=== PATIENT | female | born 1950 | race Caucasian/White ===

== ENCOUNTER 2018-04-08 16:45 | Outpatient (RCR) | payer OTHER, SELFPAY ==
--- NOTE | 2018-04-02 14:32 | PT.OTN ---
Addendum entered and electronically signed by Lavern Ortiz, PT 04/02/18 17:51: Transition note: On March 30, 2018 our therapy services consisting of Speech, Occupational, and Physical Therapy transitioned from the [employer] electronic documentation system to a new [email or web address] electronic documentation system.?? All documentation prior to March 30 can be found under [employer] saved data. From March 30 forward all medical record documentation will be in [email or web address]. Original Note: Current Diagnoses Lesion of sciatic nerve, left lower limb (04/02/18) Other forms of scoliosis, site unspecified (04/02/18) Collapsed vertebra, not elsewhere classified, thoracic region, subsequent encounter for fracture with routine healing (04/02/18) Radiculopathy, lumbar region (04/02/18) Wedge compression fracture of third lumbar vertebra, sequela (04/02/18) Physical Therapy Treatment Note PT-OP-A Visit Information Start: 04/02/18 14:19 Freq: Status: Active Protocol: Activity Type Activity Date Activity User E-Sign Co-Sign Detail Recorded Client Recorded Date Recorded By Document 04/02/18 14:20 DCW [id number] 04/02/18 14:32 DCW 04/02/18 14:20 Out-Patient Physical Therapy Visit Information [Visit Information] -Visit Type Treatment Note -Visit Start Time 13:45 -Visit Stop Time 14:25 -Total Visit Minutes 40 -Visit Number 4 -Number of NAIL FEEDER Visits 0 [Evaluation Information] -Evaluation Date 01/28/18 PT-OP-C Subjective Start: 04/02/18 14:19 Freq: Status: Active Protocol: Activity Type Activity Date Activity User E-Sign Co-Sign Detail Recorded Client Recorded Date Recorded By Document 04/02/18 14:20 DCW [id number] 04/02/18 14:30 DCW 04/02/18 14:20 OP-PT Subjective [Patient Comments] -Patient Comments I'm doing good ...well, I'm doing better. Some days my leg is more numb than others, and today is a good day. -Patient Reported Progress Improving PT-OP-Q Treatments Start: 04/02/18 14:19 Freq: Status: Active Protocol: Activity Type Activity Date Activity User E-Sign Co-Sign Detail Recorded Client Recorded Date Recorded By Document 04/02/18 14:20 DCW [id number] 04/02/18 14:30 [facility] 04/02/18 14:20 Therapeutic Exercises [Supine Exercises] 3 -Supine Exercise Name Houx-ma-Migqx -Side left -Equipment Used 2 2 -Supine Exercise Name Manual Hamstring Stretch -Side left -Equipment Used 2 1 -Supine Exercise Name Piriformis Figure-4 stretch -Side left -Equipment Used 2 [Sidelying Exercises] 3 -Sidelying Exercise Name Hip Abduction -Side left -Reps/Minutes x10 2 -Sidelying Exercise Name Reverse Clam Shells -Side left -Reps/Minutes x10 1 -Sidelying Exercise Name Clam Shells -Side left -Reps/Minutes x10 Manual Therapy Treatment [Soft Tissue Mobilization] 1 -Body Location Piriformis -Mobilization Type Myofascial Release Strumming Sustained Pressure -Intensity/Depth Deep -Body Position Sidelying PT-OP-R Modalities Start: 04/02/18 14:19 Freq: Status: Active Protocol: Activity Type Activity Date Activity User E-Sign Co-Sign Detail Recorded Client Recorded Date Recorded By Document 04/02/18 14:20 [facility] [id number] 04/02/18 14:30 [facility] 04/02/18 14:20 Ultrasound Therapy [Treatment] Posterior Hip -Treatment Duration (minutes) 8 -Patient Position Sidelying -Coupling Medium Ultrasound Gel -Frequency Setting (mHz) 1 -Mode Setting Continuous -Intensity Setting (w/cm2) 1.0 -Patient Tolerance Good PT-OP-T Assessment and Plan Start: 04/02/18 14:19 Freq: Status: Active Protocol: Activity Type Activity Date Activity User E-Sign Co-Sign Detail Recorded Client Recorded Date Recorded By Document 04/02/18 14:20 [facility] [id number] 04/02/18 14:30 [facility] 04/02/18 14:20 Physical Therapy Assessment [Rehab Potential] -Rehabilitation Potential Excellent [Assessment Summary] -Assessment Pt reports less frequent and less severe symptoms in her leg, and notes she has been able to more around with less discomfort . Pt does admit that she always feels much better following her appointments, but acknowledges that she has not been coming regularly enough to take advantage of the benefit. She notes she will try to come more often now. Physical Therapy Plan [Frequency and Duration] -Frequency of Treatment 2x/Week -Plan of Care Start Date 01/28/18 -Plan of Care End Date 04/07/18 [Therapeutic Interventions] -Therapeutic Interventions Home Exercise Program Joint Mobilizations Manual Therapy Neuromuscular Re-education Soft Tissue Mobilization Therapeutic Activities Therapeutic Exercises -Modalities Cold Pack/Ice Massage Electric Stimulation Hot Packs Ultrasound [Next Visit Focus/Plan] -Next Visit Plan Plan to continue piriformis manual and ultrasound treatment, with addition of core strengthening and posture training.
--- NOTE | 2018-04-08 18:00 | PT.OTN ---
Current Diagnoses Lesion of sciatic nerve, left lower limb (04/08/18) Other forms of scoliosis, site unspecified (04/08/18) Collapsed vertebra, not elsewhere classified, thoracic region, subsequent encounter for fracture with routine healing (04/08/18) Radiculopathy, lumbar region (04/08/18) Wedge compression fracture of third lumbar vertebra, sequela (04/08/18) Physical Therapy Treatment Note PT-OP-A Visit Information Start: 04/02/18 14:19 Freq: Status: Active Protocol: Document 04/08/18 16:45 DCW (Rec: 04/08/18 17:54 DCW [id number]) Out-Patient Physical Therapy Visit Information Visit Information Visit Type Progress Note Visit Start Time 16:45 Visit Stop Time 17:15 Total Visit Minutes 30 Visit Number 5 Number of MANAGER MEDIA Visits 0 Evaluation Information Evaluation Date 01/28/18 PT-OP-C Subjective Start: 04/02/18 14:19 Freq: Status: Active Protocol: Document 04/08/18 16:45 DCW (Rec: 04/08/18 17:54 DCW [id number]) OP-PT Subjective Patient Comments Patient Comments Pt notes she is pretty good today, but requests that her appointment end 15 minutes early, as she is going out of town, and needs to leave as soon as possible to make it to [place] in time. Patient Reported Progress Improving PT-OP-F Manual Assessment Start: 04/02/18 14:19 Freq: Status: Active Protocol: Document 04/08/18 16:45 DCW (Rec: 04/08/18 17:58 DCW [id number]) Manual Assessments Soft Tissue Assessment Soft Tissue Mobility Assessment L Erector Spinae and QL tenderness with palpation - 1/ 5, Complaint of pain L Piriformis tenderness with palpation - 3/5, Wincing and Withdrawal PT-OP-J Posture/Palpation/Skin Start: 04/02/18 14:19 Freq: Status: Active Protocol: Document 04/08/18 16:45 DCW (Rec: 04/08/18 17:58 DCW [id number]) Posture Evaluation Position Sitting Head/C-Spine Posture Forward Head Shoulder Posture (L) Rounded (R) Rounded PT-OP-L Special Tests Start: 04/02/18 14:19 Freq: Status: Active Protocol: Document 04/08/18 16:45 DCW (Rec: 04/08/18 17:56 DCW [id number]) Special Tests Lumbar Spine Special Tests Straight Leg Raise Test Results Left Ipsilateral pain at 50 degrees PT-OP-M Strength Start: 04/02/18 14:19 Freq: Status: Active Protocol: Document 04/08/18 16:45 DCW (Rec: 04/08/18 17:56 DCW [id number]) Trunk Strength Trunk Manual Muscle Testing Core Stabilization TrA MMT 4-/5 PT-OP-Q Treatments Start: 04/02/18 14:19 Freq: Status: Active Protocol: Document 04/08/18 16:45 DCW (Rec: 04/08/18 17:54 DCW [id number]) Manual Therapy Treatment Soft Tissue Mobilization 2 Body Location Thoracic Paraspinals Mobilization Type Myofascial Release Sustained Pressure Trigger Point Release Intensity/Depth Moderate Body Position Sidelying 1 Body Location Piriformis Mobilization Type Myofascial Release Strumming Sustained Pressure Intensity/Depth Deep Body Position Sidelying PT-OP-R Modalities Start: 04/02/18 14:19 Freq: Status: Active Protocol: Document 04/08/18 16:45 DCW (Rec: 04/08/18 17:54 DCW [id number]) Ultrasound Therapy Treatment Posterior Hip Treatment Duration (minutes) 8 Patient Position Sidelying Coupling Medium Ultrasound Gel Frequency Setting (mHz) 1 Mode Setting Continuous Intensity Setting (w/cm2) 1.0 Patient Tolerance Good PT-OP-T Assessment and Plan Start: 04/02/18 14:19 Freq: Status: Active Protocol: Document 04/08/18 16:45 DCW (Rec: 04/08/18 17:54 DCW [id number]) Physical Therapy Assessment Rehab Potential Rehabilitation Potential Excellent Goals Four Impairment Rounded Shoulders Short Term Goal (STG) Pt to decrease forward head/ rounded shoulders to WNL Three Impairment Core Weakness Hand Touch Up Painter Goal (LTG) Pt to display 4+/5 MMT in Transverse Abdominals Two Impairment Tenderness to palpation Hand Touch Up Painter Goal (LTG) Pt to report no tenderness to palpation in her left erector spinae, piriformis, and QL LTG Duration 4 weeks One Impairment Pain Short Term Goal (STG) Pt to report being able to lift grandson with no LE numbness STG Duration 2 weeks Hand Touch Up Painter Goal (LTG) Pt to report ability to hike 1 .5 hours without increased pain LTG Duration 4 weeks Progress Towards Goals Progress Towards Goals Progressing Toward Goals Assessment Summary Assessment Due to patient's request for an early release form therapy, planned posture training and core strengthening was not addressed today. Pt did complain of some new thoracic pain, which responded well to STM. Physical Therapy Plan Frequency and Duration Frequency of Treatment 2x/Week Duration of Treatment 8 weeks Plan of Care Start Date 04/08/18 Plan of Care End Date 06/02/18 Therapeutic Interventions Therapeutic Interventions Home Exercise Program Joint Mobilizations Manual Therapy Neuromuscular Re-education Soft Tissue Mobilization Therapeutic Activities Therapeutic Exercises Modalities Cold Pack/Ice Massage Electric Stimulation Hot Packs Ultrasound Next Visit Focus/Plan Next Visit Plan Plan to continue piriformis manual and ultrasound treatment, with addition of core strengthening and posture training.
--- NOTE | 2018-04-09 08:31 | PT.OPPOC ---
Current Diagnoses Lesion of sciatic nerve, left lower limb (04/08/18) Other forms of scoliosis, site unspecified (04/08/18) Collapsed vertebra, not elsewhere classified, thoracic region, subsequent encounter for fracture with routine healing (04/08/18) Radiculopathy, lumbar region (04/08/18) Wedge compression fracture of third lumbar vertebra, sequela (04/08/18) Provider Visit Care Team Role Provider Type Jenni Miller MD Attending Provider Physician Family Provider Primary Care Provider Specialty: Family Practice Address: [address] [place] [address] Email: [email or web address] Plan Of Care PT-OP-T Assessment and Plan Start: 04/02/18 14:19 Freq: Status: Active Protocol: Document 04/08/18 16:45 DCW (Rec: 04/08/18 17:54 DCW [id number]) Physical Therapy Assessment Rehab Potential Rehabilitation Potential Excellent Goals Four Impairment Rounded Shoulders Short Term Goal (STG) Pt to decrease forward head/ rounded shoulders to WNL Three Impairment Core Weakness Publicity Writer Goal (LTG) Pt to display 4+/5 MMT in Transverse Abdominals Two Impairment Tenderness to palpation Publicity Writer Goal (LTG) Pt to report no tenderness to palpation in her left erector spinae, piriformis, and QL LTG Duration 4 weeks One Impairment Pain Short Term Goal (STG) Pt to report being able to lift grandson with no LE numbness STG Duration 2 weeks Publicity Writer Goal (LTG) Pt to report ability to hike 1 .5 hours without increased pain LTG Duration 4 weeks Progress Towards Goals Progress Towards Goals Progressing Toward Goals Assessment Summary Assessment Due to patient's request for an early release form therapy, planned posture training and core strengthening was not addressed today. Pt did complain of some new thoracic pain, which responded well to STM. Physical Therapy Plan Frequency and Duration Frequency of Treatment 2x/Week Duration of Treatment 8 weeks Plan of Care Start Date 04/08/18 Plan of Care End Date 06/02/18 Therapeutic Interventions Therapeutic Interventions Home Exercise Program Joint Mobilizations Manual Therapy Neuromuscular Re-education Soft Tissue Mobilization Therapeutic Activities Therapeutic Exercises Modalities Cold Pack/Ice Massage Electric Stimulation Hot Packs Ultrasound Next Visit Focus/Plan Next Visit Plan Plan to continue piriformis manual and ultrasound treatment, with addition of core strengthening and posture training. Plan of Care Dates Plan of Care Start Date 04/08/18 Plan of Care End Date 06/02/18 Please Sign and Return: I have reviewed this Plan of Care and certify that the skilled therapy services above are required to meet the patient???s needs. Physician Signature Date Printed Name and Credentials
--- NOTE | 2018-06-03 12:35 | PT.OPDS ---
Current Diagnoses Lesion of sciatic nerve, left lower limb (04/08/18) Other forms of scoliosis, site unspecified (04/08/18) Collapsed vertebra, not elsewhere classified, thoracic region, subsequent encounter for fracture with routine healing (04/08/18) Radiculopathy, lumbar region (04/08/18) Wedge compression fracture of third lumbar vertebra, sequela (04/08/18) Provider Visit Care Team Role Provider Type Jenni Miller MD Attending Provider Physician Family Provider Primary Care Provider Specialty: [facility] Practice Address: [address] [place] [address] Email: [email or web address] Visit Number Visit Number 5 Discharge Summary PT-OP-F Manual Assessment Start: 04/02/18 14:19 Freq: Status: Active Protocol: Document 04/08/18 16:45 DCW (Rec: 04/08/18 17:58 DCW [id number]) Manual Assessments Soft Tissue Assessment Soft Tissue Mobility Assessment L Erector Spinae and QL tenderness with palpation - 1/ 5, Complaint of pain L Piriformis tenderness with palpation - 3/5, Wincing and Withdrawl PT-OP-J Posture/Palpation/Skin Start: 04/02/18 14:19 Freq: Status: Active Protocol: Document 04/08/18 16:45 DCW (Rec: 04/08/18 17:58 DCW [id number]) Posture Evaluation Position Sitting Head/C-Spine Posture Forward Head Shoulder Posture (L) Rounded (R) Rounded PT-OP-L Special Tests Start: 04/02/18 14:19 Freq: Status: Active Protocol: Document 04/08/18 16:45 DCW (Rec: 04/08/18 17:56 DCW [id number]) Special Tests Lumbar Spine Special Tests Straight Leg Raise Test Results Left Ipsilateral pain at 50 degrees PT-OP-M Strength Start: 04/02/18 14:19 Freq: Status: Active Protocol: Document 04/08/18 16:45 DCW (Rec: 04/08/18 17:56 DCW [id number]) Trunk Strength Trunk Manual Muscle Testing Core Stabilization TrA MMT 4-/5 PT-OP-T Assessment and Plan Start: 04/02/18 14:19 Freq: Status: Active Protocol: Document 06/03/18 12:31 DCW (Rec: 06/03/18 12:35 DCW [id number]) Physical Therapy Assessment Goals Four Impairment Rounded Shoulders Short Term Goal (STG) Pt to decrease forward head/ rounded shoulders to WNL Three Impairment Core Weakness Poultry Breeder Goal (LTG) Pt to display 4+/5 MMT in Transverse Abdominals Two Impairment Tenderness to palpation Poultry Breeder Goal (LTG) Pt to report no tenderness to palpation in her left erector spinae, piriformis, and QL LTG Duration 4 weeks One Impairment Pain Short Term Goal (STG) Pt to report being able to lift grandson with no LE numbness STG Duration 2 weeks Poultry Breeder Goal (LTG) Pt to report ability to hike 1 .5 hours without increased pain LTG Duration 4 weeks Progress Towards Goals Progress Towards Goals Progressing Toward Goals Assessment Summary Assessment Pt did not schedule any follow -up visits following her last scheduled appointment, and has now not been seen in therapy in 55 days. Pt will require a new referral in order to return to PT, and will be discharged from skilled therapy at this time. G-codes: Goal: G8982 - CI 1-20% D/C: G8983 - C1 1-20%
== END 2018-08-18 14:10 ==
LOC: PHYS 16:45
PROVIDERS: Family Provider Family Medicine; PCP Family Medicine; Visit Provider Family Medicine
DX: M54.16 Radiculopathy, lumbar region (principal); M48.54XD Collapsed vertebra, not elsewhere classified, thoracic region, subsequent encounter for fracture with routine healing; S32.030S Wedge compression fracture of third lumbar vertebra, sequela; M41.80 Other forms of scoliosis, site unspecified; G57.02 Lesion of sciatic nerve, left lower limb
CPT/HCPCS: 97035; 97110; 97140

== ENCOUNTER → 2018-05-14 14:57 | Outpatient (CLI) | payer OTHER, SELFPAY ==
[2018-05-14 15:26] LABS: Add Manual Diff / Slide Review NO; Basophils Percent Auto 0.8 % (0-2); Eosinophils Percent Auto 1.8 % (2-4); Hematocrit 36.4 % (36-46); Hemoglobin 12.3 g/dL (12.0-16.0); Lymphocytes Percent Auto 28.4 % (25-40); Mean Corpuscular HGB Conc 33.9 % (30-36); Mean Corpuscular Volume 88.5 fL (80-100); Monocytes Percent Auto 6.8 % (3-14); Neutrophils Absolute Auto 3700 /uL (3000-5900); Neutrophils Percent Auto 62.2 % (50-75); Platelet Count 310 X10^3/uL (150-400); Red Blood Cell Count 4.12 X10^6/uL (4.0-5.2); Red Cell Distribution Width 12.9 % (11.6-14.8); White Blood Cell Count 5.9 X10^3/uL (4.5-11.0)
== END ==
PROVIDERS: Family Provider Family Medicine; PCP Family Medicine; Visit Provider Specialist
DX: Z01.818 Encounter for other preprocedural examination (principal)
CPT/HCPCS: 36415; 85025

== ENCOUNTER 2018-05-18 15:10 | Observation (INO) | payer OTHER, SELFPAY ==
[2018-05-11 09:49] VITALS: BMI 30.4
[2018-05-17] VITALS (13 sets, daily range): BP systolic 138–174; BP diastolic 62–97; PULSE 58–94; RESP 10–18; TEMP 36.1–37.5; O2SAT 92–99; BMI 30.4
--- NOTE | 2018-05-17 | PATH_ITS ---
[facility] Accession Number: [id number] . 01 Material submitted: . UTERUS AND CERVIX . 02 Diagnosis: Uterus and Cervix, Hysterectomy Not Otherwise Specified (Weight 423 grams): Cervix and endocervix with prominent Nabothian gland cysts; negative for squamous and glandular dysplasia and malignancy. Weakly proliferative endometrium with focal cystic atrophy; negative for glandular hyperplasia, cytologic atypia, and malignancy. Myometrium with one intramural leiomyoma (9 mm in greatest dimension). Uterine serosa with no diagnostic abnormality. 05/20/2018 . 02 Electronically signed: . Natalia Harrell MD, Pathologist NPI- [id number] . 01 Gross description: . Received in formalin, labeled uterus + cervix, is a uterus (423 g, 3.3 cm AP, 8.5 cm SI, 3.9 cm ML). The ovaries and fallopian tubes are absent. The cervix (1.3 cm AP, 2.3 cm ML) has a vaginal cuff (up to 1.7 cm in depth), transverse os, and patent endocervical canal. The endometrium (average thickness - 0.1 cm) is feliciano-pink, smooth, and flat. The myometrium (thickness - 1.5 cm) is feliciano-white and contains a solid, firm, white, whorled, well-circumscribed nodule (0.9 x 0.6 x 0.5 cm). The serosa is feliciano, smooth, and shiny. Section code: (A1) anterior cervix; (A2) posterior cervix; (A3, A4) anterior endomyometrium; (A5, A6) posterior endomyometrium. ([id number]) /FRR . 02 Pathologist provided ICD-10: N85.00 . 02 CPT . [id number] Performed at: 01 [facility] [address] [place] [address], [place], [place] [id number] MD Allan Carmona MD Phone: [phone] Performed at: 02 [facility] [place] [address] [place], [place] [id number] MD Sudheer Hall MD Phone: [phone]
[2018-05-17] MEDS: LACTATED RINGERS 1,000 ML 42 ML IV ×2 (12:49→15:11)
--- NOTE | 2018-05-17 13:00 | PM.PREOP ---
Pre-operative Note Interval Note Pre-op Check: History & Physical Reviewed by Physician and Exam Performed
[2018-05-17] MEDS: CEFAZOLIN 2 GM/100 ML FROZ.PIGGY IV (13:09)
--- NOTE | 2018-05-17 13:36 | SUR.OPER ---
Lithotomy on padded OR bed, head on pillow, arms secured on padded arm boards at <90 degrees abduction. Legs secured in padded yellow fins stirrups.
[2018-05-17] MEDS: BUPIVACAINE 0.5% W/ EPI (PF) 30 ML VIAL INJ (13:53)
[2018-05-17] MEDS: SODIUM CHLORIDE 0.9% 50 ML INJ (14:15)
--- NOTE | 2018-05-17 15:18 | P.OP_ITS ---
Operative Date/Time/Diagnoses - Date of procedure: 05/17/18 Time of procedure: 15:17 Pre-op diagnosis: Symptomatic uterovaginal prolapse Post-op diagnosis: same Procedure & Clinicians Procedure: Total vaginal hysterectomy, anterior repair, sacral spinous ligament fixation. Same procedure as scheduled: Yes Indications: Symptomatic uterovaginal prolapse Surgeon: Mitzi Welsh Gasser Machine Operator: Jenni Miller Anesthesia Type: General Operative Notes Findings: Small uterus with minimal prolapse with large cystocele no rectocele. Ovaries palpate normal. Closure Type: primary Specimen(s): other (Uterus) Applied: catheter and other (Vaginal packing) Estimated Blood Loss (mL): 75 Blood products transfused: none Procedure in detail: Patient was brought to the operating room where she was placed in yellowfin stirrups and prepped and draped in the usual sterile fashion. A 20 point check system was reviewed prior to the beginning of the case. Pulsatile stockings were in place and functional throughout the case. Warming was in place. Antibiotics were and prior to beginning of the case. A Meier catheter was placed. A single-tooth tenaculum was placed on the posterior lip of the cervix and a colpotomy incision was made. The peritoneum was sutured to the posterior vaginal wall. The uterosacral ligaments were clamped cut and ligated with 0 Polysorb suture which was used throughout the rest the case unless otherwise indicated. Bites were taken of the cardinal ligament and cut and ligated. A scalpel was used to circumscribe the cervix and the bladder pushed superiorly. The bladder pillars were clamped cut and ligated. Keeping the bladder pushed superiorly sequential bites were taken of the cardinal and broad ligaments and ligated.. Anterior colpotomy incision was made and the bladder held away from the uterus. The rest of the attachments of the uterus including the broad ligament and the utero-ovarian ligaments were clamped and ligated with with 0 Vicryl suture. The uterus was removed intact. Adequate hemostasis was noted. A dilute solution of 1% lidocaine with epinephrine was injected over this cystocele. An incision was made over the cystocele and the incision dissected laterally. A pursestring suture was used to decrease the caliber of the cystocele with 2-0 Polysorb suture. Plicating sutures were made over the cystocele with 0 followed by 2 0 Polysorb suture. The incision was closed with 2 -0 Polysorb suture. The vaginal cuff was closed with [id number] sutures of 0 Polysorb suture. The area over the posterior wall incision was injected with a dilute solution of 1% lidocaine with epinephrine. An incision was made with the scalpel. The dissection was undertaken laterally. Prolene suture with the Capio passer was placed through the uterosacral ligament on the right side and sutured to the underside of the vaginal cuff. A finger was placed in the rectum to be sure there were no sutures placed through the rectal mucosa. The uterosacral suture was tightened down and the vaginal incision was closed with 2-0 Polysorb suture. Vaginal packing was placed in the vagina and the Meier left in place. Counts of instruments and sponges were correct. The patient went to recovery room in good condition. Complications: none Condition: stable Disposition: Acute Care Plan for aftercare: Removal of Meier catheter and vaginal packing tomorrow morning. Checking for postvoid residual prior to discharge.
--- NOTE | 2018-05-17 15:35 | SUR.PHASEI ---
Pt denied pain but reported mild cramping. Declined pain med. C/o need to void. Catheter checked and repositioned, draining clear, yellow urine without difficulty.
--- NOTE | 2018-05-17 15:49 | SUR.PHASEI ---
Pt declined pain medication. Warm blanket applied to abdomen. Pt reported pain improved a little bit.
--- NOTE | 2018-05-17 16:11 | SUR.PHASEI ---
Report given to ROCAEL Ricardo. VS stable. Meier draining clear, light yellow urine. Small amt of pink drainage to karla-pad, pad changed. Pt tolerated ice chips.
[2018-05-17] MEDS: LACTATED RINGERS 1,000 ML 100 ML IV (16:32)
--- NOTE | 2018-05-17 17:03 | PC.NURSE ---
Admit note: 1630 admitted to from PACU accompanied by ROCAEL Banegas. Patient awake and alert, VSS, F/C secure to right leg and draining to gravity. No c/o nausea, c/o cramping lower abdominal pain, intermittent, declines pain medication, prefers warm compress to area. Changed feminine padding from PACU with pinlk tinged clear fluid. Vaginal packing visible, with no abnormal drainage or bleeding. Call light within reach, oriented to room and environment.
[2018-05-17] MEDS: KETOROLAC 30 MG/ML VIAL IV (17:26)
[2018-05-17] MEDS: HYDROCODONE/ACET 5/325 TABLET 2 TAB PO (21:26)
[2018-05-18] VITALS (8 sets, daily range): BP systolic 150–165; BP diastolic 76–92; PULSE 17–87; RESP 16–17; TEMP 36.6–37.5; O2SAT 94–100
[2018-05-18] MEDS: LACTATED RINGERS 1,000 ML 100 ML IV ×2 (02:08→13:22)
--- NOTE | 2018-05-18 04:50 | PC.NURSE ---
Addendum entered by Gina Garcia R.N. 05/18/18 06:47: At 0615 Meier and packing DC'd per orders. Pt given PRN Toradol given prior to Meier removal, pt states that she is currently having no pain. Pt reported a wave of nausea at 0600 stating that it had come on quickly but had passed. At 0640 pt had another wave of nausea with approx 100cc bile emesis. PRN Zofran given at this time. Original Note: NOC Note: Pt denied pain during assessment. IVF running as ordered. Scant drainage to karla pad, Meier cath patent draining clear yellow urine. Pt is independent with bed mobility.
[2018-05-18 05:48] LABS: Add Manual Diff / Slide Review NO; Basophils Percent Auto 0.2 % (0-2); Eosinophils Percent Auto 0.1 % (2-4); Hematocrit 35.5 % (36-46); Hemoglobin 11.9 g/dL (12.0-16.0); Lymphocytes Percent Auto 14.8 % (25-40); Mean Corpuscular HGB Conc 33.5 % (30-36); Mean Corpuscular Hemoglobin 29.6 PG (26-34); Mean Corpuscular Volume 88.2 fL (80-100); Monocytes Percent Auto 6.4 % (3-14); Neutrophils Absolute Auto 6800 /uL (3000-5900); Neutrophils Percent Auto 78.5 % (50-75); Platelet Count 293 X10^3/uL (150-400); Red Blood Cell Count 4.02 X10^6/uL (4.0-5.2); Red Cell Distribution Width 12.6 % (11.6-14.8); White Blood Cell Count 8.6 X10^3/uL (4.5-11.0)
[2018-05-18] MEDS: LEVOTHYROXINE 100 MCG TABLET PO (05:55)
[2018-05-18] MEDS: KETOROLAC 30 MG/ML VIAL IV ×2 (05:55→16:33)
[2018-05-18] MEDS: ONDANSETRON 4 MG/2 ML INJ IV (06:41)
[2018-05-18] MEDS: METOCLOPRAMIDE HCL 10 MG TABLET PO (09:48)
--- NOTE | 2018-05-18 12:14 | CM.DANOTE ---
DCP/Assessment: Reviewed chart. Patient is a 67yr old female admitted outpatient w/bed for hysterectomy. PCP is Dr. Miller. Admitting MD/surgeon is Dr. Welsh. Primary payor is [facility]. Met with patient explained CM/SW role. Patient alert and oriented during visit but currently with n/v. Patient reports that her plan is to return home when medically stable. Patient resides with family in [place]. At this time patient does not anticipate any d/c planning needs. Patient I in ADL's at baseline. P: Home when stable. D/C date unknown. EDDI [place]
--- NOTE | 2018-05-18 14:06 | PC.NURSE ---
day shift pt denied pain this shift. denied nausea at start of shift. ate about 50% of her breakfast and then vomited it back up. medicated with PO reglan. pt states she felt better after emesis and medication. ate a small amount of lunch, soup, which unfortunately she also vomited back up. Declines medication, will try to premedicate prior to eating dinner or snack later. able to urinate without issue. PVR was about 20 mlx2. IVF continue to infuse as pt is not tolerating diet. MD plans to check back later this afternoon about pt's progress.
--- NOTE | 2018-05-18 15:05 | PM.DS.1 ---
History of Present Illness Date Patient Seen: 05/18/18 Time Patient Seen: 15:06 Chief complaint: [id number] [id number] W/ANT REPAIR & FIXATION Narrative: Patient is status post vaginal hysterectomy with anterior repair and sacrospinous ligament fixation on 05/16/2018 for uterovaginal prolapse with large cystocele. Discharge Providers Primary care physician: Jenni Miller MD Discharge provider: Mitzi Welsh MD Summary Discharge Diagnosis: Status post vaginal hysterectomy with anterior repair and sacrospinous ligament fixation for partial uterovaginal prolapse cystocele predominant Hospital Course: Patient had no pain postoperative. She passed her bladder trial. She was passing gas and ambulatory. Her vital signs and hematocrit were stable. She did have difficulty with emesis with meals of unclear etiology but likely reaction to medication. Status at Discharge Functional status at discharge: independent ambulation Overall status at discharge: patient is progressing back to baseline Time Spent with Patient Less than 30 minutes Exam Vital Signs (past 8 hours): Vital Signs - 8 hr 05/18/18 08:00 05/18/18 09:35 05/18/18 12:00 Temperature 97.8 F 98.6 F Pulse Rate 83 81 Respiratory Rate 16 16 Blood Pressure 150/85 H 165/83 H Pulse Oximetry 100 100 99 05/18/18 13:00 Temperature Pulse Rate Respiratory Rate Blood Pressure Pulse Oximetry 99 Pulse Oximetry 99 Oxygen Delivery Method Room Air Narrative Exam Narrative: Patient's abdomen is soft, nontender. She has minimal vaginal bleeding. Extremities without edema and nontender. Objective Labs Result Diagrams: 05/18/18 05:23 Labs: Laboratory Results - last 24 hr 05/18/18 05:23 WBC 8.6 RBC 4.02 Hgb 11.9 L Hct 35.5 L MCV 88.2 MCH 29.6 MCHC 33.5 RDW 12.6 Plt Count 293 Neut % (Auto) 78.5 H Lymph % (Auto) 14.8 L [place] % (Auto) 6.4 Eos % (Auto) 0.1 L Baso % (Auto) 0.2 Neut # (Auto) 6800 H Discharge Plan Discharge Plan Patient Disposition: Home, Self-Care Discharge comment: Home if able to keep down dinner Discharge Med Rec/Prescriptions Prescriptions: New ondansetron 4 mg Tablet,Disintegrating 8 mg PO Q6HR PRN (Reason: Nausea) Qty: 12 RF: 0 Continue sertraline [Zoloft] 25 MG tablet 25 mg PO QDAY Qty: 30 RF: 12 levothyroxine 100 MCG tablet 100 mcg PO QAM Qty: 90 RF: 3 oxycodone-acetaminophen 5-325 mg tablet 2 tab PO Q4H PRN (Reason: pain) Qty: 30 RF: 0 naproxen sodium [Aleve] 220 mg Capsule 220 mg PO Q12H PRN (Reason: Pain (Scale Score 1-3)) RF: 0 Follow up/Referrals: Jenni Miller MD [Primary Care Provider] - Mitzi Welsh MD [Physician] - As previously scheduled (has apt 05/28/18 at 16:15) Discharge Orders: Discharge (Order); Ordered 05/18/18 Ordered By: Mitzi Welsh Provider Discharge Instructions Diet: Regular Wound Care Report to your healthcare provider any signs of infection, such as:: chills, fever and increased pain Visit Report/Discharge Packet Stand Alone Forms: Surgery Discharge Discharge Data Primary Care Provider: Jenni Miller Attending Provider: Mitzi Welsh
--- NOTE | 2018-05-18 15:09 | P.DS_ITS ---
History of Present Illness Date Patient Seen: 05/18/18 Time Patient Seen: 15:06 Chief complaint: [id number] TVH W/ANT REPAIR & FIXATION Narrative: Patient is status post vaginal hysterectomy with anterior repair and sacrospinous ligament fixation on 05/16/2018 for uterovaginal prolapse with large cystocele. Discharge Providers Primary care physician: Jenni Miller MD Discharge provider: Mitzi Welsh MD Summary Discharge Diagnosis: Status post vaginal hysterectomy with anterior repair and sacrospinous ligament fixation for partial uterovaginal prolapse cystocele predominant Hospital Course: Patient had no pain postoperative. She passed her bladder trial. She was passing gas and ambulatory. Her vital signs and hematocrit were stable. She did have difficulty with emesis with meals of unclear etiology but likely reaction to medication. Status at Discharge Functional status at discharge: independent ambulation Overall status at discharge: patient is progressing back to baseline Time Spent with Patient Less than 30 minutes Exam Vital Signs (past 8 hours): Vital Signs - 8 hr 3 05/18/18 08:00 05/18/18 09:35 05/18/18 12:00 Temperature 97.8 F 98.6 F Pulse Rate 83 81 Respiratory Rate 16 16 Blood Pressure 150/85 H 165/83 H Pulse Oximetry 100 100 99 3 05/18/18 13:00 Temperature Pulse Rate Respiratory Rate Blood Pressure Pulse Oximetry 99 Pulse Oximetry 99 Oxygen Delivery Method Room Air Narrative Exam Narrative: Patient's abdomen is soft, nontender. She has minimal vaginal bleeding. Extremities without edema and nontender. Objective Labs Result Diagrams: 05/18/18 05:23 Labs: Laboratory Results - last 24 hr 05/18/18 05:23 WBC 8.6 RBC 4.02 Hgb 11.9 L Hct 35.5 L MCV 88.2 MCH 29.6 MCHC 33.5 RDW 12.6 Plt Count 293 Neut % (Auto) 78.5 H Lymph % (Auto) 14.8 L [place] % (Auto) 6.4 Eos % (Auto) 0.1 L Baso % (Auto) 0.2 Neut # (Auto) 6800 H Discharge Plan Discharge Plan Patient Disposition: Home, Self-Care Discharge comment: Home if able to keep down dinner Discharge Med Rec/Prescriptions Prescriptions: New ondansetron 4 mg Tablet,Disintegrating 8 mg PO Q6HR PRN (Reason: Nausea) Qty: 12 RF: 0 Continue sertraline [Zoloft] 25 MG tablet 25 mg PO QDAY Qty: 30 RF: 12 levothyroxine 100 MCG tablet 100 mcg PO QAM Qty: 90 RF: 3 oxycodone-acetaminophen 5-325 mg tablet 2 tab PO Q4H PRN (Reason: pain) Qty: 30 RF: 0 naproxen sodium [Aleve] 220 mg Capsule 220 mg PO Q12H PRN (Reason: Pain (Scale Score 1-3)) RF: 0 Follow up/Referrals: Jenni Miller MD [Primary Care Provider] - Mitzi Welsh MD [Physician] - As previously scheduled (has apt 05/28/18 at 16: 15) Discharge Orders: Discharge (Order); Ordered 05/18/18 Ordered By: Mitzi Welsh Provider Discharge Instructions Diet: Regular Wound Care Report to your healthcare provider any signs of infection, such as:: chills, fever and increased pain Visit Report/Discharge Packet Stand Alone Forms: Surgery Discharge Discharge Data Primary Care Provider: Jenni Miller Attending Provider: Mitzi Welsh
[2018-05-18] MEDS: ONDANSETRON 4 MG ODT 8 MG PO (16:32)
== END 2018-05-18 18:10 | disposition home or self-care (01) ==
LOC: OR 17:11
PROVIDERS: Admitting Provider Specialist; PCP Family Medicine; Visit Provider Specialist
PROC: (CPT 58260; principal; 2018-05-17 13:00)
PROC: (CPT 58260; 2018-05-17 13:00)
DX: N81.4 Uterovaginal prolapse, unspecified (principal); F41.9 Anxiety disorder, unspecified; E03.9 Hypothyroidism, unspecified
CPT/HCPCS: 58260; 57240; 36415; 57282; 85025; G0378; J0690; J1100; J1885; J2405; J2704

== ENCOUNTER → 2018-11-11 16:07 | Outpatient (CLI) | payer OTHER, SELFPAY ==
[2018-09-17 15:09] VITALS: BMI 30.4
--- NOTE | 2018-11-11 16:10 | DI.RAD.S_ITS ---
PROCEDURE: XR KNEE LT 3V INDICATIONS: L knee pain TECHNIQUE: 3 views of the knee were acquired. COMPARISON: None. FINDINGS: Bones: Moderate tricompartment osteoarthritis is seen more prominent in the medial femorotibial compartment. No fractures or dislocations. No significant patellar subluxation. No suspicious bony lesions. Soft tissues: No joint effusion. No suspicious soft tissue calcifications. IMPRESSION: Moderate tricompartment osteoarthritis more prominent in medial femorotibial compartment. Dictated by: Andre Peña M.D. on 11/11/2018 at 16:46 Approved by: Andre Peña M.D. on 11/11/2018 at 16:51
== END ==
PROVIDERS: PCP Family Medicine; Visit Provider Family Medicine
DX: M25.562 Pain in left knee (principal); M17.12 Unilateral primary osteoarthritis, left knee; E03.9 Hypothyroidism, unspecified; E55.9 Vitamin D deficiency, unspecified; I10 Essential (primary) hypertension; M41.80 Other forms of scoliosis, site unspecified; S32.030S Wedge compression fracture of third lumbar vertebra, sequela; Z78.0 Asymptomatic menopausal state
CPT/HCPCS: 73562

== ENCOUNTER → 2018-11-12 07:23 | Outpatient (CLI) | payer OTHER, SELFPAY ==
[2018-09-17 15:09] VITALS: BMI 30.4
[2018-11-12 08:56] LABS: Add Manual Diff / Slide Review NO; Eosinophils Percent Auto 2.9 % (2-4); Hematocrit 35.9 % (36-46); Hemoglobin 12.2 g/dL (12.0-16.0); Lymphocytes Percent Auto 39.8 % (25-40); Mean Corpuscular Hemoglobin 29.9 PG (26-34); Mean Corpuscular Volume 87.8 fL (80-100); Monocytes Percent Auto 8.3 % (3-14); Neutrophils Absolute Auto 1800 /uL (1500-7000); Platelet Count 296 X10^3/uL (150-400); Red Blood Cell Count 4.09 X10^6/uL (4.0-5.2); Red Cell Distribution Width 12.9 % (11.6-14.8); White Blood Cell Count 3.8 X10^3/uL (4.5-11.0)
[2018-11-12 09:35] LABS: Alanine Aminotransferase 25 IU/L (9-52); Albumin 4.1 g/dL (3.5-5.0); Albumin Globulin Ratio 1.5 (1.0-2.8); Alkaline Phosphatase 57 U/L (38-126); Aspartate Aminotransferase 20 IU/L (14-36); Bilirubin Total 0.5 mg/dL (0.2-1.3); Blood Urea Nitrogen 13 mg/dL (7-17); Calcium 9.4 mg/dL (8.4-10.2); Carbon Dioxide 28 mmol/L (22-32); Chloride 105 mmol/L (98-107); Cholesterol 185 mg/dL (140-199); Estimated Glomerular Filt Rate > 60.0 mL/min (>60); Globulin 2.7 g/dL (1.7-4.1); Glucose 88 mg/dL (80-110); HDL Cholesterol 50 mg/dL (40-60); HEMOLYSIS < 15 (0-50); LDL Cholesterol Calculated 113 mg/dL (<100); Potassium 4.2 mmol/L (3.4-5.1); Sodium 142 mmol/L (137-145); Total Protein 6.8 g/dL (6.3-8.2); Triglycerides 111 mg/dL (35-150)
[2018-11-12 09:41] LABS: Vitamin D 25 Hydroxy (D3) 35.6 ng/mL (30.0-100.0)
[2018-11-12 09:56] LABS: Thyroid Stimulating Hormone 0.15 uIU/mL (0.47-4.68)
== END ==
PROVIDERS: PCP Family Medicine; Visit Provider Family Medicine
DX: E03.9 Hypothyroidism, unspecified (principal); E55.9 Vitamin D deficiency, unspecified; E78.5 Hyperlipidemia, unspecified; I10 Essential (primary) hypertension; M41.80 Other forms of scoliosis, site unspecified; S32.030S Wedge compression fracture of third lumbar vertebra, sequela; Z78.0 Asymptomatic menopausal state
CPT/HCPCS: 36415; 80053; 80061; 82306; 84443; 85025

== ENCOUNTER → 2018-12-31 10:04 | Outpatient (CLI) | payer MEDICARE, SELFPAY ==
[2018-09-17 15:09] VITALS: BMI 30.4
[2018-12-31 11:25] LABS: Appearance Urine UA CLEAR; Bilirubin Urine UA NEGATIVE (NEGATIVE); Color Urine UA YELLOW; Glucose Urine UA NEGATIVE (Negative); Ketones Urine UA NEGATIVE (NEGATIVE); Leukocyte Esterase Urine UA TRACE (NEGATIVE); Nitrite Urine UA NEGATIVE (Negative); Occult Blood Urine UA 3+ (Negative); Protein Urine UA NEGATIVE (Negative); Urobilinogen Urine UA 0.2 E.U./dL (0.2); pH Urine UA 5.5 (4.5-8.0)
[2018-12-31 12:13] LABS: Bacteria Urine Many (>30); RBC Urine 1-5/HPF (0-5/HPF); WBC Urine 1-5/HPF (0-5/HPF)
[2018-12-31 12:14] LABS: Culture Indicated Urine Cult Not Indicated
== END ==
PROVIDERS: PCP Family Medicine; Visit Provider Family Medicine
DX: R39.9 Unspecified symptoms and signs involving the genitourinary system (principal)
CPT/HCPCS: 81001; 87077; 87086; 87186

== ENCOUNTER → 2019-04-29 08:36 | Outpatient (CLI) | payer MEDICARE, SELFPAY ==
[2018-09-17 15:09] VITALS: BMI 30.4
--- NOTE | 2019-04-29 08:37 | DI.MG.S_ITS ---
BILATERAL DIGITAL DIAGNOSTIC MAMMOGRAM 3D/2D: 04/29/2019 CLINICAL: Left breast pain and rash. Per technologist interview with patient: Left breast diffuse pain. Noted by the pt intially one month ago, Radiated from the axilla to the superior part of the left breast. Described as 'achy and off/on' Since the CBE, the pain has decreased. There are no lumps/discharge or skin changes noted by the pt. Pt has off/on rash in the inframmary area for several months. She uses a cortisone cream, resolves then comes back. She has some red skin noticed today.. Comparison is made to exams dated: 02/08/2016 mammogram, 12/15/2014 mammogram, and 10/13/2008 mammogram - [facility]. There are scattered fibroglandular elements in both breasts. There is no underlying mammographic abnormality to correlate with patient's reported diffuse pain of the left axilla and superior left breast. There is no underlying mammographic abnormality to correlate with patient's reported rash along the left breast inframammary fold. No significant masses, calcifications, or other findings are seen in either breast. There is a circular mole marker overlying the left breast. IMPRESSION: INCOMPLETE: NEEDS ADDITIONAL IMAGING EVALUATION 1) There is no underlying mammographic abnormality to correlate with patient's reported diffuse pain of the left axilla and superior left breast. Targeted diagnostic ultrasound recommended for further evaluation, which will be performed immediately following this exam. 2) There is no underlying mammographic abnormality to correlate with patient's reported rash along the left breast inframammary fold. Targeted diagnostic ultrasound recommended for further evaluation, which will be performed immediately following this exam. This exam was interpreted at Station ID: [id number]. NOTE: For mammograms, a report in lay terms will be sent to the patient. Approximately 15% of breast malignancies will not be visualized mammographically. In the management of a palpable breast mass, a negative mammogram must not discourage biopsy of a clinically suspicious lesion. Electronically Signed By: Sarmad Mayfield M.D. ecl/:04/29/2019 11:49:07 ACR BI-RADS Category 0: Incomplete [id number]
--- NOTE | 2019-04-29 08:37 | DI.US.S_ITS ---
LIMITED ULTRASOUND OF LEFT BREAST AND AXILLA: 04/29/2019 CLINICAL: Diffuse upper left breast and left axillary pain. Left inframammary fold rash. Comparison is made to exams dated: 04/29/2019 mammogram, 02/08/2016 mammogram, 12/15/2014 mammogram, and 10/13/2008 mammogram - [facility]. Real-time and Doppler ultrasound of the left breast upper aspect and axilla regions were performed, as well as of the left inframammary fold region in the area of the patient's reported rash. Zhang scale images of the real-time examination were reviewed. Targeted ultrasound was performed in the region of the patient's reported diffuse upper left breast and left axillary pain. No underlying breast mass or abnormality is identified. Targeted ultrasound was performed in the region of the patient's reported left inframammary fold rash. No underlying breast mass or abnormality is identified. IMPRESSION: NEGATIVE 1) No ultrasound findings to explain patient's reported diffuse upper left breast and left axillary pain. Recommend clinical follow-up for further evaluation and management of the patient's reported symptoms. 2) No ultrasound evidence of a suspicious mass or abnormality underlying the region of the patient's reported left inframammary fold rash. Recommend clinical follow-up for further evaluation and management of the patient's reported symptoms. 3) There is no sonographic evidence of malignancy in the imaged areas of the left breast. Return to annual screening mammography is recommended. The patient is advised to monitor her breasts and to return sooner for re-evaluation should she feel anything grow or change. This exam was interpreted at Station ID: [id number]. Electronically Signed By: Sarmad Mayfield M.D. ecl/:04/29/2019 11:48:33 letter sent: Clinical Evaluation Ultrasound BI-RADS: 1 Negative
== END ==
PROVIDERS: PCP Family Medicine; Visit Provider Registered Nurse
DX: R92.8 Other abnormal and inconclusive findings on diagnostic imaging of breast (principal); N64.4 Mastodynia; R21 Rash and other nonspecific skin eruption
CPT/HCPCS: 76642; 77066; G0279

== ENCOUNTER → 2019-05-10 11:38 | Outpatient (CLI) | payer MEDICARE, SELFPAY ==
[2018-09-17 15:09] VITALS: BMI 30.4
[2019-05-10 12:50] LABS: Appearance Urine UA SL CLOUDY; Bilirubin Urine UA NEGATIVE (NEGATIVE); Color Urine UA YELLOW; Glucose Urine UA NEGATIVE (Negative); Ketones Urine UA NEGATIVE (NEGATIVE); Leukocyte Esterase Urine UA 2+ (NEGATIVE); Nitrite Urine UA NEGATIVE (Negative); Occult Blood Urine UA 1+ (Negative); Protein Urine UA NEGATIVE (Negative); Urobilinogen Urine UA 0.2 E.U./dL (0.2); pH Urine UA 5.5 (4.5-8.0)
[2019-05-10 13:02] LABS: Bacteria Urine Many (>30); Culture Indicated Urine Specimen Cultured; RBC Urine 1-5/HPF (0-5/HPF); Squamous Epithelial Cell Urine 1-5 /HPF (0-5/HPF); WBC Urine >100/HPF (0-5/HPF)
== END ==
PROVIDERS: PCP Family Medicine; Visit Provider Family Medicine
DX: R30.0 Dysuria (principal); Z87.440 Personal history of urinary (tract) infections
CPT/HCPCS: 81001; 87077; 87086; 87186

== ENCOUNTER → 2019-07-15 12:37 | Outpatient (CLI) | payer MEDICARE, SELFPAY ==
[2018-09-17 15:09] VITALS: BMI 30.4
--- NOTE | 2019-07-15 | DI.MRI.S_ITS ---
PROCEDURE: MR KNEE LT WO CON INDICATIONS: Bilateral primary osteoarthritis of knee TECHNIQUE: [employer] protocol was performed. Noncontrast sagittal PD fast spin echo and T2 fast spin echo with fat saturation, sagittal 3-D FLASH with fat saturation; coronal T1 spin echo and PD fast spin echo with fat saturation, and axial PD fast spin echo with fat saturation through the knee. COMPARISON: None. FINDINGS: Image quality: Excellent. Menisci: Severe macerated tear involving the medial meniscal posterior horn and body. There is near complete extrusion. There is also marked truncation of the free margin of body of the lateral meniscus, and abnormal signal extending to the undersurface. Cruciate ligaments: The anterior and posterior cruciate ligaments appear intact. Medial structures: There is medial bowing of the medial collateral ligament, with mild internal signal changes and no complete rupture. There is adjacent soft tissue edema. The appearance could reflect reactive changes to medial compartment pathology, versus low-grade sprain of the MCL. Pes anserinus tendons appear grossly unremarkable. Semimembranosus insertional tendinopathy. Lateral structures: The lateral collateral ligament demonstrates thickening and intrasubstance signal change in keeping with sprain, although technically age indeterminate. The biceps femoris tendon demonstrates thickening and intrasubstance change at the insertion in keeping with age indeterminate tendinopathy. Popliteus tendon grossly unremarkable. Iliotibial band appears intact. Anterior structures: Quadriceps tendon intact. Mild distal patellar tendinosis. Medial and lateral patellofemoral ligaments appear grossly intact. Prepatellar and superficial infrapatellar subcutaneous edema/fluid. Bones and cartilage: No focal marrow contusion or discrete low signal fracture line. Within the medial compartment, full thickness femoral and tibial articular cartilage loss with underlying subchondral marrow edema and sclerosis. Within the lateral compartment, diffuse partial-thickness loss of the femoral and tibial articular cartilage Within the patellofemoral compartment, medial patellar facet and median patellar ridge. Intrasubstance signal change involving the medial femoral trochlear cartilage. Joint space: Moderate to large joint effusion. Edmond's cyst is noted measuring 7 cm in the cephalocaudad dimension. Possible 7 mm loose body in the intercondylar notch on image 61 series 8. IMPRESSION: Severe macerated tear of the medial meniscus posterior horn and body, with near complete extrusion. Undersurface tear involving the body of the lateral meniscus. Degenerative joint disease, with areas of full-thickness cartilage denudation as detailed above. Moderate to large joint effusion. Edmond's cyst. Subcentimeter loose body within the intercondylar notch. Additional findings as above. Dictated by: Hoang Ryder M.D. on 07/15/2019 at 13:45 Approved by: Hoang Ryder M.D. on 07/15/2019 at 14:33
== END ==
PROVIDERS: PCP Family Medicine; Visit Provider Orthopaedic Surgery
DX: M17.0 Bilateral primary osteoarthritis of knee (principal); S83.242A Other tear of medial meniscus, current injury, left knee, initial encounter; S83.282A Other tear of lateral meniscus, current injury, left knee, initial encounter; M71.22 Synovial cyst of popliteal space [Baker], left knee; M25.462 Effusion, left knee
CPT/HCPCS: 73721

== ENCOUNTER → 2019-09-12 07:31 | Outpatient (CLI) | payer MEDICARE, SELFPAY ==
[2018-09-17 15:09] VITALS: BMI 30.4
[2019-09-12 07:45] LABS: RBC Urine None Seen (0-5/HPF)
[2019-09-12 08:15] LABS: Add Manual Diff / Slide Review NO; Basophils Absolute Auto 100 /uL (0-100); Basophils Percent Auto 1.1 % (0-2); Eosinophils Absolute Auto 100 /uL (0-450); Eosinophils Percent Auto 2.3 % (2-4); Hematocrit 40.7 % (36-46); Hemoglobin 13.7 g/dL (12.0-16.0); Lymphocytes Absolute Auto 1700 /uL (1100-4500); Lymphocytes Percent Auto 38.2 % (25-40); Mean Corpuscular HGB Conc 33.7 % (30-36); Mean Corpuscular Hemoglobin 29.6 PG (26-34); Mean Corpuscular Volume 87.9 fL (80-100); Monocytes Absolute Auto 400 /uL (0-900); Monocytes Percent Auto 8.7 % (3-14); Neutrophils Absolute Auto 2300 /uL (1500-7000); Neutrophils Percent Auto 49.7 % (50-75); Platelet Count 301 X10^3/uL (150-400); Red Blood Cell Count 4.63 X10^6/uL (4.0-5.2); Red Cell Distribution Width 12.8 % (11.6-14.8); White Blood Cell Count 4.5 X10^3/uL (4.5-11.0)
[2019-09-12 08:36] LABS: BUN Creatinine Ratio 23.3 (6-22); Blood Urea Nitrogen 14 mg/dL (7-17); Carbon Dioxide 29 mmol/L (22-32); Chloride 101 mmol/L (98-107); Estimated Glomerular Filt Rate > 60.0 mL/min (>60); Glucose 90 mg/dL (80-110); HEMOLYSIS < 15 (0-50); Potassium 4.6 mmol/L (3.4-5.1); Sodium 138 mmol/L (137-145)
[2019-09-12 09:07] LABS: Hemoglobin A1C% w Est Avg Glu 5.4 % (4.0-6.0)
[2019-09-12 09:52] LABS: Appearance Urine UA CLEAR; Bilirubin Urine UA NEGATIVE (NEGATIVE); Color Urine UA YELLOW; Glucose Urine UA NEGATIVE (Negative); Ketones Urine UA NEGATIVE (NEGATIVE); Leukocyte Esterase Urine UA TRACE (NEGATIVE); Nitrite Urine UA NEGATIVE (Negative); Occult Blood Urine UA TRACE-LYSED (Negative); Protein Urine UA NEGATIVE (Negative); Specific Gravity Urine UA <=1.005 (1.000-1.035); Urobilinogen Urine UA 0.2 E.U./dL (0.2)
[2019-09-12 11:15] LABS: pH Urine UA 5.5 (4.5-8.0)
[2019-09-12 11:16] LABS: Bacteria Urine Few (2-10); Culture Indicated Urine Specimen Cultured; Squamous Epithelial Cell Urine 1-5 /HPF (0-5/HPF); WBC Urine 0-1/HPF (0-5/HPF)
== END ==
PROVIDERS: Family Provider Family Medicine; PCP Family Medicine; Visit Provider Orthopaedic Surgery
DX: Z01.818 Encounter for other preprocedural examination (principal); Z01.812 Encounter for preprocedural laboratory examination; N39.9 Disorder of urinary system, unspecified; Z13.1 Encounter for screening for diabetes mellitus; R73.9 Hyperglycemia, unspecified
CPT/HCPCS: 80048; 81001; 83036; 85025; 87086

== ENCOUNTER → 2019-10-10 16:10 | Outpatient (CLI) | payer MEDICARE, SELFPAY ==
[2018-09-17 15:09] VITALS: BMI 30.4
== END ==
PROVIDERS: Family Provider Family Medicine; PCP Family Medicine; Visit Provider Orthopaedic Surgery
DX: Z01.818 Encounter for other preprocedural examination (principal); R73.9 Hyperglycemia, unspecified; Z01.812 Encounter for preprocedural laboratory examination; N39.9 Disorder of urinary system, unspecified; Z13.1 Encounter for screening for diabetes mellitus
CPT/HCPCS: 93005

== ENCOUNTER → 2019-11-04 11:01 | Outpatient (CLI) | payer MEDICARE, SELFPAY ==
[2018-09-17 15:09] VITALS: BMI 30.4
[2019-11-04 13:04] LABS: TSH w/ Reflex to FT4 0.27 uIU/mL (0.47-4.68)
[2019-11-04 13:58] LABS: Free T4, Direct Thyroxine 1.42 ng/dL (0.78-2.19)
== END ==
PROVIDERS: PCP Family Medicine; Visit Provider Family Medicine
DX: E03.9 Hypothyroidism, unspecified (principal)
CPT/HCPCS: 36415; 84439; 84443

== ENCOUNTER → 2019-11-09 19:38 | Outpatient (CLI) | payer MEDICARE, SELFPAY ==
[2018-09-17 15:09] VITALS: BMI 30.4
== END ==
PROVIDERS: PCP Family Medicine; Visit Provider Physician Assistant
DX: R30.0 Dysuria (principal)
CPT/HCPCS: 87077; 87086; 87186

== ENCOUNTER 2019-11-17 06:08 | Inpatient (IN) | payer MEDICARE, SELFPAY ==
[2018-09-17 15:09] VITALS: BMI 30.4
[2019-11-07 07:36] VITALS: BMI 27.8
[2019-11-17] VITALS (8 sets, daily range): BP systolic 137–155; BP diastolic 69–90; PULSE 68–93; RESP 12–18; TEMP 36.3–36.8; O2SAT 99–100; BMI 27.9
--- NOTE | 2019-11-17 06:00 | DI.RAD.S_ITS ---
PROCEDURE: XR KNEE LT 1TO2V INDICATIONS: post op TECHNIQUE: 2 view(s) of the knee acquired. COMPARISON: None. FINDINGS: Bones: Patient is status post knee joint arthroplasty. Hardware components are in expected positions. Visualized bony structures are intact. Soft tissues: Overlying postoperative changes are noted. IMPRESSION: Total knee arthroplasty with prosthesis in anatomic alignment. Dictated by: Sundeep Cisneros M.D. on 11/17/2019 at 10:33 Approved by: Sundeep Cisneros M.D. on 11/17/2019 at 10:33
[2019-11-17] MEDS: VANCOMYCIN 1,000 MG/200 ML PIGGYBACK 200 MG IV (06:55)
[2019-11-17] MEDS: MELOXICAM 7.5 MG TABLET 15 MG PO (06:56)
[2019-11-17] MEDS: ACETAMINOPHEN 325 MG TABLET 975 MG PO (06:56)
[2019-11-17] MEDS: PREGABALIN 75 MG CAPSULE PO (06:56)
--- NOTE | 2019-11-17 07:43 | PM.PREOP ---
Pre-operative Note Interval Note History & Physical reviewed/Exam performed by Physician: Yes Changes to H&P: No
--- NOTE | 2019-11-17 07:43 | PM.OP.1 ---
Operative Date/Time/Diagnoses Date of procedure: 11/17/19 Time of procedure: 07:43 Pre-op diagnosis: left knee OA Post-op diagnosis: same Procedure & Clinicians Procedure: left total knee arthroplasty Same procedure as scheduled: Yes Indications: The patient has had progressively worsening left knee pain with radiographic changes consistent with arthritis. Non-operative management has failed and the patient has requested total knee replacement. The risks, benefits and alternatives to surgery were discussed with the patient prior to proceeding. Risks discussed included, but were not limited to, failure to relieve pain, stiffness, infection, nerve damage, deep venous thrombosis, pulmonary embolism, stroke, coma, heart attack, permanent paralysis and , as well as the potential need for eventual revision of the prosthetic. Surgeon: Vane Ring Pretzel Cooker: Nini Serrano Anesthesia Type: Spinal Operative Notes Findings: Severe left knee medial compartment arthritis, good stability Closure Type: primary Specimen(s): none sent Prosthetic devices, grafts, tissues, transplants, or devices: Ring and Nephew Ryanney BCS 2 size 4 femur, size 3 tibia, +9 poly, 35 by 7.5 patella Applied: drain(s) Estimated Blood Loss (mL): 250 Blood products transfused: none Tourniquet time (min): 76 Procedure in detail: The patient was seen in the pre-operative area, where the patient identified the left knee as the operative site and this was marked with my initials. The patient received pre-operative antibiotics, and was taken to the operating room and placed on the operative table in the supine position. After satisfactory anesthesia, a associate professor of music out was performed. The left leg was encircled with a tourniquet about the proximal thigh, and the leg was prepared from the toes to the tourniquet with ChloroPrep in the usual fashion and draped through sterile drapes. The leg was elevated and exsanguinated with Eschmark bandage and the tourniquet inflated to [250] mmHg pressure. The knee was approached through an approximately 18 cm incision centered over the patella and carried into the knee through a medial parapatellar arthrotomy. A portion of the medial and lateral meniscus was resected. Soft tissue was carefully mobilized around the patella the patella was measured with a caliper. Bone was resected from the patella and the patellar height was reconstituted with up an appropriate sized patellar component. A cover was then placed on the patella. A small amount of additional medial and lateral meniscus was resected. The visionare guide fit well to the distal femur. It looked like an appropriate distal femoral cut and the cut was made without difficulty. The rotation was assessed and the appropriate size femoral guide was placed on the distal femur and finishing cuts were made. There was no evidence of notching. The anterior, posterior and chamfer cuts were then made. The posterior osteophytes and soft tissues were then removed. The posterior capsule was injected with part of a mixture of 60 ml 0.25% Marcaine mixed with 20 ml Exparel for post operative pain control. The remainder of this mixture was injected into the capsule and subcutaneous tissues during cement curing. The tibia was prepared and the visionaire guide fit well to the distal tibia. The rotation was assessed. The patient was placed in extension residual medial and lateral meniscus as well as any residual bone was carefully resected. [No] additional tibia was resected. Hemostasis was achieved especially posteriorly. Additional local was injected into the posterior capsule. The extension gap was assessed and additional releases for gap balancing were performed as necessary. It was checked with the gap sports commentator. The femoral component was trial was placed and the notch was finished. Trial tibial and femoral components were then placed and the knee placed through a range of motion. Range of motion was [0-130], with good stability throughout the range. The trials were then removed, and the tibia was finished. The bone was prepared with pulsatile lavage, and dried with a sponge. Cement was applied and the final prosthetics placed. Excess cement was removed during and after cement curing. After confirming there was no extruded cement posteriorly, the final tibial insert was placed. The knee was copiously irrigated and the tourniquet deflated. Hemostasis was obtained with the Bovie cautery. A drain was placed and brought out superolaterally. The capsule was closed with interrupted Vicryl suture. The subcutaneous layer was closed with barbed sutures, and the skin with a running 3-0 V-Lock suture and Surgical glue. An Aquacel Ag dressing was applied and the patient was taken to recovery having tolerated the procedure well. Complications: none Post-operative Condition: stable Disposition: same day surgery Plan for aftercare: The patient will be maintained on a standard total knee replacement protocol with weight bearing as tolerated. The patient will receive aspirin and sequential compression devices for DVT prophylaxis. The patient will be discharged home when safe for the home environment.
[2019-11-17] MEDS: LACTATED RINGERS 1,000 ML 42 ML IV ×2 (07:44→09:41)
[2019-11-17] MEDS: SCOPOLAMINE 1 PATCH TOP (07:47)
[2019-11-17] MEDS: CEFAZOLIN 2 GM/100 ML FROZ.PIGGY IV (07:48)
[2019-11-17] MEDS: TRANEXAMIC ACID 1,000 MG VIAL 1000 MG INJ ×2 (07:49→09:32)
--- NOTE | 2019-11-17 08:19 | SUR.OPER ---
Supine on padded OR bed. Pillow under head, arms secured on padded armboards <90 degree abduction. Safety belt across torso. Non-operative leg secured with tape over blanket over lower leg. Operative leg secured in DeMayo/Vin positioner. Foam padded brace at thigh of operative leg.
[2019-11-17] MEDS: BUPIVACAINE 0.25% W/ EPI 30 ML VIAL 60 ML INJ (08:28)
[2019-11-17] MEDS: BUPIVACAINE LIPOSOME 266 MG/20 ML VIAL INJ (08:29)
[2019-11-17] MEDS: LACTATED RINGERS 1,000 ML 125 ML IV (11:40)
[2019-11-17] MEDS: IBUPROFEN 400 MG TABLET PO (12:54)
[2019-11-17] MEDS: ACETAMINOPHEN 325 MG TABLET 650 MG PO (12:57)
--- NOTE | 2019-11-17 13:30 | PT.IPTN ---
Current Diagnoses Unilateral primary osteoarthritis, left knee (11/17/19) Surgery Performed Operation Date: 11/17/19 07:45 Actual Procedures p Total Knee Arthroplasty(Left) - Vane Ring MD Physical Therapy Treatment Note M2 PT-IP Current Condition Start: 11/17/19 13:20 Freq: NEEDED Status: Discharge Protocol: Document 11/17/19 13:00 AMB (Rec: 11/17/19 13:47 AMB [email or web address]) Physical Therapy Current Condition Current Condition Evaluation Date 11/17/19 Treatment Diagnosis L TKA Onset Date 11/17/19 Weight Bearing Status Weight Bearing Status Weight Bear as Tolerated M3 PT-IP Subjective Start: 11/17/19 13:20 Freq: NEEDED Status: Discharge Protocol: Document 11/17/19 13:00 AMB (Rec: 11/17/19 13:47 AMB [email or web address]) Subjective Physical Therapy Visit Type Type Initial Evaluation Visit Start Time 13:00 Visit Stop Time 13:20 Total Visit Minutes 20 Physical Therapy Visit Comments Patient Comments Pt up in chair, has already been up to bathroom, feeling good Therapy Pain Assessment Pain When Pain Assessed During Mobility Pain Present Pain Present Pain Reported Location Left Knee Intensity 3 Scale Used Numeric (1 - 10) M4 PT-IP Mobility and Gait Start: 11/17/19 13:20 Freq: NEEDED Status: Discharge Protocol: Document 11/17/19 13:00 AMB (Rec: 11/17/19 13:47 AMB [email or web address]) PT-Bed Mobility Assessment Supine to Sit Supine to Sit Independent Sit to Supine Sit to Supine Independent Scooting Scooting to Edge of Bed Independent PT-Transfer Assessment Sit to and From Stand Sit to and from Stand Standby Assistance Equipment Transfer Assistive Device Front Wheeled Walker Transfers Transfer Destination Bed Transfer Technique Stand Step Pivot Transfer Ability Level of Assist Standby Assistance Comments Mobility Comments Pt transferred from chair to bed, needed to be reminded to use FWW, but overall doing well. Gait Assessment Gait Gait Assistance Required: Standby Assistance Distance (Feet) 50 Able to Maintain Weight Bearing Status Yes During Gait Assistive Devices Assistive Device Front Wheeled Walker Gait Deviations General Gait Pattern Antalgic Factors Limiting Gait Function Factors Limiting Gait Function Decreased Strength,Limited Range of Motion,Pain Comments Gait Comments Pt ambulated around the nurses station with good step length and step through gait. VC to avoid excessive shoulder shrug with FWW. Stair Climbing Assessment Evaluation Level of Assist On Stairs Contact Guard Assistance Devices Stair Climbing Assistive Devices Right Railing Technique/Endurance Stair Climbing Direction Ascend and Descend Stair Climbing Technique Step to Step Comments Stair Climbing Comments 1 step up and down x 4 M5 PT-IP Objective Assessments Start: 11/17/19 13:20 Freq: NEEDED Status: Discharge Protocol: Document 11/17/19 13:00 AMB (Rec: 11/17/19 13:47 AMB [email or web address]) Orientation Orientation/Cognition Level of Alertness Alert Gross Range of Motion Lower Extremity ROM Impairments grossly 0-110 degrees on surgical limb Strength Lower Extremity Strength Assessment Left Impaired Knee 3/5 grossly Sensation Assessment Comments Sensation Comments light touch grossly intact, pt denies numbness M6 PT-IP Treatment Start: 11/17/19 13:20 Freq: NEEDED Status: Discharge Protocol: Document 11/17/19 13:00 AMB (Rec: 11/17/19 15:48 AMB [email or web address]) Physical Therapy Treatment Exercises Exercises Ankle Pumps,Short Arc Quads Education Education Provided Weight Bearing Status,Post-Op Packet,Safety M7 PT-IP Assessment and Plan Start: 11/17/19 13:20 Freq: NEEDED Status: Discharge Protocol: Document 11/17/19 13:00 AMB (Rec: 11/17/19 15:48 AMB [email or web address]) PT Summary Assessment and Plan Potential Rehabilitation Potential Excellent Status of Condition at Evaluation Stable Summary Impairments Pain,ROM,Strength,Gait Assessment Summary Amy ambulated with FWW safely and with good step length. She does have four steps to enter, but was able to ascend and descend steps with 1 rail with CGA. Her daughter will be present with her in her home, and she has outpatient PT scheduled for next week. She should be safe to d/c home with family assist and outpatient PT. Goals Bed Mobility Goal Independent Transfer Goal Independent Gait Goal Standby Assistance Gait Distance 100' Other Goals Stairs x4 with one rail, CGA. Days to Meet Goals 1 Frequency of Treatment Frequency Of Treatment Twice a Day Treatment Plan Physical Therapy Treatment Plan Bed Mobility Training,Transfer Training,Gait Training, Therapeutic Exercise,Post Op Education,Neuromuscular Re-ed, Manual Therapy Recommendations To Nursing Amount of Assist Needed Standby Assistance Discharge Recommendations PT Discharge Recommendations Home with Assistance, Outpatient PT
--- NOTE | 2019-11-17 14:00 | PC.ADMIT ---
Addendum entered by Tonya Holden R.N. 11/17/19 14:23: D/c order obtained and teaching provided. F/u appt already set up , w/c to car. Addendum entered by Tonya Holden R.N. 11/17/19 14:07: 1400-Pt cleared by PT, await d/c orders from Dr Ring. Call into [facility], answering service will attempt call . Fax sent to PACU. Original Note: 1319 Issa Johnson Admission Note: The patient,Amy Martinez,69 y/o, was given written information regarding hospital policies, unit procedures and contact persons. Patient's smoking status: Never smoker. Vital Signs - 8 hr 11/17/19 06:58 11/17/19 10:06 11/17/19 10:11 Temperature 97.3 F L 97.5 F L Pulse Rate 86 88 87 Respiratory Rate 17 12 16 Blood Pressure 153/79 H 144/77 H 144/69 H Pulse Oximetry 100 99 100 11/17/19 10:16 11/17/19 10:21 11/17/19 10:28 Temperature Pulse Rate 80 93 H 89 Respiratory Rate 16 16 16 Blood Pressure 142/70 H 145/90 H 155/79 H Pulse Oximetry 100 100 99 Rec'd from PACU, Pt denies pain, Spo2 98% RA. L leg with KAITLIN wrap in place, Sensation at the L4 level now with ice check. VSS. Pt is eager to work with PT and eager to d/c JUNIOR. Education given for Post op teaching, [employer] Pt. Ibuprofen and APAP given for pain control. Pt declines oxycodone at this time.
== END 2019-11-17 14:40 | disposition home or self-care (01) | DRG 470 ==
LOC: AC 10:19 → ICU 10:32
PROVIDERS: Admitting Provider Orthopaedic Surgery; PCP Family Medicine; Visit Provider Orthopaedic Surgery
PROC: 0SRD0JZ Replacement of Left Knee Joint with Synthetic Substitute, Open Approach (ICD-10-PCS; CPT 27447; principal; 2019-11-17 07:45)
DX: M17.12 Unilateral primary osteoarthritis, left knee (principal); E03.9 Hypothyroidism, unspecified; M85.80 Other specified disorders of bone density and structure, unspecified site; M41.80 Other forms of scoliosis, site unspecified
CPT/HCPCS: 73560; 97161; C1776; C9290; J0690; J1100; J2405; J2704

== ENCOUNTER → 2019-12-20 09:40 | Outpatient (CLI) | payer MEDICARE, SELFPAY ==
[2019-12-09 08:39] VITALS: BMI 27.9
== END ==
PROVIDERS: PCP Family Medicine; Visit Provider Physician Assistant
DX: R30.0 Dysuria (principal)
CPT/HCPCS: 87086

== ENCOUNTER 2020-01-23 08:15 | Outpatient (RCR) | payer MEDICARE, SELFPAY ==
[2018-09-17 15:09] VITALS: BMI 30.4
--- NOTE | 2019-10-26 16:55 | PT.OIE ---
Current Diagnoses Bilateral primary osteoarthritis of knee (10/26/19) Unilateral primary osteoarthritis, left knee (10/26/19) Past Medical History (Last Reviewed 07/18/19 @ 14:10 by Alex Recio MD) Anxiety and depression (Chronic) Anxiety disorder, unspecified (Chronic) Chickenpox (Resolved) Compression fracture (Resolved) Dextroscoliosis (Chronic 02/11/16) Eczema (Chronic) History of recurrent UTIs (Chronic) Hypothyroid (Chronic) Hypothyroidism (Resolved) Measles (Resolved) Osteoporosis (Chronic) Other specified depressive episodes (Chronic) Seizure grand mal (Inactive ~1983) Shoulder pain (Resolved) Past Surgical History (Last Reviewed 07/18/19 @ 14:10 by Alex Recio MD) Anesthesia complication (Inactive) H/O vaginal hysterectomy (Resolved) History of bilateral tubal ligation (Inactive) History of tonsillectomy (Inactive ~1971) History of total vaginal hysterectomy (TVH) (Resolved) Status post breast biopsy (Inactive) Status post bunionectomy (Inactive) Status post tubal ligation (Inactive ~1988) Tonsillar tag (Inactive ~1976) Visit Care Team Role Provider Type Joselin Hernadez DO Family Provider Physician Primary Care Provider Specialty: Family Practice Address: [address] [place] [address], [address] Email: [email or web address] Vane Ring MD Attending Provider Physician Specialty: Orthopedic Surgery Address: [address] [place] [address], [address] Email: [email or web address] Initial Evaluation PT-OP-A Visit Information Start: 10/26/19 09:52 Freq: Status: Active Protocol: Document 10/26/19 10:42 [facility] (Rec: 10/26/19 12:12 [facility] [id number]) Out-Patient Physical Therapy Visit Information Visit Information Visit Type Initial Evaluation Visit Start Time 11:18 Visit Stop Time 12:06 Total Visit Minutes 48 Visit Number 1 Number of S IRON WORKER Visits 0 PT-OP-B Current Condition Start: 10/26/19 09:52 Freq: Status: Active Protocol: Document 10/26/19 10:42 [facility] (Rec: 10/26/19 12:12 [facility] [id number]) Current Condition History of Current Condition Onset Date 2 years Current Complaints L knee pain prior to L TKA History of Current Condition Pt has L knee pain and is planning to have L TKA 11/17 d /t pain that was nagging for the past 2 years that has gotten worse and is now bone on bone per the MD. 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 She works 3 eight hour days. Pt has a dgt that lives in town and can stay with her as long as she needs. Pt has FWW and cane at home and shower chair. Pt has a tub shower and walk in shower and has a shower chair and bars. Pt has 4 CARLTON with B railings but they are too wide to hold onto both at the same time and SLH. Pt reprots she has higher toilets in the house with sinks close by. Pt has blanket weaver, and long handle shoe horn. Pt reprots she feels like she has lost some of her quality of life d/t pain. PMH includes compression fx in back with back pain w/ Sciatic n pain, hysterectomy d/t uterus & bladder prolapse and R foot pain Prior Treatments and Tests Xrays, PT for back in past Future Testing and Treatments Planned L TKA Treatment Goals Patient/Caregiver Goals Get prepared for surgery & be back to walking & hiking PT-OP-C Subjective Start: 10/26/19 09:52 Freq: Status: Active Protocol: Document 10/26/19 10:42 [facility] (Rec: 10/26/19 16:55 [facility] [id number]) Patient Questionnaires Lower Extremity Functional Scale LEFS Score 49 LEFS Impairment 20 to 39% Impaired (Score 48- 62) PT-OP-G Mobility & Gait Start: 10/26/19 09:52 Freq: Status: Active Protocol: Document 10/26/19 10:42 [facility] (Rec: 10/26/19 12:12 [facility] [id number]) OP Gait Assessment Comments Gait Comments Dec WB into LLE and dec wt acceptance with lat leaning PT-OP-K Range of Motion Start: 10/26/19 09:52 Freq: Status: Active Protocol: Document 10/26/19 10:42 [facility] (Rec: 10/26/19 12:12 [facility] [id number]) Knee Goniometric Range of Motion Knee Left Flexion Active (degrees) 118 Extension Active (degrees) 20 Right Flexion Active (degrees) 134 Extension Active (degrees) 5 Knee ROM Limitations Knee ROM Limitations Pain Comments lacking 20 deg knee ext L PT-OP-M Strength Start: 10/26/19 09:52 Freq: Status: Active Protocol: Document 10/26/19 10:42 [facility] (Rec: 10/26/19 12:12 [facility] [id number]) Hip Strength Hip Manual Muscle Testing Left Flexion (L2) 4 Good Extension (S1) 3 Fair Abduction 4 Good Adduction 3+ Fair+ External Rotation 3+ Fair+ Internal Rotation 4- Good- Right Flexion (L2) 4+ Good+ Extension (S1) 4- Good- Abduction 4 Good Adduction 4- Good- External Rotation 3+ Fair+ Internal Rotation 4 Good Knee Strength Knee Manual Muscle Testing Left Flexion (S2) 3+ Fair+ Extension (L3) 3+ Fair+ Right Flexion (S2) 4+ Good+ Extension (L3) 4+ Good+ Ankle/Foot Strength Ankle and Foot Manual Muscle Testing Left Dorsiflexion (L4) 4 Good Plantarflexion (S1) 4+ Good+ Right Dorsiflexion (L4) 4 Good Plantarflexion (S1) 5 Normal Comments B PF tested in seated PT-OP-Q Treatments Start: 10/26/19 09:52 Freq: Status: Active Protocol: Document 10/26/19 10:42 [facility] (Rec: 10/26/19 12:12 [facility] [id number]) Therapeutic Exercises Supine Exercises 3 Supine Exercise Name quad set, SAQ, SLR, passive ext, heel slides Sitting Exercises knee flex Sitting Exercise Name seated knee flex w/scoot Reps/Minutes 10 sec Gait Training Gait Activity stairs Description 1 rail & cane w/step to pattern walker Description how to walk with walker & sequencing for step to gait PT-OP-T Assessment and Plan Start: 10/26/19 09:52 Freq: Status: Active Protocol: Document 10/26/19 10:42 [facility] (Rec: 10/26/19 12:12 [facility] [id number]) Physical Therapy Assessment Rehab Potential Rehabilitation Potential Good Evaluation Complexity Number of Personal Factors/Comorbidities 3 or More Number of Body Systems Impaired 4 or More Clinical Presentation at Evaluation Evolving Impairments Impairments Activity Tolerance,Balance, Functional Activities, Functional Mobility,Gait,Pain, Posture,ROM,Soft Tissue Mobility,Strength Goals Three Impairment surgery prep Short Term Goal (STG) Pt will be indep with program. STG Duration 10/31/19 Safety Intern Goal (LTG) Pt will be able to amb with FWW safely and ascend and descend stairs w/rail and cane safely LTG Duration 11/25/19 Assessment Summary Assessment Pt presents for pre-op appt for L TKA scheduled for 11/17. She was educated on use of walker, exercises, how to do transfers & bed mobility & how to do stair mobility. She was very receptive to all activities and information she was given today. SHe has limited ROM & strength prior to surgery and was educated on starting exercises as toleratated prior to surgery to help with these deficts and the importance of starting them after d/c from hospital in order to address ROM immedately. Pt will follow up with PT on 11/22 after L TKA and will be reassessed at this time. Physical Therapy Plan Frequency and Duration Frequency of Treatment 2x/Week Duration of Treatment 1 month Plan of Care Start Date 10/26/19 Plan of Care End Date 11/25/19 Therapeutic Interventions Therapeutic Interventions Aquatic Therapy,Balance Training,Gait Training,Home Exercise Program,Joint Mobilizations,Manual Therapy, Neuromuscular Re-education, Patient/Caregiver Education, Self-Care/Home Management,Soft Tissue Mobilization,Taping, Therapeutic Activities, Therapeutic Exercises Modalities Cold Pack/Ice Massage,Electric Stimulation,Hot Packs, Ultrasound Next Visit Focus/Plan Next Note Type Treatment Note Next Visit Plan Re-assess after TKA; pt not to be seen unless requires further edu prior to surgery
--- NOTE | 2019-10-26 16:56 | PT.OPPOC ---
Current Diagnoses Bilateral primary osteoarthritis of knee (10/26/19) Unilateral primary osteoarthritis, left knee (10/26/19) Stiffness of left knee, not elsewhere classified (10/26/19) Difficulty in walking, not elsewhere classified (10/26/19) Weakness (10/26/19) Visit Care Team Role Provider Type Joselin Hernadez DO Family Provider Physician Primary Care Provider Specialty: Family Practice Address: [address] [place] [address], [facility] [place], [address] Email: [email or web address] Vane Ring MD Attending Provider Physician Specialty: Orthopedic Surgery Address: [address] [place] [address], [place], [address] Email: [email or web address] Plan Of Care PT-OP-T Assessment and Plan Start: 10/26/19 09:52 Freq: Status: Active Protocol: Document 10/26/19 10:42 [facility] (Rec: 10/26/19 12:12 [facility] [id number]) Physical Therapy Assessment Rehab Potential Rehabilitation Potential Good Evaluation Complexity Number of Personal Factors/Comorbidities 3 or More Number of Body Systems Impaired 4 or More Clinical Presentation at Evaluation Evolving Impairments Impairments Activity Tolerance,Balance, Functional Activities, Functional Mobility,Gait,Pain, Posture,ROM,Soft Tissue Mobility,Strength Goals Three Impairment surgery prep Short Term Goal (STG) Pt will be indep with program. STG Duration 10/31/19 Fdc Goal (LTG) Pt will be able to amb with FWW safely and ascend and descend stairs w/rail and cane safely LTG Duration 11/25/19 Assessment Summary Assessment Pt presents for pre-op appt for L TKA scheduled for 11/17. She was educated on use of walker, exercises, how to do transfers & bed mobility & how to do stair mobility. She was very receptive to all activities and information she was given today. SHe has limited ROM & strength prior to surgery and was educated on starting exercises as toleratated prior to surgery to help with these deficts and the importance of starting them after d/c from hospital in order to address ROM immedately. Pt will follow up with PT on 11/22 after L TKA and will be reassessed at this time. Physical Therapy Plan Frequency and Duration Frequency of Treatment 2x/Week Duration of Treatment 1 month Plan of Care Start Date 10/26/19 Plan of Care End Date 11/25/19 Therapeutic Interventions Therapeutic Interventions Aquatic Therapy,Balance Training,Gait Training,Home Exercise Program,Joint Mobilizations,Manual Therapy, Neuromuscular Re-education, Patient/Caregiver Education, Self-Care/Home Management,Soft Tissue Mobilization,Taping, Therapeutic Activities, Therapeutic Exercises Modalities Cold Pack/Ice Massage,Electric Stimulation,Hot Packs, Ultrasound Next Visit Focus/Plan Next Note Type Treatment Note Next Visit Plan Re-assess after TKA; pt not to be seen unless requires further edu prior to surgery Plan of Care Dates Plan of Care Start Date 10/26/19 Plan of Care End Date 11/25/19
--- NOTE | 2019-11-22 12:42 | PT.OTRE ---
Current Diagnoses Bilateral primary osteoarthritis of knee (11/22/19) Unilateral primary osteoarthritis, left knee (11/22/19) Stiffness of left knee, not elsewhere classified (11/22/19) Difficulty in walking, not elsewhere classified (11/22/19) Weakness (11/22/19) Past Medical History (Last Updated 11/08/19 @ 08:15 by Joselin Hernadez DO) Anxiety and depression (Chronic) Anxiety disorder, unspecified (Chronic) Chickenpox (Resolved) Compression fracture (Resolved) Dextroscoliosis (Chronic 02/11/16) Eczema (Chronic) Essential hypertension (Acute) History of recurrent UTIs (Chronic) Hypothyroidism (Resolved) Measles (Resolved) Osteoporosis (Chronic) Other specified depressive episodes (Chronic) Seizure grand mal (Inactive ~1983) Shoulder pain (Resolved) Surgical History (Last Reviewed 11/08/19 @ 08:08 by Joselin Hernadez DO) Anesthesia complication (Inactive) History of bilateral tubal ligation (Inactive) History of tonsillectomy (Inactive ~1971) History of total vaginal hysterectomy (TVH) (Resolved 05/17/18) Status post breast biopsy (Inactive ~10/1984) Status post bunionectomy (Inactive ~1989) Status post tubal ligation (Inactive ~1988) Tonsillar tag (Inactive ~1976) Visit Care Team Role Provider Type Joselin Hernadez DO Family Provider Physician Primary Care Provider Specialty: Family Practice Address: [address] [place] [address], [address] Email: [email or web address] Vane Ring MD Attending Provider Physician Specialty: Orthopedic Surgery Address: [address] [place] [address], [id number] Email: [email or web address] Physical Therapy Re-Evaluation PT-OP-A Visit Information Start: 10/26/19 09:52 Freq: Status: Active Protocol: Document 11/22/19 07:26 [facility] (Rec: 11/22/19 12:40 [facility] [id number]) Out-Patient Physical Therapy Visit Information Visit Information Visit Type Re-Evaluation Visit Start Time 07:30 Visit Stop Time 08:12 Total Visit Minutes 42 Visit Number 2 Number of CAREER RESOURCE TECHNICIAN Visits 0 PT-OP-B Current Condition Start: 10/26/19 09:52 Freq: Status: Active Protocol: Document 11/22/19 07:26 [facility] (Rec: 11/22/19 12:40 [facility] [id number]) Current Condition History of Current Condition Onset Date 2 years Current Complaints L knee pain prior to L TKA History of Current Condition 11/22- pt had TKA 11/17 with no complications. WEnt home day of surgery Pt has L knee pain and is planning to have L TKA 11/17 d /t pain that was nagging for the past 2 years that has gotten worse and is now bone on bone per the MD. 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 She works 3 eight hour days. Pt has a dgt that lives in town and can stay with her as long as she needs. Pt has FWW and cane at home and shower chair. Pt has a tub shower and walk in shower and has a shower chair and bars. Pt has 4 CARLTON with B railings but they are too wide to hold onto both at the same time and SLH. Pt reprots she has higher toilets in the house with sinks close by. Pt has finance clerk, and long handle shoe horn. Pt reprots she feels like she has lost some of her quality of life d/t pain. PMH includes compression fx in back with back pain w/ Sciatic n pain, hysterectomy d/t uterus & bladder prolapse and R foot pain Prior Treatments and Tests Xrays, PT for back in past Future Testing and Treatments Planned L TKA Treatment Goals Patient/Caregiver Goals be back to walking & hiking; every day routine things PT-OP-C Subjective Start: 10/26/19 09:52 Freq: Status: Active Protocol: Document 11/22/19 07:26 [facility] (Rec: 11/22/19 12:40 [facility] [id number]) Patient Questionnaires Lower Extremity Functional Scale LEFS Score 31 LEFS Impairment 60 to 79% Impaired (Score 17- 31) OP-PT Pain Assessment Location L knee Pain Location Details med ant knee & quad Intensity 3 Scale Used Numeric (1 - 10) Description Aching Frequency Daily Pain Aggravating Factors Walking,Bending Other Pain Aggravating Factors exercises Pain Alleviating Factors Cold,Medication,Sitting, Elevation PT-OP-G Mobility & Gait Start: 10/26/19 09:52 Freq: Status: Active Protocol: Document 11/22/19 07:26 [facility] (Rec: 11/22/19 12:40 [facility] [id number]) OP Gait Assessment Comments Gait Comments Pt came in with FWW and amb with little wb into walker. SPC required cuieng for sequencing & for even step length w/o AD: pt amb with dec WB into LLE and dec knee ext so instructed to use AD at this time. PT-OP-K Range of Motion Start: 10/26/19 09:52 Freq: Status: Active Protocol: Document 11/22/19 07:26 [facility] (Rec: 11/22/19 12:40 [facility] [id number]) Knee Goniometric Range of Motion Knee Measured in Degrees Left Flexion Active (degrees) 103 Extension Active (degrees) 11 PT-OP-M Strength Start: 10/26/19 09:52 Freq: Status: Active Protocol: Document 11/22/19 07:26 [facility] (Rec: 11/22/19 12:40 [facility] [id number]) Hip Strength Hip Manual Muscle Testing Left Flexion (L2) 4 Good Extension (S1) 3+ Fair+ Abduction 3+ Fair+ External Rotation 3 Fair Internal Rotation 3+ Fair+ Right Flexion (L2) 4+ Good+ Extension (S1) 4- Good- Abduction 4 Good External Rotation 3+ Fair+ Internal Rotation 4 Good Knee Strength Knee Manual Muscle Testing Left Flexion (S2) 4- Good- Extension (L3) 3+ Fair+ Right Flexion (S2) 4+ Good+ Extension (L3) 4+ Good+ Ankle/Foot Strength Ankle and Foot Manual Muscle Testing Left Dorsiflexion (L4) 4 Good Plantarflexion (S1) 4+ Good+ Right Dorsiflexion (L4) 4+ Good+ Plantarflexion (S1) 5 Normal Comments B PF tested in seated PT-OP-Q Treatments Start: 10/26/19 09:52 Freq: Status: Active Protocol: Document 11/22/19 07:26 [facility] (Rec: 11/22/19 12:40 [facility] [id number]) Cardio Equipment Recumbent Elliptical (Biodex) Duration (Minutes) 5 Resistance 2 Therapeutic Exercises Sidelying Exercises 3 Sidelying Exercise Name hip abd Side bilateral Reps/Minutes 10 Standing Exercises TKE Side left Equipment Used L1 Reps/Minutes 10 Gait Training Gait Activity gait Description amb with SPC Comments sequencing and equal stride length Self-Care/Home Management Treatment Education Other Education cont icing, small frequent bouts of activity, cont exercises 2-3x daily, focus on getting knee ext; call MD if gets calf pain PT-OP-T Assessment and Plan Start: 10/26/19 09:52 Freq: Status: Active Protocol: Document 11/22/19 07:26 [facility] (Rec: 11/22/19 12:40 [facility] [id number]) Physical Therapy Assessment Goals Four Impairment ROM Short Term Goal (STG) Pt will have 0-120 deg ROM of L knee. STG Duration 12/23/19 Travel Pt Goal (LTG) Pt will be able to ascend and decend stairs reciprocally without inc pain. LTG Duration 01/23/20 Three Impairment LEFS Assisted Goal (LTG) Pt will score 60/80 to show improved functional mboility LTG Duration 01/23/20 Two Short Term Goal (STG) Pt will be able to walk 1 mile on even surfaces without inc pain. STG Duration 12/23/19 Travel Pt Goal (LTG) Pt will be able to hike on uneven surfaces without pain or feeling of unbalance 1 mile . LTG Duration 01/23/20 One Short Term Goal (STG) Pt will be indep with HEP. STG Duration 12/23/19 Assisted Goal (LTG) Pt will have 5/5 LE B strength in order to allow her to do typical daily activiteis without pain. LTG Duration 01/23/20 Assessment Summary Assessment Pt presents 5 days s/p L TKA with good healing and pain management. She is able to amb with SPC at this time and managing pain with over the counter meds. She is still limited in ROM, strength, gait and functional ability and would benefit from PT to address these concerns and assist pt in progressing back to high level of function. Physical Therapy Plan Frequency and Duration Frequency of Treatment 2x/Week Duration of Treatment 1 month Plan of Care Start Date 11/22/19 Plan of Care End Date 01/23/20 Therapeutic Interventions Therapeutic Interventions Aquatic Therapy,Balance Training,Gait Training,Home Exercise Program,Joint Mobilizations,Manual Therapy, Neuromuscular Re-education, Patient/Caregiver Education, Self-Care/Home Management,Soft Tissue Mobilization,Taping, Therapeutic Activities, Therapeutic Exercises Modalities Cold Pack/Ice Massage,Electric Stimulation,Hot Packs, Ultrasound Next Visit Focus/Plan Next Note Type Treatment Note Next Visit Plan cont to work on gait, work on ROM & hip strength, balance board
--- NOTE | 2019-11-22 12:42 | PT.OPPOC ---
Current Diagnoses Bilateral primary osteoarthritis of knee (11/22/19) Unilateral primary osteoarthritis, left knee (11/22/19) Stiffness of left knee, not elsewhere classified (11/22/19) Difficulty in walking, not elsewhere classified (11/22/19) Weakness (11/22/19) Visit Care Team Role Provider Type Joselin Hernadez DO Family Provider Physician Primary Care Provider Specialty: Family Practice Address: [address] [place] [address], [facility] [place], [address] Email: [email or web address] Vane Ring MD Attending Provider Physician Specialty: Orthopedic Surgery Address: [address] [place] [address], [place], [address] Email: [email or web address] Plan Of Care PT-OP-T Assessment and Plan Start: 10/26/19 09:52 Freq: Status: Active Protocol: Document 11/22/19 07:26 [facility] (Rec: 11/22/19 12:40 [facility] [id number]) Physical Therapy Assessment Goals Four Impairment ROM Short Term Goal (STG) Pt will have 0-120 deg ROM of L knee. STG Duration 12/23/19 Banquet Bartender Goal (LTG) Pt will be able to ascend and decend stairs reciprocally without inc pain. LTG Duration 01/23/20 Three Impairment LEFS Banquet Bartender Goal (LTG) Pt will score 60/80 to show improved functional mboility LTG Duration 01/23/20 Two Short Term Goal (STG) Pt will be able to walk 1 mile on even surfaces without inc pain. STG Duration 12/23/19 Jail Goal (LTG) Pt will be able to hike on uneven surfaces without pain or feeling of unbalance 1 mile . LTG Duration 01/23/20 One Short Term Goal (STG) Pt will be indep with HEP. STG Duration 12/23/19 Banquet Bartender Goal (LTG) Pt will have 5/5 LE B strength in order to allow her to do typical daily activiteis without pain. LTG Duration 01/23/20 Assessment Summary Assessment Pt presents 5 days s/p L TKA with good healing and pain management. She is able to amb with SPC at this time and managing pain with over the counter meds. She is still limited in ROM, strength, gait and functional ability and would benefit from PT to address these concerns and assist pt in progressing back to high level of function. Physical Therapy Plan Frequency and Duration Frequency of Treatment 2x/Week Duration of Treatment 1 month Plan of Care Start Date 11/22/19 Plan of Care End Date 01/23/20 Therapeutic Interventions Therapeutic Interventions Aquatic Therapy,Balance Training,Gait Training,Home Exercise Program,Joint Mobilizations,Manual Therapy, Neuromuscular Re-education, Patient/Caregiver Education, Self-Care/Home Management,Soft Tissue Mobilization,Taping, Therapeutic Activities, Therapeutic Exercises Modalities Cold Pack/Ice Massage,Electric Stimulation,Hot Packs, Ultrasound Next Visit Focus/Plan Next Note Type Treatment Note Next Visit Plan cont to work on gait, work on ROM & hip strength, balance board Plan of Care Dates Plan of Care Start Date 11/22/19 Plan of Care End Date 01/23/20
--- NOTE | 2019-11-25 09:45 | PT.OTN ---
Current Diagnoses Bilateral primary osteoarthritis of knee (11/25/19) Unilateral primary osteoarthritis, left knee (11/25/19) Stiffness of left knee, not elsewhere classified (11/25/19) Difficulty in walking, not elsewhere classified (11/25/19) Weakness (11/25/19) Physical Therapy Treatment Note PT-OP-A Visit Information Start: 10/26/19 09:52 Freq: Status: Active Protocol: Document 11/25/19 09:00 [facility] (Rec: 11/25/19 11:48 [facility] [id number]) Out-Patient Physical Therapy Visit Information Visit Information Visit Type Treatment Note Visit Start Time 09:00 Visit Stop Time 09:45 Total Visit Minutes 45 Visit Number 3 Number of WELDING MACHINE TENDER Visits 1 PT-OP-B Current Condition Start: 10/26/19 09:52 Freq: Status: Active Protocol: Document 11/22/19 07:26 [facility] (Rec: 11/22/19 12:40 [facility] [id number]) Current Condition History of Current Condition Onset Date 2 years Current Complaints L knee pain prior to L TKA History of Current Condition 11/22- pt had TKA 11/17 with no complications. WEnt home day of surgery Pt has L knee pain and is planning to have L TKA 11/17 d /t pain that was nagging for the past 2 years that has gotten worse and is now bone on bone per the MD. 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 She works 3 eight hour days. Pt has a dgt that lives in town and can stay with her as long as she needs. Pt has FWW and cane at home and shower chair. Pt has a tub shower and walk in shower and has a shower chair and bars. Pt has 4 CARLTON with B railings but they are too wide to hold onto both at the same time and SLH. Pt reprots she has higher toilets in the house with sinks close by. Pt has linux systems engineer, and long handle shoe horn. Pt reprots she feels like she has lost some of her quality of life d/t pain. PMH includes compression fx in back with back pain w/ Sciatic n pain, hysterectomy d/t uterus & bladder prolapse and R foot pain Prior Treatments and Tests Xrays, PT for back in past Future Testing and Treatments Planned L TKA Treatment Goals Patient/Caregiver Goals be back to walking & hiking; every day routine things PT-OP-C Subjective Start: 10/26/19 09:52 Freq: Status: Active Protocol: Document 11/25/19 09:00 [facility] (Rec: 11/25/19 11:48 [facility] [id number]) OP-PT Subjective Patient Comments Patient Comments Pt stated is compliant with HEP at home and still taking Tylenol and ibuprofen alternating to assist 3-4/10 pain. PT-OP-G Mobility & Gait Start: 10/26/19 09:52 Freq: Status: Active Protocol: Document 11/22/19 07:26 [facility] (Rec: 11/22/19 12:40 [facility] [id number]) OP Gait Assessment Comments Gait Comments Pt came in with FWW and amb with little wb into walker. SPC required cuieng for sequencing & for even step length w/o AD: pt amb with dec WB into LLE and dec knee ext so instructed to use AD at this time. PT-OP-K Range of Motion Start: 10/26/19 09:52 Freq: Status: Active Protocol: Document 11/22/19 07:26 [facility] (Rec: 11/22/19 12:40 [facility] [id number]) Knee Goniometric Range of Motion Knee Left Flexion Active (degrees) 103 Extension Active (degrees) 11 PT-OP-M Strength Start: 10/26/19 09:52 Freq: Status: Active Protocol: Document 11/22/19 07:26 [facility] (Rec: 11/22/19 12:40 [facility] [id number]) Hip Strength Hip Manual Muscle Testing Left Flexion (L2) 4 Good Extension (S1) 3+ Fair+ Abduction 3+ Fair+ External Rotation 3 Fair Internal Rotation 3+ Fair+ Right Flexion (L2) 4+ Good+ Extension (S1) 4- Good- Abduction 4 Good External Rotation 3+ Fair+ Internal Rotation 4 Good Knee Strength Knee Manual Muscle Testing Left Flexion (S2) 4- Good- Extension (L3) 3+ Fair+ Right Flexion (S2) 4+ Good+ Extension (L3) 4+ Good+ Ankle/Foot Strength Ankle and Foot Manual Muscle Testing Left Dorsiflexion (L4) 4 Good Plantarflexion (S1) 4+ Good+ Right Dorsiflexion (L4) 4+ Good+ Plantarflexion (S1) 5 Normal Comments B PF tested in seated PT-OP-Q Treatments Start: 10/26/19 09:52 Freq: Status: Active Protocol: Document 11/25/19 09:00 [facility] (Rec: 11/25/19 11:48 [facility] [id number]) Cardio Equipment Recumbent Elliptical (Biodex) Duration (Minutes) 6 Resistance 3 Seat Position 9 Therapeutic Exercises Supine Exercises 3 Supine Exercise Name quad set, SAQ, SLR, passive ext, heel slides Reps/Minutes x10 HS, 10 x5 quad set, 3 x10 SAQ, x10 SLR, pass ext 10 x3, Comments AROM L knee ROM 4*- 118* Prone Exercises prone hang Reps/Minutes 30 sec Comments HEP x3 Sidelying Exercises 3 Sidelying Exercise Name hip abd Side bilateral Resistance AROM Reps/Minutes x10 Comments cued hips over each other ABD (visualize slide up wall) Sitting Exercises LAQ Side left Resistance AROM Reps/Minutes 5 Standing Exercises sit to stand Reps/Minutes x5 Comments hands on lap, cued knees apart TKE Side left Equipment Used L1 x10, L3 x10 Gait Training Gait Activity gait Description amb with SPC Comments sequencing and smaller equal stride length and level pelivs PT-OP-T Assessment and Plan Start: 10/26/19 09:52 Freq: Status: Active Protocol: Document 11/25/19 09:00 [facility] (Rec: 11/25/19 11:48 [facility] [id number]) Physical Therapy Assessment Goals Four Impairment ROM Short Term Goal (STG) Pt will have 0-120 deg ROM of L knee. STG Duration 12/23/19 Usp Goal (LTG) Pt will be able to ascend and decend stairs reciprocally without inc pain. LTG Duration 01/23/20 Three Impairment LEFS Usp Goal (LTG) Pt will score 60/80 to show improved functional mboility LTG Duration 01/23/20 Two Short Term Goal (STG) Pt will be able to walk 1 mile on even surfaces without inc pain. STG Duration 12/23/19 Crayon Grader Goal (LTG) Pt will be able to hike on uneven surfaces without pain or feeling of unbalance 1 mile . LTG Duration 01/23/20 One Short Term Goal (STG) Pt will be indep with HEP. STG Duration 12/23/19 Usp Goal (LTG) Pt will have 5/5 LE B strength in order to allow her to do typical daily activiteis without pain. LTG Duration 01/23/20 Assessment Summary Assessment Reviewed HEP post op ex and added TKE and hip abd on side last tx, cued for proper alignment durin hip abd and was able to increase to L3 resistance of TKE today. Added LAQ, sit to stand from 21 raised table and prone hang today for HEP with positive response. Pt was able to gain AROM L knee 4-118*. No adverse affects to ther ex today. Cued for normal step length and SPC distance placement, level pelvis and uppright trunk alignment while use SPC in RUE to decrease lateral trunk lean and work toward normal gait with good self corrections post cues. Physical Therapy Plan Frequency and Duration Frequency of Treatment 2x/Week Duration of Treatment 1 month Plan of Care Start Date 11/22/19 Plan of Care End Date 01/23/20 Therapeutic Interventions Therapeutic Interventions Aquatic Therapy,Balance Training,Gait Training,Home Exercise Program,Joint Mobilizations,Manual Therapy, Neuromuscular Re-education, Patient/Caregiver Education, Self-Care/Home Management,Soft Tissue Mobilization,Taping, Therapeutic Activities, Therapeutic Exercises Modalities Cold Pack/Ice Massage,Electric Stimulation,Hot Packs, Ultrasound Next Visit Focus/Plan Next Note Type Treatment Note Next Visit Plan cont to work on gait, work on ROM & hip strength, balance board
--- NOTE | 2019-12-01 09:48 | PT.OTN ---
Current Diagnoses Bilateral primary osteoarthritis of knee (12/01/19) Unilateral primary osteoarthritis, left knee (12/01/19) Stiffness of left knee, not elsewhere classified (12/01/19) Difficulty in walking, not elsewhere classified (12/01/19) Weakness (12/01/19) Physical Therapy Treatment Note PT-OP-A Visit Information Start: 10/26/19 09:52 Freq: Status: Active Protocol: Document 12/01/19 09:00 [facility] (Rec: 12/01/19 09:47 [facility] [id number]) Out-Patient Physical Therapy Visit Information Visit Information Visit Type Treatment Note Visit Start Time 09:03 Visit Stop Time 09:43 Total Visit Minutes 40 Visit Number 4 Number of CUSTOMER QUALITY SPECIALIST Visits 0 PT-OP-B Current Condition Start: 10/26/19 09:52 Freq: Status: Active Protocol: Document 11/22/19 07:26 [facility] (Rec: 11/22/19 12:40 [facility] [id number]) Current Condition History of Current Condition Onset Date 2 years Current Complaints L knee pain prior to L TKA History of Current Condition 11/22- pt had TKA 11/17 with no complications. WEnt home day of surgery Pt has L knee pain and is planning to have L TKA 11/17 d /t pain that was nagging for the past 2 years that has gotten worse and is now bone on bone per the MD. 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 She works 3 eight hour days. Pt [facility] dgt [facility] and can stay with her as long as she needs. Pt has FWW and cane at home and shower chair. Pt has a tub shower and walk in shower and has a shower chair and bars. Pt has 4 CARLTON with B railings but they are too wide to hold onto both at the same time and SLH. Pt reprots she has higher toilets in the house with sinks close by. Pt has chief operator hydroformer, and long handle shoe horn. Pt reprots she feels like she has lost some of her quality of life d/t pain. PMH includes compression fx in back with back pain w/ Sciatic n pain, hysterectomy d/t uterus & bladder prolapse and R foot pain Prior Treatments and Tests Xrays, PT for back in past Future Testing and Treatments Planned L TKA Treatment Goals Patient/Caregiver Goals be back to walking & hiking; every day routine things PT-OP-C Subjective Start: 10/26/19 09:52 Freq: Status: Active Protocol: Document 12/01/19 09:00 [facility] (Rec: 12/01/19 09:47 [facility] [id number]) OP-PT Subjective Patient Comments Patient Comments Pt reports knee is feeling good. She has occasional twinges. She has her next post op tomorrow. Patient Reported Progress Improving PT-OP-G Mobility & Gait Start: 10/26/19 09:52 Freq: Status: Active Protocol: Document 11/22/19 07:26 [facility] (Rec: 11/22/19 12:40 [facility] [id number]) OP Gait Assessment Comments Gait Comments Pt came in with FWW and amb with little wb into walker. SPC required cuieng for sequencing & for even step length w/o AD: pt amb with dec WB into LLE and dec knee ext so instructed to use AD at this time. PT-OP-K Range of Motion Start: 10/26/19 09:52 Freq: Status: Active Protocol: Document 11/22/19 07:26 [facility] (Rec: 11/22/19 12:40 [facility] [id number]) Knee Goniometric Range of Motion Knee Left Flexion Active (degrees) 103 Extension Active (degrees) 11 PT-OP-M Strength Start: 10/26/19 09:52 Freq: Status: Active Protocol: Document 11/22/19 07:26 [facility] (Rec: 11/22/19 12:40 [facility] [id number]) Hip Strength Hip Manual Muscle Testing Left Flexion (L2) 4 Good Extension (S1) 3+ Fair+ Abduction 3+ Fair+ External Rotation 3 Fair Internal Rotation 3+ Fair+ Right Flexion (L2) 4+ Good+ Extension (S1) 4- Good- Abduction 4 Good External Rotation 3+ Fair+ Internal Rotation 4 Good Knee Strength Knee Manual Muscle Testing Left Flexion (S2) 4- Good- Extension (L3) 3+ Fair+ Right Flexion (S2) 4+ Good+ Extension (L3) 4+ Good+ Ankle/Foot Strength Ankle and Foot Manual Muscle Testing Left Dorsiflexion (L4) 4 Good Plantarflexion (S1) 4+ Good+ Right Dorsiflexion (L4) 4+ Good+ Plantarflexion (S1) 5 Normal Comments B PF tested in seated PT-OP-Q Treatments Start: 10/26/19 09:52 Freq: Status: Active Protocol: Document 12/01/19 09:00 [facility] (Rec: 12/01/19 09:47 [facility] [id number]) Cardio Equipment Recumbent Elliptical (Biodex) Duration (Minutes) 4 Resistance 3 Seat Position 7-6 Recumbent Bicycle Duration (Minutes) 3 Resistance 1 Seat Position 4 Gym Equipment Shuttle Balance red clips Details fwd & side: WBOS & NBOS Therapeutic Exercises Supine Exercises 2 Supine Exercise Name HS stretch Side left Reps/Minutes 30 sec hold x2 Sidelying Exercises 3 Sidelying Exercise Name hip abd Side bilateral Resistance AROM Reps/Minutes x10 Comments cued hips over each other ABD (visualize slide up wall) Standing Exercises sit to stand Reps/Minutes 10 Comments hands as needed TKE Side left Equipment Used L3 Reps/Minutes 20 Manual Therapy Treatment Soft Tissue Mobilization 2 Body Location HS Mobilization Type Rolling PT-OP-T Assessment and Plan Start: 10/26/19 09:52 Freq: Status: Active Protocol: Document 12/01/19 09:00 [facility] (Rec: 12/01/19 09:47 [facility] [id number]) Physical Therapy Assessment Goals Four Impairment ROM Short Term Goal (STG) Pt will have 0-120 deg ROM of L knee. STG Duration 12/23/19 Asphalt Paving Superintendent Goal (LTG) Pt will be able to ascend and decend stairs reciprocally without inc pain. LTG Duration 01/23/20 Three Impairment LEFS Asphalt Paving Superintendent Goal (LTG) Pt will score 60/80 to show improved functional mboility LTG Duration 01/23/20 Two Short Term Goal (STG) Pt will be able to walk 1 mile on even surfaces without inc pain. STG Duration 12/23/19 Asphalt Paving Superintendent Goal (LTG) Pt will be able to hike on uneven surfaces without pain or feeling of unbalance 1 mile . LTG Duration 01/23/20 One Short Term Goal (STG) Pt will be indep with HEP. STG Duration 12/23/19 Correction Goal (LTG) Pt will have 5/5 LE B strength in order to allow her to do typical daily activiteis without pain. LTG Duration 01/23/20 Assessment Summary Assessment ROM 8-110 today which is showing improvement. She did well with exercise form today with min cueing for all exercises. Blajavad board presented a good challenge for her. Physical Therapy Plan Frequency and Duration Frequency of Treatment 2x/Week Duration of Treatment 1 month Plan of Care Start Date 11/22/19 Plan of Care End Date 01/23/20 Next Visit Focus/Plan Next Note Type Treatment Note Next Visit Plan cont to work on gait, work on ROM & hip strength
--- NOTE | 2019-12-05 10:41 | PT.OTN ---
Current Diagnoses Bilateral primary osteoarthritis of knee (12/05/19) Unilateral primary osteoarthritis, left knee (12/05/19) Stiffness of left knee, not elsewhere classified (12/05/19) Difficulty in walking, not elsewhere classified (12/05/19) Weakness (12/05/19) Physical Therapy Treatment Note PT-OP-A Visit Information Start: 10/26/19 09:52 Freq: Status: Active Protocol: Document 12/05/19 09:49 [facility] (Rec: 12/05/19 10:40 [facility] [id number]) Out-Patient Physical Therapy Visit Information Visit Information Visit Type Treatment Note Visit Start Time 09:50 Visit Stop Time 10:30 Total Visit Minutes 40 Visit Number 5 Number of PATIENT INTAKE REPRESENTATIVE Visits 0 PT-OP-B Current Condition Start: 10/26/19 09:52 Freq: Status: Active Protocol: Document 11/22/19 07:26 [facility] (Rec: 11/22/19 12:40 [facility] [id number]) Current Condition History of Current Condition Onset Date 2 years Current Complaints L knee pain prior to L TKA History of Current Condition 11/22- pt had TKA 11/17 with no complications. WEnt home day of surgery Pt has L knee pain and is planning to have L TKA 11/17 d /t pain that was nagging for the past 2 years that has gotten worse and is now bone on bone per the MD. 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 She works 3 eight hour days. Pt has a dgt that lives in [facility] and can stay with her as long as she needs. Pt has FWW and cane at home and shower chair. Pt has a tub shower and walk in shower and has a shower chair and bars. Pt has 4 CARLTON with B railings but they are too wide to hold onto both at the same time and SLH. Pt reprots she has higher toilets in the house with sinks close by. Pt has veneer jointer helper, and long handle shoe horn. Pt reprots she feels like she has lost some of her quality of life d/t pain. PMH includes compression fx in back with back pain w/ Sciatic n pain, hysterectomy d/t uterus & bladder prolapse and R foot pain Prior Treatments and Tests Xrays, PT for back in past Future Testing and Treatments Planned L TKA Treatment Goals Patient/Caregiver Goals be back to walking & hiking; every day routine things PT-OP-C Subjective Start: 10/26/19 09:52 Freq: Status: Active Protocol: Document 12/05/19 09:49 [facility] (Rec: 12/05/19 10:40 [facility] [id number]) OP-PT Subjective Patient Comments Patient Comments Pt reports PA appt went well. Reports she is no longer planning to go back to work yet. Reports she got her bandage off which feels better . Pt only using walker on uneven surfaces and when it wet. Using cane at home to avoid furniture walking. Patient Reported Progress Improving PT-OP-G Mobility & Gait Start: 10/26/19 09:52 Freq: Status: Active Protocol: Document 11/22/19 07:26 [facility] (Rec: 11/22/19 12:40 [facility] [id number]) OP Gait Assessment Comments Gait Comments Pt came in with FWW and amb with little wb into walker. SPC required cuieng for sequencing & for even step length w/o AD: pt amb with dec WB into LLE and dec knee ext so instructed to use AD at this time. PT-OP-K Range of Motion Start: 10/26/19 09:52 Freq: Status: Active Protocol: Document 11/22/19 07:26 [facility] (Rec: 11/22/19 12:40 [facility] [id number]) Knee Goniometric Range of Motion Knee Left Flexion Active (degrees) 103 Extension Active (degrees) 11 PT-OP-M Strength Start: 10/26/19 09:52 Freq: Status: Active Protocol: Document 11/22/19 07:26 [facility] (Rec: 11/22/19 12:40 [facility] [id number]) Hip Strength Hip Manual Muscle Testing Left Flexion (L2) 4 Good Extension (S1) 3+ Fair+ Abduction 3+ Fair+ External Rotation 3 Fair Internal Rotation 3+ Fair+ Right Flexion (L2) 4+ Good+ Extension (S1) 4- Good- Abduction 4 Good External Rotation 3+ Fair+ Internal Rotation 4 Good Knee Strength Knee Manual Muscle Testing Left Flexion (S2) 4- Good- Extension (L3) 3+ Fair+ Right Flexion (S2) 4+ Good+ Extension (L3) 4+ Good+ Ankle/Foot Strength Ankle and Foot Manual Muscle Testing Left Dorsiflexion (L4) 4 Good Plantarflexion (S1) 4+ Good+ Right Dorsiflexion (L4) 4+ Good+ Plantarflexion (S1) 5 Normal Comments B PF tested in seated PT-OP-Q Treatments Start: 10/26/19 09:52 Freq: Status: Active Protocol: Document 12/05/19 09:49 [facility] (Rec: 12/05/19 10:40 [facility] [id number]) Cardio Equipment Recumbent Bicycle Duration (Minutes) 6 Resistance 1-3 Seat Position 5 Other backwards for 3 min then fwd w /lvl 3 Gym Equipment Shuttle Recovery Unilateral Squats Resistance 25 Shuttle Recovery Platform Stable Reps/Time 20 Bilateral Squats Resistance 87 Shuttle Recovery Platform Stable Reps/Time 20 Shuttle Balance red clips Details fwd & side: WBOS & NBOS & wt shifts Gait Training Gait Activity gait Description amb without AD in mirror to focus on push off stairs Description up reciprocally, down step to Comments 1x up 4 in steps 2x up 6 in steps 1x down 4 in reciprocally then 2x down 6 in step to. Manual Therapy Treatment Soft Tissue Mobilization 2 Body Location HS & calf Mobilization Type Rolling Manual Techniques c/r Type c/r HS stretch PT-OP-T Assessment and Plan Start: 10/26/19 09:52 Freq: Status: Active Protocol: Document 12/05/19 09:49 [facility] (Rec: 12/05/19 10:40 [facility] [id number]) Physical Therapy Assessment Goals Four Impairment ROM Short Term Goal (STG) Pt will have 0-120 deg ROM of L knee. STG Duration 12/23/19 Mcc Goal (LTG) Pt will be able to ascend and decend stairs reciprocally without inc pain. LTG Duration 01/23/20 Three Impairment LEFS Mcc Goal (LTG) Pt will score 60/80 to show improved functional mboility LTG Duration 01/23/20 Two Short Term Goal (STG) Pt will be able to walk 1 mile on even surfaces without inc pain. STG Duration 12/23/19 Jail Manager Goal (LTG) Pt will be able to hike on uneven surfaces without pain or feeling of unbalance 1 mile . LTG Duration 01/23/20 One Short Term Goal (STG) Pt will be indep with HEP. STG Duration 12/23/19 Mcc Goal (LTG) Pt will have 5/5 LE B strength in order to allow her to do typical daily activiteis without pain. LTG Duration 01/23/20 Assessment Summary Assessment ROM 7-114 today prior to manual. She is doing better with balacne and was able to improve gait and stairs with cueing. Physical Therapy Plan Frequency and Duration Frequency of Treatment 2x/Week Duration of Treatment 1 month Plan of Care Start Date 11/22/19 Plan of Care End Date 01/23/20 Therapeutic Interventions Therapeutic Interventions Aquatic Therapy,Balance Training,Gait Training,Home Exercise Program,Joint Mobilizations,Manual Therapy, Neuromuscular Re-education, Patient/Caregiver Education, Self-Care/Home Management,Soft Tissue Mobilization,Taping, Therapeutic Activities, Therapeutic Exercises Modalities Cold Pack/Ice Massage,Electric Stimulation,Hot Packs, Ultrasound Next Visit Focus/Plan Next Note Type Treatment Note Next Visit Plan cont to work on gait, work on ROM & hip strength
--- NOTE | 2019-12-12 09:45 | PT.OTN ---
Current Diagnoses Bilateral primary osteoarthritis of knee (12/12/19) Unilateral primary osteoarthritis, left knee (12/12/19) Stiffness of left knee, not elsewhere classified (12/12/19) Difficulty in walking, not elsewhere classified (12/12/19) Weakness (12/12/19) Physical Therapy Treatment Note PT-OP-A Visit Information Start: 10/26/19 09:52 Freq: Status: Active Protocol: Document 12/12/19 09:03 [facility] (Rec: 12/12/19 12:02 [facility] [id number]) Out-Patient Physical Therapy Visit Information Visit Information Visit Type Treatment Note Visit Start Time 09:03 Visit Stop Time 09:45 Total Visit Minutes 42 Visit Number 6 Number of COMPUTER GRAPHICS ILLUSTRATOR Visits 1 PT-OP-B Current Condition Start: 10/26/19 09:52 Freq: Status: Active Protocol: Document 11/22/19 07:26 [facility] (Rec: 11/22/19 12:40 [facility] [id number]) Current Condition History of Current Condition Onset Date 2 years Current Complaints L knee pain prior to L TKA History of Current Condition 11/22- pt had TKA 11/17 with no complications. WEnt home day of surgery Pt has L knee pain and is planning to have L TKA 11/17 d /t pain that was nagging for the past 2 years that has gotten worse and is now bone on bone per the MD. 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 She works 3 eight hour days. Pt has a dgt that lives in town and can stay with her as long as she needs. Pt has FWW and cane at home and shower chair. Pt has a tub shower and walk in shower and has a shower chair and bars. Pt has 4 CARLTON with B railings but they are too wide to hold onto both at the same time and SLH. Pt reprots she has higher toilets in the house with sinks close by. Pt has c d area supervisor, and long handle shoe horn. Pt reprots she feels like she has lost some of her quality of life d/t pain. PMH includes compression fx in back with back pain w/ Sciatic n pain, hysterectomy d/t uterus & bladder prolapse and R foot pain Prior Treatments and Tests Xrays, PT for back in past Future Testing and Treatments Planned L TKA Treatment Goals Patient/Caregiver Goals be back to walking & hiking; every day routine things PT-OP-C Subjective Start: 10/26/19 09:52 Freq: Status: Active Protocol: Document 12/12/19 09:03 [facility] (Rec: 12/12/19 12:02 [facility] [id number]) OP-PT Subjective Patient Comments Patient Comments Pt arrived demonstrated antalgic decreased L knee flexion during advancement with no AD use and trying to be conscious of proper gait learned previous treatments. Pt reports doing well, no pain today but stiffness but occasional twinging and skin stretching over scar. PT-OP-G Mobility & Gait Start: 10/26/19 09:52 Freq: Status: Active Protocol: Document 11/22/19 07:26 [facility] (Rec: 11/22/19 12:40 [facility] [id number]) OP Gait Assessment Comments Gait Comments Pt came in with FWW and amb with little wb into walker. SPC required cuieng for sequencing & for even step length w/o AD: pt amb with dec WB into LLE and dec knee ext so instructed to use AD at this time. PT-OP-K Range of Motion Start: 10/26/19 09:52 Freq: Status: Active Protocol: Document 11/22/19 07:26 [facility] (Rec: 11/22/19 12:40 [facility] [id number]) Knee Goniometric Range of Motion Knee Left Flexion Active (degrees) 103 Extension Active (degrees) 11 PT-OP-M Strength Start: 10/26/19 09:52 Freq: Status: Active Protocol: Document 11/22/19 07:26 [facility] (Rec: 11/22/19 12:40 [facility] [id number]) Hip Strength Hip Manual Muscle Testing Left Flexion (L2) 4 Good Extension (S1) 3+ Fair+ Abduction 3+ Fair+ External Rotation 3 Fair Internal Rotation 3+ Fair+ Right Flexion (L2) 4+ Good+ Extension (S1) 4- Good- Abduction 4 Good External Rotation 3+ Fair+ Internal Rotation 4 Good Knee Strength Knee Manual Muscle Testing Left Flexion (S2) 4- Good- Extension (L3) 3+ Fair+ Right Flexion (S2) 4+ Good+ Extension (L3) 4+ Good+ Ankle/Foot Strength Ankle and Foot Manual Muscle Testing Left Dorsiflexion (L4) 4 Good Plantarflexion (S1) 4+ Good+ Right Dorsiflexion (L4) 4+ Good+ Plantarflexion (S1) 5 Normal Comments B PF tested in seated PT-OP-Q Treatments Start: 10/26/19 09:52 Freq: Status: Active Protocol: Document 12/12/19 09:03 [facility] (Rec: 12/12/19 12:02 [facility] [id number]) Cardio Equipment Recumbent Bicycle Duration (Minutes) 8 Resistance 6 Seat Position 4 Therapeutic Exercises Sitting Exercises Knee ext stretch Sitting Exercise Name propped up on hair with quad set Comments quick and slow, cued no glut recruitment Standing Exercises eccentric step down Equipment Used 6step Reps/Minutes 5 x3 alternate BLE sit to stand Reps/Minutes 10 Comments arms acrossed chest Gait Training Gait Activity gait Description amb without AD in mirror to focus on push off Device Used no AD Comments cued L foot flange turner decrease IR during heel toe and knee flexion Manual Therapy Treatment Soft Tissue Mobilization 1 Body Location scar mobility Body Position seated Comments leg out straight PT-OP-T Assessment and Plan Start: 10/26/19 09:52 Freq: Status: Active Protocol: Document 12/12/19 09:03 [facility] (Rec: 12/12/19 12:02 [facility] [id number]) Physical Therapy Assessment Goals Four Impairment ROM Short Term Goal (STG) Pt will have 0-120 deg ROM of L knee. STG Duration 12/23/19 Prison Goal (LTG) Pt will be able to ascend and decend stairs reciprocally without inc pain. LTG Duration 01/23/20 Three Impairment LEFS Prison Goal (LTG) Pt will score 60/80 to show improved functional mboility LTG Duration 01/23/20 Two Short Term Goal (STG) Pt will be able to walk 1 mile on even surfaces without inc pain. STG Duration 12/23/19 Gearcase Assembler Goal (LTG) Pt will be able to hike on uneven surfaces without pain or feeling of unbalance 1 mile . LTG Duration 01/23/20 One Short Term Goal (STG) Pt will be indep with HEP. STG Duration 12/23/19 Prison Goal (LTG) Pt will have 5/5 LE B strength in order to allow her to do typical daily activiteis without pain. LTG Duration 01/23/20 Assessment Summary Assessment Tx focused on quad control, proper form with HEP with knee alignment cuing and decreased glut recruitment during supine and seated quad sets withimprovement. Instructed self scar mob for self decrease tightness. Pt demonstrated improved gait phases and decreaes anterior knee discomfort recruitment during ther ex. Physical Therapy Plan Frequency and Duration Frequency of Treatment 2x/Week Duration of Treatment 1 month Plan of Care Start Date 11/22/19 Plan of Care End Date 01/23/20 Therapeutic Interventions Therapeutic Interventions Aquatic Therapy,Balance Training,Gait Training,Home Exercise Program,Joint Mobilizations,Manual Therapy, Neuromuscular Re-education, Patient/Caregiver Education, Self-Care/Home Management,Soft Tissue Mobilization,Taping, Therapeutic Activities, Therapeutic Exercises Modalities Cold Pack/Ice Massage,Electric Stimulation,Hot Packs, Ultrasound Next Visit Focus/Plan Next Note Type Treatment Note Next Visit Plan cont to work on gait, work on ROM & hip strength with decreased LB and glut recruitment during quad strengthening.
--- NOTE | 2019-12-16 10:15 | PT-OP ANOTE ---
Pt cancelled less than 24 hrs secondary to poor snow conditions for her to come to appt. LEft a message regarding to her next appt 12/20/19 at 0730.
--- NOTE | 2019-12-20 09:35 | PT.OTN ---
Current Diagnoses Bilateral primary osteoarthritis of knee (12/20/19) Unilateral primary osteoarthritis, left knee (12/20/19) Stiffness of left knee, not elsewhere classified (12/20/19) Difficulty in walking, not elsewhere classified (12/20/19) Weakness (12/20/19) Physical Therapy Treatment Note PT-OP-A Visit Information Start: 10/26/19 09:52 Freq: Status: Active Protocol: Document 12/20/19 07:30 [facility] (Rec: 12/20/19 09:34 [facility] [id number]) Out-Patient Physical Therapy Visit Information Visit Information Visit Type Treatment Note Visit Start Time 07:37 Visit Stop Time 08:15 Total Visit Minutes 38 Visit Number 7 Number of ENGAGEMENT QUALITY CONSULTANT Visits 0 PT-OP-B Current Condition Start: 10/26/19 09:52 Freq: Status: Active Protocol: Document 11/22/19 07:26 [facility] (Rec: 11/22/19 12:40 [facility] [id number]) Current Condition History of Current Condition Onset Date 2 years Current Complaints L knee pain prior to L TKA History of Current Condition 11/22- pt had TKA 11/17 with no complications. WEnt home day of surgery Pt has L knee pain and is planning to have L TKA 11/17 d /t pain that was nagging for the past 2 years that has gotten worse and is now bone on bone per the MD. 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 She works 3 eight hour days. Pt has a dgt that lives in [facility] and can stay with her as long as she needs. Pt has FWW and cane at home and shower chair. Pt has a tub shower and walk in shower and has a shower chair and bars. Pt has 4 CARLTON with B railings but they are too wide to hold onto both at the same time and [facility]. Pt reprots she has higher toilets in the house with sinks close by. Pt has sap abap developer, and long handle shoe horn. Pt reprots she feels like she has lost some of her quality of life d/t pain. PMH includes compression fx in back with back pain w/ Sciatic n pain, hysterectomy d/t uterus & bladder prolapse and R foot pain Prior Treatments and Tests Xrays, PT for back in past Future Testing and Treatments Planned L TKA Treatment Goals Patient/Caregiver Goals be back to walking & hiking; every day routine things PT-OP-C Subjective Start: 10/26/19 09:52 Freq: Status: Active Protocol: Document 12/20/19 07:30 [facility] (Rec: 12/20/19 09:34 [facility] [id number]) OP-PT Subjective Patient Comments Patient Comments Pt reprots she think sshe is getting a UTI so will go to MD today. Pt notes she is able to go reciprocally up/down stairs. COmpliance with HEP Patient Reported Progress Improving PT-OP-G Mobility & Gait Start: 10/26/19 09:52 Freq: Status: Active Protocol: Document 11/22/19 07:26 [facility] (Rec: 11/22/19 12:40 [facility] [id number]) OP Gait Assessment Comments Gait Comments Pt came in with FWW and amb with little wb into walker. SPC required cuieng for sequencing & for even step length w/o AD: pt amb with dec WB into LLE and dec knee ext so instructed to use AD at this time. PT-OP-K Range of Motion Start: 10/26/19 09:52 Freq: Status: Active Protocol: Document 11/22/19 07:26 [facility] (Rec: 11/22/19 12:40 [facility] [id number]) Knee Goniometric Range of Motion Knee Left Flexion Active (degrees) 103 Extension Active (degrees) 11 PT-OP-M Strength Start: 10/26/19 09:52 Freq: Status: Active Protocol: Document 11/22/19 07:26 [facility] (Rec: 11/22/19 12:40 [facility] [id number]) Hip Strength Hip Manual Muscle Testing Left Flexion (L2) 4 Good Extension (S1) 3+ Fair+ Abduction 3+ Fair+ External Rotation 3 Fair Internal Rotation 3+ Fair+ Right Flexion (L2) 4+ Good+ Extension (S1) 4- Good- Abduction 4 Good External Rotation 3+ Fair+ Internal Rotation 4 Good Knee Strength Knee Manual Muscle Testing Left Flexion (S2) 4- Good- Extension (L3) 3+ Fair+ Right Flexion (S2) 4+ Good+ Extension (L3) 4+ Good+ Ankle/Foot Strength Ankle and Foot Manual Muscle Testing Left Dorsiflexion (L4) 4 Good Plantarflexion (S1) 4+ Good+ Right Dorsiflexion (L4) 4+ Good+ Plantarflexion (S1) 5 Normal Comments B PF tested in seated PT-OP-Q Treatments Start: 10/26/19 09:52 Freq: Status: Active Protocol: Document 12/20/19 07:30 [facility] (Rec: 12/20/19 09:34 [facility] [id number]) Cardio Equipment Recumbent Bicycle Duration (Minutes) 6 Resistance 6 once fwd Seat Position 4 Other backwards for 3 min then fwd w /lvl 3 Therapeutic Exercises Prone Exercises TKE Side left Reps/Minutes 3 sec x15 prone hang Prone Exercise Name for ext Side left Reps/Minutes 1 min Sitting Exercises Knee ext stretch Sitting Exercise Name propped up on chair with quad set Comments focus on seeing quad activate w/overpressure Standing Exercises sit to stand Reps/Minutes 10 Comments arms acrossed chest Gait Training Gait Activity gait Description amb without AD in mirror to focus on push off Treatment Focus 1. gait with focus on push off Comments 2.wt shifts to wt acceptance in mirror stairs Comments up/down 6 in steps reciprocally 1x with rail & 1x /without Manual Therapy Treatment Joint Mobilizations tibfem Joint AP on tibia & Femur FM tibfib Joint L Direction AP FM PF Joint L Direction sup, inf, med PT-OP-T Assessment and Plan Start: 10/26/19 09:52 Freq: Status: Active Protocol: Document 12/20/19 07:30 [facility] (Rec: 12/20/19 09:34 [facility] [id number]) Physical Therapy Assessment Goals Four Impairment ROM Short Term Goal (STG) Pt will have 0-120 deg ROM of L knee. 12/20-improving to 7-120 STG Duration 12/23/19 Warble Saw Operator Goal (LTG) Pt will be able to ascend and decend stairs reciprocally without inc pain. 12/20-able to do with rail withotu pain but some pain without rail LTG Duration 01/23/20 Three Impairment LEFS Warble Saw Operator Goal (LTG) Pt will score 60/80 to show improved functional mboility 12/20-improved to 44/80 LTG Duration 01/23/20 Two Short Term Goal (STG) Pt will be able to walk 1 mile on even surfaces without inc pain. 12/20-has not tried walking d/t weather STG Duration 12/23/19 Warble Saw Operator Goal (LTG) Pt will be able to hike on uneven surfaces without pain or feeling of unbalance 1 mile . LTG Duration 01/23/20 One Short Term Goal (STG) Pt will be indep with HEP. STG Duration achieved Alf Goal (LTG) Pt will have 5/5 LE B strength in order to allow her to do typical daily activiteis without pain. LTG Duration 01/23/20 Assessment Summary Assessment ROM today after doing bike and stairs only: 7-120. She is improving in her functional mobility and improves with her gait mechanics with cueing and after manual therapy to achieve greater knee ext. She has been encouraged to push more with her ROM at this time . Physical Therapy Plan Frequency and Duration Frequency of Treatment 2x/Week Duration of Treatment 1 month Plan of Care Start Date 11/22/19 Plan of Care End Date 01/23/20 Next Visit Focus/Plan Next Note Type Treatment Note Next Visit Plan cont to work on gait, work on ROM & hip strength with decreased LB and glut recruitment during quad strengthening.
--- NOTE | 2019-12-23 09:45 | PT.OTN ---
Current Diagnoses Bilateral primary osteoarthritis of knee (12/23/19) Unilateral primary osteoarthritis, left knee (12/23/19) Stiffness of left knee, not elsewhere classified (12/23/19) Difficulty in walking, not elsewhere classified (12/23/19) Weakness (12/23/19) Physical Therapy Treatment Note PT-OP-A Visit Information Start: 10/26/19 09:52 Freq: Status: Active Protocol: Document 12/23/19 09:04 [facility] (Rec: 12/23/19 12:05 [facility] [id number]) Out-Patient Physical Therapy Visit Information Visit Information Visit Type Treatment Note Visit Start Time 09:04 Visit Stop Time 09:45 Total Visit Minutes 41 Visit Number 8 Number of CORPORATE TRAVEL AGENT Visits 1 PT-OP-B Current Condition Start: 10/26/19 09:52 Freq: Status: Active Protocol: Document 11/22/19 07:26 [facility] (Rec: 11/22/19 12:40 [facility] [id number]) Current Condition History of Current Condition Onset Date 2 years Current Complaints L knee pain prior to L TKA History of Current Condition 11/22- pt had TKA 11/17 with no complications. WEnt home day of surgery Pt has L knee pain and is planning to have L TKA 11/17 d /t pain that was nagging for the past 2 years that has gotten worse and is now bone on bone per the MD. 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 She works 3 eight hour days. Pt has a dgt that lives in town and can stay with her as long as she needs. Pt has FWW and cane at home and shower chair. Pt has a tub shower and walk in shower and has a shower chair and bars. Pt has 4 CARLTON with B railings but they are too wide to hold onto both at the same time and [facility]. Pt reprots she has higher toilets in the house with sinks close by. Pt has carbon paper machine operator, and long handle shoe horn. Pt reprots she feels like she has lost some of her quality of life d/t pain. PMH includes compression fx in back with back pain w/ Sciatic n pain, hysterectomy d/t uterus & bladder prolapse and R foot pain Prior Treatments and Tests Xrays, PT for back in past Future Testing and Treatments Planned L TKA Treatment Goals Patient/Caregiver Goals be back to walking & hiking; every day routine things PT-OP-C Subjective Start: 10/26/19 09:52 Freq: Status: Active Protocol: Document 12/23/19 09:04 [facility] (Rec: 12/23/19 12:05 [facility] [id number]) OP-PT Subjective Patient Comments Patient Comments Pt reported was ableto walk [place] to parking lot to the [facility]. PT-OP-G Mobility & Gait Start: 10/26/19 09:52 Freq: Status: Active Protocol: Document 11/22/19 07:26 [facility] (Rec: 11/22/19 12:40 [facility] [id number]) OP Gait Assessment Comments Gait Comments Pt came in with FWW and amb with little wb into walker. SPC required cuieng for sequencing & for even step length w/o AD: pt amb with dec WB into LLE and dec knee ext so instructed to use AD at this time. PT-OP-K Range of Motion Start: 10/26/19 09:52 Freq: Status: Active Protocol: Document 11/22/19 07:26 [facility] (Rec: 11/22/19 12:40 [facility] [id number]) Knee Goniometric Range of Motion Knee Left Flexion Active (degrees) 103 Extension Active (degrees) 11 PT-OP-M Strength Start: 10/26/19 09:52 Freq: Status: Active Protocol: Document 11/22/19 07:26 [facility] (Rec: 11/22/19 12:40 [facility] [id number]) Hip Strength Hip Manual Muscle Testing Left Flexion (L2) 4 Good Extension (S1) 3+ Fair+ Abduction 3+ Fair+ External Rotation 3 Fair Internal Rotation 3+ Fair+ Right Flexion (L2) 4+ Good+ Extension (S1) 4- Good- Abduction 4 Good External Rotation 3+ Fair+ Internal Rotation 4 Good Knee Strength Knee Manual Muscle Testing Left Flexion (S2) 4- Good- Extension (L3) 3+ Fair+ Right Flexion (S2) 4+ Good+ Extension (L3) 4+ Good+ Ankle/Foot Strength Ankle and Foot Manual Muscle Testing Left Dorsiflexion (L4) 4 Good Plantarflexion (S1) 4+ Good+ Right Dorsiflexion (L4) 4+ Good+ Plantarflexion (S1) 5 Normal Comments B PF tested in seated PT-OP-Q Treatments Start: 10/26/19 09:52 Freq: Status: Active Protocol: Document 12/23/19 09:04 [facility] (Rec: 12/23/19 12:05 [facility] [id number]) Cardio Equipment Recumbent Bicycle Duration (Minutes) 8 Resistance 1 min backward, 6 min forward Seat Position 4 Therapeutic Exercises Prone Exercises knee flexion Equipment Used AROM Reps/Minutes 5 sec hold end feel each direction x10 TKE Side left Reps/Minutes 3 sec x15 prone hang Prone Exercise Name for ext Side left Reps/Minutes 1 min Sitting Exercises LAQ Side left Resistance AROM Reps/Minutes 5 sec hold x10 Comments Cued 90-10* to limit end feel extension distal discomfort quad set Standing Exercises band walk Standing Exercise Name lateral Resistance Tb #1 Reps/Minutes 10 ft x3 laps Comments cued knees with toes to decreased varus and toe in noted. sit to stand Equipment Used 18 chair Reps/Minutes 10 Comments arms acrossed chest Gait Training Gait Activity antonio stepping Description step to and step over step Device Used 5 Comments cued hip ER to neutral alignment of foot, heel toe and knee flexion toward normal gait gait Description amb without AD in mirror to focus on push off Treatment Focus 1. gait with focus on push off Comments 2.wt shifts to wt acceptance in mirror PT-OP-T Assessment and Plan Start: 10/26/19 09:52 Freq: Status: Active Protocol: Document 12/23/19 09:04 [facility] (Rec: 12/23/19 12:05 [facility] [id number]) Physical Therapy Assessment Goals Four Impairment ROM Short Term Goal (STG) Pt will have 0-120 deg ROM of L knee. 12/20-improving to 7-120 STG Duration 12/23/19 Detention Goal (LTG) Pt will be able to ascend and decend stairs reciprocally without inc pain. 12/20-able to do with rail withotu pain but some pain without rail LTG Duration 01/23/20 Three Impairment LEFS Mental Health Clinician Goal (LTG) Pt will score 60/80 to show improved functional mboility 12/20-improved to 44/80 LTG Duration 01/23/20 Two Short Term Goal (STG) Pt will be able to walk 1 mile on even surfaces without inc pain. 12/20-has not tried walking d/t weather STG Duration 12/23/19 Detention Goal (LTG) Pt will be able to hike on uneven surfaces without pain or feeling of unbalance 1 mile . LTG Duration 01/23/20 One Short Term Goal (STG) Pt will be indep with HEP. STG Duration achieved Mental Health Clinician Goal (LTG) Pt will have 5/5 LE B strength in order to allow her to do typical daily activiteis without pain. LTG Duration 01/23/20 Assessment Summary Assessment Pt able to tolerate increased time during bike with same resistance of 6, will increase resistance 7 next tx. Pt responds well to prone knee ext stretch and flexion AROM it doesn't hurt anymore doing this. Pt improved in decreased circumduction and lateral trunk movements post antonio stepping and addition of lateral band walk. No pain and decreased knee tightness end of tx reported. Physical Therapy Plan Frequency and Duration Frequency of Treatment 2x/Week Duration of Treatment 1 month Plan of Care Start Date 11/22/19 Plan of Care End Date 01/23/20 Therapeutic Interventions Therapeutic Interventions Aquatic Therapy,Balance Training,Gait Training,Home Exercise Program,Joint Mobilizations,Manual Therapy, Neuromuscular Re-education, Patient/Caregiver Education, Self-Care/Home Management,Soft Tissue Mobilization,Taping, Therapeutic Activities, Therapeutic Exercises Modalities Cold Pack/Ice Massage,Electric Stimulation,Hot Packs, Ultrasound Next Visit Focus/Plan Next Note Type Treatment Note Next Visit Plan assess added band walk, LAQ and antonio LE gait patterning/ alignment last tx. cont to work on gait, work on ROM & hip strength with decreased LB and glut recruitment during quad strengthening.
--- NOTE | 2019-12-27 08:17 | PT.OTN ---
Current Diagnoses Bilateral primary osteoarthritis of knee (12/27/19) Unilateral primary osteoarthritis, left knee (12/27/19) Stiffness of left knee, not elsewhere classified (12/27/19) Difficulty in walking, not elsewhere classified (12/27/19) Weakness (12/27/19) Physical Therapy Treatment Note PT-OP-A Visit Information Start: 10/26/19 09:52 Freq: Status: Active Protocol: Document 12/27/19 07:34 [facility] (Rec: 12/27/19 08:17 [facility] [id number]) Out-Patient Physical Therapy Visit Information Visit Information Visit Type Treatment Note Visit Note 02/06 Visit Start Time 07:36 Visit Stop Time 08:15 Total Visit Minutes 39 Visit Number 9 Number of SANITATION MANAGER Visits 0 PT-OP-B Current Condition Start: 10/26/19 09:52 Freq: Status: Active Protocol: Document 11/22/19 07:26 [facility] (Rec: 11/22/19 12:40 [facility] [id number]) Current Condition History of Current Condition Onset Date 2 years Current Complaints L knee pain prior to L TKA History of Current Condition 11/22- pt had TKA 11/17 with no complications. WEnt home day of surgery Pt has L knee pain and is planning to have L TKA 11/17 d /t pain that was nagging for the past 2 years that has gotten worse and is now bone on bone per the MD. 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 She works 3 eight hour days. Pt has a dgt that lives in town and can stay with her as long as she needs. Pt has FWW and cane at home and shower chair. Pt has a tub shower and walk in shower and has a shower chair and bars. Pt has 4 CARLTON with B railings but they are too wide to hold onto both at the same time and [facility]. Pt reprots she has higher toilets in the house with sinks close by. Pt has certification technician, and long handle shoe horn. Pt reprots she feels like she has lost some of her quality of life d/t pain. PMH includes compression fx in back with back pain w/ Sciatic n pain, hysterectomy d/t uterus & bladder prolapse and R foot pain Prior Treatments and Tests Xrays, PT for back in past Future Testing and Treatments Planned L TKA Treatment Goals Patient/Caregiver Goals be back to walking & hiking; every day routine things PT-OP-C Subjective Start: 10/26/19 09:52 Freq: Status: Active Protocol: Document 12/27/19 07:34 [facility] (Rec: 12/27/19 08:17 [facility] [id number]) OP-PT Subjective Patient Comments Patient Comments Pt reprots she only took something twice yesterday. Pt is going to see the MD tomorrow. She is going to talk to MD about weaning off. PT-OP-G Mobility & Gait Start: 10/26/19 09:52 Freq: Status: Active Protocol: Document 11/22/19 07:26 [facility] (Rec: 11/22/19 12:40 [facility] [id number]) OP Gait Assessment Comments Gait Comments Pt came in with FWW and amb with little wb into walker. SPC required cuieng for sequencing & for even step length w/o AD: pt amb with dec WB into LLE and dec knee ext so instructed to use AD at this time. PT-OP-K Range of Motion Start: 10/26/19 09:52 Freq: Status: Active Protocol: Document 11/22/19 07:26 [facility] (Rec: 11/22/19 12:40 [facility] [id number]) Knee Goniometric Range of Motion Knee Left Flexion Active (degrees) 103 Extension Active (degrees) 11 PT-OP-M Strength Start: 10/26/19 09:52 Freq: Status: Active Protocol: Document 11/22/19 07:26 [facility] (Rec: 11/22/19 12:40 [facility] [id number]) Hip Strength Hip Manual Muscle Testing Left Flexion (L2) 4 Good Extension (S1) 3+ Fair+ Abduction 3+ Fair+ External Rotation 3 Fair Internal Rotation 3+ Fair+ Right Flexion (L2) 4+ Good+ Extension (S1) 4- Good- Abduction 4 Good External Rotation 3+ Fair+ Internal Rotation 4 Good Knee Strength Knee Manual Muscle Testing Left Flexion (S2) 4- Good- Extension (L3) 3+ Fair+ Right Flexion (S2) 4+ Good+ Extension (L3) 4+ Good+ Ankle/Foot Strength Ankle and Foot Manual Muscle Testing Left Dorsiflexion (L4) 4 Good Plantarflexion (S1) 4+ Good+ Right Dorsiflexion (L4) 4+ Good+ Plantarflexion (S1) 5 Normal Comments B PF tested in seated PT-OP-Q Treatments Start: 10/26/19 09:52 Freq: Status: Active Protocol: Document 12/27/19 07:34 [facility] (Rec: 12/27/19 08:17 [facility] [id number]) Cardio Equipment Recumbent Bicycle Duration (Minutes) 6 Resistance 1 min backward, 6 min forward Seat Position 4 Other fwd lvl 5 Therapeutic Exercises Standing Exercises stretch Standing Exercise Name calf & HS stretches on stair Side bilateral Reps/Minutes 90 sec ea TKE Side left Equipment Used L3 Comments 20 Manual Therapy Treatment Soft Tissue Mobilization 1 Body Location HS & calves Mobilization Type Rolling,Strumming Intensity/Depth Moderate Body Position Supine Joint Mobilizations tibfem Joint AP on tibia & Femur FM tibfib Joint L proximal Direction AP FM PF Joint L Direction sup, inf, med PT-OP-T Assessment and Plan Start: 10/26/19 09:52 Freq: Status: Active Protocol: Document 12/27/19 07:34 [facility] (Rec: 12/27/19 08:17 [facility] [id number]) Physical Therapy Assessment Goals Four Impairment ROM Short Term Goal (STG) Pt will have 0-120 deg ROM of L knee. 12/20-improving to 7-120 STG Duration 12/23/19 Professor Of Marketing Goal (LTG) Pt will be able to ascend and decend stairs reciprocally without inc pain. 12/20-able to do with rail withotu pain but some pain without rail LTG Duration 01/23/20 Three Impairment LEFS Professor Of Marketing Goal (LTG) Pt will score 60/80 to show improved functional mboility 12/20-improved to 44/80 LTG Duration 01/23/20 Two Short Term Goal (STG) Pt will be able to walk 1 mile on even surfaces without inc pain. 12/20-has not tried walking d/t weather STG Duration 12/23/19 Halfway Goal (LTG) Pt will be able to hike on uneven surfaces without pain or feeling of unbalance 1 mile . LTG Duration 01/23/20 One Short Term Goal (STG) Pt will be indep with HEP. STG Duration achieved Professor Of Marketing Goal (LTG) Pt will have 5/5 LE B strength in order to allow her to do typical daily activiteis without pain. LTG Duration 01/23/20 Assessment Summary Assessment Pt had 8-125 deg at start of session today. She improved to lacking only 3 deg ext after manual therapy and cued on exercises to help to cont to work on this. Ext is the main issue at this time. Physical Therapy Plan Frequency and Duration Frequency of Treatment 2x/Week Duration of Treatment 1 month Plan of Care Start Date 11/22/19 Plan of Care End Date 01/23/20 Next Visit Focus/Plan Next Note Type Treatment Note Next Visit Plan cont to work on gait, work on ROM & hip strength with decreased LB and glut recruitment during quad strengthening.
--- NOTE | 2019-12-29 08:17 | PT.OTN ---
Current Diagnoses Bilateral primary osteoarthritis of knee (12/29/19) Unilateral primary osteoarthritis, left knee (12/29/19) Stiffness of left knee, not elsewhere classified (12/29/19) Difficulty in walking, not elsewhere classified (12/29/19) Weakness (12/29/19) Physical Therapy Treatment Note PT-OP-A Visit Information Start: 10/26/19 09:52 Freq: Status: Active Protocol: Document 12/29/19 07:28 [facility] (Rec: 12/29/19 08:17 [facility] [id number]) Out-Patient Physical Therapy Visit Information Visit Information Visit Type Treatment Note Visit Note 03/09 Visit Start Time 07:32 Visit Stop Time 08:15 Total Visit Minutes 43 Visit Number 10 Number of TARIFF INSPECTOR Visits 0 PT-OP-B Current Condition Start: 10/26/19 09:52 Freq: Status: Active Protocol: Document 11/22/19 07:26 [facility] (Rec: 11/22/19 12:40 [facility] [id number]) Current Condition History of Current Condition Onset Date 2 years Current Complaints L knee pain prior to L TKA History of Current Condition 11/22- pt had TKA 11/17 with no complications. WEnt home day of surgery Pt has L knee pain and is planning to have L TKA 11/17 d /t pain that was nagging for the past 2 years that has gotten worse and is now bone on bone per the MD. 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 She works 3 eight hour days. Pt has a dgt that lives in town and can stay with her as long as she needs. Pt has FWW and cane at home and shower chair. Pt has a tub shower and walk in shower and has a shower chair and bars. Pt has 4 CARLTON with B railings but they are too wide to hold onto both at the same time and SLH. Pt reprots she has higher toilets in the house with sinks close by. Pt has yardage control clerk, and long handle shoe horn. Pt reprots she feels like she has lost some of her quality of life d/t pain. PMH includes compression fx in back with back pain w/ Sciatic n pain, hysterectomy d/t uterus & bladder prolapse and R foot pain Prior Treatments and Tests Xrays, PT for back in past Future Testing and Treatments Planned L TKA Treatment Goals Patient/Caregiver Goals be back to walking & hiking; every day routine things PT-OP-C Subjective Start: 10/26/19 09:52 Freq: Status: Active Protocol: Document 12/29/19 07:28 [facility] (Rec: 12/29/19 08:17 [facility] [id number]) OP-PT Subjective Patient Comments Patient Comments Pt reports the MD was pleased with her progress. She was kept from work until January at this time. Pt reports exercises have been going well . She walked about a mile the day she came to PT. PT-OP-G Mobility & Gait Start: 10/26/19 09:52 Freq: Status: Active Protocol: Document 11/22/19 07:26 [facility] (Rec: 11/22/19 12:40 [facility] [id number]) OP Gait Assessment Comments Gait Comments Pt came in with FWW and amb with little wb into walker. SPC required cuieng for sequencing & for even step length w/o AD: pt amb with dec WB into LLE and dec knee ext so instructed to use AD at this time. PT-OP-K Range of Motion Start: 10/26/19 09:52 Freq: Status: Active Protocol: Document 11/22/19 07:26 [facility] (Rec: 11/22/19 12:40 [facility] [id number]) Knee Goniometric Range of Motion Knee Left Flexion Active (degrees) 103 Extension Active (degrees) 11 PT-OP-M Strength Start: 10/26/19 09:52 Freq: Status: Active Protocol: Document 11/22/19 07:26 [facility] (Rec: 11/22/19 12:40 [facility] [id number]) Hip Strength Hip Manual Muscle Testing Left Flexion (L2) 4 Good Extension (S1) 3+ Fair+ Abduction 3+ Fair+ External Rotation 3 Fair Internal Rotation 3+ Fair+ Right Flexion (L2) 4+ Good+ Extension (S1) 4- Good- Abduction 4 Good External Rotation 3+ Fair+ Internal Rotation 4 Good Knee Strength Knee Manual Muscle Testing Left Flexion (S2) 4- Good- Extension (L3) 3+ Fair+ Right Flexion (S2) 4+ Good+ Extension (L3) 4+ Good+ Ankle/Foot Strength Ankle and Foot Manual Muscle Testing Left Dorsiflexion (L4) 4 Good Plantarflexion (S1) 4+ Good+ Right Dorsiflexion (L4) 4+ Good+ Plantarflexion (S1) 5 Normal Comments B PF tested in seated PT-OP-Q Treatments Start: 10/26/19 09:52 Freq: Status: Active Protocol: Document 12/29/19 07:28 [facility] (Rec: 12/29/19 08:17 [facility] [id number]) Cardio Equipment Recumbent Bicycle Duration (Minutes) 6 Resistance 6 Seat Position 6 Gym Equipment Shuttle Recovery Unilateral Squats Resistance 50 Shuttle Recovery Platform Stable Reps/Time 20 Bilateral Squats Resistance 100 Shuttle Recovery Platform Stable Reps/Time 20 Shuttle Balance red clips Details fwd & side: WBOS & NBOS & wt shifts Reps/Duration fwd: staggered stance Comments head turns w/WBOS & NBOS fwd Manual Therapy Treatment Soft Tissue Mobilization 1 Body Location calves Mobilization Type Rolling,Strumming Intensity/Depth Moderate Body Position Supine Joint Mobilizations tibfem Joint AP on tibia & Femur FM PF Joint L Direction sup, inf, med Neuro Re-Education Treatment Balance Activities bosu Details step ups and balance B Reps/Duration 12 ea PT-OP-T Assessment and Plan Start: 10/26/19 09:52 Freq: Status: Active Protocol: Document 12/29/19 07:28 [facility] (Rec: 12/29/19 08:17 [facility] [id number]) Physical Therapy Assessment Goals Four Impairment ROM Short Term Goal (STG) Pt will have 0-120 deg ROM of L knee. 12/20-improving to 7-120 STG Duration 12/23/19 Analytics Developer Goal (LTG) Pt will be able to ascend and decend stairs reciprocally without inc pain. 12/20-able to do with rail withotu pain but some pain without rail LTG Duration 01/23/20 Three Impairment LEFS Intermediate Goal (LTG) Pt will score 60/80 to show improved functional mboility 12/20-improved to 44/80 LTG Duration 01/23/20 Two Short Term Goal (STG) Pt will be able to walk 1 mile on even surfaces without inc pain. 12/20-has not tried walking d/t weather STG Duration 12/23/19 Analytics Developer Goal (LTG) Pt will be able to hike on uneven surfaces without pain or feeling of unbalance 1 mile . LTG Duration 01/23/20 One Short Term Goal (STG) Pt will be indep with HEP. STG Duration achieved Analytics Developer Goal (LTG) Pt will have 5/5 LE B strength in order to allow her to do typical daily activiteis without pain. LTG Duration 01/23/20 Assessment Summary Assessment Pt had4-125 deg today after exercise prior to manual treatment. Improved to about 2 deg ext lacking. She requires cueing to achieve full knee ext for standing and exercises Physical Therapy Plan Frequency and Duration Frequency of Treatment 2x/Week Plan of Care Start Date 11/22/19 Plan of Care End Date 01/23/20 Next Visit Focus/Plan Next Note Type Treatment Note Next Visit Plan cont to work on gait, work on ROM & hip strength with decreased LB and glut recruitment during quad strengthening.
--- NOTE | 2020-01-06 09:46 | PT.OTN ---
Current Diagnoses Bilateral primary osteoarthritis of knee (01/06/20) Unilateral primary osteoarthritis, left knee (01/06/20) Stiffness of left knee, not elsewhere classified (01/06/20) Difficulty in walking, not elsewhere classified (01/06/20) Weakness (01/06/20) Physical Therapy Treatment Note PT-OP-A Visit Information Start: 10/26/19 09:52 Freq: Status: Active Protocol: Document 01/06/20 09:03 [facility] (Rec: 01/06/20 09:49 [facility] [id number]) Out-Patient Physical Therapy Visit Information Visit Information Visit Type Treatment Note Visit Note 04/08 Visit Start Time 09:03 Visit Stop Time 09:46 Total Visit Minutes 43 Visit Number 11 Number of LIFEGUARD Visits 1 PT-OP-B Current Condition Start: 10/26/19 09:52 Freq: Status: Active Protocol: Document 11/22/19 07:26 [facility] (Rec: 11/22/19 12:40 [facility] [id number]) Current Condition History of Current Condition Onset Date 2 years Current Complaints L knee pain prior to L TKA History of Current Condition 11/22- pt had TKA 11/17 with no complications. WEnt home day of surgery Pt has L knee pain and is planning to have L TKA 11/17 d /t pain that was nagging for the past 2 years that has gotten worse and is now bone on bone per the MD. 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 She works 3 eight hour days. Pt has a dgt that lives in town and can stay with her as long as she needs. Pt has FWW and cane at home and shower chair. Pt has a tub shower and walk in shower and has a shower chair and bars. Pt has 4 CARLTON with B railings but they are too wide to hold onto both at the same time and SLH. Pt reprots she has higher toilets in the house with sinks close by. Pt has business data analyst, and long handle shoe horn. Pt reprots she feels like she has lost some of her quality of life d/t pain. PMH includes compression fx in back with back pain w/ Sciatic n pain, hysterectomy d/t uterus & bladder prolapse and R foot pain Prior Treatments and Tests Xrays, PT for back in past Future Testing and Treatments Planned L TKA Treatment Goals Patient/Caregiver Goals be back to walking & hiking; every day routine things PT-OP-C Subjective Start: 10/26/19 09:52 Freq: Status: Active Protocol: Document 01/06/20 09:03 [facility] (Rec: 01/06/20 09:49 [facility] [id number]) OP-PT Subjective Patient Comments Patient Comments Pt reported stiff but doing better, has been working hard on gaining more extension ROM. Pt sees Dr Ring on the and possibly decreasing to 1/ wk with PT. But out of town next week so will return. PT-OP-G Mobility & Gait Start: 10/26/19 09:52 Freq: Status: Active Protocol: Document 11/22/19 07:26 [facility] (Rec: 11/22/19 12:40 [facility] [id number]) OP Gait Assessment Comments Gait Comments Pt came in with FWW and amb with little wb into walker. SPC required cuieng for sequencing & for even step length w/o AD: pt amb with dec WB into LLE and dec knee ext so instructed to use AD at this time. PT-OP-K Range of Motion Start: 10/26/19 09:52 Freq: Status: Active Protocol: Document 11/22/19 07:26 [facility] (Rec: 11/22/19 12:40 [facility] [id number]) Knee Goniometric Range of Motion Knee Left Flexion Active (degrees) 103 Extension Active (degrees) 11 PT-OP-M Strength Start: 10/26/19 09:52 Freq: Status: Active Protocol: Document 11/22/19 07:26 [facility] (Rec: 11/22/19 12:40 [facility] [id number]) Hip Strength Hip Manual Muscle Testing Left Flexion (L2) 4 Good Extension (S1) 3+ Fair+ Abduction 3+ Fair+ External Rotation 3 Fair Internal Rotation 3+ Fair+ Right Flexion (L2) 4+ Good+ Extension (S1) 4- Good- Abduction 4 Good External Rotation 3+ Fair+ Internal Rotation 4 Good Knee Strength Knee Manual Muscle Testing Left Flexion (S2) 4- Good- Extension (L3) 3+ Fair+ Right Flexion (S2) 4+ Good+ Extension (L3) 4+ Good+ Ankle/Foot Strength Ankle and Foot Manual Muscle Testing Left Dorsiflexion (L4) 4 Good Plantarflexion (S1) 4+ Good+ Right Dorsiflexion (L4) 4+ Good+ Plantarflexion (S1) 5 Normal Comments B PF tested in seated PT-OP-Q Treatments Start: 10/26/19 09:52 Freq: Status: Active Protocol: Document 01/06/20 09:03 [facility] (Rec: 01/06/20 09:49 SP [id number]) Cardio Equipment Recumbent Bicycle Duration (Minutes) 6 Resistance 6 Seat Position 5 Gym Equipment Shuttle Recovery Unilateral Squats Resistance 50 Shuttle Recovery Platform Stable Reps/Time 20 Bilateral Squats Resistance 100 Shuttle Recovery Platform Stable Reps/Time 20 Shuttle Balance red clips Details fwd & side: WBOS & NBOS & wt shifts Reps/Duration fwd: staggered stance Comments head turns w/WBOS & NBOS fwd Therapeutic Exercises Prone Exercises knee flexion Prone Exercise Name concentric/eccentric Resistance 2# Reps/Minutes x10, 20 sec prone hang stretch , x2 sets Manual Therapy Treatment Joint Mobilizations tibfem Joint AP on tibia & Femur FM tibfib Joint L proximal Direction AP FM PF Joint L Direction sup, inf, med Neuro Re-Education Treatment Balance Activities single leg stance Surface floor Equipment wall back, chair support PRN front Reps/Duration 30 x2 alternate LE Comments cued upright posture with core and stationary Le glut facilitation tandem Details w and w/ head turns Surface floor Equipment wall/chair Reps/Duration 30 x2 each foot position (2) Comments back to corner with chair front for safety PT-OP-T Assessment and Plan Start: 10/26/19 09:52 Freq: Status: Active Protocol: Document 01/06/20 09:03 [facility] (Rec: 01/06/20 09:49 SP [id number]) Physical Therapy Assessment Goals Four Impairment ROM Short Term Goal (STG) Pt will have 0-120 deg ROM of L knee. 12/20-improving to 7-120 STG Duration 12/23/19 Golf Cart Repairer Goal (LTG) Pt will be able to ascend and decend stairs reciprocally without inc pain. 12/20-able to do with rail withotu pain but some pain without rail LTG Duration 01/23/20 Three Impairment LEFS Golf Cart Repairer Goal (LTG) Pt will score 60/80 to show improved functional mboility 12/20-improved to 44/80 LTG Duration 01/23/20 Two Short Term Goal (STG) Pt will be able to walk 1 mile on even surfaces without inc pain. 12/20-has not tried walking d/t weather STG Duration 12/23/19 Fdc Goal (LTG) Pt will be able to hike on uneven surfaces without pain or feeling of unbalance 1 mile . LTG Duration 01/23/20 One Short Term Goal (STG) Pt will be indep with HEP. STG Duration achieved Fdc Goal (LTG) Pt will have 5/5 LE B strength in order to allow her to do typical daily activiteis without pain. LTG Duration 01/23/20 Assessment Summary Assessment Pt adding more appts to be on PT/LIFEGUARD schedules wanted before end of POC on . Pt responded wellto tx today. Pt responded well to balance tandem and SLS for added home HEP and prone eccentric HS curl to assist ROM and strengthening. Pt was ableto gain 1 degrees extension post manual STm and mobs. Physical Therapy Plan Frequency and Duration Frequency of Treatment 2x/Week Plan of Care Start Date 11/22/19 Plan of Care End Date 01/23/20 Therapeutic Interventions Therapeutic Interventions Aquatic Therapy,Balance Training,Gait Training,Home Exercise Program,Joint Mobilizations,Manual Therapy, Neuromuscular Re-education, Patient/Caregiver Education, Self-Care/Home Management,Soft Tissue Mobilization,Taping, Therapeutic Activities, Therapeutic Exercises Modalities Cold Pack/Ice Massage,Electric Stimulation,Hot Packs, Ultrasound Next Visit Focus/Plan Next Note Type Treatment Note Next Visit Plan Assess response to added prone hang/ eccentric HS curl and tandem/SLS HEp added last tx. COntinue per PT POC: cont to work on gait, work on ROM & hip strength with decreased LB and glut recruitment during quad strengthening.
--- NOTE | 2020-01-23 11:48 | PT.OTN ---
Current Diagnoses Bilateral primary osteoarthritis of knee (01/23/20) Unilateral primary osteoarthritis, left knee (01/23/20) Stiffness of left knee, not elsewhere classified (01/23/20) Difficulty in walking, not elsewhere classified (01/23/20) Weakness (01/23/20) Physical Therapy Treatment Note PT-OP-A Visit Information Start: 10/26/19 09:52 Freq: Status: Active Protocol: Document 01/23/20 08:12 [facility] (Rec: 01/23/20 11:48 [facility] [id number]) Out-Patient Physical Therapy Visit Information Visit Information Visit Type Progress Note Visit Start Time 08:16 Visit Stop Time 09:01 Total Visit Minutes 45 Visit Number 12 Number of CIVIL CAD TECH Visits 0 PT-OP-B Current Condition Start: 10/26/19 09:52 Freq: Status: Active Protocol: Document 11/22/19 07:26 [facility] (Rec: 11/22/19 12:40 [facility] [id number]) Current Condition History of Current Condition Onset Date 2 years Current Complaints L knee pain prior to L TKA History of Current Condition 11/22- pt had TKA 11/17 with no complications. WEnt home day of surgery Pt has L knee pain and is planning to have L TKA 11/17 d /t pain that was nagging for the past 2 years that has gotten worse and is now bone on bone per the MD. 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 She works 3 eight hour days. Pt has a dgt that lives in [facility] and can stay with her as long as she needs. Pt has FWW and cane at home and shower chair. Pt has a tub shower and walk in shower and has a shower chair and bars. Pt has 4 CARLTON with B railings but they are too wide to hold onto both at the same time and SLH. Pt reprots she has higher toilets in the house with sinks close by. 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 Pt reprots she feels like she has lost some of her quality of life d/t pain. PMH includes compression fx in back with back pain w/ Sciatic n pain, hysterectomy d/t uterus & bladder prolapse and R foot pain Prior Treatments and Tests Xrays, PT for back in past Future Testing and Treatments Planned L TKA Treatment Goals Patient/Caregiver Goals be back to walking & hiking; every day routine things PT-OP-C Subjective Start: 10/26/19 09:52 Freq: Status: Active Protocol: Document 01/23/20 08:12 [facility] (Rec: 01/23/20 11:48 [facility] [id number]) OP-PT Subjective Patient Comments Patient Comments Pt reports downhill bothers her still some. Pt slipped on deck steps when it was icy and her R knee feels sore behind like she pulled a mm. Pt reports L side felt fine. PT-OP-G Mobility & Gait Start: 10/26/19 09:52 Freq: Status: Active Protocol: Document 11/22/19 07:26 [facility] (Rec: 11/22/19 12:40 [facility] [id number]) OP Gait Assessment Comments Gait Comments Pt came in with FWW and amb with little wb into walker. SPC required cuieng for sequencing & for even step length w/o AD: pt amb with dec WB into LLE and dec knee ext so instructed to use AD at this time. PT-OP-K Range of Motion Start: 10/26/19 09:52 Freq: Status: Active Protocol: Document 01/23/20 08:12 [facility] (Rec: 01/23/20 11:48 [facility] [id number]) Knee Goniometric Range of Motion Knee Left Flexion Active (degrees) 121 Extension Active (degrees) 5 Extension Passive (degrees) 0 PT-OP-M Strength Start: 10/26/19 09:52 Freq: Status: Active Protocol: Document 01/23/20 08:12 [facility] (Rec: 01/23/20 11:48 [facility] [id number]) Hip Strength Hip Manual Muscle Testing Left Flexion (L2) 4 Good Extension (S1) 4- Good- Abduction 4- Good- External Rotation 3+ Fair+ Internal Rotation 4+ Good+ Right Flexion (L2) 4+ Good+ Extension (S1) 4- Good- Abduction 4 Good Adduction 3+ Fair+ External Rotation 3+ Fair+ Internal Rotation 4+ Good+ Knee Strength Knee Manual Muscle Testing Left Flexion (S2) 5 Normal Extension (L3) 4+ Good+ Right Flexion (S2) 4+ Good+ Extension (L3) 4 Good Ankle/Foot Strength Ankle and Foot Manual Muscle Testing Left Dorsiflexion (L4) 5 Normal Plantarflexion (S1) 5 Normal Comments tested standing Right Dorsiflexion (L4) 5 Normal Plantarflexion (S1) 5 Normal PT-OP-Q Treatments Start: 10/26/19 09:52 Freq: Status: Active Protocol: Document 01/23/20 08:12 [facility] (Rec: 01/23/20 11:48 [facility] [id number]) Cardio Equipment Recumbent Bicycle Duration (Minutes) 5 Resistance 6 Seat Position 8 Therapeutic Exercises Supine Exercises 3 Supine Exercise Name SLR Side bilateral Reps/Minutes 10 1 Supine Exercise Name figure 4 Side left Reps/Minutes 30 sec Sidelying Exercises 3 Sidelying Exercise Name hip abd Side bilateral Reps/Minutes 15 2 Sidelying Exercise Name hip add Side bilateral Reps/Minutes 15 1 Sidelying Exercise Name clamshells Side bilateral Reps/Minutes 15 Standing Exercises lunge Side bilateral Reps/Minutes 10 squat Standing Exercise Name mini Side bilateral Reps/Minutes 20 stretch Standing Exercise Name calf & HS stretch Side bilateral Reps/Minutes 30 sec Comments at stair band walk Side bilateral Equipment Used L1 Reps/Minutes 20ft B TKE Side left Equipment Used L1 Reps/Minutes 10 PT-OP-T Assessment and Plan Start: 10/26/19 09:52 Freq: Status: Active Protocol: Document 01/23/20 08:12 [facility] (Rec: 01/23/20 11:48 [facility] [id number]) Physical Therapy Assessment Goals Four Impairment ROM Short Term Goal (STG) Pt will have 0-120 deg ROM of L knee. 12/20-improving to 7-120 01/23-5-121 STG Duration 02/21/20 Custodial Goal (LTG) Pt will be able to ascend and decend stairs reciprocally without inc pain. 12/20-able to do with rail withotu pain but some pain without rail 01/23-min pain LTG Duration 03/23/20 Three Impairment LEFS Narcotics And/Or Vice Detective Goal (LTG) Pt will score 60/80 to show improved functional mboility 12/20-improved to 44/80 LTG Duration 01/23/20 Two Short Term Goal (STG) Pt will be able to walk 1 mile on even surfaces without inc pain. 12/20-has not tried walking d/t weather STG Duration achieved Narcotics And/Or Vice Detective Goal (LTG) Pt will be able to hike on uneven surfaces without pain or feeling of unbalance 1 mile . 01/23-has not tried LTG Duration 03/23/20 One Short Term Goal (STG) Pt will be indep with HEP. STG Duration achieved Custodial Goal (LTG) Pt will have 5/5 LE B strength in order to allow her to do typical daily activiteis without pain. 01/23-improving LTG Duration 01/23/20 Assessment Summary Assessment HEP was updated today and reviewed what stretching and strengthening exercises to cont. Discussed with pt re: progressing her walking and trying some small hills and uneven terrain to cont to progress. She is doing well with strength and ROM and was edcuated on what to work on while away from region. She cont to lack active ext but can achieve full ext passively Physical Therapy Plan Frequency and Duration Frequency of Treatment 2x/Week Duration of Treatment 2 months Plan of Care Start Date 01/23/20 Plan of Care End Date 03/23/20 Therapeutic Interventions Therapeutic Interventions Aquatic Therapy,Balance Training,Gait Training,Home Exercise Program,Joint Mobilizations,Manual Therapy, Neuromuscular Re-education, Patient/Caregiver Education, Self-Care/Home Management,Soft Tissue Mobilization,Taping, Therapeutic Activities, Therapeutic Exercises Modalities Cold Pack/Ice Massage,Electric Stimulation,Hot Packs, Ultrasound Next Visit Focus/Plan Next Note Type Treatment Note
--- NOTE | 2020-01-23 12:09 | PT.OPPOC ---
Physical, Occupational & Speech Therapy At [facility] Current Diagnoses Bilateral primary osteoarthritis of knee (01/23/20) Unilateral primary osteoarthritis, left knee (01/23/20) Stiffness of left knee, not elsewhere classified (01/23/20) Difficulty in walking, not elsewhere classified (01/23/20) Weakness (01/23/20) Visit Care Team Role Provider Type Joselin Hernadez DO Family Provider Physician Primary Care Provider Specialty: Family Practice Address: [address] [place] [address], [facility] [place], [address] Email: [email or web address] Vane Ring MD Attending Provider Physician Specialty: Orthopedic Surgery Address: [address] [place] [address], [id number] Email: [email or web address] Plan Of Care PT-OP-T Assessment and Plan Start: 10/26/19 09:52 Freq: Status: Active Protocol: Document 01/23/20 08:12 [facility] (Rec: 01/23/20 11:48 [facility] [id number]) Physical Therapy Assessment Goals Four Impairment ROM Short Term Goal (STG) Pt will have 0-120 deg ROM of L knee. 12/20-improving to 7-120 01/23-5-121 STG Duration 02/21/20 Retirement Goal (LTG) Pt will be able to ascend and decend stairs reciprocally without inc pain. 12/20-able to do with rail withotu pain but some pain without rail 01/23-min pain LTG Duration 03/23/20 Three Impairment LEFS Retirement Goal (LTG) Pt will score 60/80 to show improved functional mboility 12/20-improved to 44/80 LTG Duration 01/23/20 Two Short Term Goal (STG) Pt will be able to walk 1 mile on even surfaces without inc pain. 12/20-has not tried walking d/t weather STG Duration achieved Retirement Goal (LTG) Pt will be able to hike on uneven surfaces without pain or feeling of unbalance 1 mile . 01/23-has not tried LTG Duration 03/23/20 One Short Term Goal (STG) Pt will be indep with HEP. STG Duration achieved Pigment Pusher Goal (LTG) Pt will have 5/5 LE B strength in order to allow her to do typical daily activiteis without pain. 01/23-improving LTG Duration 01/23/20 Assessment Summary Assessment HEP was updated today and reviewed what stretching and strengthening exercises to cont. Discussed with pt re: progressing her walking and trying some small hills and uneven terrain to cont to progress. She is doing well with strength and ROM and was edcuated on what to work on while away from region. She cont to lack active ext but can achieve full ext passively Physical Therapy Plan Frequency and Duration Frequency of Treatment 2x/Week Duration of Treatment 2 months Plan of Care Start Date 01/23/20 Plan of Care End Date 03/23/20 Therapeutic Interventions Therapeutic Interventions Aquatic Therapy,Balance Training,Gait Training,Home Exercise Program,Joint Mobilizations,Manual Therapy, Neuromuscular Re-education, Patient/Caregiver Education, Self-Care/Home Management,Soft Tissue Mobilization,Taping, Therapeutic Activities, Therapeutic Exercises Modalities Cold Pack/Ice Massage,Electric Stimulation,Hot Packs, Ultrasound Next Visit Focus/Plan Next Note Type Treatment Note Plan of Care Dates Plan of Care Start Date 01/23/20 Plan of Care End Date 03/23/20 Electronically Signed by: Heidi Abel, PT 01/23/20 1194 Please Sign and Return: I have reviewed this Plan of Care and certify that the skilled therapy services above are required to meet the patient?s needs. Physician Signature Date Printed Name and Credentials Clinical Instructor Signature Printed Name and Credentials
--- NOTE | 2020-01-23 12:09 | PT.OPPN ---
Current Diagnoses Bilateral primary osteoarthritis of knee (01/23/20) Unilateral primary osteoarthritis, left knee (01/23/20) Stiffness of left knee, not elsewhere classified (01/23/20) Difficulty in walking, not elsewhere classified (01/23/20) Weakness (01/23/20) Physical Therapy Progress Note PT-OP-A Visit Information Start: 10/26/19 09:52 Freq: Status: Active Protocol: Document 01/23/20 08:12 [facility] (Rec: 01/23/20 11:48 [facility] [id number]) Out-Patient Physical Therapy Visit Information Visit Information Visit Type Progress Note Visit Start Time 08:16 Visit Stop Time 09:01 Total Visit Minutes 45 Visit Number 12 Number of BOOK AGENT Visits 0 PT-OP-B Current Condition Start: 10/26/19 09:52 Freq: Status: Active Protocol: Document 11/22/19 07:26 [facility] (Rec: 11/22/19 12:40 [facility] [id number]) Current Condition History of Current Condition Onset Date 2 years Current Complaints L knee pain prior to L TKA History of Current Condition 11/22- pt had TKA 11/17 with no complications. WEnt home day of surgery Pt has L knee pain and is planning to have L TKA 11/17 d /t pain that was nagging for the past 2 years that has gotten worse and is now bone on bone per the MD. 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 She works 3 eight hour days. Pt has a dgt that lives in [facility] and can stay with her as long as she needs. Pt has FWW and cane at home and shower chair. Pt has a tub shower and walk in shower and has a shower chair and bars. Pt has 4 CARLTON with B railings but they are too wide to hold onto both at the same time and [facility]. Pt reprots she has higher toilets in the house with sinks close by. 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 Pt reprots she feels like she has lost some of her quality of life d/t pain. PMH includes compression fx in back with back pain w/ Sciatic n pain, hysterectomy d/t uterus & bladder prolapse and R foot pain Prior Treatments and Tests Xrays, PT for back in past Future Testing and Treatments Planned L TKA Treatment Goals Patient/Caregiver Goals be back to walking & hiking; every day routine things PT-OP-C Subjective Start: 10/26/19 09:52 Freq: Status: Active Protocol: Document 01/23/20 08:12 [facility] (Rec: 01/23/20 11:48 [facility] [id number]) OP-PT Subjective Patient Comments Patient Comments Pt reports downhill bothers her still some. Pt slipped on deck steps when it was icy and her R knee feels sore behind like she pulled a mm. Pt reports L side felt fine. PT-OP-G Mobility & Gait Start: 10/26/19 09:52 Freq: Status: Active Protocol: Document 11/22/19 07:26 [facility] (Rec: 11/22/19 12:40 [facility] [id number]) OP Gait Assessment Comments Gait Comments Pt came in with FWW and amb with little wb into walker. SPC required cuieng for sequencing & for even step length w/o AD: pt amb with dec WB into LLE and dec knee ext so instructed to use AD at this time. PT-OP-K Range of Motion Start: 10/26/19 09:52 Freq: Status: Active Protocol: Document 01/23/20 08:12 [facility] (Rec: 01/23/20 11:48 [facility] [id number]) Knee Goniometric Range of Motion Knee Measured in Degrees Left Flexion Active (degrees) 121 Extension Active (degrees) 5 Extension Passive (degrees) 0 PT-OP-M Strength Start: 10/26/19 09:52 Freq: Status: Active Protocol: Document 01/23/20 08:12 [facility] (Rec: 01/23/20 11:48 [facility] [id number]) Hip Strength Hip Manual Muscle Testing Left Flexion (L2) 4 Good Extension (S1) 4- Good- Abduction 4- Good- External Rotation 3+ Fair+ Internal Rotation 4+ Good+ Right Flexion (L2) 4+ Good+ Extension (S1) 4- Good- Abduction 4 Good Adduction 3+ Fair+ External Rotation 3+ Fair+ Internal Rotation 4+ Good+ Knee Strength Knee Manual Muscle Testing Left Flexion (S2) 5 Normal Extension (L3) 4+ Good+ Right Flexion (S2) 4+ Good+ Extension (L3) 4 Good Ankle/Foot Strength Ankle and Foot Manual Muscle Testing Left Dorsiflexion (L4) 5 Normal Plantarflexion (S1) 5 Normal Comments tested standing Right Dorsiflexion (L4) 5 Normal Plantarflexion (S1) 5 Normal PT-OP-T Assessment and Plan Start: 10/26/19 09:52 Freq: Status: Active Protocol: Document 01/23/20 08:12 [facility] (Rec: 01/23/20 11:48 [facility] [id number]) Physical Therapy Assessment Goals Four Impairment ROM Short Term Goal (STG) Pt will have 0-120 deg ROM of L knee. 12/20-improving to 7-120 01/23-5-121 STG Duration 02/21/20 Home Health Care Provider Goal (LTG) Pt will be able to ascend and decend stairs reciprocally without inc pain. 12/20-able to do with rail withotu pain but some pain without rail 01/23-min pain LTG Duration 03/23/20 Three Impairment LEFS Fpc Goal (LTG) Pt will score 60/80 to show improved functional mboility 12/20-improved to 44/80 LTG Duration achieved to 65/80 Two Short Term Goal (STG) Pt will be able to walk 1 mile on even surfaces without inc pain. 12/20-has not tried walking d/t weather STG Duration achieved Home Health Care Provider Goal (LTG) Pt will be able to hike on uneven surfaces without pain or feeling of unbalance 1 mile . 01/23-has not tried LTG Duration 03/23/20 One Short Term Goal (STG) Pt will be indep with HEP. STG Duration achieved Fpc Goal (LTG) Pt will have 5/5 LE B strength in order to allow her to do typical daily activiteis without pain. 01/23-improving LTG Duration 01/23/20 Assessment Summary Assessment HEP was updated today and reviewed what stretching and strengthening exercises to cont. Discussed with pt re: progressing her walking and trying some small hills and uneven terrain to cont to progress. She is doing well with strength and ROM and was edcuated on what to work on while away from region. She cont to lack active ext but can achieve full ext passively Physical Therapy Plan Frequency and Duration Frequency of Treatment 2x/Week Duration of Treatment 2 months Plan of Care Start Date 01/23/20 Plan of Care End Date 03/23/20 Therapeutic Interventions Therapeutic Interventions Aquatic Therapy,Balance Training,Gait Training,Home Exercise Program,Joint Mobilizations,Manual Therapy, Neuromuscular Re-education, Patient/Caregiver Education, Self-Care/Home Management,Soft Tissue Mobilization,Taping, Therapeutic Activities, Therapeutic Exercises Modalities Cold Pack/Ice Massage,Electric Stimulation,Hot Packs, Ultrasound Next Visit Focus/Plan Next Note Type Treatment Note
--- NOTE | 2020-02-09 11:27 | PT.OPDS ---
Current Diagnoses Bilateral primary osteoarthritis of knee (01/23/20) Unilateral primary osteoarthritis, left knee (01/23/20) Stiffness of left knee, not elsewhere classified (01/23/20) Difficulty in walking, not elsewhere classified (01/23/20) Weakness (01/23/20) Visit Care Team Role Provider Type Joselin Hernadez DO Family Provider Physician Primary Care Provider Specialty: Family Practice Address: [address] [place] [address], [facility] [place], [address] Email: [email or web address] Vane Ring MD Attending Provider Physician Specialty: Orthopedic Surgery Address: [address] [place] [address], [place], [address] Email: [email or web address] Visit Number Visit Number 12 Discharge Summary PT-OP-B Current Condition Start: 10/26/19 09:52 Freq: Status: Active Protocol: Document 11/22/19 07:26 [facility] (Rec: 11/22/19 12:40 [facility] [id number]) Current Condition History of Current Condition Onset Date 2 years Current Complaints L knee pain prior to L TKA History of Current Condition 11/22- pt had TKA 11/17 with no complications. WEnt home day of surgery Pt has L knee pain and is planning to have L TKA 11/17 d /t pain that was nagging for the past 2 years that has gotten worse and is now bone on bone per the MD. 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 She works 3 eight hour days. Pt has a dgt that lives in town and can stay with her as long as she needs. Pt has FWW and cane at home and shower chair. Pt has a tub shower and walk in shower and has a shower chair and bars. Pt has 4 CARLTON with B railings but they are too wide to hold onto both at the same time and [facility]. Pt reprots she has higher toilets in the house with sinks close by. 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 Pt reprots she feels like she has lost some of her quality of life d/t pain. PMH includes compression fx in back with back pain w/ Sciatic n pain, hysterectomy d/t uterus & bladder prolapse and R foot pain Prior Treatments and Tests Xrays, PT for back in past Future Testing and Treatments Planned L TKA Treatment Goals Patient/Caregiver Goals be back to walking & hiking; every day routine things PT-OP-C Subjective Start: 10/26/19 09:52 Freq: Status: Active Protocol: Document 01/23/20 08:12 [facility] (Rec: 01/23/20 11:48 [facility] [id number]) OP-PT Subjective Patient Comments Patient Comments Pt reports downhill bothers her still some. Pt slipped on deck steps when it was icy and her R knee feels sore behind like she pulled a mm. Pt reports L side felt fine. PT-OP-G Mobility & Gait Start: 10/26/19 09:52 Freq: Status: Active Protocol: Document 11/22/19 07:26 [facility] (Rec: 11/22/19 12:40 [facility] [id number]) OP Gait Assessment Comments Gait Comments Pt came in with FWW and amb with little wb into walker. SPC required cuieng for sequencing & for even step length w/o AD: pt amb with dec WB into LLE and dec knee ext so instructed to use AD at this time. PT-OP-K Range of Motion Start: 10/26/19 09:52 Freq: Status: Active Protocol: Document 01/23/20 08:12 [facility] (Rec: 01/23/20 11:48 [facility] [id number]) Knee Goniometric Range of Motion Knee Left Flexion Active (degrees) 121 Extension Active (degrees) 5 Extension Passive (degrees) 0 PT-OP-M Strength Start: 10/26/19 09:52 Freq: Status: Active Protocol: Document 01/23/20 08:12 [facility] (Rec: 01/23/20 11:48 [facility] [id number]) Hip Strength Hip Manual Muscle Testing Left Flexion (L2) 4 Good Extension (S1) 4- Good- Abduction 4- Good- External Rotation 3+ Fair+ Internal Rotation 4+ Good+ Right Flexion (L2) 4+ Good+ Extension (S1) 4- Good- Abduction 4 Good Adduction 3+ Fair+ External Rotation 3+ Fair+ Internal Rotation 4+ Good+ Knee Strength Knee Manual Muscle Testing Left Flexion (S2) 5 Normal Extension (L3) 4+ Good+ Right Flexion (S2) 4+ Good+ Extension (L3) 4 Good Ankle/Foot Strength Ankle and Foot Manual Muscle Testing Left Dorsiflexion (L4) 5 Normal Plantarflexion (S1) 5 Normal Comments tested standing Right Dorsiflexion (L4) 5 Normal Plantarflexion (S1) 5 Normal PT-OP-T Assessment and Plan Start: 10/26/19 09:52 Freq: Status: Active Protocol: Document 02/09/20 11:26 [facility] (Rec: 02/09/20 11:27 [facility] [id number]) Physical Therapy Assessment Assessment Summary Assessment Pt reports MD said no more PT needed. Pt has made excellent progress on strength, ROM, and functional activities and was indep with current HEP at last session. She was instructed to con tto work on end range and overall quad/ glute strength. Physical Therapy Plan Discharge Physical Therapy Discharge Reasons Patient Request
== END 2020-02-22 07:59 ==
LOC: PHYS 08:15
PROVIDERS: Family Provider Family Medicine; PCP Family Medicine; Visit Provider Orthopaedic Surgery
DX: M17.0 Bilateral primary osteoarthritis of knee (principal); R26.2 Difficulty in walking, not elsewhere classified; R53.1 Weakness; M25.662 Stiffness of left knee, not elsewhere classified
CPT/HCPCS: 97110; 97112; 97116; 97140; 97162; 97164; 97535

== ENCOUNTER → 2020-03-12 07:24 | Outpatient (CLI) | payer MEDICARE, SELFPAY ==
[2019-12-09 08:39] VITALS: BMI 27.9
[2020-03-12 10:51] LABS: TSH w/ Reflex to FT4 1.74 uIU/mL (0.47-4.68)
== END ==
PROVIDERS: PCP Family Medicine; Referring Provider Family Medicine; Visit Provider Family Medicine
DX: E03.9 Hypothyroidism, unspecified (principal)
CPT/HCPCS: 36415; 84443

== ENCOUNTER → 2020-05-14 10:42 | Outpatient (CLI) | payer MEDICARE, SELFPAY ==
[2019-12-09 08:39] VITALS: BMI 27.9
--- NOTE | 2020-05-14 | DI.MG.S_ITS ---
BILATERAL DIGITAL SCREENING MAMMOGRAM 3D/2D WITH CAD: 05/14/2020 CLINICAL: Routine screening. Comparison is made to exams dated: 04/29/2019 mammogram, 02/08/2016 mammogram, and 12/15/2014 mammogram - [facility]. There are scattered fibroglandular elements in both breasts. Current study was also evaluated with a Computer Aided Detection (CAD) system. No significant masses, calcifications, or other findings are seen in either breast. There has been no significant interval change. IMPRESSION: NEGATIVE There is no mammographic evidence of malignancy. A 1 year screening mammogram is recommended. This exam was interpreted at Station ID: [id number]. NOTE: For mammograms, a report in lay terms will be sent to the patient. Approximately 15% of breast malignancies will not be visualized mammographically. In the management of a palpable breast mass, a negative mammogram must not discourage biopsy of a clinically suspicious lesion. Electronically Signed By: Ritchie ren/scarlet:05/14/2020 12:06:46 copy to: Ehsan Rueda letter sent: Normal Exam ACR BI-RADS Category 1: Negative [id number]
== END ==
PROVIDERS: PCP Family Medicine; Referring Provider Family Medicine; Visit Provider Family Medicine
DX: Z12.31 Encounter for screening mammogram for malignant neoplasm of breast (principal)
CPT/HCPCS: 77063; 77067

== ENCOUNTER → 2020-05-22 11:34 | Outpatient (CLI) | payer MEDICARE, SELFPAY ==
[2019-12-09 08:39] VITALS: BMI 27.9
--- NOTE | 2020-05-22 11:35 | DI.RAD.S_ITS ---
PROCEDURE: XR THORACIC SPINE 3V INDICATIONS: back pain, known compression fractures TECHNIQUE: 3 views of the thoracic spine were acquired. COMPARISON: [facility], , THORACIC SPINE 2 VIEWS, 11/26/2017, 10:24. FINDINGS: Bones: Unchanged appearance of multiple T7, T8 and T12 compression fractures since 11/26/17. Soft tissues: No paravertebral stripe thickening. IMPRESSION: Grossly unchanged appearance of mid and lower thoracic compression fractures as above Diffuse spondylosis Dictated by: Hoang Ryder M.D. on 05/22/2020 at 13:00 Approved by: Hoang Ryder M.D. on 05/22/2020 at 13:03
== END ==
PROVIDERS: PCP Family Medicine; Referring Provider Family Medicine; Visit Provider Family Medicine
DX: M54.6 Pain in thoracic spine (principal); M47.814 Spondylosis without myelopathy or radiculopathy, thoracic region; M48.54XS Collapsed vertebra, not elsewhere classified, thoracic region, sequela of fracture
CPT/HCPCS: 72072

== ENCOUNTER → 2020-06-07 12:45 | Outpatient (CLI) | payer MEDICARE, SELFPAY ==
[2019-12-09 08:39] VITALS: BMI 27.9
--- NOTE | 2020-06-07 12:47 | DI.RAD.S_ITS ---
This blank DEXA report has been sent in error by the PACS system. The correct and complete report will be forthcoming in 1-2 days. Thank you for your patience and understanding. Dictated by: Liyah Preslsey MD, PhD on 06/07/2020 at 15:48 Approved by: Liyah Pressley MD, PhD on 06/07/2020 at 15:48
== END ==
PROVIDERS: PCP Family Medicine; Referring Provider Family Medicine; Visit Provider Family Medicine
DX: M85.852 Other specified disorders of bone density and structure, left thigh (principal); Z78.0 Asymptomatic menopausal state; E07.9 Disorder of thyroid, unspecified
CPT/HCPCS: 77080

== ENCOUNTER → 2020-09-07 12:45 | Outpatient (CLI) | payer MEDICARE, SELFPAY ==
[2019-12-09 08:39] VITALS: BMI 27.9
--- NOTE | 2020-09-07 12:48 | DI.RAD.S_ITS ---
PROCEDURE: XR WRIST LT MIN 3V INDICATIONS: pain in lefft wrist and forearm after fall TECHNIQUE: 4 views of the wrist were acquired. COMPARISON: None. FINDINGS: Bones: No fractures or dislocations. No suspicious bony lesions. 1st CMC and triscaphe joint degeneration. Soft tissues: No suspicious soft tissue calcifications. IMPRESSION: No fracture. If the patient's symptoms do not improve recommend followup radiographs in 10 days to assess for healing sclerosis/occult injury. Dictated by: Hoang Ryder M.D. on 09/07/2020 at 13:44 Approved by: Hoang Ryder M.D. on 09/07/2020 at 13:48
--- NOTE | 2020-09-07 12:48 | DI.RAD.S_ITS ---
PROCEDURE: XR FOREARM RT 2V INDICATIONS: pain in lefft wrist and forearm after fall TECHNIQUE: 2 views of the forearm were acquired. COMPARISON: None. FINDINGS: Bones: No fractures or dislocations. No suspicious bony lesions. Soft tissues: There is soft tissue swelling around wrist joint. No suspicious soft tissue calcifications or masses. IMPRESSION: No definite acute left forearm fracture or dislocation. Wrist joint osteoarthritis. Soft tissue swelling around wrist joint and distal forearm. Dictated by: Andre Peña M.D. on 09/07/2020 at 13:28 Approved by: Andre Peña M.D. on 09/07/2020 at 13:30
--- NOTE | 2020-09-07 12:48 | DI.RAD.S_ITS ---
PROCEDURE: XR ANKLE RT MIN 3V INDICATIONS: pain in right ankle after fall TECHNIQUE: 3 views of the ankle were acquired. COMPARISON: None. FINDINGS: Bones: Irregularity of the tip of lateral malleolus although technically indeterminate. Plantar calcaneal spur. Diffuse midfoot and hindfoot joint degeneration. Soft tissues: No tibiotalar joint effusion. Achilles tendon appears normal. IMPRESSION: Indeterminate cortical irregularity of the lateral malleolar tip. Recommend correlation to point tenderness. Elsewhere, no fracture. If the patient's symptoms do not improve recommend followup radiographs in 10 days to assess for healing sclerosis/occult injury. Dictated by: Hoang Ryder M.D. on 09/07/2020 at 13:48 Approved by: Hoang Ryder M.D. on 09/07/2020 at 13:51
--- NOTE | 2020-09-07 12:48 | DI.RAD.S_ITS ---
PROCEDURE: XR TIBIA FIBULA RT 2V INDICATIONS: pain in lower left leg after fall TECHNIQUE: 2 views of the tibia and fibula were acquired. COMPARISON: None. FINDINGS: Bones: Patient is status post prior left total knee arthroplasty. Alignment of left lower leg is anatomic. No gross hardware loosening or failure. No fracture or dislocation. Soft tissues: No suspicious soft tissue calcifications or masses. IMPRESSION: No gross acute left lower leg fracture or dislocation. No gross hardware complication. Dictated by: Andre Peña M.D. on 09/07/2020 at 13:32 Approved by: Andre Peña M.D. on 09/07/2020 at 13:40
--- NOTE | 2020-09-07 12:48 | DI.RAD.S_ITS ---
PROCEDURE: XR KNEE LT 3V INDICATIONS: pain in left knee after fall TECHNIQUE: 3 views of the knee were acquired. COMPARISON: [facility], CR, XR KNEE LT 1TO2V, 11/17/2019, 10:10. FINDINGS: Bones: Patient is status post prior left total knee arthroplasty. Alignment of left knee is unchanged from prior study. No gross hardware loosening or failure. No fractures or dislocations. No suspicious bony lesions. Soft tissues: No joint effusion. No suspicious soft tissue calcifications. IMPRESSION: No acute left knee fracture or dislocation. No gross hardware complication. Dictated by: Andre Peña M.D. on 09/07/2020 at 13:40 Approved by: Andre Peña M.D. on 09/07/2020 at 13:40
== END ==
PROVIDERS: PCP Family Medicine; Referring Provider Physician Assistant; Visit Provider Physician Assistant
DX: M79.662 Pain in left lower leg (principal); M25.562 Pain in left knee; M25.571 Pain in right ankle and joints of right foot; M79.632 Pain in left forearm; M25.532 Pain in left wrist; M19.032 Primary osteoarthritis, left wrist; M79.89 Other specified soft tissue disorders; Z96.652 Presence of left artificial knee joint
CPT/HCPCS: 73090; 73110; 73562; 73590; 73610

== ENCOUNTER → 2020-12-05 10:05 | Outpatient (CLI) | payer MEDICARE, SELFPAY ==
[2019-12-09 08:39] VITALS: BMI 27.9
[2020-12-05 11:01] LABS: Add Manual Diff / Slide Review NO; Basophils Absolute Auto 0 /uL (0-100); Eosinophils Absolute Auto 100 /uL (0-450); Eosinophils Percent Auto 1.6 % (2-4); Hematocrit 39.2 % (36-46); Lymphocytes Absolute Auto 1600 /uL (1100-4500); Mean Corpuscular HGB Conc 33.2 % (30-36); Mean Corpuscular Hemoglobin 29.5 PG (26-34); Mean Corpuscular Volume 88.9 fL (80-100); Monocytes Absolute Auto 300 /uL (0-900); Monocytes Percent Auto 7.2 % (3-14); Neutrophils Absolute Auto 2600 /uL (1500-7000); Neutrophils Percent Auto 55.2 % (50-75); Platelet Count 317 X10^3/uL (150-400); Red Blood Cell Count 4.41 X10^6/uL (4.0-5.2); Red Cell Distribution Width 12.8 % (11.6-14.8); White Blood Cell Count 4.7 X10^3/uL (4.5-11.0)
[2020-12-05 11:20] LABS: BUN Creatinine Ratio 27.7 (6-22); Blood Urea Nitrogen 18 mg/dL (7-17); Calcium 9.6 mg/dL (8.4-10.2); Carbon Dioxide 31 mmol/L (22-32); Chloride 103 mmol/L (98-107); Estimated Glomerular Filt Rate > 60.0 mL/min (>60); Glucose 96 mg/dL (80-110); HEMOLYSIS < 15 (0-50); Potassium 4.6 mmol/L (3.4-5.1); Sodium 136 mmol/L (137-145)
== END ==
PROVIDERS: PCP Family Medicine; Referring Provider Orthopaedic Surgery Foot and Ankle Surgery; Visit Provider Orthopaedic Surgery Foot and Ankle Surgery
DX: Z01.812 Encounter for preprocedural laboratory examination (principal)
CPT/HCPCS: 36415; 80048; 85025

== ENCOUNTER → 2020-12-26 08:31 | Outpatient (CLI) | payer MEDICARE, SELFPAY ==
[2019-12-09 08:39] VITALS: BMI 27.9
[2020-12-26 11:27] LABS: COVID19 -Nasal RAPID Negative (Negative)
== END ==
PROVIDERS: PCP Family Medicine; Visit Provider Nurse Practitioner
DX: Z20.822 Contact with and (suspected) exposure to COVID-19 (principal)
CPT/HCPCS: 87635; C9803

== ENCOUNTER 2020-12-28 06:16 | Day surgery (SDC) | payer MEDICARE, SELFPAY ==
[2019-12-09 08:39] VITALS: BMI 27.9
[2020-12-28] VITALS (9 sets, daily range): BP systolic 119–156; BP diastolic 73–93; PULSE 83–113; RESP 12–20; TEMP 37.3–37.5; O2SAT 94–100; BMI 63.6
[2020-12-28] MEDS: LACTATED RINGERS 1,000 ML 42 ML IV ×2 (06:41→10:36)
[2020-12-28] MEDS: GABAPENTIN 300 MG CAPSULE PO (06:41)
[2020-12-28] MEDS: ACETAMINOPHEN 325 MG TABLET 975 MG PO (06:41)
--- NOTE | 2020-12-28 07:16 | PM.PREOP ---
Pre-operative Note COVID-19 COVID-19 status: Negative Result date/Date tested (Pos, Neg/Pending): 12/26/20 Interval Note History & Physical reviewed/Exam performed by Physician: Yes Changes to H&P: No
--- NOTE | 2020-12-28 07:36 | P.OP_ITS ---
Operative Date/Time/Diagnoses Date of procedure: 12/28/20 Time of procedure: 08:15 Pre-op diagnosis: Arthritis midfoot right foot. M19.071 hallux primus varus hallux valgus right footM20.11 hammertoe right foot 2nd toe M20.41 Post-op diagnosis: same Procedure & Clinicians Procedure: 1. Fusion tarsometatarsal joints 2 or more ( 1st, 2nd and 3rd TMT fusion), right CPT code 65498 2. Modified Bosch bunionectomy right foot CPT code 04888-76 3. correction hammertoe, right CPT code 11459 -59- T6 surgical specialist Dylan Olvera PAC was necessary for this procedure for assistance with positioning, retraction holding reduction and closure. Same procedure as scheduled: Yes Indications: the patient is a 70-year-old female with symptomatic midfoot arthritis and hallux valgus. She has exhausted conservative treatment with wide shoes anti-inflammatories activity modifications steroid injections. She has been indicated for midfoot fusion 1st 2nd and 3rd tarsometatarsal joints and correction of her hallux valgus. She also has a symptomatic 2nd hammertoe that has been refractory to conservative measures. The risks and benefits of the procedure have been discussed with the patient even opportunity to ask questions. The risks of surgery include but are not limited to infection, malunion, nonunion, Over or under correction,persistence of pain, damage to nerves and blood vessels, posttraumatic arthritis, DVT, PE, cardiopulmonary complications and . The patient expressed a thorough understanding of the risks and benefits of surgery and has elected to proceed. Consent was signed in the office. Surgeon: Radhika Johnson Spike Machine Heater: Dylan Olvera Anesthesia Type: General, Peripheral nerve block and Local Operative Notes Findings: hallux valgus with hypermobility of the 1st ray. Assessment of the patient's a gastroc and Achilles was performed intraoperative with good range of motion greater than 10? dorsiflexion with knee extension. First TMT was stabilized with 4-0 cannulated screws an additional screw was placed from the base of the 1st metatarsal into the 2nd part of the Lapidus procedure. Second TMT was a compressed using a 4 hole 2.4 plate from the Arthrex set. Third TMT was fused using 2 x4.0 cannulated screws 2nd hammertoe was corrected with a PIP arthroplasty transfixed with a 045 Specimen(s): none sent Prosthetic devices, grafts, tissues, transplants, or devices: Arthrex 4.0 cannulated screws of the 1st TMT fusion and 3rd TMT fusion. Arthrex 3.5 cortical screw additional fixation for the Lapidus from the 1st to 2nd metatarsal. Arthrex 4 hole 2.4 plate for the 2nd TMT fusion 045 K-wire for the 2nd hammertoe Estimated Blood Loss (mL): 30 Blood products transfused: none Tourniquet time (min): 120 Procedure in detail: patient seen in the preoperative area the site of surgery was marked and informed consent confirmed. The patient was taken back to the operating room by the anesthesia team. A preoperative regional block was placed by the anesthesia team for postoperative pain control. Then the patient underwent spinal anesthetic. Patient was positioned supine position on OR table all bony problems well padded. An SCD was placed on the contralateral lower extremity. In ipsilateral thigh bump was placed. Well-padded thigh tourniquet was placed. The right lower extremity was prepped in the standard 3 step fashion with alcohol, chlorhexidine scrub and then chlorhexidine standard sterile scrub. The limb was draped in the standard fashion. A formal time-out was performed confirming the patient's side and site of surgery administration of appropriate preoperative antibiotics. All were in agreement and implants were in the room. The C-arm was brought in and the incisions were marked out on the foot. An Esmarch was then used for exsanguination the tourniquet raised on the thigh to 250 mm of mercury and stayed there for 120 minutes. modified Bosch Skin incision was made at the dorsal aspect of the foot in the 1st metatarsal space. The incision was deepened to subcutaneous tissues in the area between the 1st and 2nd metatarsal heads was identified. Neurovascular structures were protected. a small retractor was inserted between the metatarsals to facilitate exposure. The abductor tendon was identified and carefully dissected from the lateral joint capsule and we released from its insertion on the base of the proximal phalanx. The adductor tendon was then released from the lateral aspect of the fibular sesamoid and of tissue was developed. The stump of the released abductor hallucis tendon is sutured into the lateral capsule with 2-0 Vicryl and into the periosteum to the 2nd metatarsal as well. medially incision was made along the MTP capsule the redundant capsule was rese cted. Care was taken to protect the medial cutaneous nerve branch retracted dorsally. Then the medial capsule was tightened in a [id number] fashion with 2-0 Vicryl suture At the end of the procedure. tarsometatarsal joint fusions 1 through 3. the standard 2 dorsal incisions were marked out over the 1st and 2nd metatarsal and alert as well as over the 4th metatarsal. Dorsal medial incision was made 1st sharply through the skin carried down to the underlying soft tissue to expose the tarsometatarsal joint complex. The each tunnel was protected and retracted laterally to protect the neurovascular bundle. First TMT joint capsule was then entered and subperiosteal dissection was carried out to expose the 1st TMT joint. Next the neurovascular bundle was retracted medially to expose the 2nd TMT joint and this was subperiosteal a diagnosis dissected to expose end-stage arthritis with eburnated bone. The lateral dorsal incision was also made through the skin dissected down to subcutaneous tissues to the 3rd tarsometatarsal joint. This was found to be partially auto fused a dorsally. Remainder of the joint was prepped in the standard fashion with osteotomes, the bur then irrigation and then drill holes and then packed with 5 cc of a cortical fibers. Joints were compressed and pinned. The hallux valgus deformity was reduced using some supination of the metatarsal and lateral pressure. This was pinned in place. The 1st TMT joint was fixed with 2 crossing 4 0 cannulated screws. The 2nd TMT was fixed with a 4 hole 2.4 plate. And the 3rd TMT was fixed with 2 4-0 ca nnulated screws. An additional 3 5 position screw was placed from the 1st to 2nd metatarsal to give extra support for the large hallux valgus correction. Multiple intraoperative fluoroscopy views were utilized to confirm appropriate alignment and hardware placement. Once this was completed the final suturing of the medial capsule was completed. The wounds were irrigated and closed in a layered fashion with 2-0 Vicryl 4-0 Monocryl and 4-0 nylon. Attention was turned to the 2nd hammertoe. An elliptical incision over the PIP joint was made excising the skin and tendon. The distal condyles of the proximal phalanx were resected with the small TTS saw. The toe was aligned and pinned with a 045 K-wire. Pin position was checked on fluoroscopy. This was appropriate. The pin was then cut and bent. And the wound closed with 4-0 nylon suture. Tourniquet was released prior to closure and hemostasis was confirmed. Dressings were placed with Xeroform gauze Steri-Strips and a bunion dressing. This was then placed into a posterior and U splint and with Bruno cotton. Drapes removed and patient was taken to the recovery room in good condition. There no immediate complications from this procedure. All counts were correct Complications: none Post-operative Condition: stable Disposition: PACU Plan for aftercare: nonweightbearing right lower extremity 6-8 weeks. Pins in the 2nd toe will stay in place 4-6 weeks. Aspirin 325 mg daily for DVT prophylaxis. Elevate above the heart level for the 1st 2 weeks after surgery to help with swelling and wound healing.
--- NOTE | 2020-12-28 08:00 | DI.RAD.S_ITS ---
PROCEDURE: XR FOOT RT MIN 3V INDICATIONS: RT FOOT SURGERY TECHNIQUE: 5 views of the foot were acquired. COMPARISON: [facility] [place], [place], XR FOOT 3 VIEWS WEIGHT BEARING RIGHT, 07/05/2020, 10:43. FINDINGS: 5 intraoperative fluoroscopy images were obtained. There is a K-wire traversing the 2nd proximal, middle and distal phalanges. There is bunionectomy. Postsurgical changes are noted at the 1st, 2nd and 3rd metatarsal bases with arthrodesis. IMPRESSION: Postsurgical changes as described. Dictated by: Sundeep Cisneros M.D. on 12/28/2020 at 13:30 Approved by: Sundeep Cisneros M.D. on 12/28/2020 at 13:33
[2020-12-28] MEDS: CEFAZOLIN 2 GM/100 ML FROZ.PIGGY IV (08:11)
--- NOTE | 2020-12-28 08:39 | SUR.OPER ---
Supine on padded OR bed, head on pillow, arms secured on padded arm boards at <90 degrees abduction, legs uncrossed, safety belt across abdomen, tape over blanket over nonoperative leg. Bump under operative side hip.
--- NOTE | 2020-12-28 12:47 | SUR.PHASEII ---
Pt unable to move or feel right lower extremity. Left leg strong, no numbness or tingling. Pt able to stand and pivot into wheelchair. Pt states no nausea, but could easily become nauseated. Eating saltines. Denies need for scopalamine patch. Pt discharged at 1228.
== END 2020-12-28 12:28 | disposition home or self-care (01) ==
PROVIDERS: PCP Family Medicine; Referring Provider Family Medicine; Visit Provider Orthopaedic Surgery Foot and Ankle Surgery
PROC: (CPT 28730; principal; 2020-12-28 07:45)
DX: M19.071 Primary osteoarthritis, right ankle and foot (principal); M20.11 Hallux valgus (acquired), right foot; M20.41 Other hammer toe(s) (acquired), right foot; M20.31 Hallux varus (acquired), right foot; E03.9 Hypothyroidism, unspecified; M85.80 Other specified disorders of bone density and structure, unspecified site
CPT/HCPCS: 28730; 28292; 28285; 73630; 76000; J0690; J1100; J1885; J2405

== ENCOUNTER 2021-03-07 14:30 | Outpatient (RCR) | payer MEDICARE, SELFPAY ==
[2019-12-09 08:39] VITALS: BMI 27.9
--- NOTE | 2021-02-21 18:08 | PT.OIE ---
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) Past Medical History (Last Updated 12/26/20 @ 08:27 by Katelyn Kenney, RN) Anxiety Anxiety and depression Anxiety disorder, unspecified Arthritis of right foot Chickenpox Compression fracture Dextroscoliosis (02/11/16) Eczema Essential hypertension Hallux valgus of right foot History of recurrent UTIs Hypothyroidism Measles Osteoporosis Other specified depressive episodes Pain in right foot Postmenopausal Prolapsed bladder Seizure grand mal (~1983) Shoulder pain UTI (urinary tract infection) Past Surgical History (Last Updated 12/26/20 @ 08:24 by Katelyn Kenney, ROCAEL) Anesthesia complication History of bilateral tubal ligation History of tonsillectomy (~1971) History of total knee arthroplasty History of total vaginal hysterectomy (TVH) (05/17/18) Status post breast biopsy (~10/1984) Status post bunionectomy (~1989) Status post tubal ligation (~1988) Tonsillar tag (~1976) Visit Care Team Role Provider Type Joselin Hernadez DO Attending Provider Physician Family Provider Primary Care Provider Referring Provider Specialty: Family Practice Address: [address] [place] [address], [facility] Email: [email or web address] Physical Therapy Initial Evaluation PT-OP-A Visit Information Start: 02/14/21 18:39 Freq: Status: Active Protocol: Document 02/21/21 16:03 [facility] (Rec: 02/21/21 17:44 [facility] [id number]) Out-Patient Physical Therapy Visit Information Visit Information Visit Type Initial Evaluation Visit Note 12/09 Visit Start Time 16:07 Visit Stop Time 16:54 Total Visit Minutes 47 Visit Number 1 Number of CONVEYOR WEIGHER OPERATOR Visits 0 PT-OP-B Current Condition Start: 02/14/21 18:39 Freq: Status: Active Protocol: Document 02/21/21 16:03 [facility] (Rec: 02/21/21 17:44 [facility] [id number]) Current Condition History of Current Condition Onset Date 12/28/20 Current Complaints R foot fusion History of Current Condition Pt s/p Fusion tarsometatarsal joints 2 or more ( 1st, 2nd and 3rd TMT fusion), right and Modified Bosch bunionectomy right foot and correction hammertoe, right on 12/28/20. Pt reports foot is still very puffy and swollen. Because of this she has been wrapping it with the enrique bandage. Pt has been in a couple different casts and is now in a boot. She has been using a knee scooter d/t unsure what she should be doing. Pt reports she did surgery d/t arthritis, hammer toes, and bunions. Pt had the pin out of the hammer toe correction last week. Notes no pain until after that she has had some twinges. Pt reports her incisions are closed. Toes are very tingly still and a little bit of bottom of foot. Treatment Goals Patient/Caregiver Goals Get back to walking PT-OP-C Subjective Start: 02/14/21 18:39 Freq: Status: Active Protocol: Document 02/21/21 16:03 [facility] (Rec: 02/21/21 17:44 [facility] [id number]) Patient Questionnaires Foot & Ankle Ability Measure- ADL and Sports FAAM-ADL Score 37 FAAM-Sport Score 0 Lower Extremity Functional Scale LEFS Score 39 PT-OP-F Manual Assessment Start: 02/14/21 18:39 Freq: Status: Active Protocol: Document 02/21/21 16:03 [facility] (Rec: 02/21/21 17:44 [facility] [id number]) Manual Assessments Soft Tissue Assessment Soft Tissue Mobility Assessment scars mostly closed with only small scabs PT-OP-G Mobility & Gait Start: 02/14/21 18:39 Freq: Status: Active Protocol: Document 02/21/21 16:03 [facility] (Rec: 02/21/21 17:44 [facility] [id number]) OP Gait Assessment Comments Gait Comments Pt amb w/use of FWW with cueing w/25% WB w/cueing. Prior pt came in using knee scooter PT-OP-J Posture/Palpation/Skin Start: 02/14/21 18:39 Freq: Status: Active Protocol: Document 02/21/21 16:03 [facility] (Rec: 02/21/21 17:44 [facility] [id number]) Skin Assessment Edema Assessment Right Foot Edema Type Pitting Edema Degree 4+ Edema Appearance Taut Comments 25cm MTP HEADS; 27cm malleoli; slight redness Left Foot Comments 22cm MTP heads, 24cm malleoli PT-OP-K Range of Motion Start: 02/14/21 18:39 Freq: Status: Active Protocol: Document 02/21/21 16:03 [facility] (Rec: 02/21/21 17:44 [facility] [id number]) Ankle and Foot Goniometric Range of Motion Ankle and Foot Right Active Dorsiflexion with Knee Flexed 0 Dorsiflexion with Knee Extended 8 Plantarflexion 51 Inversion 31 Eversion 19 Comments lacking 8 deg w/knee ext Left Active Dorsiflexion with Knee Flexed 8 Dorsiflexion with Knee Extended 0 Plantarflexion 60 Inversion 41 Eversion 21 PT-OP-M Strength Start: 02/14/21 18:39 Freq: Status: Active Protocol: Document 02/21/21 16:03 [facility] (Rec: 02/21/21 17:44 [facility] [id number]) Hip Strength Hip Manual Muscle Testing Right Flexion (L2) 4- Good- Extension (S1) 3+ Fair+ Abduction 3+ Fair+ Adduction 3+ Fair+ External Rotation 3+ Fair+ Internal Rotation 3+ Fair+ Left Flexion (L2) 4- Good- Extension (S1) 3+ Fair+ Abduction 4- Good- Adduction 4- Good- External Rotation 3+ Fair+ Internal Rotation 3+ Fair+ Knee Strength Knee Manual Muscle Testing Right Flexion (S2) 4- Good- Extension (L3) 4- Good- Left Flexion (S2) 5 Normal Extension (L3) 5 Normal Ankle/Foot Strength Ankle and Foot Manual Muscle Testing Right Dorsiflexion (L4) 5 Normal Plantarflexion (S1) 5 Normal Inversion 5 Normal Eversion (S1) 5 Normal Comments PF tested seated Left Dorsiflexion (L4) 3+ Fair+ Plantarflexion (S1) 3+ Fair+ Inversion 3+ Fair+ Eversion (S1) 3+ Fair+ Comments tested seated PT-OP-Q Treatments Start: 02/14/21 18:39 Freq: Status: Active Protocol: Document 02/21/21 16:03 [facility] (Rec: 02/21/21 17:44 [facility] [id number]) Therapeutic Exercises Sitting Exercises ROM Sitting Exercise Name ankle circles B Side right stretch Sitting Exercise Name calf stretch Side right Equipment Used towel Reps/Minutes 30 sec Gait Training Gait Activity scale Comments 1. standing w/RLE on scale for 25% in standing 2. use of holding walker for wt shift to RLE for 25% into scale (45lbs) Self-Care/Home Management Treatment Education Other Education edu for compression, ice and elevation and WB allowance PT-OP-T Assessment and Plan Start: 02/14/21 18:39 Freq: Status: Active Protocol: Document 02/21/21 16:03 [facility] (Rec: 02/21/21 17:44 [facility] [id number]) Physical Therapy Assessment Rehab Potential Rehabilitation Potential Good Evaluation Complexity Number of Personal Factors/Comorbidities 1-2 Number of Body Systems Impaired 4 or More Clinical Presentation at Evaluation Evolving Impairments Impairments Activity Tolerance,Balance, Edema,Functional Activities, Functional Mobility,Gait,Pain, Posture,ROM,Soft Tissue Mobility,Strength,Transfers Goals Four Impairment LEFS 39/80 Short Term Goal (STG) Pt will imrpove LEFS score to 49/80 to show improved functional ability. STG Duration 04/10/21 Oceanic Sciences Professor Goal (LTG) Pt will imrpove LEFS score to 65/80 to show improved functional ability. LTG Duration 05/24/21 Three Impairment strength Short Term Goal (STG) Pt will be indep with HEP. STG Duration 04/23/21 [employer] Professor Goal (LTG) pt will score 5/5 on LE MMT and LPM to show improved stability of LE to allow pt to return to her typical activities. LTG Duration 05/24/21 Two Impairment gait Short Term Goal (STG) Pt will amb with good gait mechanics without AD or pain. STG Duration 04/23/21 Shelter Goal (LTG) Pt will be able to ascend/ descend stairs reciprocally without inc pain. LTG Duration 05/24/21 One Impairment ROM Short Term Goal (STG) Pt will have R ankle DF to neutral in knee ext position. STG Duration 03/29/21 Oceanic Sciences Professor Goal (LTG) Pt will have at least 10 deg DF in knee flex and ext positions B for improved gait mechanics. LTG Duration 05/24/21 Assessment Summary Assessment Pt is s/p Fusion tarsometatarsal joints 2 or more ( 1st, 2nd and 3rd TMT fusion), right and Modified Bosch bunionectomy right foot and correction hammertoe, right on 12/28/20. She was cleared on 02/13/21 to start 25 % WB and inc by 25% each week in her boot w/arch support. She had not started WB until this appt so 25% WB was initiated and will be progressed next week. She has signifciant swelling in RLE, but scars are showing good healing at this time.S he is limited in ROM, especially DF and has weakness of RLE overall>L. She would benefit from skilled PT to start progressive ROM, strengthening , gait, and balance exercises as she WB further in order to return her to her typical activtiies. Physical Therapy Plan Frequency and Duration Frequency of Treatment 1-2x/week Duration of Treatment 3 months Plan of Care Start Date 02/21/21 Plan of Care End Date 05/24/21 Therapeutic Interventions Therapeutic Interventions Aquatic Therapy,Balance Training,Gait Training,Home Exercise Program,Joint Mobilizations,Manual Therapy, Neuromuscular Re-education, Orthotic/Prosthetic Management ,Patient/Caregiver Education, Self-Care/Home Management,Soft Tissue Mobilization,Taping, Therapeutic Activities, Therapeutic Exercises Modalities Cold Pack/Ice Massage,Electric Stimulation,Hot Packs, Ultrasound Next Visit Focus/Plan Next Note Type Treatment Note Next Visit Plan 50% WB progression, BAPs board ROM, 4 way SLR, stm to scars when they are fully healed
--- NOTE | 2021-02-21 18:08 | PT.OPPOC ---
Physical, Occupational & Speech Therapy At [facility] 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) Visit Care Team Role Provider Type Joselin Hernadez DO Attending Provider Physician Family Provider Primary Care Provider Referring Provider Specialty: Family Practice Address: [address] [place] [address], [facility] [place], [address] Email: [email or web address] Plan Of Care PT-OP-T Assessment and Plan Start: 02/14/21 18:39 Freq: Status: Active Protocol: Document 02/21/21 16:03 [facility] (Rec: 02/21/21 17:44 [facility] [id number]) Physical Therapy Assessment Rehab Potential Rehabilitation Potential Good Evaluation Complexity Number of Personal Factors/Comorbidities 1-2 Number of Body Systems Impaired 4 or More Clinical Presentation at Evaluation Evolving Impairments Impairments Activity Tolerance,Balance, Edema,Functional Activities, Functional Mobility,Gait,Pain, Posture,ROM,Soft Tissue Mobility,Strength,Transfers Goals Four Impairment LEFS 39/80 Short Term Goal (STG) Pt will imrpove LEFS score to 49/80 to show improved functional ability. STG Duration 04/10/21 Detention Goal (LTG) Pt will imrpove LEFS score to 65/80 to show improved functional ability. LTG Duration 05/24/21 Three Impairment strength Short Term Goal (STG) Pt will be indep with HEP. STG Duration 04/23/21 Manager Packaging Goal (LTG) pt will score 5/5 on LE MMT and LPM to show improved stability of LE to allow pt to return to her typical activities. LTG Duration 05/24/21 Two Impairment gait Short Term Goal (STG) Pt will amb with good gait mechanics without AD or pain. STG Duration 04/23/21 Manager Packaging Goal (LTG) Pt will be able to ascend/ descend stairs reciprocally without inc pain. LTG Duration 05/24/21 One Impairment ROM Short Term Goal (STG) Pt will have R ankle DF to neutral in knee ext position. STG Duration 03/29/21 Detention Goal (LTG) Pt will have at least 10 deg DF in knee flex and ext positions B for improved gait mechanics. LTG Duration 05/24/21 Assessment Summary Assessment Pt is s/p Fusion tarsometatarsal joints 2 or more ( 1st, 2nd and 3rd TMT fusion), right and Modified Bosch bunionectomy right foot and correction hammertoe, right on 12/28/20. She was cleared on 02/13/21 to start 25 % WB and inc by 25% each week in her boot w/arch support. She had not started WB until this appt so 25% WB was initiated and will be progressed next week. She has signifciant swelling in RLE, but scars are showing good healing at this time.S he is limited in ROM, especially DF and has weakness of RLE overall>L. She would benefit from skilled PT to start progressive ROM, strengthening , gait, and balance exercises as she WB further in order to return her to her typical activtiies. Physical Therapy Plan Frequency and Duration Frequency of Treatment 1-2x/week Duration of Treatment 3 months Plan of Care Start Date 02/21/21 Plan of Care End Date 05/24/21 Therapeutic Interventions Therapeutic Interventions Aquatic Therapy,Balance Training,Gait Training,Home Exercise Program,Joint Mobilizations,Manual Therapy, Neuromuscular Re-education, Orthotic/Prosthetic Management ,Patient/Caregiver Education, Self-Care/Home Management,Soft Tissue Mobilization,Taping, Therapeutic Activities, Therapeutic Exercises Modalities Cold Pack/Ice Massage,Electric Stimulation,Hot Packs, Ultrasound Next Visit Focus/Plan Next Note Type Treatment Note Next Visit Plan 50% WB progression, BAPs board ROM, 4 way SLR, stm to scars when they are fully healed Plan of Care Dates Plan of Care Start Date 02/21/21 Plan of Care End Date 05/24/21 Electronically Signed by: Heidi Abel, PT 02/21/21 [id number] Please Sign and Return: I have reviewed this Plan of Care and certify that the skilled therapy services above are required to meet the patient?s needs. Physician Signature Date Printed Name and Credentials Clinical Instructor Signature Printed Name and Credentials
--- NOTE | 2021-02-27 12:08 | PT.OTN ---
Current Diagnoses Primary osteoarthritis, unspecified ankle and foot (02/27/21) Hallux valgus (acquired), right foot (02/27/21) Other hammer toe(s) (acquired), right foot (02/27/21) Congenital metatarsus primus varus, right foot (02/27/21) Physical Therapy Treatment Note PT-OP-A Visit Information Start: 02/14/21 18:39 Freq: Status: Active Protocol: Document 02/27/21 11:20 [facility] (Rec: 02/27/21 12:08 [facility] [id number]) Out-Patient Physical Therapy Visit Information Visit Information Visit Type Treatment Note Visit Note 01/09 Visit Start Time 11:20 Visit Stop Time 12:00 Total Visit Minutes 40 Visit Number 2 Number of STERILE PRODUCTS PROCESSOR Visits 0 PT-OP-B Current Condition Start: 02/14/21 18:39 Freq: Status: Active Protocol: Document 02/21/21 16:03 [facility] (Rec: 02/21/21 17:44 [facility] [id number]) Current Condition History of Current Condition Onset Date 12/28/20 Current Complaints R foot fusion History of Current Condition Pt s/p Fusion tarsometatarsal joints 2 or more ( 1st, 2nd and 3rd TMT fusion), right and Modified Bosch bunionectomy right foot and correction hammertoe, right on 12/28/20. Pt reports foot is still very puffy and swollen. Because of this she has been wrapping it with the enrique bandage. Pt has been in a couple different casts and is now in a boot. She has been using a knee scooter d/t unsure what she should be doing. Pt reports she did surgery d/t arthritis, hammer toes, and bunions. Pt had the pin out of the hammer toe correction last week. Notes no pain until after that she has had some twinges. Pt reports her incisions are closed. Toes are very tingly still and a little bit of bottom of foot. Treatment Goals Patient/Caregiver Goals Get back to walking PT-OP-C Subjective Start: 02/14/21 18:39 Freq: Status: Active Protocol: Document 02/27/21 11:20 [facility] (Rec: 02/27/21 12:08 [facility] [id number]) OP-PT Subjective Patient Comments Patient Comments Pt reports compliance w/ stretching. MD office not conercned re: swelling PT-OP-F Manual Assessment Start: 02/14/21 18:39 Freq: Status: Active Protocol: Document 02/21/21 16:03 [facility] (Rec: 02/21/21 17:44 [facility] [id number]) Manual Assessments Soft Tissue Assessment Soft Tissue Mobility Assessment scars mostly closed with only small scabs PT-OP-G Mobility & Gait Start: 02/14/21 18:39 Freq: Status: Active Protocol: Document 02/21/21 16:03 [facility] (Rec: 02/21/21 17:44 [facility] [id number]) OP Gait Assessment Comments Gait Comments Pt amb w/use of FWW with cueing w/25% WB w/cueing. Prior pt came in using knee scooter PT-OP-J Posture/Palpation/Skin Start: 02/14/21 18:39 Freq: Status: Active Protocol: Document 02/21/21 16:03 [facility] (Rec: 02/21/21 17:44 [facility] [id number]) Skin Assessment Edema Assessment Right Foot Edema Type Pitting Edema Degree 4+ Edema Appearance Taut Comments 25cm MTP HEADS; 27cm malleoli; slight redness Left Foot Comments 22cm MTP heads, 24cm malleoli PT-OP-K Range of Motion Start: 02/14/21 18:39 Freq: Status: Active Protocol: Document 02/21/21 16:03 [facility] (Rec: 02/21/21 17:44 [facility] [id number]) Ankle and Foot Goniometric Range of Motion Ankle and Foot Right Active Dorsiflexion with Knee Flexed 0 Dorsiflexion with Knee Extended 8 Plantarflexion 51 Inversion 31 Eversion 19 Comments lacking 8 deg w/knee ext Left Active Dorsiflexion with Knee Flexed 8 Dorsiflexion with Knee Extended 0 Plantarflexion 60 Inversion 41 Eversion 21 PT-OP-M Strength Start: 02/14/21 18:39 Freq: Status: Active Protocol: Document 02/21/21 16:03 [facility] (Rec: 02/21/21 17:44 [facility] [id number]) Hip Strength Hip Manual Muscle Testing Right Flexion (L2) 4- Good- Extension (S1) 3+ Fair+ Abduction 3+ Fair+ Adduction 3+ Fair+ External Rotation 3+ Fair+ Internal Rotation 3+ Fair+ Left Flexion (L2) 4- Good- Extension (S1) 3+ Fair+ Abduction 4- Good- Adduction 4- Good- External Rotation 3+ Fair+ Internal Rotation 3+ Fair+ Knee Strength Knee Manual Muscle Testing Right Flexion (S2) 4- Good- Extension (L3) 4- Good- Left Flexion (S2) 5 Normal Extension (L3) 5 Normal Ankle/Foot Strength Ankle and Foot Manual Muscle Testing Right Dorsiflexion (L4) 5 Normal Plantarflexion (S1) 5 Normal Inversion 5 Normal Eversion (S1) 5 Normal Comments PF tested seated Left Dorsiflexion (L4) 3+ Fair+ Plantarflexion (S1) 3+ Fair+ Inversion 3+ Fair+ Eversion (S1) 3+ Fair+ Comments tested seated PT-OP-Q Treatments Start: 02/14/21 18:39 Freq: Status: Active Protocol: Document 02/27/21 11:20 [facility] (Rec: 02/27/21 12:08 [facility] [id number]) Therapeutic Exercises Supine Exercises 3 Supine Exercise Name SLR Side bilateral Reps/Minutes 10 Comments core focus Prone Exercises ext Prone Exercise Name hip Side bilateral Reps/Minutes 10 Sidelying Exercises 3 Sidelying Exercise Name hip abd Side bilateral Reps/Minutes 15 2 Sidelying Exercise Name hip add Side bilateral Reps/Minutes 15 Sitting Exercises ROM Sitting Exercise Name BAPs board Side right Equipment Used 3 Reps/Minutes 15 ea Comments inver/ever, circlse B, PF/DF Manual Therapy Treatment Soft Tissue Mobilization 2 Body Location scars -2 most proximal Mobilization Type Myofascial Release,Rolling, Strumming Comments superficial-moderate Self-Care/Home Management Treatment Education Other Education shown jamar jimenezaistephon of L shoe PT-OP-T Assessment and Plan Start: 02/14/21 18:39 Freq: Status: Active Protocol: Document 02/27/21 11:20 [facility] (Rec: 02/27/21 12:08 [facility] [id number]) Physical Therapy Assessment Goals Four Impairment LEFS 39/80 Short Term Goal (STG) Pt will imrpove LEFS score to 49/80 to show improved functional ability. STG Duration 04/10/21 Optics Engineer Goal (LTG) Pt will imrpove LEFS score to 65/80 to show improved functional ability. LTG Duration 05/24/21 Three Impairment strength Short Term Goal (STG) Pt will be indep with HEP. STG Duration 04/23/21 Correction Goal (LTG) pt will score 5/5 on LE MMT and LPM to show improved stability of LE to allow pt to return to her typical activities. LTG Duration 05/24/21 Two Impairment gait Short Term Goal (STG) Pt will amb with good gait mechanics without AD or pain. STG Duration 04/23/21 Correction Goal (LTG) Pt will be able to ascend/ descend stairs reciprocally without inc pain. LTG Duration 05/24/21 One Impairment ROM Short Term Goal (STG) Pt will have R ankle DF to neutral in knee ext position. STG Duration 03/29/21 Optics Engineer Goal (LTG) Pt will have at least 10 deg DF in knee flex and ext positions B for improved gait mechanics. LTG Duration 05/24/21 Assessment Summary Assessment Pt did well with all exercises , with obvious more difficultly w/RLE raises. She did well with ROM though and had signfiicantly dec swelling today and swelling improved w /session further. She has good healing of 2 most proximal incisions, and was able to get good tissue mobility with scar massage Physical Therapy Plan Frequency and Duration Frequency of Treatment 1-2x/week Duration of Treatment 3 months Plan of Care Start Date 02/21/21 Plan of Care End Date 05/24/21 Next Visit Focus/Plan Next Note Type Treatment Note Next Visit Plan 75% WB progression after next Wed, BAPs, STM to scars if fully healed, review exercises , manual mobility
--- NOTE | 2021-03-07 15:15 | PT.OTN ---
Current Diagnoses Primary osteoarthritis, unspecified ankle and foot (03/07/21) Hallux valgus (acquired), right foot (03/07/21) Other hammer toe(s) (acquired), right foot (03/07/21) Congenital metatarsus primus varus, right foot (03/07/21) Physical Therapy Treatment Note PT-OP-A Visit Information Start: 02/14/21 18:39 Freq: Status: Active Protocol: Document 03/07/21 14:35 [facility] (Rec: 03/07/21 16:45 [facility] [id number]) Out-Patient Physical Therapy Visit Information Visit Information Visit Type Treatment Note Visit Note 02/06 Visit Start Time 14:35 Visit Stop Time 15:15 Total Visit Minutes 40 Visit Number 3 Number of WAITER/WAITRESS CLUB Visits 1 PT-OP-B Current Condition Start: 02/14/21 18:39 Freq: Status: Active Protocol: Document 02/21/21 16:03 [facility] (Rec: 02/21/21 17:44 [facility] [id number]) Current Condition History of Current Condition Onset Date 12/28/20 Current Complaints R foot fusion History of Current Condition Pt s/p Fusion tarsometatarsal joints 2 or more ( 1st, 2nd and 3rd TMT fusion), right and Modified Bosch bunionectomy right foot and correction hammertoe, right on 12/28/20. Pt reports foot is still very puffy and swollen. Because of this she has been wrapping it with the enrique bandage. Pt has been in a couple different casts and is now in a boot. She has been using a knee scooter d/t unsure what she should be doing. Pt reports she did surgery d/t arthritis, hammer toes, and bunions. Pt had the pin out of the hammer toe correction last week. Notes no pain until after that she has had some twinges. Pt reports her incisions are closed. Toes are very tingly still and a little bit of bottom of foot. Treatment Goals Patient/Caregiver Goals Get back to walking PT-OP-C Subjective Start: 02/14/21 18:39 Freq: Status: Active Protocol: Document 03/07/21 14:35 [facility] (Rec: 03/07/21 16:45 [facility] [id number]) OP-PT Subjective Patient Comments Patient Comments Pt stated the manual felt good last tx but was pretty sore the next day. She is compliant with HEP and manual scar mobility and consistant wearing compression hose. Pt stated will follow up with MD next Wed but they are not concerned with the swelling its normal. Pt stated increased to 75% WB today on RLE and hopefully will be increase to FWB next wed 14. PT-OP-F Manual Assessment Start: 02/14/21 18:39 Freq: Status: Active Protocol: Document 02/21/21 16:03 [facility] (Rec: 02/21/21 17:44 [facility] [id number]) Manual Assessments Soft Tissue Assessment Soft Tissue Mobility Assessment scars mostly closed with only small scabs PT-OP-G Mobility & Gait Start: 02/14/21 18:39 Freq: Status: Active Protocol: Document 02/21/21 16:03 [facility] (Rec: 02/21/21 17:44 [facility] [id number]) OP Gait Assessment Comments Gait Comments Pt amb w/use of FWW with cueing w/25% WB w/cueing. Prior pt came in using knee scooter PT-OP-J Posture/Palpation/Skin Start: 02/14/21 18:39 Freq: Status: Active Protocol: Document 02/21/21 16:03 [facility] (Rec: 02/21/21 17:44 [facility] [id number]) Skin Assessment Edema Assessment Right Foot Edema Type Pitting Edema Degree 4+ Edema Appearance Taut Comments 25cm MTP HEADS; 27cm malleoli; slight redness Left Foot Comments 22cm MTP heads, 24cm malleoli PT-OP-K Range of Motion Start: 02/14/21 18:39 Freq: Status: Active Protocol: Document 02/21/21 16:03 [facility] (Rec: 02/21/21 17:44 [facility] [id number]) Ankle and Foot Goniometric Range of Motion Ankle and Foot Right Active Dorsiflexion with Knee Flexed 0 Dorsiflexion with Knee Extended 8 Plantarflexion 51 Inversion 31 Eversion 19 Comments lacking 8 deg w/knee ext Left Active Dorsiflexion with Knee Flexed 8 Dorsiflexion with Knee Extended 0 Plantarflexion 60 Inversion 41 Eversion 21 PT-OP-M Strength Start: 02/14/21 18:39 Freq: Status: Active Protocol: Document 02/21/21 16:03 [facility] (Rec: 02/21/21 17:44 [facility] [id number]) Hip Strength Hip Manual Muscle Testing Right Flexion (L2) 4- Good- Extension (S1) 3+ Fair+ Abduction 3+ Fair+ Adduction 3+ Fair+ External Rotation 3+ Fair+ Internal Rotation 3+ Fair+ Left Flexion (L2) 4- Good- Extension (S1) 3+ Fair+ Abduction 4- Good- Adduction 4- Good- External Rotation 3+ Fair+ Internal Rotation 3+ Fair+ Knee Strength Knee Manual Muscle Testing Right Flexion (S2) 4- Good- Extension (L3) 4- Good- Left Flexion (S2) 5 Normal Extension (L3) 5 Normal Ankle/Foot Strength Ankle and Foot Manual Muscle Testing Right Dorsiflexion (L4) 5 Normal Plantarflexion (S1) 5 Normal Inversion 5 Normal Eversion (S1) 5 Normal Comments PF tested seated Left Dorsiflexion (L4) 3+ Fair+ Plantarflexion (S1) 3+ Fair+ Inversion 3+ Fair+ Eversion (S1) 3+ Fair+ Comments tested seated PT-OP-Q Treatments Start: 02/14/21 18:39 Freq: Status: Active Protocol: Document 03/07/21 14:35 [facility] (Rec: 03/07/21 16:45 [facility] [id number]) Therapeutic Exercises Supine Exercises bridge Resistance AROM, Tb #1 Reps/Minutes x8 each Comments cued press through heels but within WB precautions 3 Supine Exercise Name SLR Side bilateral Reps/Minutes 10 Comments core focus Sitting Exercises ROM Sitting Exercise Name BAPs board Side right Equipment Used 5 Reps/Minutes 15 ea Comments inver/ever, circlse B, PF/DF Standing Exercises R hip ROM Standing Exercise Name march, HS curl, hip ext, hip abd Side right Resistance AROM Equipment Used FWW Reps/Minutes x8 each Comments cued tall posture wt shift Standing Exercise Name use of FWW within 75%WB on RLE Equipment Used mirror, boot donned Reps/Minutes 30 sec Manual Therapy Treatment Soft Tissue Mobilization 2 Body Location scars -2 most proximal Mobilization Type Myofascial Release,Rolling, Strumming Body Position Supine Comments superficial-moderate PT-OP-T Assessment and Plan Start: 02/14/21 18:39 Freq: Status: Active Protocol: Document 03/07/21 14:35 [facility] (Rec: 03/07/21 16:45 [facility] [id number]) Physical Therapy Assessment Goals Four Impairment LEFS 39/80 Short Term Goal (STG) Pt will imrpove LEFS score to 49/80 to show improved functional ability. STG Duration 04/10/21 Senior Care Goal (LTG) Pt will imrpove LEFS score to 65/80 to show improved functional ability. LTG Duration 05/24/21 Three Impairment strength Short Term Goal (STG) Pt will be indep with HEP. STG Duration 04/23/21 Senior Care Goal (LTG) pt will score 5/5 on LE MMT and LPM to show improved stability of LE to allow pt to return to her typical activities. LTG Duration 05/24/21 Two Impairment gait Short Term Goal (STG) Pt will amb with good gait mechanics without AD or pain. STG Duration 04/23/21 Senior Care Goal (LTG) Pt will be able to ascend/ descend stairs reciprocally without inc pain. LTG Duration 05/24/21 One Impairment ROM Short Term Goal (STG) Pt will have R ankle DF to neutral in knee ext position. STG Duration 03/29/21 Concrete Block Layer Goal (LTG) Pt will have at least 10 deg DF in knee flex and ext positions B for improved gait mechanics. LTG Duration 05/24/21 Assessment Summary Assessment Pt did well with ROM BAPS, cued slow control movement, had signfiicantly dec swelling today and swelling improved w /session further. She has good healing of 2 most proximal incisions, and was able to get good tissue mobility with scar massage. Initiated supine bridge and standing wt shift for awareness of 75% WB RLE, R hip AROM with good feedback results today. Pt commented PT suggested reduce to 1x/wk so cancelled for 1 day week and will follow up with MD before next appt and find out about continued boot use and suggested activity level for progressoin in PT. Physical Therapy Plan Frequency and Duration Frequency of Treatment 1-2x/week Duration of Treatment 3 months Plan of Care Start Date 02/21/21 Plan of Care End Date 05/24/21 Therapeutic Interventions Therapeutic Interventions Aquatic Therapy,Balance Training,Gait Training,Home Exercise Program,Joint Mobilizations,Manual Therapy, Neuromuscular Re-education, Orthotic/Prosthetic Management ,Patient/Caregiver Education, Self-Care/Home Management,Soft Tissue Mobilization,Taping, Therapeutic Activities, Therapeutic Exercises Modalities Cold Pack/Ice Massage,Electric Stimulation,Hot Packs, Ultrasound Next Visit Focus/Plan Next Note Type Treatment Note Next Visit Plan Assess response to 75% WB progression last tx 03/07/21 and HEP review w/ manual. Progress 100% WB 03/13/21 and ask follow up MD that day. Continue per PT POC: BAPs, STM to scars if fully healed, review exercises, manual mobility
--- NOTE | 2021-04-04 14:37 | PT.OPDS ---
Current Diagnoses Primary osteoarthritis, unspecified ankle and foot (03/07/21) Hallux valgus (acquired), right foot (03/07/21) Other hammer toe(s) (acquired), right foot (03/07/21) Congenital metatarsus primus varus, right foot (03/07/21) Visit Care Team Role Provider Type Joselin Hernadez DO Family Provider Physician Primary Care Provider Specialty: [facility] Address: [address] [place] [address], [place], [address] Email: [email or web address] Radhika Johnson MD Attending Provider Physician Referring Provider Specialty: Orthopedics Address: [address] [place] [address], [id number] Email: [email or web address] Visit Number Visit Number 3 Discharge Summary Patient called 03/13/21, and per patient - Dr Johnson told pt to discontinue therapy. Pt called and left message w/front office developer. Pt called and left message but call was not returned.
== END 2021-04-04 15:19 | disposition home or self-care (01) ==
LOC: PHYS 14:30
PROVIDERS: Family Provider Family Medicine; PCP Family Medicine; Referring Provider Orthopaedic Surgery Foot and Ankle Surgery; Visit Provider Orthopaedic Surgery Foot and Ankle Surgery
DX: M20.41 Other hammer toe(s) (acquired), right foot (principal); Q66.211 Congenital metatarsus primus varus, right foot; M20.11 Hallux valgus (acquired), right foot; M19.079 Primary osteoarthritis, unspecified ankle and foot
CPT/HCPCS: 97110; 97116; 97140; 97162

== ENCOUNTER → 2021-06-15 11:31 | Outpatient (CLI) | payer MEDICARE, SELFPAY ==
[2019-12-09 08:39] VITALS: BMI 27.9
[2021-06-15 12:52] LABS: TSH w/ Reflex to FT4 1.24 uIU/mL (0.47-4.68)
[2021-06-18 15:20] LABS: Alanine Aminotransferase 13 IU/L (<35); Albumin 4.1 g/dL (3.5-5.0); Albumin Globulin Ratio 1.5 (1.0-2.8); Alkaline Phosphatase 74 U/L (38-126); Aspartate Aminotransferase 22 IU/L (14-36); BUN Creatinine Ratio 24.1 (6-22); Bilirubin Total 0.3 mg/dL (0.2-1.3); Blood Urea Nitrogen 14 mg/dL (7-17); Carbon Dioxide 25 mmol/L (22-32); Chloride 106 mmol/L (98-107); Estimated Glomerular Filt Rate > 60.0 mL/min (>60); Globulin 2.8 g/dL (1.7-4.1); Glucose 94 mg/dL (80-110); HEMOLYSIS < 15 (0-50); Potassium 4.8 mmol/L (3.4-5.1); Sodium 138 mmol/L (137-145); Total Protein 6.9 g/dL (6.3-8.2)
[2021-06-21 14:27] LABS: Cholesterol 231 mg/dL (140-199); HDL Cholesterol 55 mg/dL (40-60); LDL Cholesterol Calculated 130 mg/dL (<100); Triglycerides 230 mg/dL (35-150)
== END ==
PROVIDERS: Family Provider Family Medicine; PCP Family Medicine; Referring Provider Family Medicine; Visit Provider Family Medicine
DX: E03.9 Hypothyroidism, unspecified (principal); I10 Essential (primary) hypertension; M81.0 Age-related osteoporosis without current pathological fracture; N81.11 Cystocele, midline
CPT/HCPCS: 36415; 80053; 80061; 84443

== ENCOUNTER → 2021-09-11 10:40 | Outpatient (CLI) | payer MEDICARE, SELFPAY ==
[2019-12-09 08:39] VITALS: BMI 27.9
--- NOTE | 2021-09-11 | DI.MG.S_ITS ---
BILATERAL DIGITAL SCREENING MAMMOGRAM 3D/2D WITH CAD PRE-REDUCTION MAMMOPLASTY: 09/11/2021 CLINICAL: Routine screening. Comparison is made to exams dated: 05/14/2020 mammogram, 04/29/2019 mammogram, 02/08/2016 mammogram, and 12/15/2014 mammogram - [facility]. There are scattered fibroglandular elements in both breasts. Current study was also evaluated with a Computer Aided Detection (CAD) system. The patient is status post reduction both breasts. Both breasts have post-operative findings. No significant masses, calcifications, or other findings are seen in either breast. IMPRESSION: BENIGN There is no mammographic evidence of malignancy. A 1 year screening mammogram is recommended. This exam was interpreted at Station ID: [id number]. NOTE: For mammograms, a report in lay terms will be sent to the patient. Approximately 15% of breast malignancies will not be visualized mammographically. In the management of a palpable breast mass, a negative mammogram must not discourage biopsy of a clinically suspicious lesion. Electronically Signed By: Kvng bowman/scarlet:09/11/2021 11:12:33 copy to: Ehsan Rueda letter sent: Normal Exam ACR BI-RADS Category 2: Benign Finding(s) [id number]
== END ==
PROVIDERS: Family Provider Family Medicine; PCP Family Medicine; Referring Provider Family Medicine; Visit Provider Family Medicine
DX: Z12.31 Encounter for screening mammogram for malignant neoplasm of breast (principal)
CPT/HCPCS: 77063; 77067

== ENCOUNTER → 2022-04-03 08:41 | Outpatient (CLI) | payer MEDICARE, SELFPAY ==
[2019-12-09 08:39] VITALS: BMI 27.9
[2022-04-03 09:29] LABS: COVID19 -Nasal RAPID Negative (Negative)
== END ==
PROVIDERS: Family Provider Family Medicine; PCP Family Medicine; Visit Provider Specialist
DX: Z01.812 Encounter for preprocedural laboratory examination (principal); Z20.822 Contact with and (suspected) exposure to COVID-19
CPT/HCPCS: 87635

== ENCOUNTER 2022-04-04 06:26 | Day surgery (SDC) | payer MEDICARE, SELFPAY ==
[2019-12-09 08:39] VITALS: BMI 27.9
[2022-04-03 13:58] VITALS: BMI 32.1
[2022-04-04] VITALS (12 sets, daily range): BP systolic 118–152; BP diastolic 58–81; PULSE 77–120; RESP 9–17; TEMP 36.4–37.3; O2SAT 96–100; BMI 32.1
[2022-04-04] MEDS: LACTATED RINGERS 1,000 ML 100 ML IV (07:58)
--- NOTE | 2022-04-04 08:32 | PM.PREOP ---
Pre-operative Note COVID-19 COVID-19 status: Negative Result date/Date tested (Pos, Neg/Pending): 04/03/22 Criteria for continued procedure: Expected advancement of disease process Interval Note History & Physical reviewed/Exam performed by Physician: Yes Changes to H&P: No
[2022-04-04] MEDS: CEFAZOLIN 2 GM/20 ML SYRINGE IV (09:30)
[2022-04-04] MEDS: BUPIVACAINE 0.5% (PF) 30 ML, EPINEPHrine 0.15 MG INJ (09:48)
--- NOTE | 2022-04-04 09:52 | SUR.OPER ---
Lithotomy on padded OR bed, head on pillow, arms secured on padded arm boards at <90 degrees abduction. Legs secured in padded yellow fins stirrups.
--- NOTE | 2022-04-04 10:41 | PM.OP.1 ---
Operative Date/Time/Diagnoses Date of procedure: 04/04/22 Time of procedure: 10:42 Pre-op diagnosis: Cystocele Post-op diagnosis: same Procedure & Clinicians Procedure: Anterior repair with biological graft Same procedure as scheduled: Yes Indications: Patient who is status post hysterectomy with anterior-posterior repair and sacrospinous ligament fixation who had recurrence of her cystocele requesting repair Surgeon: Mitzi Welsh Click Yes if Unassisted: Yes Anesthesia Type: Spinal Operative Notes Findings: Vaginal cuff well supported, no rectocele, cystocele that prolapses outside of the hymen Closure Type: primary Specimen(s): none sent Prosthetic devices, grafts, tissues, transplants, or devices: culdoplast biological graft Applied: catheter (Meier) and other (Vaginal packing) Estimated Blood Loss (mL): 25 Blood products transfused: none Procedure in detail: Patient was brought to the operating room where she underwent a spinal for anesthesia. She was placed in low Yellofin stirrups and prepped and draped in the usual sterile fashion. A non latex Meier catheter was placed. The area of the cystocele was injected with bupivacaine. An incision was made with a scalpel over the cystocele. The cystocele was dissected bluntly. The caliber the cystocele was decreased with a pursestring suture of 2-0 Vicryl suture. 0 Vicryl suture was placed laterally 3 sutures on each side and the culdoplast graft, about 4 X 3 cm, was sutured in the 6 places and the sutures tied to elevate the cystocele. Excessive vaginal mucosa so was removed. The vaginal incision was closed with 2 0 Vicryl suture in a running stitch. Vaginal packing was placed. Counts of instruments and sponges were correct. Patient went to recovery room in stable condition. Complications: none Post-operative Condition: stable Disposition: Acute Care Plan for aftercare: Packing and Meier will be removed in about 6 hours. Home after bladder trial.
--- NOTE | 2022-04-04 10:59 | SUR.PHASEI ---
Report given to Hoang COTE in preparation for transfer to floor out of recovery
--- NOTE | 2022-04-04 11:21 | SUR.PHASEI ---
Patient returned clothing, cell phone and reading glasses. Patient A&O, no pain or nausea, no questions from staff.
--- NOTE | 2022-04-04 11:59 | PC.NURSE ---
Addendum entered by Hoang Moreno R.N. 04/04/22 18:06: Pt left at 1800 via w/c. Escorted by SKIDDER DRIVER to exit in no distress. Pt had all belongings at time of dc, including reading glasses that were returned earlier by OR staff. Addendum entered by Hoang Moreno R.N. 04/04/22 17:36: Pt voided 200 ML. A PVR was done showing 7ML. Provided pt with d/c packet/educational material. Reviewed packet with pt. Provided verbal education regarding post op plan of care. Instructed on medications, activity restrictions, s/s of post op infection, when to seek emergency medical treatment. Pt verbalizes understanding. States daughter will be here soon to pick her up. Pt is motivated to go home. Walking independently in room with steady gait. Reports full sensation to BLE. Addendum entered by Hoang Moreno R.N. 04/04/22 16:47: ~1615 Dr. Welsh rounded, removed vaginal packing. Removed marcano catheter at this time as well. Pt tolerated well. Walked to to attempt to void. Pt unable to void at this time. Will monitor. Addendum entered by Hoang Moreno R.N. 04/04/22 15:29: Updated pt on telephone orders received from Dr. Welsh. Pt would now like to wait until packing removed before having catheter removed. Will honor pt request and wait for Dr. Welsh to remove packing. Addendum entered by Hoang Moreno R.N. 04/04/22 14:18: Pt continues to deny pain. States the only thing that is bothering her is feeling the urge to void, although she knows she has a catheter. Checked marcano and it is draining urine appropriately to gravity. HR 120s. Pt denies dizziness, lightheadedness, palpitations, heart racing, shortness of breath. Called to Dr. Welsh. Reported pt having urge to void. Reported VS. Orders received to discontinue indwelling catheter, leave vaginal packing in place. Dr. Welsh states to notify her if pt would like to void before 1630 as pt will likely not be able to void until vaginal packing is pulled and Dr. Welsh states she will do this at 1630. Original Note: Rec'd pt from PACU to rm 229 at 1105. Pt is AAOx4 and making her needs known with clear speech. Decreased movement/sensation to BLE r/t spinal anesthesia. (see admission physical assessment). VSS. RA. IVFs stopped due to order dc'd. Admission assessment completed. Reviewed plan of care, post op pain control regimen (rx and non pharm options). Pt is currently denying pain and nausea. Reports being hungry and is also requesting water. Also states she feels the urge to void. Indwelling catheter draining clear, yellow urine to gravity. Oriented to room, routine, fall risk, use of call light. Instructed pt to wait for assistance before getting OOB. She verbalizes understanding. Please note- pt had reading glasses in pre op and did not have them on arrival to floor. NASCAR DRIVER is aware of missing reading glasses and is currently attempting to locate them.
--- NOTE | 2022-04-04 16:14 | P.DS_ITS ---
History of Present Illness History of Present Illness Date Patient Seen: 04/04/22 Time Patient Seen: 16:14 Chief complaint: ANTERIOR REPAIR COLDOPLAST GRAFT *OPB* Narrative: Patient underwent an anterior repair with biological graft today. Vaginal packing and Meier catheter removed. Patient is feeling well. She had an increase in pulse but is trending downward again now. Patient has been up without difficulty. She denies any significant pain. Patient will be discharged home after voiding trial. Discharge Providers Provider Discharge Date: 04/04/22 Primary care physician: Joselin Hernadez DO Discharge provider: Mitzi Welsh MD Summary Hospital Course Discharge Diagnosis: Cystocele Hospital Course: Patient underwent an anterior repair with biological graft for cystocele in patient who had prior hysterectomy with anterior-posterior repair. Status at Discharge Cognitive/behavioral status at discharge: oriented Functional status at discharge: independent ambulation Overall status at discharge: patient is progressing back to baseline Time Spent with Patient Time spent: Less than 30 minutes Exam Vital Signs (past 8 hours): - 04/04/22 10:38 04/04/22 10:43 04/04/22 10:48 Temperature 98.4 F 98.4 F Pulse Rate 87 88 89 Respiratory Rate 13 15 15 Blood Pressure 132/63 132/58 L 141/71 H Pulse Oximetry 98 100 96 04/04/22 10:52 04/04/22 11:05 04/04/22 11:35 Temperature 98.3 F 97.5 F L Pulse Rate 82 90 77 Respiratory Rate 9 L 16 16 Blood Pressure 140/62 140/76 118/76 Pulse Oximetry 100 100 100 04/04/22 12:05 04/04/22 12:07 04/04/22 13:03 Temperature 98.3 F 99.1 F Pulse Rate 88 100 H Respiratory Rate 17 16 Blood Pressure 146/72 H 152/81 H Pulse Oximetry 98 100 98 04/04/22 14:00 Temperature 98.1 F Pulse Rate 120 H Respiratory Rate 16 Blood Pressure 143/69 H Pulse Oximetry 98 Oxygen Delivery Method Room Air Oxygen Flow Rate 0 Narrative Exam Narrative: Abdomen is soft, nontender. Vaginal packing removed and had a mild amount of blood on it. Extremities without edema and nontender. [facility] Medical History Anxiety and depression Arthritis of right foot Chickenpox Compression fracture Dextroscoliosis (02/11/16) Eczema Essential hypertension Hallux valgus of right foot History of recurrent UTIs Hyperlipidemia Hypothyroidism Measles Obesity (BMI 30.0-34.9) Osteoporosis Pain in right foot Postmenopausal Prolapsed bladder Seizure grand mal (~1983) Shoulder pain Surgical History Anesthesia complication H/O bilateral breast reduction surgery (~2020) History of bilateral tubal ligation History of tonsillectomy (~1971) History of total knee arthroplasty History of total vaginal hysterectomy (TVH) (05/17/18) Status post breast biopsy (~10/1984) Status post bunionectomy (~1989) Status post tubal ligation (~1988) Tonsillar tag (~1976) Family History Brother Age: 68 Diabetes mellitus Child Age: 47 Diabetes mellitus Child Age: 41 Diabetes mellitus Father Age: 92 Heart disease Hypertension Social History household members: none Smoking Status: Never smoker alcohol intake: current substance use type: does not use Discharge Assessment & Plan Assessment and Plan Assessment: Patient is postop anterior repair with biological graft. She is doing well. Plan of Treatment: Patient will be discharged after voiding trial. Follow-up in 2 weeks if passes voiding trial otherwise in 3 days if Meier catheter needs to be replaced. Routine precautions reviewed with the patient. Discharge Plan Discharge Plan Patient Disposition: Home Discharge orders & Medications Discharge Orders: Discharge (Order); Ordered 04/04/22 Ordered By: Mitzi Welsh Prescriptions: Continued hydrocortisone [Anusol-HC] 2.5 % cream with perineal applicator 1 applic NE BEDTIME PRN (Reason: hemorrhoids) Qty: 30 0RF triamcinolone acetonide 0.025 % ointment 1 applic topical BID Qty: 15 0RF levothyroxine 75 mcg tablet 75 mcg PO DAILY Qty: 90 3RF multivitamin Tablet 1 tab PO DAILY 0RF ascorbic acid (vitamin C) [Vitamin C] 1,000 mg Tablet 1,000 mg PO DAILY 0RF magnesium 500 mg Tablet 500 mg PO DAILY 0RF calcium carbonate [Calcium 600] 600 mg calcium (1,500 mg) Tablet 600 mg PO DAILY 0RF potassium 99 mg Tablet 99 mg PO DAILY 0RF zinc 50 mg Tablet 50 mg PO DAILY 0RF cholecalciferol (vitamin D3) [Vitamin D3] 50 mcg (2,000 unit) Capsule 50 mcg PO DAILY 0RF Follow up/Referrals: Mitzi Welsh MD [Physician] - 2 Weeks Joselin Hernadez DO [Primary Care Provider] - Diet/Activity/Treatments Diet: Regular Activity: Nothing in vagina or lifting over 20 lb for 6 weeks Skin/Wound/Dressing Care Report to your healthcare provider any signs of infection, such as:: chills, fever and increased pain Visit Report/Discharge Packet Stand Alone Forms: Surgery Discharge Discharge Data Primary Care Provider: Joselin Hernadez Attending Provider: Mitzi Welsh
== END 2022-04-04 18:00 | disposition home or self-care (01) ==
LOC: OR 06:27 → AC 06:27 → ICU 11:13
PROVIDERS: Family Provider Family Medicine; PCP Family Medicine; Referring Provider Specialist; Visit Provider Specialist
PROC: (CPT 57240; principal; 2022-04-04 07:45)
DX: N81.10 Cystocele, unspecified (principal); E03.9 Hypothyroidism, unspecified
CPT/HCPCS: 57240; 94760; J0171; J0690

== ENCOUNTER → 2022-04-23 11:01 | Outpatient (CLI) | payer MEDICARE, SELFPAY ==
[2022-04-04 11:20] VITALS: BMI 32.1
[2022-04-23 11:57] LABS: Appearance Urine UA CLEAR; Bilirubin Urine UA NEGATIVE (NEGATIVE); Color Urine UA YELLOW; Glucose Urine UA NEGATIVE (Negative); Ketones Urine UA NEGATIVE (NEGATIVE); Leukocyte Esterase Urine UA 1+ (NEGATIVE); Nitrite Urine UA NEGATIVE (Negative); Occult Blood Urine UA 3+ (Negative); Protein Urine UA 1+ (Negative); Specific Gravity Urine UA <=1.005 (1.000-1.035); Urobilinogen Urine UA 0.2 E.U./dL (0.2)
[2022-04-23 12:07] LABS: Bacteria Urine None Seen; Culture Indicated Urine Specimen Cultured; RBC Urine 10-30/HPF (0-5/HPF); Squamous Epithelial Cell Urine 0-1 /HPF (0-5/HPF); WBC Urine 1-5/HPF (0-5/HPF)
== END ==
PROVIDERS: Family Provider Family Medicine; PCP Family Medicine; Referring Provider Specialist; Visit Provider Specialist
DX: R30.0 Dysuria (principal)
CPT/HCPCS: 81001; 87086

== ENCOUNTER 2022-06-25 10:59 | Emergency (ER) | payer MEDICARE, SELFPAY ==
[2022-04-04 11:20] VITALS: BMI 32.1
[2022-06-25 11:08] VITALS: BP 194/93; PULSE 90; RESP 15; TEMP 35.9; O2SAT 98; BMI 31.7
--- NOTE | 2022-06-25 11:13 | DI.RAD.S_ITS ---
PROCEDURE: XR FOOT LT MIN 3V INDICATIONS: fall with bilateral foot pain TECHNIQUE: 3 views of the foot were acquired. COMPARISON: [facility], CR, XR ANKLE RT MIN 3V, 09/07/2020, 12:52. [facility], CR, XR FOOT 3 VIEWS WEIGHT BEARING RIGHT, 06/11/2022, 11:18. [facility], CR, XR FOOT RT MIN 3V, 12/28/2020, 8:35. FINDINGS: Bones: 1st metatarsal ostomy changes. Hardware is intact. There is good anatomic alignment. There is cortical irregularity at the posterior malleolus. Posterior malleolar cortical irregularity. It is seen only on the lateral view. In addition, there is cortical irregularity of the distal fibula, again only seen on one view. Soft tissues: No tibiotalar joint effusion. Achilles tendon appears normal. IMPRESSION: Stable postsurgical 1st metatarsal change. Irregularity of the posterior malleolus as well as distal fibula not seen on all views. Fracture cannot be excluded and x-ray ankle views are recommended for further evaluation. Dictated by: Lexy Cornelius M.D. on 06/25/2022 at 11:44 Approved by: Lexy Cornelius M.D. on 06/25/2022 at 11:50
--- NOTE | 2022-06-25 11:13 | DI.RAD.S_ITS ---
PROCEDURE: XR FOOT RT MIN 3V INDICATIONS: fall with bilateral foot pain TECHNIQUE: 3 views of the foot were acquired. COMPARISON: [facility], CR, XR FOOT LT MIN 3V, 06/25/2022, 11:13. [facility] [place], CR, XR FOOT 3 VIEWS WEIGHT BEARING RIGHT, 06/12/2021, 9:33. [facility] [place], CR, XR FOOT 3 VIEWS WEIGHT BEARING RIGHT, 06/11/2022, 11:18. [facility], CR, XR FOOT RT MIN 3V, 12/28/2020, 8:35. FINDINGS: Bones: Irregularity is noted of the distal fibula seen only on one view. No suspicious bony lesions. 1st, 2nd and MTT fusion is again noted. Hardware is intact. Soft tissues: No tibiotalar joint effusion. Achilles tendon appears normal. IMPRESSION: Postsurgical changes are stable. Irregularity of the distal fibula seen only on one view. Fracture cannot be excluded and ankle x-rays are recommended. Dictated by: Lexy Cornelius M.D. on 06/25/2022 at 11:50 Approved by: Lexy Cornelius M.D. on 06/25/2022 at 11:52
--- NOTE | 2022-06-25 12:11 | DI.RAD.S_ITS ---
PROCEDURE: XR ANKLE RT MIN 3V INDICATIONS: fall with bilateral foot pain TECHNIQUE: 3 views of the ankle were acquired. COMPARISON: [facility], CR, XR ANKLE RT MIN 3V, 09/07/2020, 12:52. FINDINGS: Bones: Acute fracture of the lateral malleolus, fracture plane at the level of the tibial plafond and. Acute minimally displaced medial malleolus fracture also demonstrated. Suspected widening of the lateral clear space. Postsurgical changes of the midfoot with a plate and multiple screws. A plantar calcaneal spur is present. Osseous fragment anterior to the tibiotalar joint on the lateral view of unclear etiology. Soft tissues: Possible tibiotalar joint effusion. Achilles tendon appears normal. IMPRESSION: 1. Acute lateral and medial malleolar fractures. 2. Osseous fragment anterior to the tibiotalar joint on the lateral view of unclear etiology. Could be projectional artifact or possible fracture of the anterior tibia. Attention on follow-up is recommended, CT could be obtained if indicated. Dictated by: Kvng Taylor M.D. on 06/25/2022 at 12:55 Approved by: Kvng Taylor M.D. on 06/25/2022 at 13:08
--- NOTE | 2022-06-25 12:11 | DI.RAD.S_ITS ---
PROCEDURE: XR ANKLE LT MIN 3V INDICATIONS: fall with bilateral foot pain TECHNIQUE: 3 views of the ankle were acquired. COMPARISON: [facility], CR, XR ANKLE RT MIN 3V, 09/07/2020, 12:52. FINDINGS: Bones: Acute mildly displaced trimalleolar fracture. Lateral malleolus fracture is above the level of the tibial plafond. There appears to be widening of the medial clear space with medial talar tilt. A plantar calcaneal spur is present. Soft tissues: Possible tibiotalar joint effusion. Achilles tendon appears normal. IMPRESSION: Acute mildly displaced trimalleolar fracture. Dictated by: Kvng Taylor M.D. on 06/25/2022 at 12:50 Approved by: Kvng Taylor M.D. on 06/25/2022 at 12:55
--- NOTE | 2022-06-25 14:26 | ED.FALL ---
HPI - Fall General Chief Complaint: Fall Stated Complaint: Fell off of stairs, can't bear weight on feet Time Seen by Provider: 06/25/22 14:14 Source: patient Mode of arrival: Wheelchair History of Present Illness HPI Narrative: Patient is a 71-year-old with history of hypothyroidism presents after fall down last stair. Pain in both ankles and feet. No head injury or any other injury. No loss of consciousness. Related Data Home Medications Medication Instructions Recorded Confirmed ascorbic acid (vitamin C) 1,000 mg 1,000 mg PO DAILY 12/26/20 06/23/22 tablet (Vitamin C) calcium carbonate 600 mg calcium 600 mg PO DAILY 12/26/20 06/23/22 (1,500 mg) tablet (Calcium) cholecalciferol (vitamin D3) 50 50 mcg PO DAILY 12/26/20 06/23/22 mcg (2,000 unit) capsule (Vitamin D3) magnesium 500 mg tablet 500 mg PO DAILY 12/26/20 06/23/22 multivitamin 1 tab PO DAILY 12/26/20 06/23/22 potassium 99 mg tablet 99 mg PO DAILY 12/26/20 06/23/22 zinc 50 mg tablet 50 mg PO DAILY 12/26/20 06/23/22 Previous Rx's Medication Instructions Recorded hydrocortisone 2.5 % topical cream 1 applic TX BEDTIME PRN 07/30/21 with perineal applicator hemorrhoids #30 grams (Anusol-HC) levothyroxine 75 mcg tablet 75 mcg PO DAILY #90 tabs 11/04/21 triamcinolone acetonide 0.025 % 1 applic topical BID #15 grams 11/04/21 topical ointment ciprofloxacin HCl 500 mg tablet 500 mg PO BID #6 tabs 04/23/22 (Cipro) enoxaparin 40 mg/0.4 mL 40 mg (0.4 mL) SUBCUT DAILY #4 mL 06/25/22 subcutaneous syringe (Lovenox) Allergies Allergy/AdvReac Type Severity Reaction Status Date / Time iodine Allergy Severe Hives Verified 06/25/22 11:11 Tetanus Vaccines and Toxoid Allergy Severe Unlisted Verified 06/25/22 11:11 latex Allergy Mild Rash Verified 06/25/22 11:11 Iodinated Contrast Media Allergy Unknown Unlisted Verified 06/25/22 11:11 Sulfa (Sulfonamide AdvReac Severe Gastrointestinal Verified 06/25/22 11:11 Antibiotics) Upset nitrofurantoin AdvReac Intermediate rash, Verified 06/25/22 11:11 nausea, diarrhea after 4 doses Review of Systems Review of Systems Narrative: GENERAL: Denies chills,fever HEENT: Denies throat pain RESPIRATORY: Denies dyspnea, cough, wheezing CARDIOVASCULAR: Denies chest pain, palpitations GASTROINTESTINAL: Denies nausea, vomiting MUSCULOSKELETAL: See HPI SKIN: No rash, no laceration, no pruritus NEUROLOGIC: Denies weakness, dizziness, headache, numbness 8 point review of systems is negative except for those stated above and HPI Patient History Medical History Anxiety and depression Arthritis of right foot Chickenpox Compression fracture Dextroscoliosis (02/11/16) Eczema Essential hypertension Hallux valgus of right foot History of recurrent UTIs Hyperlipidemia Hypothyroidism Measles Obesity (BMI 30.0-34.9) Osteoporosis Pain in right foot Postmenopausal Prolapsed bladder Seizure grand mal (~1983) Shoulder pain Surgical History Anesthesia complication H/O bilateral breast reduction surgery (~2020) History of bilateral tubal ligation History of tonsillectomy (~1971) History of total knee arthroplasty History of total vaginal hysterectomy (TVH) (05/17/18) Status post breast biopsy (~10/1984) Status post bunionectomy (~1989) Status post tubal ligation (~1988) Tonsillar tag (~1976) Family History Brother Age: 68 Diabetes mellitus Child Age: 47 Diabetes mellitus Child Age: 41 Diabetes mellitus Father Age: 92 Heart disease Hypertension Social History household members: none Smoking Status: Never smoker alcohol intake: current substance use type: does not use Smoking Status: Never smoker alcohol intake frequency: holidays/special occasions only Substance Use Type: does not use Exam Initial Vital Signs Initial Vital Signs: Vital Signs Temperature 96.7 F L 06/25/22 11:08 Pulse Rate 90 06/25/22 11:08 Respiratory Rate 15 06/25/22 11:08 Blood Pressure 194/93 H 06/25/22 11:08 Pulse Oximetry 98 06/25/22 11:08 Oxygen Delivery Method 06/25/22 11:08 GENERAL: Well-appearing, well-nourished and in no acute distress. CARDIOVASCULAR: peripheral pulses in tact, cap refill <2 sec RESPIRATORY: No respiratory distress, speaks in full sentences without difficulty EXTREMITIES: Normal range of motion, no clubbing or edema. Neurovascularly intact Right lower extremity swelling no gross bony deformity distal pedal pulse intact scarf on foot from previous surgery knee is within normal limits Left lower extremity mild swelling distal pedal pulse intact able to flex and extend knee NEUROLOGICAL: Cranial nerves II through XII grossly intact. Normal gait and speech. SKIN: Warm, dry, no petechiae, no rashes or lesions. Procedures Orthopedic Splinting/Casting Injury #1: Side: left Lower Extremity Injury Location: ankle Lower Extremity Immobilizer: posterior splint and stirrup splint Post splinting neuro exam: intact and no change Post splinting vascular exam: intact Placed by: Provider Injury #2: Side: right Lower Extremity Injury Location: ankle Lower Extremity Immobilizer: posterior splint and stirrup splint Post splinting neuro exam: intact Post splinting vascular exam: intact Placed by: Provider Course Orders Ordered: ED Orders 06/25/22 11:13 XR foot LT min 3V Stat XR foot RT min 3V Stat 06/25/22 12:11 XR ankle LT min 3V Stat XR ankle RT min 3V Stat 06/25/22 14:34 CT LE LT wo con Stat Discontinued Medications Acetaminophen (Acetaminophen 325 Mg Tablet) 975 mg PO NOW ONE Stop: 06/25/22 14:51 Last Admin: 06/25/22 14:54 Dose: 975 mg Documented By: KASIA Enoxaparin Sodium (Enoxaparin 40 Mg/0.4 Ml Syringe) 40 mg 0.5 mg/kg (40 mg) SUBCUT NOW ONE Stop: 06/25/22 16:33 Last Admin: 06/25/22 16:41 Dose: 40 mg Documented By: KASIA Ibuprofen (Ibuprofen 400 Mg Tablet) 800 mg PO NOW ONE Stop: 06/25/22 14:35 Last Admin: 06/25/22 14:42 Dose: 800 mg Documented By: KASIA Vital Signs Vital signs: Vital Signs - 8 hr 06/25/22 16:01 06/25/22 15:30 06/25/22 15:05 Temperature Pulse Rate 90 90 90 Respiratory Rate 18 18 18 Blood Pressure 169/82 H 168/85 H 190/94 H Pulse Oximetry 98 98 98 Oxygen Delivery Method 06/25/22 17:01 Temperature 98 F Pulse Rate 100 H Respiratory Rate 18 Blood Pressure 141/90 H Pulse Oximetry 96 Oxygen Delivery Method Room Air MDM - Fall Imaging Data Extremity x-ray #1: Radiologist's Impression: [place] [address] XRay Report Signed Patient: Amy Martinez MR#: [id number] : 1950 Acct:[id number] Age/Sex: 71 / F Date of Service: 06/25/22 Loc: ED Accession Number: [id number] ?? Procedure: XR foot LT min 3V Ordering Provider: Susan Zendejas D.O. PROCEDURE:? XR FOOT LT MIN 3V ? INDICATIONS:? fall with bilateral foot pain ? TECHNIQUE:? 3 views of the foot were acquired.? ? COMPARISON:? [facility], CR, XR ANKLE RT MIN 3V, 09/07/2020, 12:52.? [facility] [place], CR, XR FOOT 3 VIEWS WEIGHT BEARING RIGHT, 06/11/2022, 11:18.? [facility], CR, XR FOOT RT MIN 3V, 12/28/2020, 8:35. ? FINDINGS:? ? Bones:? 1st metatarsal ostomy changes.? Hardware is intact.? There is good anatomic alignment.? There is cortical irregularity at the posterior malleolus. Posterior malleolar cortical irregularity.? It is seen only on the lateral view.? In addition, there is cortical irregularity of the distal fibula, again only seen on one view.? ? ? Soft tissues:? No tibiotalar joint effusion.? Achilles tendon appears normal.? ? ? IMPRESSION:? Stable postsurgical 1st metatarsal change. ? Irregularity of the posterior malleolus as well as distal fibula not seen on all views.? Fracture cannot be excluded and x-ray ankle views are recommended for further evaluation. ? Dictated by: Lexy Cornelius M.D. on 06/25/2022 at 11:44 ? ? Extremity x-ray #2: Radiologist's Impression: [address] [place] [id number] XRay Report Signed Patient: Amy Martinez MR#: [id number] : 1950 Acct:[id number] Age/Sex: 71 / F Date of Service: 06/25/22 Loc: ED Accession Number: [id number] ?? Procedure: XR foot RT min 3V Ordering Provider: Susan Zendejas D.O. PROCEDURE:? XR FOOT RT MIN 3V ? INDICATIONS:? fall with bilateral foot pain ? TECHNIQUE:? 3 views of the foot were acquired.? ? COMPARISON:? [facility], CR, XR FOOT LT MIN 3V, 06/25/2022, 11:13.? [facility] [place], CR, XR FOOT 3 VIEWS WEIGHT BEARING RIGHT, 06/12/2021, 9:33.? [facility] [place], CR, XR FOOT 3 VIEWS WEIGHT BEARING RIGHT, 06/11/2022, 11:18.? [facility], CR, XR FOOT RT MIN 3V, 12/28/2020, 8:35. ? FINDINGS:? ? Bones:? Irregularity is noted of the distal fibula seen only on one view.? No suspicious bony lesions.? 1st, 2nd and MTT fusion is again noted.? Hardware is intact. ? Soft tissues:? No tibiotalar joint effusion.? Achilles tendon appears normal.? ? ? IMPRESSION:? ? Postsurgical changes are stable. ? Irregularity of the distal fibula seen only on one view.? Fracture cannot be excluded and ankle x-rays are recommended. ? ? Dictated by: Lexy Cornelius M.D. on 06/25/2022 at 11:50 ? ? Extremity x-ray #3: Radiologist's Impression: XRay Report Signed Patient: Amy Martinez MR#: [id number] : 1950 Acct:[id number] Age/Sex: 71 / F Date of Service: 06/25/22 Loc: ED Accession Number: [id number] ?? Procedure: XR ankle LT min 3V Ordering Provider: Susan Zendejas D.O. PROCEDURE:? XR ANKLE LT MIN 3V ? INDICATIONS:? fall with bilateral foot pain ? TECHNIQUE:? 3 views of the ankle were acquired.? ? COMPARISON:? [facility], CR, XR ANKLE RT MIN 3V, 09/07/2020, 12:52. ? FINDINGS:? ? Bones:? Acute mildly displaced trimalleolar fracture.? Lateral malleolus fracture is above the level of the tibial plafond.? There appears to be widening of the medial clear space with medial talar tilt.? A plantar calcaneal spur is present. ? Soft tissues:? Possible tibiotalar joint effusion.? Achilles tendon appears normal.? ? ? IMPRESSION:? Acute mildly displaced trimalleolar fracture. ? Dictated by: Kvng Taylor M.D. on 06/25/2022 at 12:50 ? ? Approved by: Kvng Taylor M.D. on 06/25/2022 at 12:55 ? EX #4: Radiologist's Impression: Signed Patient: Amy Martinez MR#: [id number] : 1950 Acct:[id number] Age/Sex: 71 / F Date of Service: 06/25/22 Loc: ED Accession Number: [id number] ?? Procedure: XR ankle RT min 3V Ordering Provider: Susan Zendejas D.O. PROCEDURE:? XR ANKLE RT MIN 3V ? INDICATIONS:? fall with bilateral foot pain ? TECHNIQUE:? 3 views of the ankle were acquired.? ? COMPARISON:? [facility], , XR ANKLE RT MIN 3V, 09/07/2020, 12:52. ? FINDINGS:? ? Bones:? Acute fracture of the lateral malleolus, fracture plane at the level of the tibial plafond and.? Acute minimally displaced medial malleolus fracture also demonstrated.? Suspected widening of the lateral clear space.? Postsurgical changes of the midfoot with a plate and multiple screws.? A plantar calcaneal spur is present.? Osseous fragment anterior to the tibiotalar joint on the lateral view of unclear etiology. ? Soft tissues:? Possible tibiotalar joint effusion.? Achilles tendon appears normal.? ? ? IMPRESSION:? 1. Acute lateral and medial malleolar fractures. 2. Osseous fragment anterior to the tibiotalar joint on the lateral view of unclear etiology.? Could be projectional artifact or possible fracture of the anterior tibia.? Attention on follow-up is recommended, CT could be obtained if indicated. ? Dictated by: Kvng Taylor M.D. on 06/25/2022 at 12:55 ? ? CT LE Left: Radiologist's Impression: CT Scan Report Signed Patient: Amy Martinez MR#: [id number] : 1950 Acct:[id number] Age/Sex: 71 / F Date of Service: 06/25/22 Loc: ED Accession Number: [id number] ?? Procedure: CT LE LT wo con Ordering Provider: Susan Zendejas D.O. PROCEDURE:? CT LE LT W CON ? INDICATIONS:? trimalleolar fx ? TECHNIQUE:? Noncontrast 1-1.5 mm axial sections acquired from above the tibiotalar joint to the bottom of the calcaneus, with coronal and sagittal reformats.? ? COMPARISON:? [facility], CR, XR ANKLE LT MIN 3V, 06/25/2022, 12:13. ? FINDINGS:? Image quality:? Excellent.? ? Bones:? There is a mildly displaced oblique fracture of the distal fibular metadiaphysis and metaphysis extending into the mortise joint.? The dominant distal fracture fragment is mildly displaced by up to 3 mm posteriorly, 4 mm laterally, and approximately 4 mm proximally.? Small mildly displaced comminuted fracture fragments are seen along the distal anterior fracture margin at the lateral mortise joint. ? There is a transverse minimally displaced fracture of the medial malleolus with up to 2 mm medial displacement of the distal fracture fragment and associated mild lateral subluxation of the talus relative to the distal tibia.? A minimally displaced fracture of the posterior malleolus of the distal tibia is seen with approximately 1 mm step-off at the posterior tibial plafond articular surface. ? No osteochondral lesion is seen in the talar dome.? Postsurgical changes are seen in the distal 1st metatarsal with 2 metallic screws.? Degenerative changes are seen in the 1st metatarsophalangeal joint. ? Soft tissues:? Soft tissue edema is seen surrounding the ankle that is most prominent over the lateral malleolus.? A small mortise joint effusion is present.? The articular cartilages, ligaments, and tendons are not well evaluated with standard CT.? However, no definite tendon entrapment is seen. ? IMPRESSION:? Mildly displaced trimalleolar fracture as described in the body of the report.? Very mild lateral subluxation of the tibiotalar joint is seen.? ? ? Dictated by: Kvng Cali M.D. on 06/25/2022 at 15:36 ? [facility] Narrative Medical decision making narrative: Patient's pain tolerance for fracture of both ankles is surprisingly high. Her pain is much better after ibuprofen. However we did discuss how NSAIDS are not appropriate for pain control with fractures. As she is splinted easily. She has a ramp at home they are working on getting her wheelchair. They are trying to get a bedside commode as well. She is given her 1st dose of Lovenox here in the emergency department she has taught how to do shots. 1445 [facility] updated on patient's symptoms test results request CT of left lower extremity both will need surgery. If patient has capability she can go home with Lovenox subcu plan for OR July 03 repair of both Patient has been updated on plan she agrees she is familiar with Dr. Baocn. Discharge Plan Departure Patient Disposition: Home Clinical Impression: Closed fracture of both ankles Instructions: Ankle Fracture Activity Restrictions/Additional Instructions: *You have been diagnosed with bilateral ankle fractures *What to do: I am so sorry that you had such a bad day. Use wheelchair. Elevate. Ice Your expected to have surgery July 03. Dr. Bacon I am sure will be in touch with you. Do not give your shot the morning of surgery *Continue to take medications as directed Lovenox 40 mg once daily--> SENT TO [facility] Tylenol 1000 mg every 6 hours if needed for [id number] pain *Follow up with your primary care provider in 2-3 days or call [phone] *Return to ER if you should have increasing pain swelling week or any new, worsening or concerning symptoms Prescriptions: New enoxaparin [Lovenox] 40 mg/0.4 mL syringe 40 mg SUBCUT DAILY Qty: 4 0RF No Action hydrocortisone [Anusol-HC] 2.5 % cream with perineal applicator 1 applic TX BEDTIME PRN (Reason: hemorrhoids) Qty: 30 0RF triamcinolone acetonide 0.025 % ointment 1 applic topical BID Qty: 15 0RF levothyroxine 75 mcg tablet 75 mcg PO DAILY Qty: 90 3RF ciprofloxacin HCl [Cipro] 500 mg tablet 500 mg PO BID Qty: 6 0RF multivitamin Tablet 1 tab PO DAILY ascorbic acid (vitamin C) [Vitamin C] 1,000 mg Tablet 1,000 mg PO DAILY magnesium 500 mg Tablet 500 mg PO DAILY calcium carbonate [Calcium 600] 600 mg calcium (1,500 mg) Tablet 600 mg PO DAILY potassium 99 mg Tablet 99 mg PO DAILY zinc 50 mg Tablet 50 mg PO DAILY cholecalciferol (vitamin D3) [Vitamin D3] 50 mcg (2,000 unit) Capsule 50 mcg PO DAILY Referrals: Radhika Johnson MD [Physician] - Joselin Hernadez DO [Primary Care Provider] - Visit Report Forms: Patient Portal/API
--- NOTE | 2022-06-25 14:34 | DI.CT.S_ITS ---
PROCEDURE: CT LE LT W CON INDICATIONS: trimalleolar fx TECHNIQUE: Noncontrast 1-1.5 mm axial sections acquired from above the tibiotalar joint to the bottom of the calcaneus, with coronal and sagittal reformats. COMPARISON: , CR, XR ANKLE LT MIN 3V, 06/25/2022, 12:13. FINDINGS: Image quality: Excellent. Bones: There is a mildly displaced oblique fracture of the distal fibular metadiaphysis and metaphysis extending into the mortise joint. The dominant distal fracture fragment is mildly displaced by up to 3 mm posteriorly, 4 mm laterally, and approximately 4 mm proximally. Small mildly displaced comminuted fracture fragments are seen along the distal anterior fracture margin at the lateral mortise joint. There is a transverse minimally displaced fracture of the medial malleolus with up to 2 mm medial displacement of the distal fracture fragment and associated mild lateral subluxation of the talus relative to the distal tibia. A minimally displaced fracture of the posterior malleolus of the distal tibia is seen with approximately 1 mm step-off at the posterior tibial plafond articular surface. No osteochondral lesion is seen in the talar dome. Postsurgical changes are seen in the distal 1st metatarsal with 2 metallic screws. Degenerative changes are seen in the 1st metatarsophalangeal joint. Soft tissues: Soft tissue edema is seen surrounding the ankle that is most prominent over the lateral malleolus. A small mortise joint effusion is present. The articular cartilages, ligaments, and tendons are not well evaluated with standard CT. However, no definite tendon entrapment is seen. IMPRESSION: Mildly displaced trimalleolar fracture as described in the body of the report. Very mild lateral subluxation of the tibiotalar joint is seen. Dictated by: Kvng Cali M.D. on 06/25/2022 at 15:36 Approved by: Kvng Cali M.D. on 06/25/2022 at 15:44
[2022-06-25] MEDS: IBUPROFEN 400 MG TABLET 800 MG PO (14:42)
[2022-06-25] MEDS: ACETAMINOPHEN 325 MG TABLET 975 MG PO (14:54)
[2022-06-25 15:05] VITALS: BP 190/94; PULSE 90; RESP 18; O2SAT 98
[2022-06-25 15:30] VITALS: BP 168/85; PULSE 90; RESP 18; O2SAT 98
[2022-06-25 16:01] VITALS: BP 169/82; PULSE 90; RESP 18; O2SAT 98
[2022-06-25] MEDS: ENOXAPARIN 40 MG/0.4 ML SYRINGE SUBCUT (16:41)
[2022-06-25 17:01] VITALS: BP 141/90; PULSE 100; RESP 18; TEMP 36.6; O2SAT 96
--- NOTE | 2022-06-25 17:22 | PC.NURSE ---
pt demonstrated ability to transfer from bed to bedside commode and bed to wheelchair with some weight bearing. family setting up home for access with ramps and getting wheelchair in home.
== END 2022-06-25 17:21 | disposition home or self-care (01) ==
PROVIDERS: Emergency Provider Emergency Medicine; Family Provider Family Medicine; PCP Family Medicine
DX: S82.852A Displaced trimalleolar fracture of left lower leg, initial encounter for closed fracture (principal); S82.851A Displaced trimalleolar fracture of right lower leg, initial encounter for closed fracture; W10.9XXA Fall (on) (from) unspecified stairs and steps, initial encounter
CPT/HCPCS: 29515; 73610; 73630; 73700; 96372; 99284; J1650

== ENCOUNTER 2022-07-03 06:18 | Inpatient (IN) | payer MEDICARE, SELFPAY ==
[2022-04-04 11:20] VITALS: BMI 32.1
[2022-07-03] VITALS (17 sets, daily range): BP systolic 124–159; BP diastolic 60–94; PULSE 66–94; RESP 15–19; TEMP 35.6–37.4; O2SAT 88–100; BMI 31.7
[2022-07-03] MEDS: LACTATED RINGERS 1,000 ML 42 ML IV ×2 (07:18→09:28)
[2022-07-03] MEDS: SCOPOLAMINE 1 PATCH TOP (07:24)
--- NOTE | 2022-07-03 07:24 | PM.PREOP ---
Pre-operative Note COVID-19 COVID-19 status: Negative Interval Note History & Physical reviewed/Exam performed by Physician: Yes Changes to H&P: No
[2022-07-03] MEDS: ACETAMINOPHEN IV 1,000 MG/100 ML VIAL 400 MG IV (07:27)
[2022-07-03 07:33] LABS: COVID19 -Nasal RAPID Negative (Negative)
--- NOTE | 2022-07-03 07:57 | SUR.PREOP ---
Block start time [0745] . Monitoring initiated and maintained throughout procedure. Medications given by anesthesiologist and oxygen administered via nasal canula per protocol. . Patient remained stable throughout procedure, no adverse reactions noted. Block end time [0754].
[2022-07-03] MEDS: CEFAZOLIN 2 GM IN 0.9 % NACL 100 ML IV ×3 (08:04→23:20)
--- NOTE | 2022-07-03 08:41 | SUR.OPER ---
Supine on padded OR bed, head on pillow, arms secured on padded arm boards at <90 degrees abduction, legs uncrossed, safety belt at waist bilateral legs draped free .
--- NOTE | 2022-07-03 09:36 | PM.PROC.1 ---
Procedures Date/Time Date of procedure: 07/03/22 Time of procedure: 07:45 Nerve Block Time out performed: Yes Local anesthetic used: other (5mL 1% Lidocaine w/epi, 10mL 0.5% Ropivacaine) Location of anesthetic used: lateral popliteal Amount of anesthesia used (mL): 20 Nerve blocks: other (sciatic nerve) Procedure successful: Yes Patient tolerated procedure: well Complications: none Additional comments: BILATERAL Ultrasound guided lateral popliteal sciatic nerve blocks for post operative pain management, as discussed with surgeon. Risks, benefits discussed with patient. Consent verified. Sites marked by surgeon. Time out performed. Standard ASA monitors applied, NC O2, 1mg versed. Pt supine. Chloroprep. Sciatic nerve identified proximal to popliteal fossa, at bifurcation. Lidocaine local skin wheal. 100mm x 21g Pajunk needle advanced with in-plane US guidance to nerve. Negative aspiration. 5mL 1% lidocaine w/epi and 10mL 0.5% ropivacaine injected with intermittent negative aspiration. Good LA spread noted on US. No pain, no paresthesias. Procedure repeated on opposite side as above. VSS. Tolerated well.
--- NOTE | 2022-07-03 10:01 | DI.RAD.S_ITS ---
PROCEDURE: XR ANKLE LT MIN 3V INDICATIONS: LEFT ANKLE FRACTURE REPAIR TECHNIQUE: Fluoroscopic images were obtained during an operative procedure and submitted for interpretation following the completion of the procedure. COMPARISON: [facility], CT, CT LE LT WO CON, 06/25/2022, 14:40. [facility], CR, XR ANKLE LT MIN 3V, 06/25/2022, 12:13. [facility], CR, XR ANKLE RT MIN 3V, 06/25/2022, 12:13. FINDINGS: These fluoroscopic images were performed for intraoperative localization. On these images, plate and screw fixation is seen of the distal fibula. A suture button is seen crosses syndesmosis. Two screws are seen through the medial malleolus. There is improved anatomic alignment. Please correlate with intraoperative findings. IMPRESSION: Normal intraoperative examination. Dictated by: Kevon New M.D. on 07/03/2022 at 11:45 Approved by: Kevon New M.D. on 07/03/2022 at 11:46
--- NOTE | 2022-07-03 11:11 | DI.RAD.S_ITS ---
PROCEDURE: XR ANKLE RT MIN 3V INDICATIONS: RIGHT ANKLE FRACTURE REPAIR TECHNIQUE: Fluoroscopic images were obtained during an operative procedure and submitted for interpretation following the completion of the procedure. COMPARISON: [facility], CT, CT LE LT WO CON, 06/25/2022, 14:40. [facility], CR, XR ANKLE RT MIN 3V, 06/25/2022, 12:13. FINDINGS: These fluoroscopic images were performed for intraoperative localization. On these images, plate and screw fixation is seen of the distal fibula and 2 screws are seen transfixing the medial malleolar fracture. Foot fixation hardware is partially seen. Please correlate with intraoperative findings. IMPRESSION: Normal intraoperative examination. Dictated by: Kevon New M.D. on 07/03/2022 at 15:05 Approved by: Kevon New M.D. on 07/03/2022 at 15:06
[2022-07-03] MEDS: BUPIVACAINE 0.5% W/ EPI (PF) 30 ML VIAL INJ (11:31)
--- NOTE | 2022-07-03 12:16 | P.OP_ITS ---
Operative Date/Time/Diagnoses Date of procedure: 07/03/22 Time of procedure: 08:10 Pre-op diagnosis: 1. Left trimalleolar ankle fracture 2. Left syndesmosis disruption 3. Right bimalleolar ankle fracture 4. Right syndesmosis disruption Post-op diagnosis: same Procedure & Clinicians Procedure: 1. Open reduction internal fixation left trimalleolar ankle fracture without fixation posterior [place]le[place] cpt 74504 LT 2. Open reduction internal fixation syndesmosis, left ankle 54809 LT 3. Open reduction internal fixation bimalleolar ankle fracture right cpt 28631 RT 4. Open reduction internal fixation syndesmosis, right cpt 96766- RT Same procedure as scheduled: Yes Indications: Patient is a 71-year-old female that sustained bilateral severe ankle fractures when she missed a stair last week. She was seen and [facility] Emergency Room and found to have a displaced left trimalleolar fracture and a displaced right by malleolar ankle fractures. She has been indicated for operative fixation of her bilateral unstable ankle fractures to restore alignment reduce the risk of posttraumatic arthritis and dysfunction. The risks and benefits of the procedure have been discussed with the patient even opportunity to ask questions. The risks of surgery include but are not limited to infection, malunion, nonunion, persistence of pain, damage to nerves and blood vessels, posttraumatic arthritis, DVT, PE, cardiopulmonary complications and . The patient expressed a thorough understanding of the risks and benefits of surgery and has elected to proceed. Consent was signed in the office. Furthermore she has tried to function at home with family helping her but she is bilateral nonweightbearing and they are unable to to provide her ongoing care. She has been indicated for inpatient admission for correction placement due to her bilateral nonweightbearing. Surgeon: Radhika Johnson Click Yes if Unassisted: Yes Anesthesia Type: General, Peripheral nerve block and Local Operative Notes Findings: 1. Left displaced trimalleolar ankle fracture. Long oblique fibula fracture was reduced and secured with a 3.5 lag screw and a 7 hole 1/3 tubular plate. Medial malleolus was secured with 2x 4.0 cannulated screws. The posterior malleolus remained nondisplaced and was treated non operatively. The syndesmosis was of violated non stable this was repaired both the with a 2.7 screw fixing the teagan fragment from the AITFL avulsion and syndesmotic suture button device. Following all fixation the ankle was stable to stress examination 2. The right displaced bimalleolar ankle fracture. Long oblique distal fibula fracture entered the syndesmosis and again there was avulsion of a wax Staph fragment at the AITFL insertion this was a smaller bony fragment in the contral ateral side. Following reduction of the fibula with lag screw and anti glide placed plate the teagan AITFL avulsion bony fragment representing the syndesmotic disruption was sewn back through bone with 2. FiberWire. The medial malleolus was stabilized with 2x 4.0 cannulated screws. Ankle was stressed in external rotation and stable after fixation. Closure Type: primary Specimen(s): none sent Prosthetic devices, grafts, tissues, transplants, or devices: Left: Arthrex --fibula: 7 hole 1/3 tubular plate. 3.5 locking and nonlocking screws. A 2.7 nonlocking screw. Medial malleolus: 2x 4.0 cannulated screw, syndesmosis: Tight rope XP Right: Arthrex--fibula 7 hole 1/3 tubular plate. 3.5 locking and nonlocking screws. AI TFL/syndesmosis: #2FiberWire through bone tunnels. Medial malleolus: 2x 4.0 cannulated screws Estimated Blood Loss (mL): 30 Blood products transfused: none Tourniquet time (min): 60 Procedure in detail: Patient was seen in the preoperative area the site of surgery was marked informed consent confirmed. She underwent regional block by the anesthesia team for postoperative pain control. She was brought back to the operating room positioned supine on operative table. General anesthetic was administered. Well-padded thigh tourniquets were placed on bilateral lower extremities in carefully labeled with the correct side. The legs were draped and together after appropriate prep and a formal time-out procedure was performed confirming the patient's side and site of surgery administration of appropriate preoperative antibiotics. All were in agreement. Procedure started with the left ankle fracture. This was a trimalleolar ankle fracture. Esmarch was used for exsanguination the tourniquet raised on the thigh to 250 mmHg. The stayed elevated for approximately 60 minutes. An incision was made along the fibula care was taken to protect the superficial peroneal nerve, dissection this was taken down to the level of the fracture which was cleaned of debris this was found to be long oblique fracture with a separate with teagan fragment. Fracture was reduced and length and rotation reestablished. A 3.5 lag screw was placed. An additional 2.7 screw was used to fix the wax Staph fragment part of the AITFL from the syndesmosis. A 7 hole 1/3 tubular plate was fit to the fracture and secured with screws. Then attention was turned to the medial side of the ankle in a separate incision was made over the medial malleolus the fracture was exposed the joint was irrigated the fracture was reduced and this was pinned with K-wires checked for positioning and then 2x 4.0 cannulated screws from the Arthrex the set were used to fix the medial malleolus fracture. Next attention turned to the syndesmosis fixation. The posterior malleolus fracture has stayed nondisplaced this was treated non operatively. The solid drill from the Conjunct Xp set was then used to make a bone tunnel and the TrillTip XP was deployed the to fix the syndesmosis. And the ankle stress exam thereafter was stable. The wounds were irrigated he hemostasis achieved after tourniquet release. Wounds were closed with 2-0 Vicryl, 4-0 Monocryl and 3-0 nylon suture. Now attention turned to the right ankle. The Esmarch was used for exsanguination and the tourniquet on the right thigh was elevated to 250 mmHg and stayed elevated for approximately 48 minutes. Again incision was started over the fibula this was taken down through the skin and subcutaneous tissue to the level of the fracture. Superficial peroneal nerve was not encountered on this side. Fracture was a long oblique fracture down to the level of the syndesmosis. This exited posterior. Was complained of debris. Reduction clamp was used to obtain length and alignment and reduce the fracture. This was provisionally secured with a wire. Then a 7 hole 1/3 tubular plate was fit posterior laterally along the fibula in an antiglide fashion and a 3.5 cortical screw was placed at the apex of the fracture. Additional through plate lag screw was placed distally. Again this fracture was noted to have a lag Staph component. This side has a much smaller bony component than the contralateral side this represented anterior syndesmotic disruption. The AITFL and waxed the fragment were repaired through bone tunnels using 2. FiberWire for the syndesmotic fixation. Once this was completed attention was turned medially and incision over the medial malleolus was taken down through the skin. Saphenous vein and nerve were retracted. Fracture was exposed and cleaned of debris. The joint was inspected. No obvious cartilage lesions. This was then reduced pinned and then fixed with 2x 4.0 cannulated screws from the Arthrex set. Again the ankle was taken through range of motion and stressed in external rotation there was no widening. Final images were obtained. The wounds were irrigated hemostasis was achieved. The wound was closed with 2-0 Vicryl, 4-0 Monocryl, 3- 0 nylon. Next sterile dressings were placed to both bilateral extremities and bilateral lower extremity splints were placed. Drapes removed. Patient was awaken from anesthesia and taken to recovery room in good condition. There no immediate complications from this procedure. All counts were correct. Complications: none Post-operative Condition: stable Disposition: PACU Plan for aftercare: Bilateral nonweightbearing for approximately 6 weeks. ankle fractures and syndesmotic violation. Will do Lovenox for postop DVT prophylaxis. Will need to work with therapy-will require correction discharge. May use the lower extremities for transfers. Follow up in clinic in 2-3 weeks for suture removal
--- NOTE | 2022-07-03 12:30 | SUR.PHASEI ---
1230: Pt A&Ox4, denies any distress and ready to transfer to room. Report given to ROCAEL Landrum using SBAR with time allowed for questions. Pt transferred to room 212. Left PACU in stable condition.
[2022-07-03 19:10] LABS: Estimated Glomerular Filt Rate > 60 mL/min (>60)
[2022-07-03] MEDS: KETOROLAC 30 MG/ML VIAL IV (20:35)
[2022-07-03] MEDS: DOCUSATE 100 MG CAPSULE PO (20:36)
[2022-07-03] MEDS: SODIUM CHLORIDE 0.9% FLUSH 10 ML IV ×2 (20:56→23:20)
[2022-07-04] MEDS: SODIUM CHLORIDE 0.9% FLUSH 10 ML IV ×3 (04:08→20:33)
[2022-07-04] MEDS: KETOROLAC 30 MG/ML VIAL IV ×3 (04:08→20:32)
[2022-07-04] MEDS: ACETAMINOPHEN 325 MG TABLET 975 MG PO ×3 (04:14→20:32)
[2022-07-04 04:30] VITALS: BP 127/75; PULSE 90; RESP 16; TEMP 36.2; O2SAT 97
[2022-07-04 05:41] LABS: Hematocrit 29.7 % (36-46); Hemoglobin 10.3 g/dL (12.0-16.0); Mean Corpuscular HGB Conc 34.7 % (30-36); Mean Corpuscular Hemoglobin 29.9 PG (26-34); Mean Corpuscular Volume 86.1 fL (80-100); Platelet Count 338 X10^3/uL (150-400); Red Blood Cell Count 3.45 X10^6/uL (4.0-5.2); Red Cell Distribution Width 13.1 % (11.6-14.8); White Blood Cell Count 8.3 X10^3/uL (4.5-11.0)
--- NOTE | 2022-07-04 08:21 | PM.PNPO.1 ---
Subjective Subjective Date Patient Seen: 07/04/22 Time Patient Seen: 08:21 Interval history: Patient states her pain is mild. Denies fever or chills. No nausea or vomiting. Patient lives alone. Exam Vital Signs (past 8 hours): - 07/04/22 04:30 Temperature 97.1 F L Pulse Rate 90 Respiratory Rate 16 Blood Pressure 127/75 Pulse Oximetry 97 Oxygen Flow Rate 0 Oxygen Delivery Method Room Air Oxygen Flow Rate 0 Narrative Exam Narrative: Pleasant 71-year-old female resting comfortably in bed having breakfast in no apparent distress. Toes are warm and dry. Sensation grossly intact to light touch. Motor functions intact. Good capillary refill. Const General: cooperative and comfortable Resp Effort & Inspection: normal respiratory effort and able to speak in complete sentences Objective Labs Result Diagrams: 07/04/22 05:20 07/03/22 18:36 Labs: Laboratory Results - last 24 hr 07/03/22 07/04/22 18:36 05:20 WBC 8.3 RBC 3.45 L Hgb 10.3 L Hct 29.7 L MCV 86.1 MCH 29.9 MCHC 34.7 RDW 13.1 Plt Count 338 Creatinine 0.49 L Estimated GFR > 60 PFSH Medical History Anxiety and depression Arthritis of right foot Chickenpox Compression fracture Dextroscoliosis (02/11/16) Eczema Essential hypertension Hallux valgus of right foot History of recurrent UTIs Hyperlipidemia Hypothyroidism Measles Obesity (BMI 30.0-34.9) Osteoporosis Pain in right foot Postmenopausal Prolapsed bladder Seizure grand mal (~1983) Shoulder pain Surgical History Anesthesia complication H/O bilateral breast reduction surgery (~2020) History of bilateral tubal ligation History of tonsillectomy (~1971) History of total knee arthroplasty History of total vaginal hysterectomy (TVH) (05/17/18) Status post breast biopsy (~10/1984) Status post bunionectomy (~1989) Status post tubal ligation (~1988) Tonsillar tag (~1976) Family History Brother Age: 68 Diabetes mellitus Child Age: 47 Diabetes mellitus Child Age: 41 Diabetes mellitus Father Age: 92 Heart disease Hypertension Social History household members: none Smoking Status: Never smoker alcohol intake: current substance use type: does not use Assessment & Plan Post-op Postoperative Procedures: Procedures Operation Date: 07/03/22 07:45 Actual Procedure Side Surgeon p ORIF Ankle Fracture,Left Trimalleolar, Right bimalleolar, bilateral syndesmotic fixation Bilateral Radhika Johnson MD Postoperative day: 1 Postoperative status: doing well Postoperative status narrative: Stable status post: 1. Open reduction internal fixation left trimalleolar ankle fracture without fixation posterior malleolus cpt 22330 LT 2. Open reduction internal fixation syndesmosis, left ankle 76420 LT 3. Open reduction internal fixation bimalleolar ankle fracture right cpt 00425 RT 4. Open reduction internal fixation syndesmosis, right cpt 22045- RT Postoperative plan narrative: Bilateral nonweightbearing for approximately 6 weeks. ankle fractures and syndesmotic violation. Lovenox for postop DVT prophylaxis. Work with therapy and will require [facility] discharge. May use the lower extremities for transfers. Follow up in [facility]. in 2-3 weeks for suture removal Quality VTE Deep Vein Thrombosis/Pulmonary Embolism Present on Admission: No
[2022-07-04 08:36] VITALS: BP 132/71; PULSE 89; RESP 16; TEMP 36.2; O2SAT 98
--- NOTE | 2022-07-04 09:30 | PT.IIE ---
Current Diagnoses Displaced bimalleolar fracture of right lower leg, initial encounter for closed fracture (07/03/22) Displaced trimalleolar fracture of left lower leg, initial encounter for closed fracture (07/03/22) Surgery Performed Operation Date: 07/03/22 07:45 Actual Procedures p ORIF Ankle Fracture,Left Trimalleolar, Right bimalleolar, bilateral syndesmotic fixation(Bilateral) - Radhika Johnson MD Surgical History (Last Reviewed 07/04/22 @ 08:22 by Dylan Olvera PA-C) Anesthesia complication H/O bilateral breast reduction surgery (~2020) History of bilateral tubal ligation History of tonsillectomy (~1971) History of total knee arthroplasty History of total vaginal hysterectomy (TVH) (05/17/18) Status post breast biopsy (~10/1984) Status post bunionectomy (~1989) Status post tubal ligation (~1988) Tonsillar tag (~1976) Medical History (Last Reviewed 07/04/22 @ 08:22 by Dylan Olvera PA-C) Anxiety and depression Arthritis of right foot Chickenpox Compression fracture Dextroscoliosis (02/11/16) Eczema Essential hypertension Hallux valgus of right foot History of recurrent UTIs Hyperlipidemia Hypothyroidism Measles Obesity (BMI 30.0-34.9) Osteoporosis Pain in right foot Postmenopausal Prolapsed bladder Seizure grand mal (~1983) Shoulder pain Physical Therapy Inpatient Evaluation/Re-Eval M1 PT/OT-IP Prior Functional Status Start: 07/04/22 10:57 Freq: NEEDED Status: Active Protocol: Document 07/04/22 09:30 AB (Rec: 07/04/22 11:25 AB [id number]) Medical Review Prior Functional Status Medical History Reviewed Yes Communication able to make needs known Mobility and Gait pt stated that she is independent with all mobilities and ambulation without AD up until fall and sustained 2 bilateral ankle fractures. pt went home after ankle fractures and stated that she has been using a w/c and 2 person assist scoot transfer in/out of w/c. Social History Household Members none Living Arrangements House Number of Floors (Floors) Two Floors Number of Stairs To Enter/Railing? pt stays on main level of the house ramp to enter Home Environment High Toilet,Walk in Shower,Tub /Shower,Tub/Shower Doors,Ramp Home Equipment Front Wheel Walker,Manual Wheelchair,Bedside Commode, Hand Held Shower,Grab Bars Near Toilet,Grab Bars In Shower Additional Social History Comment uses bedside commode pt stated that she has just been sponge bathing since sustaining her fractures M2 PT-IP Current Condition Start: 07/04/22 10:57 Freq: NEEDED Status: Active Protocol: Document 07/04/22 09:30 AB (Rec: 07/04/22 11:25 AB [id number]) Physical Therapy Current Condition Current Condition Evaluation Date 07/04/22 Treatment Diagnosis B ankle fx s/p ORIF; difficulty in walking Onset Date 07/03/22 M3 PT-IP Subjective Start: 07/04/22 10:57 Freq: NEEDED Status: Active Protocol: Document 07/04/22 09:30 AB (Rec: 07/04/22 11:25 AB [id number]) Subjective Physical Therapy Visit Type Type Initial Evaluation Visit Start Time 09:30 Visit Stop Time 10:10 Total Visit Minutes 40 Notes Clarified weight bearing with LILLIANA Olvera and stated that pt is WBAT with use of FWW for transfers only. Number of GROUP SALES MANAGER Visits 0 Physical Therapy Visit Comments Patient Comments agreeable to do PT M4 PT-IP Mobility and Gait Start: 07/04/22 10:57 Freq: NEEDED Status: Active Protocol: Document 07/04/22 09:30 AB (Rec: 07/04/22 11:25 AB [email or web address]) PT-Bed Mobility Assessment Supine to Sit Supine to Sit Standby Assistance Scooting Scooting to Edge of Bed Independent PT-Transfer Assessment Sit to and From Stand Sit to and from Stand Maximum Assistance,1 Person Assistance,Use of Upper Extremities Equipment Transfer Assistive Device Gait Belt,Front Wheeled Walker Orthotic/Prosthetic Devices or Brace: Yes Transfers Transfer Destination Chair Transfer Technique Stand Step Pivot Transfer Ability Level of Assist Maximum Assistance,1 Person Assistance,Use of Upper Extremities Comments Mobility Comments pt completed supine to sit SBA and sat on EOB SBA. completed sit to stand max A and max cues. requires max A for standing balance and cues for quads activation and use of FWW for support. step transfer to chair using FWW max a and max cues. pt agreed to stay up on the chair. positioned on chair. call light and table placed within reach. PT-Balance Assessment Sitting Balance and Reactions Static Sitting Balance Ability Good Dynamic Sitting Balance Ability Good Standing Balance and Reactions Static Standing Balance Ability Poor Dynamic Standing Balance Ability Poor Device Used FWW M5 PT-IP Objective Assessments Start: 07/04/22 10:57 Freq: NEEDED Status: Active Protocol: Document 07/04/22 09:30 AB (Rec: 07/04/22 11:25 AB [email or web address]) Orientation Orientation/Cognition Level of Alertness Alert Orientation Name,Place,Situation Language Function Ability No Deficits Noted Safety Awareness Decreased Safety Awareness Memory Description No Deficits Noted Gross Range of Motion Lower Extremity ROM Impairments B ankle NT: on soft cast Strength Lower Extremity Strength Hip 4-/5 Knee 4-/5 Comments Strength Comments B ankles NT Coordination Assessment Gross Coordination Gross Coordination WNL Sensation Assessment Sensation Gross Sensation WNL Muscle Tone Muscle Tone WNL Yes M6 PT-IP Treatment Start: 07/04/22 10:57 Freq: NEEDED Status: Active Protocol: Document 07/04/22 09:30 AB (Rec: 07/04/22 11:25 AB [email or web address]) Physical Therapy Treatment Education Education Provided Weight Bearing Status,Safety M7 PT-IP Assessment and Plan Start: 07/04/22 10:57 Freq: NEEDED Status: Active Protocol: Document 07/04/22 09:30 AB (Rec: 07/04/22 11:25 AB [email or web address]) PT Summary Assessment and Plan Potential Rehabilitation Potential Fair Status of Condition at Evaluation Evolving Summary Impairments Pain,ROM,Strength,Balance, Coordination,Sensation,Tone, Cognition,Bed Mobility, Transfers,Gait,Activity Tolerance Assessment Summary pt requiring max A with transfers using FWW. pt allowed to be WBAT on BLE for transfers only with use of FWW but NWB otherwise. pt will require SNF rehab to improve functional independence. Goals Bed Mobility Goal Independent Transfer Goal Independent,Front Wheeled Walker Days to Meet Goals 5 Frequency of Treatment Frequency Of Treatment Once a Day Treatment Plan Physical Therapy Treatment Plan Bed Mobility Training,Transfer Training,Gait Training, Therapeutic Exercise,Balance Retraining,Post Op Education, Discharge Planning,Hot or Cold Pack,Neuromuscular Re-ed, Coordination Retraining,Manual Therapy Weight Bearing Status Allowed Weight Bearing Amount (enter % BLE NWB but allowed WBAT with or #) (%) FWW for transfers only (LILLIANA olvera clarified) Recommendations To Nursing Amount of Assist Needed 1 Person Assist Discharge Recommendations PT Discharge Recommendations SNF Rehab Transportation Needs at Discharge Wheelchair/Cabulance
[2022-07-04] MEDS: ENOXAPARIN 40 MG/0.4 ML SYRINGE SUBCUT (09:48)
[2022-07-04] MEDS: DOCUSATE 100 MG CAPSULE PO ×2 (09:48→20:33)
--- NOTE | 2022-07-04 11:09 | CM.DPNOTE ---
Sent referrals to [facility], [facility], [facility], [facility], [facility] & [facility]. Gabrielle Madrigal, CM Assist.
[2022-07-04 12:00] VITALS: BP 116/57; PULSE 76; RESP 16; TEMP 36.3; O2SAT 100
--- NOTE | 2022-07-04 15:51 | CM.DANOTE ---
Initial DCP Assessment Note Pt is a 71 yo female, resident of [place], w/recent fall and subsequent bilateral ankle fractures, now POD#1 from: ORIF Ankle Fracture,Left Trimalleolar, Right bimalleolar, bilateral syndesmotic fixation by Dr Johnson PT= SNF PCP: Joselin Hernadez Payer: [place] [facility] Reviewed chart, met w/patient to introduce self, role and discuss dispo options. Patient eager to DC to SNF for her recovery from this procedure, [facility] choice list presented and patient requests [facility] as first choice and other [facility] SNFs as back up options. Patient reports she was indp and active up until her fall and ankle fractures, after which she was non-weight bearing and w/c bound. Discussed this referral w/April at [facility]; she accepts this patient for admission pending auth comes through from [employer]. In addition, booster requested in order to avoid patient's quarantine at SNF. April will submit auth request today; timeline for return from [place] insurance is unknown Relayed above to patient who was relieved to hear [facility] had bed availability. Discussed COVID booster and patient agreeable. Updated Hilda Liu and verbal received, order placed by ROCAEL Pinto. Booster availability unknown, RN will discuss with pharmacy Plan: Anticipate that patient will DC to [facility] pending insurance auth, via w/c EDDI Burton Discharge Planning/Care Management CM Discharge Assessment Start: 07/04/22 15:26 Freq: Status: Active Protocol: Document 07/04/22 15:26 BELKIS (Rec: 07/04/22 15:51 BELKIS [id number]) Discharge Planning Assessment Assigned Extrusion Bender EDDI Hernandez DPOA/Assigned Designee Name Seble Torre dtr Contact Information [phone] Advance Directives? Yes Advance Directives on File No History Provided By Patient,Medical Record Prior Living Arrangements House Household Members none Type of transportation used prior to Drives own vehicle admit Independent with ADL's Yes Is patient alert and oriented? Yes Patient/Family Preference [facility] Facility Barriers to Discharge Yes Comment Lives at home, alone, two local daughters work multiple jobs and have families so cannot care for patient in her recovery Discharge Plan [facility] Facility Transportation Arrangement Likely w/c Referrals Initiated [facility] Additional Comment Referral to [facility] per patient's request, okay to send referrals to other [facility] as b/u options Medicare Choice List Provided Yes SNF/HH Preference 1. [facility] 2. [facility] SNFs as b/u Has Agency SNF been contacted Yes Whiteboard Updated in Patient Room with Yes name and ext. # of Extrusion Bender
[2022-07-04] MEDS: COVID-19 VACC #3, MRNA(MOD) 50 MCG/0.25 ML VIAL IM (16:15)
[2022-07-04 17:13] VITALS: BP 117/59; PULSE 82; RESP 16; TEMP 36.1; O2SAT 99
--- NOTE | 2022-07-04 17:55 | PC.NURSE ---
Ortho: Seen by PT this am. Transfered up to chair. Was up for meal. Then returned to bed with assist of two for safety. Pt did follow her weigh bear restrictions. Able to maneuver walker. Moves slowly. Pt declined removing marcano today. Will reapproach tomorrow. Tylenol and toradol have been effective for pain control. Able to tolerate diet w/out problems. Pt has some vaccine hesitancy. She has had the first 2 vaccines but felt sick to her stomach for several days. Can monitor her while she is in the hospital. No force to take vaccine. But if she doesn't take it discharge may take longer. Allowed to verb her feelings. In the end she did take vaccine. So far no adverse effects seen.
[2022-07-04 21:02] VITALS: BP 114/56; PULSE 82; RESP 17; TEMP 36.4; O2SAT 93
[2022-07-05 01:00] VITALS: BP 128/63; PULSE 75; RESP 18; TEMP 36.5; O2SAT 92
[2022-07-05] MEDS: ACETAMINOPHEN 325 MG TABLET 975 MG PO ×3 (04:51→20:53)
[2022-07-05] MEDS: SODIUM CHLORIDE 0.9% FLUSH 10 ML IV ×3 (04:52→20:53)
[2022-07-05] MEDS: KETOROLAC 30 MG/ML VIAL IV (04:52)
[2022-07-05 05:06] VITALS: BP 155/74; PULSE 77; RESP 17; TEMP 36.2; O2SAT 97
[2022-07-05 07:36] VITALS: BP 131/73; PULSE 85; RESP 16; TEMP 36.3; O2SAT 96
[2022-07-05] MEDS: ENOXAPARIN 40 MG/0.4 ML SYRINGE SUBCUT (08:22)
[2022-07-05] MEDS: DOCUSATE 100 MG CAPSULE PO ×2 (08:22→20:53)
--- NOTE | 2022-07-05 08:48 | P.PN_ITS ---
Subjective Subjective Date Patient Seen: 07/05/22 Time Patient Seen: 08:48 Interval history: Bilateral ankle pain is mild. Denies fever or chills. No nausea or vomiting. Exam Vital Signs (past 8 hours): - 07/05/22 01:00 07/05/22 05:06 Temperature 97.7 F 97.1 F L Pulse Rate 75 77 Respiratory Rate 18 17 Blood Pressure 128/63 155/74 H Pulse Oximetry 92 97 Oxygen Flow Rate 0 0 Oxygen Delivery Method Room Air Oxygen Flow Rate 0 Narrative Exam Narrative: 71-year-old female resting comfortably in bed no apparent distress. Bilateral lower extremity splints in place. Good capillary refill bilateral lower extremities. Sensation grossly intact to light touch bilateral lower e xtremities. Motor functions intact distal bilateral lower extremities. Both calves are soft and nontender palpation. Const General: cooperative and comfortable Resp Effort & Inspection: normal respiratory effort Objective Labs Result Diagrams: 07/04/22 05:20 07/03/22 18:36 [facility] Medical History Anxiety and depression Arthritis of right foot Chickenpox Compression fracture Dextroscoliosis (02/11/16) Eczema Essential hypertension Hallux valgus of right foot History of recurrent UTIs Hyperlipidemia Hypothyroidism Measles Obesity (BMI 30.0-34.9) Osteoporosis Pain in right foot Postmenopausal Prolapsed bladder Seizure grand mal (~1983) Shoulder pain Surgical History Anesthesia complication H/O bilateral breast reduction surgery (~2020) History of bilateral tubal ligation History of tonsillectomy (~1971) History of total knee arthroplasty History of total vaginal hysterectomy (TVH) (05/17/18) Status post breast biopsy (~10/1984) Status post bunionectomy (~1989) Status post tubal ligation (~1988) Tonsillar tag (~1976) Family History Brother Age: 68 Diabetes mellitus Child Age: 47 Diabetes mellitus Child Age: 41 Diabetes mellitus Father Age: 92 Heart disease Hypertension Social History household members: none Smoking Status: Never smoker alcohol intake: current substance use type: does not use Assessment & Plan Post-op Postoperative Procedures: Procedures Operation Date: 07/03/22 07:45 Actual Procedure Side Surgeon p ORIF Ankle Fracture,Left Trimalleolar, Right bimalleolar, bilateral syndesmotic fixation Bilateral Radhika Johnson MD Postoperative day: 2 Postoperative status: doing well Postoperative plan: routine post-op care Postoperative plan narrative: Bilateral nonweightbearing for approximately 6 weeks. ankle fractures and syndesmotic violation. Lovenox for postop DVT prophylaxis. Work with therapy and will require nursing home discharge. May use the lower extremities for transfers. Follow up in [facility]. in 2-3 weeks for suture removal Disposition, SNF, per care management discharge to [facility] pending insurance authorization Quality VTE Deep Vein Thrombosis/Pulmonary Embolism Present on Admission: No
--- NOTE | 2022-07-05 09:33 | PT.IPTN ---
Addendum entered and electronically signed by Mary Colunga PT 07/05/22 15:26: This is to certify that I have reviewed and with direct patient supervision during this PT session. Original Note: Current Diagnoses Displaced bimalleolar fracture of right lower leg, initial encounter for closed fracture (07/03/22) Displaced trimalleolar fracture of left lower leg, initial encounter for closed fracture (07/03/22) Surgery Performed Operation Date: 07/03/22 07:45 Actual Procedures p ORIF Ankle Fracture,Left Trimalleolar, Right bimalleolar, bilateral syndesmotic fixation(Bilateral) - Radhika Johnson MD Physical Therapy Treatment Note M2 PT-IP Current Condition Start: 07/04/22 10:57 Freq: NEEDED Status: Active Protocol: Document 07/04/22 09:30 AB (Rec: 07/04/22 11:25 AB [id number]) Physical Therapy Current Condition Current Condition Evaluation Date 07/04/22 Treatment Diagnosis B ankle fx s/p ORIF; difficulty in walking Onset Date 07/03/22 M3 PT-IP Subjective Start: 07/04/22 10:57 Freq: NEEDED Status: Active Protocol: Document 07/05/22 09:32 (Rec: 07/05/22 15:11 [id number]) Subjective Physical Therapy Visit Type Type Treatment Note Visit Start Time 09:32 Visit Stop Time 09:51 Total Visit Minutes 19 Number of TREATMENT TECHNICIAN Visits 0 Physical Therapy Visit Comments Patient Comments agreeable to do pt. pt reports no pain 0/10 and slept well the night prior. M4 PT-IP Mobility and Gait Start: 07/04/22 10:57 Freq: NEEDED Status: Active Protocol: Document 07/05/22 09:32 (Rec: 07/05/22 15:11 [id number]) PT-Bed Mobility Assessment Supine to Sit Supine to Sit Standby Assistance Scooting Scooting to Edge of Bed Independent PT-Transfer Assessment Sit to and From Stand Sit to and from Stand Maximum Assistance,1 Person Assistance Equipment Transfer Assistive Device Gait Belt,Front Wheeled Walker Orthotic/Prosthetic Devices or Brace: Yes Transfers Transfer Destination Chair Transfer Technique Stand Step Pivot Transfer Ability Level of Assist Maximum Assistance,1 Person Assistance Comments Mobility Comments Pt completed supine (BP:117/67 ) to sit SBA and sat on EOB SBA with no cueing. Pt reported slight lightheadedness, but rescinded in 2-3 min BP: 138/67. completed sit to stand max A and and required moderate cueing to correct technique. pt required max A for standing balance and use of FWW for support. Pt stand step transferred to chair with FWW max A with moderate cueing. Pt agreed to be positioned in chair, call light and table placed within reach. PT-Balance Assessment Sitting Balance and Reactions Static Sitting Balance Ability Good Dynamic Sitting Balance Ability Good Standing Balance and Reactions Static Standing Balance Ability Fair Dynamic Standing Balance Ability Fair Device Used FWW M5 PT-IP Objective Assessments Start: 07/04/22 10:57 Freq: NEEDED Status: Active Protocol: Document 07/04/22 09:30 AB (Rec: 07/04/22 11:25 AB [id number]) Orientation Orientation/Cognition Level of Alertness Alert Orientation Name,Place,Situation Language Function Ability No Deficits Noted Safety Awareness Decreased Safety Awareness Memory Description No Deficits Noted Gross Range of Motion Lower Extremity ROM Impairments B ankle NT: on soft cast Strength Lower Extremity Strength Hip 4-/5 Knee 4-/5 Comments Strength Comments B ankles NT Coordination Assessment Gross Coordination Gross Coordination WNL Sensation Assessment Sensation Gross Sensation WNL Muscle Tone Muscle Tone WNL Yes M6 PT-IP Treatment Start: 07/04/22 10:57 Freq: NEEDED Status: Active Protocol: Document 07/05/22 09:32 (Rec: 07/05/22 15:11 [id number]) Physical Therapy Treatment Education Education Provided Weight Bearing Status M7 PT-IP Assessment and Plan Start: 07/04/22 10:57 Freq: NEEDED Status: Active Protocol: Document 07/05/22 09:32 (Rec: 07/05/22 15:11 [id number]) PT Summary Assessment and Plan Potential Rehabilitation Potential Good Summary Impairments Pain,ROM,Strength,Balance, Sensation,Tone,Transfers,Gait, Activity Tolerance Progress Towards Goals Slow Progress due to Pain,Slow Progress due to Activity Tolerance Assessment Summary Pt requires max A with FWW due to weightbearing precautions, fall risk, muscle weakness, decreased standing balance, and limited assistance at home . Recomending SNF to increase functional mobility, independence, and potential to improve. Goals Bed Mobility Goal Independent Transfer Goal Independent,Front Wheeled Walker Days to Meet Goals 5 Frequency of Treatment Frequency Of Treatment Once a Day Treatment Plan Physical Therapy Treatment Plan Bed Mobility Training,Transfer Training,Therapeutic Exercise ,Balance Retraining,Post Op Education,Discharge Planning, Hot or Cold Pack,Neuromuscular Re-ed,Coordination Retraining ,Manual Therapy Precautions Other Precautions See weight bearing precautions . Weight Bearing Status Weight Bearing Status Non-Weight Bearing Allowed Weight Bearing Amount (enter % pt is non-weight bearing BLE, or #) (%) weight bear as tolerated for transfers only with FWW. Recommendations To Nursing Amount of Assist Needed 2 Person Assist Discharge Recommendations PT Discharge Recommendations SNF Rehab Transportation Needs at Discharge Wheelchair/Cabulance
[2022-07-05] MEDS: polyethylene glycoL 3350 17 GM POWD.PACK PO (10:08)
[2022-07-05] MEDS: SENNOSIDES 8.6 MG TABLET PO (10:08)
[2022-07-05] MEDS: LEVOTHYROXINE 75 MCG TABLET PO (12:09)
--- NOTE | 2022-07-05 12:45 | OT.IP.EVAL ---
Current Diagnoses Displaced bimalleolar fracture of right lower leg, initial encounter for closed fracture (07/03/22) Displaced trimalleolar fracture of left lower leg, initial encounter for closed fracture (07/03/22) Surgery Performed Operation Date: 07/03/22 07:45 Actual Procedures p ORIF Ankle Fracture,Left Trimalleolar, Right bimalleolar, bilateral syndesmotic fixation(Bilateral) - Radhika Johnson MD Past Medical History (Last Reviewed 07/05/22 @ 08:49 by Dylan Olvera PA-C) Anxiety and depression Arthritis of right foot Chickenpox Compression fracture Dextroscoliosis (02/11/16) Eczema Essential hypertension Hallux valgus of right foot History of recurrent UTIs Hyperlipidemia Hypothyroidism Measles Obesity (BMI 30.0-34.9) Osteoporosis Pain in right foot Postmenopausal Prolapsed bladder Seizure grand mal (~1983) Shoulder pain Surgical History (Last Reviewed 07/05/22 @ 08:49 by Dylan Olvera PA-C) Anesthesia complication H/O bilateral breast reduction surgery (~2020) History of bilateral tubal ligation History of tonsillectomy (~1971) History of total knee arthroplasty History of total vaginal hysterectomy (TVH) (05/17/18) Status post breast biopsy (~10/1984) Status post bunionectomy (~1989) Status post tubal ligation (~1988) Tonsillar tag (~1976) Occupational Therapy Inpatient Evaluation/Re-Eval M1 PT/OT-IP Prior Functional Status Start: 07/04/22 10:57 Freq: NEEDED Status: Active Protocol: Document 07/05/22 11:35 [facility] (Rec: 07/05/22 13:03 [facility] [id number]) Medical Review Prior Functional Status Medical History Reviewed Yes Communication able to make needs known Mobility and Gait pt stated that she is independent with all mobilities and ambulation without AD up until fall and sustained 2 bilateral ankle fractures. pt went home after ankle fractures and stated that she has been using a w/c and 2 person assist scoot transfer in/out of w/c. Activities of Daily Living and IADL's Pt states prior to the fall was completely independent with all ADL's and IADl needs. Social History Household Members none Living Arrangements House Number of Floors (Floors) Two Floors Number of Stairs To Enter/Railing? pt stays on main level of the house ramp to enter Home Environment High Toilet,Walk in Shower,Tub /Shower,Tub/Shower Doors,Ramp Home Equipment Front Wheel Walker,Manual Wheelchair,Bedside Commode, Hand Held Shower,Grab Bars Near Toilet,Grab Bars In Shower Additional Social History Comment uses bedside commode pt stated that she has just been sponge bathing since sustaining her fractures as unable to get into the bathroom as the wc to too wide for the doorway of the bathroom. M2 OT-IP Current Condition Start: 07/05/22 12:46 Freq: Status: Active Protocol: Document 07/05/22 11:35 [facility] (Rec: 07/05/22 13:03 [facility] [id number]) Occupational Therapy Current Condition Current Condition Evaluation Date 07/05/22 Treatment Diagnosis Bilateral ankle fracture, S/P ORIF Post Operative Precautions Other Precautions WBAT for transfers only, otherwise NWB. M3 OT- IP Subjective and Pain Start: 07/05/22 12:46 Freq: Status: Active Protocol: Document 07/05/22 11:35 [facility] (Rec: 07/05/22 13:03 [facility] [id number]) OT- Subjective Occupational Therapy Visit Type Type Initial Evaluation Visit Start Time 11:35 Visit Stop Time 12:45 Total Visit Minutes 60 Occupational Therapy Visit Comments Patient Comments Pt agreed to transfer to the [facility]. Patient/Caregiver Goals To go to rehab. OT Pain Assessment Pain When Pain Assessed At Rest Pain Present Pain Present Denied Pain M4 OT- IP ADL's Start: 07/05/22 12:46 Freq: Status: Active Protocol: Document 07/05/22 11:35 [facility] (Rec: 07/05/22 13:03 [facility] [id number]) OT ZIR-Vcey-Kpprdit General Evaluation Self-Feeding Ability Independent OT ADL-Grooming General Evaluation Grooming Ability Independent Comments OT Grooming Comments from the recliner, pt states did prior. OT ADL-Oral Care General Eval Oral Care Ability Independent Comments Oral Care Comments Pt states did earlier. OT ADL-Dressing General Eval Lower Body Dressing Ability Total Assistance Comments OT Dressing Comments Assist for socks. Spoke of various clothing options to help increased her independence . OT ADL-Toileting General Evaluation Toileting Ability Total Assistance Areas Needing Assistance Empty Catheter or Colostomy Comments OT Toileting Comments Meier in place. OT ADL-Bathing Comments OT Bathing Comments Sponge bath more appropriate for now. M5 OT- IP IADL's Start: 07/05/22 12:46 Freq: Status: Active Protocol: Document 07/05/22 11:35 [facility] (Rec: 07/05/22 13:03 [facility] [id number]) OT-Instrumental Activities of Daily Living Deficits IADL Deficits Identified Deficits Home Safety Awareness Awareness of Need for Assistance at Home Good Awareness Ability to Problem Solve Emergency Able to Problem Solve Situations Home Safety Comments Prior to pt's surgery having to have 2 person assist for her needs and use of a WC. Medication Management Medication Management No Deficits Identified Money Management Money Management No Deficits Identified M6 OT- IP Functional Cognition Start: 07/05/22 12:46 Freq: Status: Active Protocol: Document 07/05/22 11:35 [facility] (Rec: 07/05/22 13:03 [facility] [id number]) Cognitive Factors Limiting Selfcare Function Cognitive Ability Level of Alertness Alert Patient Orientation Name,Age,Birthday,Month,Date, Year,Day of Week,Place, Situation Attention Span Ability Capable of Focused Attention, Capable of Sustained Attention Ability to Follow Commands Able to Follow Multi-Step Commands Memory Description No Deficits Noted Safety Awareness No Deficits Noted Problem Solving Ability No deficits Noted Cognitive Comments Cognitive Assessment Comments Pt intact for cognition on OT eval with no issues noted. OT- Vision and Hearing OT- Hearing Assessment OT- Hearing Assessment WFL OT- Vision Assessment Visual Acuity Glasses For Reading Visual Attentiveness WF M7 OT- IP Mobility and Balance Start: 07/05/22 12:46 Freq: Status: Active Protocol: Document 07/05/22 11:35 [facility] (Rec: 07/05/22 13:03 [facility] [id number]) OT-Transfer Assessment Sit to and From Stand Sit to and from Stand Maximum Assistance Transfers Transfer Ability Maximum Assistance,1 Person Assistance Technique Transfer Destination Bedside Commode,Chair Transfer Technique Stand Step Pivot Devices Transfer Assistive Devices Gait Belt,Front Wheeled Walker Comments Mobility Comments Pt needing MAX A to stand from the recliner and assist to hold the FWW place and asisst to guide the FWW during the tranfers. Pt also needing assist to her balance during the transfers. OT- Gait Assessment Comments Gait Ability Comments Transfers only at this time. OT- Balance Assessment Sitting Balance and Reactions Static Sitting Balance Ability Normal Dynamic Sitting Balance Ability Good Standing Balance and Reactions Static Standing Balance Ability Poor Dynamic Standing Balance Ability Poor M8 OT- IP Objective Assessments Start: 07/05/22 12:46 Freq: Status: Active Protocol: Document 07/05/22 11:35 [facility] (Rec: 07/05/22 13:03 [facility] [id number]) OT Gross Range of Motion Upper Extremity Range of Motion Assessment Within Functional Limits OT Strength Upper Extremity Strength Assessment Within Functional Limits OT-Muscle Tone Assessment Muscle Tone WNL Yes M9 OT- IP Assessment and Plan Start: 07/05/22 12:46 Freq: Status: Active Protocol: Document 07/05/22 11:35 [facility] (Rec: 07/05/22 13:03 [facility] [id number]) OT Summary Assessment and Plan Potential Rehabilitation Potential Excellent Analytic Complexity at Evaluation Low Summary OT Impairments Balance,Functional Mobility, Dressing,Toileting,Bathing, Toilet Transfers,Shower Transfers,Activity Tolerance Progress Towards Goals Progressing Toward Goals Assessment Summary Pt low complexity and main barriers are needing extensive assist x1 for transfers with FWW to the recliner and BSC today. Pt may need two person assist especially when tired and suggested for nursing staff for safety at this time. Pt will highly benefit from skilled rehab to improve her mobility and ADL needs. Pt is highly motivated, very cooperative and an excellent rehab candidate. Goals Self-Feeding Goal Independent Grooming Goal Independent Dressing Goal Minimal Assistance Toileting Goal Independent Bathing Goal Standby Assistance Toilet Transfer Goal Independent Shower Transfer Goal Standby Assistance Days to Meet Goals 30 Frequency of Treatment Frequency Of Treatment Once a Day Treatment Plan OT Treatment Plan ADL Training,Functional Mobility,Patient/Family Education,Discharge Planning Discharge Recommendations OT Discharge Recommendations SNF Rehab Transportation Needs at Discharge Wheelchair/Cabulance
[2022-07-05 15:42] VITALS: BP 123/68; PULSE 89; RESP 17; TEMP 36.5; O2SAT 99
--- NOTE | 2022-07-05 16:27 | CM.DPNOTE ---
DCP Note April at [facility] has secured auth from [facility]; admission scheduled for Thursday07.06.22, need updated COVID PCR. product support representative tentatively scheduled for [phone] Will plan now to notify RN and patient. PASRR completed JW
[2022-07-05 17:56] LABS: COVID19 -Nasal RAPID Negative (Negative)
[2022-07-05 19:00] VITALS: BP 151/72; PULSE 94; RESP 14; TEMP 36.3; O2SAT 93
[2022-07-05] MEDS: ONDANSETRON 4 MG/2 ML INJ IV (20:53)
[2022-07-05 23:00] VITALS: BP 132/66; PULSE 93; RESP 12; O2SAT 93
[2022-07-06 03:00] VITALS: BP 142/74; PULSE 90; RESP 14; O2SAT 96
[2022-07-06] MEDS: LEVOTHYROXINE 75 MCG TABLET PO (05:08)
[2022-07-06 07:20] VITALS: BP 131/74; PULSE 97; RESP 18; TEMP 37.3; O2SAT 92
[2022-07-06] MEDS: polyethylene glycoL 3350 17 GM POWD.PACK PO (08:18)
[2022-07-06] MEDS: DOCUSATE 100 MG CAPSULE PO (08:18)
[2022-07-06] MEDS: SENNOSIDES 8.6 MG TABLET PO (08:18)
[2022-07-06] MEDS: ONDANSETRON 4 MG ODT PO (08:18)
[2022-07-06] MEDS: ACETAMINOPHEN 325 MG TABLET 975 MG PO (08:18)
[2022-07-06] MEDS: ENOXAPARIN 40 MG/0.4 ML SYRINGE SUBCUT (08:18)
[2022-07-06] MEDS: SODIUM CHLORIDE 0.9% FLUSH 10 ML IV (08:19)
--- NOTE | 2022-07-06 10:31 | PM.DS.1 ---
History of Present Illness History of Present Illness Date Patient Seen: 07/06/22 Time Patient Seen: 10:31 Chief complaint: ORIF MANOJ ANKLE FX Narrative: She had bilateral ankle fractures and underwent open reduction internal fixation. She tolerated the procedure without difficulty. Because of the nature of her fracture she needed to be limited weight-bearing. She needed discharged to a jail facility to continue limited weight-bearing. Discharge Providers Provider Discharge Date: 07/06/22 Primary care physician: Joselin Hernadez DO Consults: 07/03/22 06:00 Consult to Anesthesiology Routine Comment: Consulting Provider: Anesthesiologist Reason for consultation: Post operative pain managment Has provider been notified: No 07/03/22 12:11 Consult to Discharge Planning Routine Comment: senior care facility discharge Consult to Physical Therapy Evaluate & Treat Comment: NWB BLE--transfers okay Physician Instructions: Evaluate and Treat Consult to Respiratory Therapy Evaluate & Treat Comment: Physician Instructions: Evaluate and treat 07/05/22 11:21 Consult to Occupational Therapy Evaluate & Treat Comment: Physician Instructions: Evaluate and treat Discharge provider: Vane Ring MD Summary Hospital Course Discharge Diagnosis: Bilateral trimalleolar ankle fractures Hospital Course: She has taken the operating room and underwent open reduction internal fixation of bilateral ankles. She tolerated the procedure well. She was mobilized with physical therapy but had limited weight-bearing on bilateral lower extremities and needs additional rehab. She was compliant with therapy and had good pain control with Tylenol only. She is felt to be stable for discharge. Status at Discharge Cognitive/behavioral status at discharge: oriented Functional status at discharge: wheelchair bound Overall status at discharge: patient is progressing back to baseline Time Spent with Patient Time spent: Less than 30 minutes Exam Vital Signs (past 8 hours): - 07/06/22 03:00 07/06/22 07:20 Temperature 99.2 F Pulse Rate 90 97 H Respiratory Rate 14 18 Blood Pressure 142/74 H 131/74 Pulse Oximetry 96 92 Oxygen Flow Rate 0 0 Oxygen Delivery Method Room Air Oxygen Flow Rate 0 Narrative Exam Narrative: She is alert she is oriented she is resting comfortably she is able to fire her toe flexors and extensors her sponsor dry and intact Objective Labs Result Diagrams: 07/04/22 05:20 07/03/22 18:36 Labs: Laboratory Results - last 24 hr 07/05/22 17:37 SARS-CoV-2 (PCR) Negative [facility] Medical History Anxiety and depression Arthritis of right foot Chickenpox Compression fracture Dextroscoliosis (02/11/16) Eczema Essential hypertension Hallux valgus of right foot History of recurrent UTIs Hyperlipidemia Hypothyroidism Measles Obesity (BMI 30.0-34.9) Osteoporosis Pain in right foot Postmenopausal Prolapsed bladder Seizure grand mal (~1983) Shoulder pain Surgical History Anesthesia complication H/O bilateral breast reduction surgery (~2020) History of bilateral tubal ligation History of tonsillectomy (~1971) History of total knee arthroplasty History of total vaginal hysterectomy (TVH) (05/17/18) Status post breast biopsy (~10/1984) Status post bunionectomy (~1989) Status post tubal ligation (~1988) Tonsillar tag (~1976) Family History Brother Age: 68 Diabetes mellitus Child Age: 47 Diabetes mellitus Child Age: 41 Diabetes mellitus Father Age: 92 Heart disease Hypertension Social History household members: none Smoking Status: Never smoker alcohol intake: current substance use type: does not use Discharge Assessment & Plan Assessment and Plan Assessment: Doing well postoperatively. Plan of Treatment: Discharge to jail facility. [facility]. Discharge Plan Discharge Plan Patient Disposition: SNF Transfer to: [facility] Transportation: Wheelchair Provider Discharge Comment: Doing well discontinue [facility] prior to discharge I certify the postop hospital jail care is medically necessary on a continuing basis for any conditions for which he/ she received care during this hospitalization.: Yes The receiving facility has agreed to accept transfer and provide medical treatment.: Yes Discharge orders & Medications Prescriptions: New acetaminophen 325 mg Tablet 975 mg PO Q8H PRN (Reason: Pain, Mild (1-3)) Qty: 60 0RF polyethylene glycol 3350 17 gram Powder In Packet 17 g PO DAILY PRN (Reason: Constipation) Qty: 14 0RF docusate sodium 100 mg Capsule 100 mg PO BID Qty: 30 0RF enoxaparin [Lovenox] 40 mg/0.4 mL Syringe 40 mg SUBCUT DAILY Qty: 4 0RF Continued levothyroxine 75 mcg tablet 75 mcg PO DAILY Qty: 90 3RF enoxaparin [Lovenox] 40 mg/0.4 mL syringe 40 mg SUBCUT DAILY Qty: 4 0RF multivitamin Tablet 1 tab PO DAILY ascorbic acid (vitamin C) [Vitamin C] 1,000 mg Tablet 1,000 mg PO DAILY magnesium 500 mg Tablet 500 mg PO DAILY calcium carbonate [Calcium 600] 600 mg calcium (1,500 mg) Tablet 600 mg PO DAILY potassium 99 mg Tablet 99 mg PO DAILY zinc 50 mg Tablet 50 mg PO DAILY cholecalciferol (vitamin D3) [Vitamin D3] 50 mcg (2,000 unit) Capsule 50 mcg PO DAILY Follow up/Referrals: Joselin Hernadez DO [Primary Care Provider] - Discharge Health Status Multidrug resistant organism: No MDRO Precautions: [place] Diet/Activity/Treatments Diet: Diet as Tolerated Food texture: Regular Activity: Transfer out of bed to chair limited weight-bearing on bilateral lower extremities Skin/Wound/Dressing Care Report to your healthcare provider any signs of infection, such as:: chills, fever, night sweats, increased pain, unusual drainage and unusual redness Dressing: Leave dressings on Other wound treatment: Elevate bilateral feet at least several times a day, keep splint dry [facility] Reason for rehabilitation: Post-operative therapy Rehab type: Physical therapy Restrictions to mobility: Limited weight-bearing bilateral lower extremities, transfers Visit Report/Discharge Packet Instructions: DI for Open Reduction Internal Fixation Surgery Stand Alone Forms: Surgery Discharge Discharge Data Primary Care Provider: Joselin Hernadez Attending Provider: Radhika Johnson VTE Deep Vein Thrombosis/Pulmonary Embolism Present on Admission: No
--- NOTE | 2022-07-06 11:15 | CM.DPC ---
DCP Discharge SNF Per Ortho MD, pt is medically stable to d/c to SNF today and completed SNF discharge. SW met bedside with pt and explained role and she confirms she is agreeable to d/c to [facility] today and already aware it will likely be around 1100 and confirms she received the LOPEZ booster shot yesterday so that she does not have to quarantine at SNF. SW called [facility] and confirmed they can accept and transport scheduled for 1130 and provided RN report number. PEYTON faxed PAS[facility], signed med list, no scripts needed, updated LOPEZ valdez MD orders to [facility] to review. PEYTON updated RN, PERSONNEL PSYCHOLOGIST, cashier wrapper. Plan: Patient to d/c to [facility] today around 1130 via facility van prior to safe return home after bilateral ankle fractures. EDDI Barillas
--- NOTE | 2022-07-06 11:24 | PC.NURSE ---
Addendum entered by Bassam Odell R.N. 07/06/22 11:34: patient d/c packet given to facility transporter. Patient ambulated w/ FWW to wheelchair, with no difficulty. VSS. Pt. belongings were gathered and placed in to go bag. Given to patient to hold during transport to [facility], [place]. Original Note: Report called to [facility] nurse Armstrong. Patient's IV and marcano removed w/ out complications. Patient up working with PT/OT at this time.
--- NOTE | 2022-07-06 11:35 | PT.IPTN ---
Current Diagnoses Displaced bimalleolar fracture of right lower leg, initial encounter for closed fracture (07/03/22) Displaced trimalleolar fracture of left lower leg, initial encounter for closed fracture (07/03/22) Surgery Performed Operation Date: 07/03/22 07:45 Actual Procedures p ORIF Ankle Fracture,Left Trimalleolar, Right bimalleolar, bilateral syndesmotic fixation(Bilateral) - Radhika Johnson MD Physical Therapy Treatment Note M2 PT-IP Current Condition Start: 07/04/22 10:57 Freq: NEEDED Status: Active Protocol: Document 07/04/22 09:30 AB (Rec: 07/04/22 11:25 AB [email or web address]) Physical Therapy Current Condition Current Condition Evaluation Date 07/04/22 Treatment Diagnosis B ankle fx s/p ORIF; difficulty in walking Onset Date 07/03/22 M3 PT-IP Subjective Start: 07/04/22 10:57 Freq: NEEDED Status: Active Protocol: Document 07/06/22 11:35 AW (Rec: 07/06/22 11:20 AW [email or web address]) Subjective Physical Therapy Visit Type Type Treatment Note Visit Start Time 11:06 Visit Stop Time 11:35 Total Visit Minutes 16 Notes Split visits [id number] and [id number] Physical Therapy Visit Comments Patient Comments Pt would like to use the commode before going to SNF. Discharge in the next 1/2 hour . M4 PT-IP Mobility and Gait Start: 07/04/22 10:57 Freq: NEEDED Status: Active Protocol: Document 07/06/22 11:35 AW (Rec: 07/06/22 11:20 AW [email or web address]) PT-Bed Mobility Assessment Supine to Sit Supine to Sit Standby Assistance Scooting Scooting to Edge of Bed Independent PT-Transfer Assessment Sit to and From Stand Sit to and from Stand Minimal Assistance,1 Person Assistance,Use of Upper Extremities Equipment Transfer Assistive Device Gait Belt,Front Wheeled Walker Orthotic/Prosthetic Devices or Brace: Yes Transfers Transfer Destination Wheelchair,Bedside Commode Transfer Technique Stand Step Pivot Transfer Ability Level of Assist Moderate Assistance,1 Person Assistance,Use of Upper Extremities Comments Mobility Comments Supine to sit SBA. PT demonstrated step pivot transfer with FWW using UE's to offweight LE's. Pt requested bed be raised for easier sit to stand. With bed raised 1-2, pt stood min A and used FWW to transfer to BSC set up on her left side mod A. Pt was able to manage all toileting needs IND. She then stood and transferred to w/c with FWW mod A and cues for hand placement. She left the floor with SNF transport. PT-Balance Assessment Sitting Balance and Reactions Static Sitting Balance Ability Normal Dynamic Sitting Balance Ability Good Standing Balance and Reactions Static Standing Balance Ability Poor Dynamic Standing Balance Ability Poor Device Used FWW M5 PT-IP Objective Assessments Start: 07/04/22 10:57 Freq: NEEDED Status: Active Protocol: Document 07/04/22 09:30 AB (Rec: 07/04/22 11:25 AB [email or web address]) Orientation Orientation/Cognition Level of Alertness Alert Orientation Name,Place,Situation Language Function Ability No Deficits Noted Safety Awareness Decreased Safety Awareness Memory Description No Deficits Noted Gross Range of Motion Lower Extremity ROM Impairments B ankle NT: on soft cast Strength Lower Extremity Strength Hip 4-/5 Knee 4-/5 Comments Strength Comments B ankles NT Coordination Assessment Gross Coordination Gross Coordination WNL Sensation Assessment Sensation Gross Sensation WNL Muscle Tone Muscle Tone WNL Yes M6 PT-IP Treatment Start: 07/04/22 10:57 Freq: NEEDED Status: Active Protocol: Document 07/06/22 11:35 AW (Rec: 07/06/22 11:20 AW [id number]) Physical Therapy Treatment Education Education Provided Weight Bearing Status,Safety Other Treatments Other Treatment Performed Extra time spent demonstrating transfer technique M7 PT-IP Assessment and Plan Start: 07/04/22 10:57 Freq: NEEDED Status: Active Protocol: Document 07/06/22 11:35 AW (Rec: 07/06/22 11:20 AW [id number]) PT Summary Assessment and Plan Potential Rehabilitation Potential Good Summary Impairments Pain,ROM,Strength,Balance, Sensation,Tone,Transfers,Gait, Activity Tolerance Assessment Summary Pt requires less assist for transfer today and shows improved use of UE's to offload LE's during transfer. She will require SNF rehab to improve strength and mobility independence. Goals Bed Mobility Goal Independent Transfer Goal Independent,Front Wheeled Walker Days to Meet Goals 5 Frequency of Treatment Frequency Of Treatment Once a Day Treatment Plan Physical Therapy Treatment Plan Bed Mobility Training,Transfer Training,Therapeutic Exercise ,Balance Retraining,Post Op Education,Discharge Planning, Hot or Cold Pack,Neuromuscular Re-ed,Coordination Retraining ,Manual Therapy Precautions Other Precautions WBAT for transfers only, otherwise NWB. Weight Bearing Status Weight Bearing Status Non-Weight Bearing Allowed Weight Bearing Amount (enter % pt is non-weight bearing BLE, or #) (%) weight bear as tolerated for transfers only with FWW. Recommendations To Nursing Amount of Assist Needed 2 Person Assist Discharge Recommendations PT Discharge Recommendations SNF Rehab Transportation Needs at Discharge Wheelchair/Cabulance
== END 2022-07-06 11:38 | DRG 494 ==
LOC: OR 06:18 → AC 07-04 11:23
PROVIDERS: Admitting Provider Orthopaedic Surgery Foot and Ankle Surgery; Family Provider Family Medicine; PCP Family Medicine; Referring Provider Orthopaedic Surgery Foot and Ankle Surgery; Visit Provider Orthopaedic Surgery Foot and Ankle Surgery
PROC: 0QSK04Z Reposition Left Fibula with Internal Fixation Device, Open Approach (ICD-10-PCS; principal; 2022-07-03 07:45)
DX: S82.852A Displaced trimalleolar fracture of left lower leg, initial encounter for closed fracture (principal); S82.841A Displaced bimalleolar fracture of right lower leg, initial encounter for closed fracture; E03.9 Hypothyroidism, unspecified; W10.9XXA Fall (on) (from) unspecified stairs and steps, initial encounter; Z20.822 Contact with and (suspected) exposure to COVID-19; Z23 Encounter for immunization
CPT/HCPCS: 0013A; 36415; 64445; 73610; 76000; 82565; 85027; 87635; 91301; 97162; 97165; 97530; 97535; C9803; C1713; J0131; J0690; J1100; J1170; J1650; J1885; J2250; J2405; J2704; J3010

== ENCOUNTER → 2022-09-18 11:01 | Outpatient (CLI) | payer MEDICARE, SELFPAY ==
[2022-07-03 12:44] VITALS: BMI 31.7
[2022-09-18 12:34] LABS: Add Manual Diff / Slide Review NO; Basophils Absolute Auto 100 /uL (0-100); Eosinophils Absolute Auto 100 /uL (0-450); Eosinophils Percent Auto 1.9 % (2-4); Hematocrit 35.2 % (36-46); Hemoglobin 11.8 g/dL (12.0-16.0); Lymphocytes Absolute Auto 2000 /uL (1100-4500); Lymphocytes Percent Auto 37.7 % (25-40); Mean Corpuscular HGB Conc 33.5 % (30-36); Mean Corpuscular Hemoglobin 29.2 PG (26-34); Mean Corpuscular Volume 87.2 fL (80-100); Monocytes Absolute Auto 400 /uL (0-900); Monocytes Percent Auto 7.2 % (3-14); Neutrophils Absolute Auto 2700 /uL (1500-7000); Neutrophils Percent Auto 52.2 % (50-75); Platelet Count 335 X10^3/uL (150-400); Red Blood Cell Count 4.04 X10^6/uL (4.0-5.2); Red Cell Distribution Width 13.3 % (11.6-14.8); White Blood Cell Count 5.3 X10^3/uL (4.5-11.0)
[2022-09-18 12:49] LABS: Alanine Aminotransferase 17 IU/L (<35); Albumin 4.2 g/dL (3.5-5.0); Albumin Globulin Ratio 1.3 (1.0-2.8); Alkaline Phosphatase 96 U/L (38-126); Aspartate Aminotransferase 23 IU/L (14-36); Bilirubin Total 0.3 mg/dL (0.2-1.3); Blood Urea Nitrogen 14 mg/dL (7-17); Calcium 9.2 mg/dL (8.4-10.2); Carbon Dioxide 26 mmol/L (22-32); Chloride 102 mmol/L (98-107); Estimated Glomerular Filt Rate > 60 mL/min (>60); Globulin 3.3 g/dL (1.7-4.1); Glucose 81 mg/dL (80-110); HEMOLYSIS < 15 (0-50); Sodium 139 mmol/L (137-145); Total Protein 7.5 g/dL (6.3-8.2)
[2022-09-18 13:37] LABS: TSH w/ Reflex to FT4 1.13 uIU/mL (0.47-4.68)
== END ==
PROVIDERS: Family Provider Family Medicine; PCP Family Medicine; Referring Provider Family Medicine; Visit Provider Family Medicine
DX: E78.5 Hyperlipidemia, unspecified (principal); I10 Essential (primary) hypertension; D64.9 Anemia, unspecified; E03.9 Hypothyroidism, unspecified
CPT/HCPCS: 36415; 80053; 84443; 85025

== ENCOUNTER → 2022-09-19 11:52 | Outpatient (CLI) | payer MEDICARE, SELFPAY ==
[2022-07-03 12:44] VITALS: BMI 31.7
== END ==
PROVIDERS: Family Provider Family Medicine; PCP Family Medicine; Referring Provider Family Medicine; Visit Provider Family Medicine
DX: Z13.820 Encounter for screening for osteoporosis (principal); M85.852 Other specified disorders of bone density and structure, left thigh; Z78.0 Asymptomatic menopausal state; Z87.311 Personal history of (healed) other pathological fracture
CPT/HCPCS: 77080

== ENCOUNTER → 2022-10-09 12:34 | Outpatient (CLI) | payer MEDICARE, SELFPAY ==
[2022-07-03 12:44] VITALS: BMI 31.7
[2022-10-09 15:01] LABS: BUN Creatinine Ratio 25.9 (6-22); Blood Urea Nitrogen 14 mg/dL (7-17); Calcium 9.5 mg/dL (8.4-10.2); Carbon Dioxide 28 mmol/L (22-32); Chloride 100 mmol/L (98-107); Estimated Glomerular Filt Rate > 60 mL/min (>60); Glucose 90 mg/dL (80-110); HEMOLYSIS < 15 (0-50); Potassium 3.9 mmol/L (3.4-5.1); Sodium 138 mmol/L (137-145)
[2022-10-09 16:30] LABS: Vitamin D 25 Hydroxy (D3) 47.3 ng/mL (30.0-100.0)
[2022-10-10 10:32] LABS: Calcium 9.1 mg/dL (8.7-10.3); Parathyroid Hormone, Intact 37 pg/mL (15-65)
== END ==
PROVIDERS: Family Provider Family Medicine; PCP Family Medicine; Referring Provider Family Medicine; Visit Provider Family Medicine
DX: M81.0 Age-related osteoporosis without current pathological fracture (principal); M85.80 Other specified disorders of bone density and structure, unspecified site
CPT/HCPCS: 36415; 80048; 82306; 82310; 83970

== ENCOUNTER → 2023-06-01 09:46 | Outpatient (CLI) | payer MEDICARE, SELFPAY ==
[2022-07-03 12:44] VITALS: BMI 31.7
[2023-06-01 11:22] LABS: Appearance Urine UA SL CLOUDY; Bilirubin Urine UA NEGATIVE (NEGATIVE); Color Urine UA YELLOW; Glucose Urine UA NEGATIVE (Negative); Ketones Urine UA NEGATIVE (NEGATIVE); Leukocyte Esterase Urine UA 2+ (NEGATIVE); Nitrite Urine UA POSITIVE (Negative); Occult Blood Urine UA 1+ (Negative); Protein Urine UA NEGATIVE (Negative); Specific Gravity Urine UA 1.015 (1.000-1.035); Urobilinogen Urine UA 0.2 E.U./dL (0.2)
[2023-06-01 11:38] LABS: Bacteria Urine Many (>30); Culture Indicated Urine Specimen Cultured; RBC Urine 1-5/HPF (0-5/HPF); Squamous Epithelial Cell Urine 1-5 /HPF (0-5/HPF); WBC Urine 30-100/HPF (0-5/HPF)
== END ==
PROVIDERS: Family Provider Family Medicine; PCP Family Medicine; Referring Provider Physician Assistant; Visit Provider Physician Assistant
DX: R39.15 Urgency of urination (principal); R82.90 Unspecified abnormal findings in urine
CPT/HCPCS: 36415; 81001; 87077; 87086; 87186

== ENCOUNTER → 2023-07-08 12:25 | Outpatient (CLI) | payer MEDICARE, SELFPAY ==
[2022-07-03 12:44] VITALS: BMI 31.7
== END ==
PROVIDERS: Family Provider Family Medicine; PCP Family Medicine; Visit Provider Nurse Practitioner Family
DX: R30.0 Dysuria (principal)
CPT/HCPCS: 87086

== ENCOUNTER → 2023-07-21 12:19 | Outpatient (CLI) | payer MEDICARE, SELFPAY ==
[2022-07-03 12:44] VITALS: BMI 31.7
[2023-07-21 14:29] LABS: Bacteria Urine Few (2-10); RBC Urine None Seen (0-5/HPF); Squamous Epithelial Cell Urine 1-5 /HPF (0-5/HPF); WBC Urine 10-30/HPF (0-5/HPF)
[2023-07-21 14:30] LABS: Amorphous Sediment Urine 3+; Mucus Urine 1+ (Negative)
[2023-07-21 14:31] LABS: Culture Indicated Urine Specimen Cultured
== END ==
PROVIDERS: Family Provider Family Medicine; PCP Family Medicine; Visit Provider Physician Assistant
DX: R31.9 Hematuria, unspecified (principal)
CPT/HCPCS: 81015; 87086

== ENCOUNTER → 2023-12-10 17:50 | Outpatient (CLI) | payer OTHER, SELFPAY ==
[2022-07-03 12:44] VITALS: BMI 31.7
== END ==
PROVIDERS: Family Provider Family Medicine; PCP Family Medicine; Visit Provider Student in an Organized Health Care Education/Training Program
DX: R30.0 Dysuria (principal)
CPT/HCPCS: 87086

== ENCOUNTER → 2024-01-21 08:07 | Outpatient (CLI) | payer OTHER, SELFPAY ==
[2022-07-03 12:44] VITALS: BMI 31.7
[2024-01-21 09:15] LABS: Cholesterol 228 mg/dL (140-199); HDL Cholesterol 50 mg/dL (40-60); LDL Cholesterol Calculated 149 mg/dL (<100); Triglycerides 147 mg/dL (35-150)
== END ==
PROVIDERS: Family Provider Family Medicine; PCP Student in an Organized Health Care Education/Training Program; Referring Provider Student in an Organized Health Care Education/Training Program; Visit Provider Student in an Organized Health Care Education/Training Program
DX: E03.9 Hypothyroidism, unspecified (principal); E78.5 Hyperlipidemia, unspecified
CPT/HCPCS: 36415; 80061; 84443

== ENCOUNTER → 2024-03-22 11:00 | Outpatient (CLI) | payer MEDICARE, SELFPAY ==
[2022-07-03 12:44] VITALS: BMI 31.7
--- NOTE | 2024-03-22 11:01 | DI.MG.S_ITS ---
BILATERAL DIGITAL SCREENING MAMMOGRAM 3D/2D WITH CAD: 03/22/2024 CLINICAL: Routine screening. Comparison is made to exams dated: 09/11/2021 mammogram, 05/14/2020 mammogram, and 04/29/2019 mammogram - [facility]. There are scattered areas of fibroglandular density in both breasts (category b / 25%-50% glandular tissue). Current study was also evaluated with a Computer Aided Detection (CAD) system. No significant masses, calcifications, or other findings are seen in either breast. There has been no significant interval change. IMPRESSION: NEGATIVE There is no mammographic evidence of malignancy. A 1 year screening mammogram is recommended. Based on the Tyrer Cuzick model (a risk assessment model) the patient's lifetime risk is 3.5% and her 10 year risk is 2.6%. According to the ACR, ACS, and NCCN guidelines, an annual breast MRI exam along with mammogram is recommended if the patient's lifetime risk is 20% or greater. This exam was interpreted at Station ID: [id number]. NOTE: For mammograms, a report in lay terms will be sent to the patient. Approximately 15% of breast malignancies will not be visualized mammographically. In the management of a palpable breast mass, a negative mammogram must not discourage biopsy of a clinically suspicious lesion. Electronically Signed By: Eduardo oliver/scarlet:03/22/2024 15:45:04 copy to: Ehsan Rueda letter sent: Normal Exam ACR BI-RADS Category 1: Negative [id number]
== END ==
PROVIDERS: Family Provider Family Medicine; PCP Student in an Organized Health Care Education/Training Program; Referring Provider Student in an Organized Health Care Education/Training Program; Visit Provider Student in an Organized Health Care Education/Training Program
DX: Z12.31 Encounter for screening mammogram for malignant neoplasm of breast (principal); R92.323 Mammographic fibroglandular density, bilateral breasts
CPT/HCPCS: 77063; 77067

== ENCOUNTER → 2024-05-25 16:41 | Outpatient (CLI) | payer MEDICARE, SELFPAY ==
[2022-07-03 12:44] VITALS: BMI 31.7
--- NOTE | 2024-05-25 16:46 | EKG_ITS ---
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
[2024-05-25 17:16] LABS: Add Manual Diff / Slide Review NO; Basophils Absolute Auto 0 /uL (0-100); Basophils Percent Auto 0.7 % (0-2); Eosinophils Absolute Auto 100 /uL (0-450); Eosinophils Percent Auto 1.6 % (2-4); Hematocrit 37.8 % (36-46); Hemoglobin 12.8 g/dL (12.0-16.0); Lymphocytes Absolute Auto 2200 /uL (1100-4500); Lymphocytes Percent Auto 35.2 % (25-40); Mean Corpuscular HGB Conc 33.9 % (30-36); Mean Corpuscular Hemoglobin 30.2 PG (26-34); Monocytes Absolute Auto 400 /uL (0-900); Monocytes Percent Auto 7.2 % (3-14); Neutrophils Absolute Auto 3400 /uL (1500-7000); Neutrophils Percent Auto 55.3 % (50-75); Platelet Count 352 X10^3/uL (150-400); Red Blood Cell Count 4.25 X10^6/uL (4.0-5.2); White Blood Cell Count 6.1 X10^3/uL (4.5-11.0)
[2024-05-25 17:25] LABS: Hemoglobin A1C% w Est Avg Glu 5.6 % (4.0-6.0)
[2024-05-25 17:27] LABS: Appearance Urine UA CLEAR; Bilirubin Urine UA NEGATIVE (NEGATIVE); Color Urine UA YELLOW; Glucose Urine UA NEGATIVE (Negative); Ketones Urine UA TRACE (NEGATIVE); Leukocyte Esterase Urine UA 2+ (NEGATIVE); Nitrite Urine UA NEGATIVE (Negative); Occult Blood Urine UA TRACE-INTACT (Negative); Protein Urine UA NEGATIVE (Negative); Specific Gravity Urine UA 1.025 (1.000-1.035); Urobilinogen Urine UA 0.2 E.U./dL (0.2)
[2024-05-25 17:38] LABS: BUN Creatinine Ratio 28.1 (6-22); Blood Urea Nitrogen 18 mg/dL (7-17); Calcium 9.8 mg/dL (8.4-10.2); Carbon Dioxide 27 mmol/L (22-32); Chloride 106 mmol/L (98-107); Estimated Glomerular Filt Rate > 60 mL/min (>60); Glucose 97 mg/dL (80-110); HEMOLYSIS 15 (0-50); Potassium 4.2 mmol/L (3.4-5.1); Sodium 138 mmol/L (137-145)
[2024-05-25 17:40] LABS: Bacteria Urine Few (2-10); Culture Indicated Urine Specimen Cultured; Mucus Urine 1+ (Negative); RBC Urine 0-1/HPF (0-5/HPF); Squamous Epithelial Cell Urine 5-10 /HPF (0-5/HPF); Urine Volume 10mL (spun); WBC Urine 5-10/HPF (0-5/HPF)
== END ==
LOC: LAB 16:43
PROVIDERS: Family Provider Family Medicine; PCP Student in an Organized Health Care Education/Training Program; Referring Provider Orthopaedic Surgery; Visit Provider Orthopaedic Surgery
DX: Z01.818 Encounter for other preprocedural examination (principal); R73.9 Hyperglycemia, unspecified; Z01.812 Encounter for preprocedural laboratory examination; N39.0 Urinary tract infection, site not specified
CPT/HCPCS: 36415; 80048; 81001; 83036; 85025; 87086; 93005

== ENCOUNTER 2024-09-29 11:30 | Outpatient (RCR) | payer MEDICARE, SELFPAY ==
[2022-07-03 12:44] VITALS: BMI 31.7
--- NOTE | 2024-08-23 14:55 | PT.OIE ---
Current Diagnoses Unilateral primary osteoarthritis, right knee (08/23/24) Other instability, right knee (08/23/24) Pain in right knee (08/23/24) Stiffness of right knee, not elsewhere classified (08/23/24) Past Medical History (Last Reviewed 04/03/23 @ 13:21 by Joselin Hernadez DO) Anxiety and depression Arthritis of right foot Chickenpox Compression fracture Dextroscoliosis (02/11/16) Eczema Essential hypertension Hallux valgus of right foot History of recurrent UTIs Hyperlipidemia Hypothyroidism Measles Obesity (BMI 30.0-34.9) Osteoporosis Pain in right foot Postmenopausal Prolapsed bladder Seizure grand mal (~1983) Shoulder pain Past Surgical History (Last Reviewed 04/03/23 @ 13:21 by Joselin Hernadez DO) Anesthesia complication Bilateral ankle fractures H/O bilateral breast reduction surgery (~2020) History of bilateral tubal ligation History of tonsillectomy (~1971) History of total knee arthroplasty History of total vaginal hysterectomy (TVH) (05/17/18) Status post breast biopsy (~10/1984) Status post bunionectomy (~1989) Status post tubal ligation (~1988) Tonsillar tag (~1976) Visit Care Team Role Provider Type Laura Ramirez MD Primary Care Provider Physician Specialty: Family Practice Obstetrics Address: [address] [place] [address], [address] Email: [email or web address] Joselin Hernadez DO Family Provider Non-Staff Specialty: Family Practice Address: Email: Vane Ring MD Attending Provider Physician Referring Provider Specialty: Orthopedics Orthopedic Surgery Address: [address] [place] [address], [id number] Email: [email or web address] Physical Therapy Initial Evaluation PT-OP-A Visit Information Start: 08/23/24 13:47 Freq: Status: Active Protocol: Document 08/23/24 13:45 [facility] (Rec: 08/23/24 14:28 [facility] [id number]) Out-Patient Physical Therapy Visit Information Visit Information Visit Type Initial Evaluation PT-OP-B Current Condition Start: 08/23/24 13:47 Freq: Status: Active Protocol: Document 08/23/24 13:45 [facility] (Rec: 08/23/24 14:28 [facility] [id number]) Current Condition History of Current Condition History of Current Condition pt is scheduled for a total knee replacement on her right knee for this coming thursday pt has a walker for home and a cane there is stairs going to the basement 14 stairs with hand rails. to get to the garage where the car is parked. She wont be driving so she wont need to go down the staris for a while there is 3 steps getting into the house with handrails on both side she has already gotten rid of the throw rugs. Prior Treatments and Tests 2019nher left knee was replaced 2 years ago both ankles were broke PT-OP-C Subjective Start: 08/23/24 13:47 Freq: Status: Active Protocol: Document 08/23/24 13:45 [facility] (Rec: 08/23/24 14:42 [facility] [id number]) Patient Questionnaires Lower Extremity Functional Scale LEFS Impairment 1 to 19% Impaired (Score 63-79 ) OP-PT Pain Assessment Pain Assessment Grid Paper Pain Assessment Grid Completed Yes Location right knee pain Intensity 4 Scale Used Numeric (0 - 10) Description Aching,Pressure,Tightness,With Movement PT-OP-K Range of Motion Start: 08/23/24 13:47 Freq: Status: Active Protocol: Document 08/23/24 13:45 [facility] (Rec: 08/23/24 14:37 [facility] [id number]) Knee Goniometric Range of Motion Knee Right Knee ROM WFL No Patient Position Supine Flexion Active (degrees) 80 Extension Active (degrees) 15 Knee ROM Limitations Knee ROM Limitations Soft Tissue Tightness,Bony Restriction,Pain Comments medial hamstring and calf tightness on the right side PT-OP-M Strength Start: 08/23/24 13:47 Freq: Status: Active Protocol: Document 08/23/24 13:45 [facility] (Rec: 08/23/24 14:37 [facility] [id number]) Knee Strength Knee Manual Muscle Testing Right Flexion (S2) 3 Fair Extension (L3) 2+ Poor+ PT-OP-Q Treatments Start: 08/23/24 13:47 Freq: Status: Active Protocol: Document 08/23/24 13:45 [facility] (Rec: 08/23/24 14:28 [facility] [id number]) Therapeutic Exercises Supine Exercises seated knee flexion and extension Reps/Minutes x 10 reps each long sitting knee extension Comments towell under the knee bridges Reps/Minutes x 10 reps dynamic hamstring stretch Side right Reps/Minutes x 10 reps Comments hookling with hands behind the knee heel slides Side right Reps/Minutes x 10 reps quad squeeze Side right Reps/Minutes x 10 reps holding 5 seconds PT-OP-T Assessment and Plan Start: 08/23/24 13:47 Freq: Status: Active Protocol: Document 08/23/24 13:45 [facility] (Rec: 08/23/24 14:52 [facility] [id number]) Physical Therapy Assessment Rehab Potential Rehabilitation Potential Excellent Evaluation Complexity Number of Personal Factors/Comorbidities 0 Number of Body Systems Impaired 1-2 Clinical Presentation at Evaluation Stable Impairments Impairments Activity Tolerance,Functional Activities,Functional Mobility ,Gait,Pain,ROM,Soft Tissue Mobility,Strength Goals 3 Impairment Decreased right knee strength Residential Goal (LTG) Amy presents with improved right knee strength and is able to perform functions movements from sit-stand without use of arms LTG Duration 12 weeks 2 Impairment Decreased right knee ROM Residential Goal (LTG) mAy presents with WNL knee extension and flexion LTG Duration 12 weeks 1 Impairment Amy lacks a HEP for pre op right knee strengthening prior to her right knee TKA Short Term Goal (STG) Amy is given a HEP for pre- op strengthening STG Duration 1 visit Assessment Summary Assessment Amy is a 73 year old female referred to PT for pre R knee TKA strengtheing and HEP instruction. Her TKA is scheduled for 08/29/24. She has a history of her left knee replaced so is feeling prepared for this surgery. Amy has a walker and a cane at home. She no longer has throw rugs. There are 3 steps with railing to get into her home. She does have a set of 14 stairs to go down to her garage to get to her car but she notes she will not have to do these until she is ready to drive. With exam knee ROM is limited to 15 deg extension and 80 deg knee flexion AROM. Amy presents with tightness in the medial hamstring and calf musculature and weakness of her R quad and hamstring musculature. She was instructed in a HEP for post op strengthening and was given handouts with pictures. Amy tolerated these exercises well and plans on working on them this week prior to surgery. She is set up with her outpatient PT visits to begin 1 week after her surgery. Amy is a good candidate for PT Physical Therapy Plan Frequency and Duration Frequency of Treatment 2x/Week Duration of treatment (weeks) 12 Plan of Care Start Date 08/23/24 Plan of Care End Date 11/15/24 Therapeutic Interventions Therapeutic Interventions Home Exercise Program,Manual Therapy,Patient/Caregiver Education,Self-Care/Home Management,Soft Tissue Mobilization,Therapeutic Exercises Modalities Cold Pack/Ice Massage Next Visit Focus/Plan Next Note Type Treatment Note Next Visit Plan Amy will return to PT following her TKA on the Right knee. Reassess knee ROM and review all established exercises
--- NOTE | 2024-08-23 14:55 | PT.OPPOC ---
Physical, Occupational & Speech Therapy At [facility] Current Diagnoses Unilateral primary osteoarthritis, right knee (08/23/24) Other instability, right knee (08/23/24) Pain in right knee (08/23/24) Stiffness of right knee, not elsewhere classified (08/23/24) Visit Care Team Role Provider Type Laura Ramirez MD Primary Care Provider Physician Specialty: Family Practice Obstetrics Address: [address] [place] [address], [address] Email: [email or web address] Joselin Hernadez DO Family Provider Non-Staff Specialty: Family Practice Address: Email: Vane Ring MD Attending Provider Physician Referring Provider Specialty: Orthopedics Orthopedic Surgery Address: [address] [place] [address], [address] Email: [email or web address] Plan Of Care PT-OP-B Current Condition Start: 08/23/24 13:47 Freq: Status: Active Protocol: Document 08/23/24 13:45 [facility] (Rec: 08/23/24 14:28 [facility] [id number]) Current Condition History of Current Condition History of Current Condition pt is scheduled for a total knee replacement on her right knee for this coming Thursday pt has a walker for home and a cane there is stairs going to the basement 14 stairs with hand rails. to get to the garage where the car is parked. She wont be driving so she wont need to go down the stairs for a while there is 3 steps getting into the house with handrails on both side she has already gotten rid of the throw rugs. Prior Treatments and Tests 2018 her left knee was replaced 2 years ago both ankles were broke PT-OP-T Assessment and Plan Start: 08/23/24 13:47 Freq: Status: Active Protocol: Document 08/23/24 13:45 [facility] (Rec: 08/23/24 14:52 [facility] [id number]) Physical Therapy Assessment Rehab Potential Rehabilitation Potential Excellent Evaluation Complexity Number of Personal Factors/Comorbidities 0 Number of Body Systems Impaired 1-2 Clinical Presentation at Evaluation Stable Impairments Impairments Activity Tolerance,Functional Activities,Functional Mobility ,Gait,Pain,ROM,Soft Tissue Mobility,Strength Goals 3 Impairment Decreased right knee strength Behavioral Interventionist Goal (LTG) Amy presents with improved right knee strength and is able to perform functions movements from sit-stand without use of arms LTG Duration 12 weeks 2 Impairment Decreased right knee ROM Jail Goal (LTG) Amy presents with WNL knee extension and flexion LTG Duration 12 weeks 1 Impairment Amy lacks a HEP for pre op right knee strengthening prior to her right knee TKA Short Term Goal (STG) Amy is given a HEP for pre- op strengthening STG Duration 1 visit Assessment Summary Assessment Amy is a 73 year old female referred to PT for pre R knee TKA strengthening and HEP instruction. Her TKA is scheduled for 08/29/24. She has a history of her left knee replaced so is feeling prepared for this surgery. Amy has a walker and a cane at home. She no longer has throw rugs. There are 3 steps with railing to get into her home. She does have a set of 14 stairs to go down to her garage to get to her car but she notes she will not have to do these until she is ready to drive. With exam knee ROM is limited to 15 deg extension and 80 deg knee flexion AROM. Amy presents with tightness in the medial hamstring and calf musculature and weakness of her R quad and hamstring musculature. She was instructed in a HEP for post op strengthening and was given handouts with pictures. Amy tolerated these exercises well and plans on working on them this week prior to surgery. She is set up with her outpatient PT visits to begin 1 week after her surgery. Amy is a good candidate for PT Physical Therapy Plan Frequency and Duration Frequency of Treatment 2x/Week Duration of treatment (weeks) 12 Plan of Care Start Date 08/23/24 Plan of Care End Date 11/15/24 Therapeutic Interventions Therapeutic Interventions Home Exercise Program,Manual Therapy,Patient/Caregiver Education,Self-Care/Home Management,Soft Tissue Mobilization,Therapeutic Exercises Modalities Cold Pack/Ice Massage Next Visit Focus/Plan Next Note Type Treatment Note Next Visit Plan Amy will return to PT following her TKA on the Right knee. Reassess knee ROM and review all established exercises Plan of Care Dates Plan of Care Start Date 08/23/24 Plan of Care End Date 11/15/24 Electronically Signed by: Skylar Mata, PT 08/23/24 [id number] If you are in agreement with this Plan of Care, please return a signed and dated copy. I have reviewed this Plan of Care and certify that the skilled therapy services above are required to meet the patient?s needs. Physician Signature Date Printed Name and Credentials Clinical Instructor Signature Printed Name and Credentials
--- NOTE | 2024-09-06 10:50 | PT.OTRE ---
Current Diagnoses Unilateral primary osteoarthritis, right knee (09/06/24) Other instability, right knee (09/06/24) Pain in right knee (09/06/24) Stiffness of right knee, not elsewhere classified (09/06/24) Past Medical History (Last Reviewed 04/03/23 @ 13:21 by Joselin Hernadez DO) Anxiety and depression Arthritis of right foot Chickenpox Compression fracture Dextroscoliosis (02/11/16) Eczema Essential hypertension Hallux valgus of right foot History of recurrent UTIs Hyperlipidemia Hypothyroidism Measles Obesity (BMI 30.0-34.9) Osteoporosis Pain in right foot Postmenopausal Prolapsed bladder Seizure grand mal (~1983) Shoulder pain Surgical History (Last Reviewed 04/03/23 @ 13:21 by Joselin Hernadez DO) Anesthesia complication Bilateral ankle fractures H/O bilateral breast reduction surgery (~2020) History of bilateral tubal ligation History of tonsillectomy (~1971) History of total knee arthroplasty History of total vaginal hysterectomy (TVH) (05/17/18) Status post breast biopsy (~10/1984) Status post bunionectomy (~1989) Status post tubal ligation (~1988) Tonsillar tag (~1976) Visit Care Team Role Provider Type Laura Ramirez MD Primary Care Provider Physician Specialty: Family Practice Obstetrics Address: [address] [place] [address], [id number] Email: [email or web address] Joselin Hernadez DO Family Provider Non-Staff Specialty: Family Practice Address: Email: Vane Ring MD Attending Provider Physician Referring Provider Specialty: Orthopedics Orthopedic Surgery Address: [address] [place] [address], [id number] Email: [email or web address] Physical Therapy Re-Evaluation PT-OP-A Visit Information Start: 08/23/24 13:47 Freq: Status: Active Protocol: Document 09/06/24 09:46 [facility] (Rec: 09/06/24 09:53 [facility] [id number]) Out-Patient Physical Therapy Visit Information Visit Information Visit Type Treatment Note PT-OP-B Current Condition Start: 08/23/24 13:47 Freq: Status: Active Protocol: Document 09/06/24 10:43 [facility] (Rec: 09/06/24 10:45 [facility] [id number]) Current Condition History of Current Condition Onset Date 08/29/23 Current Complaints decreased knee ROM, strength, acheyness History of Current Condition Amy is now 1 weeks s/p R TKA on 08/02/24. She is ambulating with a fww and has been doing well with her HEP. Her pain is well managed. Her chief complaint at this time is acheyness from LE swelling Treatment Goals Patient/Caregiver Goals Lori goals include full knee ROM and strength and being able to ambulate down her 14 stairs to the basement PT-OP-C Subjective Start: 08/23/24 13:47 Freq: Status: Active Protocol: Document 09/06/24 09:46 [facility] (Rec: 09/06/24 09:53 [facility] [id number]) OP-PT Subjective Patient Comments Patient Comments surgery was a week ago, right knee is pretty swollen. She is trying to elevate she notes she doesn't realy have pain but it is achey and does get intermittent muscle spasms she had a spinal only so no sedation and she was awake for the full surgery. she has 4 stairs on deck with handrails and did fine. She is using a fww. PT-OP-K Range of Motion Start: 08/23/24 13:47 Freq: Status: Active Protocol: Document 09/06/24 09:46 [facility] (Rec: 09/06/24 10:46 [facility] [id number]) Knee Goniometric Range of Motion Knee Measured in Degrees Right Knee ROM WFL No Patient Position Supine Flexion Active (degrees) 90 Extension Active (degrees) 10 Comments pts extension improved to 5 deg following STM and exercises today PT-OP-M Strength Start: 08/23/24 13:47 Freq: Status: Active Protocol: Document 09/06/24 09:46 [facility] (Rec: 09/06/24 10:48 [facility] [id number]) Knee Strength Knee Manual Muscle Testing Right Flexion (S2) 3 Fair Extension (L3) 3 Fair PT-OP-Q Treatments Start: 08/23/24 13:47 Freq: Status: Active Protocol: Document 09/06/24 09:46 [facility] (Rec: 09/06/24 10:35 [facility] [id number]) Cardio Equipment Recumbent Elliptical (Biodex) Duration (Minutes) 5 Resistance 0 Seat Position 9 Other good tolerance for first time on biodex after surgery Therapeutic Exercises Supine Exercises hip abduction right side Supine Exercise Name HEP Side right Reps/Minutes AAROM x 10 then AROM x 10 reps long sitting knee extension Side right Reps/Minutes hold x 1 min Comments I held the ankle for this instead of towel roll due to ankle pain bridges Supine Exercise Name prehab exercise not added back in yet dynamic hamstring stretch Supine Exercise Name this was for prehab, I have not added it back in yet heel slides Supine Exercise Name HEP Side right Reps/Minutes x 10 reps quad squeeze Supine Exercise Name HEP Side right Reps/Minutes x 10 reps holding 5 sec Comments towel under the knee Sitting Exercises seated knee flexion and extension Sitting Exercise Name HEP Side right Reps/Minutes x 10 Comments used a towel under right foot to slide foot back bending knee Manual Therapy Treatment Soft Tissue Mobilization edema reduction massage of the right lower leg Mobilization Type Strumming Body Position Supine Comments worked from ankle up to lateral knee, pt is very swollen in her ankle, she does have a history of bruising PT-OP-T Assessment and Plan Start: 08/23/24 13:47 Freq: Status: Active Protocol: Document 09/06/24 09:46 [facility] (Rec: 09/06/24 10:43 [facility] [id number]) Physical Therapy Assessment Goals 3 Impairment Decreased right knee strength Nursing Home Goal (LTG) Amy presents with improved right knee strength and is able to perform functions movements from sit-stand without use of arms LTG Duration 8 weeks 2 Impairment Decreased right knee ROM at 90 deg flexion and 10 deg extension but was able to go to 5 degrees extension after exercises today Nursing Home Goal (LTG) Amy presents with WNL knee extension and flexion LTG Duration 8 weeks 1 Impairment Amy lacks a progression HEP for s/p R knee TKA Short Term Goal (STG) Amy is educated on a progressive HEP for right knee rom and strength STG Duration 4 weeks Contracts Advisor Goal (LTG) Amy is ind with a HEP LTG Duration 8 weeks Assessment Summary Assessment Amy returns to PT at one week s/p R knee total knee replacement. She was here for Prehab 08/23/24. She is ambulating with a fww and is demonstrating full weight bearing with gait. She report no real pain but acheyness from the swelling. Amy is swollen into her ankles and does have quite a bit of brusing around the right lateral ankle and around her scars from her previous ankle surgery. I did start with edema reduction massage of the lower leg and calf and this helped her with her exercises. knee flexion to 90 today. For extension she started at 10 but after her exercises she went to 5 deg. I started her on the biodex x 5 min and she did very well with this and felt better walking afterwards. I encouraged ice for home both front and back of knee. Hip abduction in supine was added to HEP. Physical Therapy Plan Frequency and Duration Frequency of Treatment 2x/Week Duration of treatment (weeks) 8 Plan of Care Start Date 09/06/24 Plan of Care End Date 11/15/24 Therapeutic Interventions Therapeutic Interventions Home Exercise Program,Manual Therapy,Patient/Caregiver Education,Self-Care/Home Management,Soft Tissue Mobilization,Therapeutic Exercises Modalities Cold Pack/Ice Massage Next Visit Focus/Plan Next Note Type Treatment Note Next Visit Plan continue progressing right knee ROM and strength, start with biodex and progress as tolerated with exercises.
--- NOTE | 2024-09-06 10:50 | PT.OPPOC ---
Physical, Occupational & Speech Therapy At [facility] Current Diagnoses Unilateral primary osteoarthritis, right knee (09/06/24) Other instability, right knee (09/06/24) Pain in right knee (09/06/24) Stiffness of right knee, not elsewhere classified (09/06/24) Visit Care Team Role Provider Type Laura Ramirez MD Primary Care Provider Physician Specialty: Family Practice Obstetrics Address: [address] [place] [address], [id number] Email: [email or web address] Joselin Hernadez DO Family Provider Non-Staff Specialty: Family Practice Address: Email: Vane Ring MD Attending Provider Physician Referring Provider Specialty: Orthopedics Orthopedic Surgery Address: [address] [place] [address], [address] Email: [email or web address] Plan Of Care PT-OP-B Current Condition Start: 08/23/24 13:47 Freq: Status: Active Protocol: Document 09/06/24 10:43 [facility] (Rec: 09/06/24 10:45 [facility] [id number]) Current Condition History of Current Condition Onset Date 08/29/23 Current Complaints decreased knee ROM, strength, pain History of Current Condition Amy is now 1 weeks s/p R TKA on 08/02/24. She is ambulating with a fww and has been doing well with her HEP. Her pain is well managed. Her chief complaint at this time is acheyness from LE swelling Treatment Goals Patient/Caregiver Goals Lori goals include full knee ROM and strength and being able to ambulate down her 14 stairs to the basement PT-OP-T Assessment and Plan Start: 08/23/24 13:47 Freq: Status: Active Protocol: Document 09/06/24 09:46 [facility] (Rec: 09/06/24 10:43 [facility] [id number]) Physical Therapy Assessment Goals 3 Impairment Decreased right knee strength [facility]cc Goal (LTG) Amy presents with improved right knee strength and is able to perform functions movements from sit-stand without use of arms LTG Duration 8 weeks 2 Impairment Decreased right knee ROM at 90 deg flexion and 10 deg extension but was able to go to 5 degrees extension after exercises today Mine Shifter Goal (LTG) Amy presents with WNL knee extension and flexion LTG Duration 8 weeks 1 Impairment Amy lacks a progression HEP for s/p R knee TKA Short Term Goal (STG) Amy is educated on a progressive HEP for right knee rom and strength STG Duration 4 weeks Mcc Goal (LTG) Amy is ind with a HEP LTG Duration 8 weeks Assessment Summary Assessment Amy returns to PT at one week s/p R knee total knee replacement. She was here for Prehab 08/23/24. She is ambulating with a fww and is demonstrating full weight bearing with gait. She report no real pain but acheyness from the swelling. Amy is swollen into her ankles and does have quite a bit of bruising around the right lateral ankle and around her scars from her previous ankle surgery. I did start with edema reduction massage of the lower leg and calf and this helped her with her exercises. knee flexion to 90 today. For extension she started at 10 but after her exercises she went to 5 deg. I started her on the biodex x 5 min and she did very well with this and felt better walking afterwards. I encouraged ice for home both front and back of knee. Hip abduction in supine was added to HEP. Physical Therapy Plan Frequency and Duration Frequency of Treatment 2x/Week Duration of treatment (weeks) 8 Plan of Care Start Date 09/06/24 Plan of Care End Date 11/15/24 Therapeutic Interventions Therapeutic Interventions Home Exercise Program,Manual Therapy,Patient/Caregiver Education,Self-Care/Home Management,Soft Tissue Mobilization,Therapeutic Exercises Modalities Cold Pack/Ice Massage Next Visit Focus/Plan Next Note Type Treatment Note Next Visit Plan continue progressing right knee ROM and strength, start with biodex and progress as tolerated with exercises. Plan of Care Dates Plan of Care Start Date 09/06/24 Plan of Care End Date 11/15/24 Electronically Signed by: Skylar Mata, PT 09/06/24 1352 If you are in agreement with this Plan of Care, please return a signed and dated copy. I have reviewed this Plan of Care and certify that the skilled therapy services above are required to meet the patient?s needs. Physician Signature Date Printed Name and Credentials Clinical Instructor Signature Printed Name and Credentials
--- NOTE | 2024-09-08 13:55 | PT.OTN ---
Current Diagnoses Unilateral primary osteoarthritis, right knee (09/08/24) Other instability, right knee (09/08/24) Pain in right knee (09/08/24) Stiffness of right knee, not elsewhere classified (09/08/24) Physical Therapy Treatment Note PT-OP-A Visit Information Start: 08/23/24 13:47 Freq: Status: Active Protocol: Document 09/08/24 12:53 AB (Rec: 09/08/24 13:46 AB [id number]) Out-Patient Physical Therapy Visit Information Visit Information Visit Type Treatment Note Visit Note Access Code: [email or web address] Visit Start Time 13:00 Visit Stop Time 13:43 Visit Number 2 Number of MANAGER BRAND Visits 1 PT-OP-B Current Condition Start: 08/23/24 13:47 Freq: Status: Active Protocol: Document 09/06/24 10:43 [facility] (Rec: 09/06/24 10:45 [facility] [id number]) Current Condition History of Current Condition Onset Date 08/29/23 Current Complaints decreased knee ROM, strength, acheyness History of Current Condition Amy is now 1 weeks s/p R TKA on 08/02/24. She is ambulating with a fww and has been doing well with her HEP. Her pain is well managed. Her chief complaint at this time is acheyness from LE swelling Treatment Goals Patient/Caregiver Goals Carols goals include full knee ROM and strength and being able to ambulate down her 14 stairs to the basement PT-OP-C Subjective Start: 08/23/24 13:47 Freq: Status: Active Protocol: Document 09/08/24 12:53 AB (Rec: 09/08/24 13:46 AB [id number]) OP-PT Subjective Patient Comments Patient Comments Patient reports she thinks she is a little better, but swelling is not bettter, tried the compression sock, but it didn't work. Patient comments it is not as bad as it was yesterday afternoon. Lacking 7 deg to 97 deg AROM right knee . PT-OP-K Range of Motion Start: 08/23/24 13:47 Freq: Status: Active Protocol: Document 09/06/24 09:46 [facility] (Rec: 09/06/24 10:46 [facility] [id number]) Knee Goniometric Range of Motion Knee Right Knee ROM WFL No Patient Position Supine Flexion Active (degrees) 90 Extension Active (degrees) 10 Comments pts extension improved to 5 deg following STM and exercises today PT-OP-M Strength Start: 08/23/24 13:47 Freq: Status: Active Protocol: Document 09/06/24 09:46 [facility] (Rec: 09/06/24 10:48 [facility] [id number]) Knee Strength Knee Manual Muscle Testing Right Flexion (S2) 3 Fair Extension (L3) 3 Fair PT-OP-Q Treatments Start: 08/23/24 13:47 Freq: Status: Active Protocol: Document 09/08/24 12:53 AB (Rec: 09/08/24 13:46 AB [id number]) Cardio Equipment Recumbent Stepper (Sci-Fit) Duration (Minutes) 5 Resistance 1.7 to 1 Seat Position 12 Therapeutic Exercises Supine Exercises knee flexion on wall Side bilateral Reps/Minutes 5 min + set up Comments VC to lower LE's down wall farther each minute straight leg raise Supine Exercise Name HEP Side right Reps/Minutes X10 Comments Verbal cues to lock the knee straight and rest a moment between each rep dynamic hamstring stretch Supine Exercise Name from hooklying HEP Reps/Minutes 60 sec stretch with AROM X 10 X 2 Comments verbal cues heel slides Supine Exercise Name 1. on ball 2. AROM Side bilateral Reps/Minutes bilat on ball X 3 min 2 right X 10 Manual Therapy Treatment Soft Tissue Mobilization edema reduction massage of the right lower leg Mobilization Type Other Body Position Supine Comments upward strokes knee, ankle calf, verbal cues for breathing from diaphragm PT-OP-T Assessment and Plan Start: 08/23/24 13:47 Freq: Status: Active Protocol: Document 09/08/24 12:53 AB (Rec: 09/08/24 13:46 AB [id number]) Physical Therapy Assessment Goals 3 Impairment Decreased right knee strength Prison Goal (LTG) Amy presents with improved right knee strength and is able to perform functions movements from sit-stand without use of arms LTG Duration 8 weeks 2 Impairment Decreased right knee ROM at 90 deg flexion and 10 deg extension but was able to go to 5 degrees extension after exercises today Construction Controller Goal (LTG) Amy presents with WNL knee extension and flexion LTG Duration 8 weeks 1 Impairment Amy lacks a progression HEP for s/p R knee TKA Short Term Goal (STG) Amy is educated on a progressive HEP for right knee rom and strength STG Duration 4 weeks Prison Goal (LTG) Amy is ind with a HEP LTG Duration 8 weeks Assessment Summary Assessment Lacking 4 deg ext to 116 deg AROM right knee post manual and exercise. Patient rates pain right knee 0/10 end of session ambulating with FWW. Physical Therapy Plan Frequency and Duration Frequency of Treatment 2x/Week Duration of treatment (weeks) 8 Plan of Care Start Date 09/06/24 Plan of Care End Date 11/15/24 Next Visit Focus/Plan Next Note Type Treatment Note Next Visit Plan continue progressing right knee ROM and strength, start with biodex and progress as tolerated with exercises. Review SLR
--- NOTE | 2024-09-13 11:32 | PT.OTN ---
Current Diagnoses Unilateral primary osteoarthritis, right knee (09/13/24) Other instability, right knee (09/13/24) Pain in right knee (09/13/24) Stiffness of right knee, not elsewhere classified (09/13/24) Physical Therapy Treatment Note PT-OP-A Visit Information Start: 08/23/24 13:47 Freq: Status: Active Protocol: Document 09/13/24 10:45 AB (Rec: 09/13/24 11:32 AB [id number]) Out-Patient Physical Therapy Visit Information Visit Information Visit Type Treatment Note Visit Note Access Code: [email or web address] Visit Start Time 10:47 Visit Stop Time 11:30 Visit Number 3 Number of LABORER HEADING Visits 2 PT-OP-B Current Condition Start: 08/23/24 13:47 Freq: Status: Active Protocol: Document 09/06/24 10:43 [facility] (Rec: 09/06/24 10:45 [facility] [id number]) Current Condition History of Current Condition Onset Date 08/29/23 Current Complaints decreased knee ROM, strength, acheyness History of Current Condition Amy is now 1 weeks s/p R TKA on 08/02/24. She is ambulating with a fww and has been doing well with her HEP. Her pain is well managed. Her chief complaint at this time is acheyness from LE swelling Treatment Goals Patient/Caregiver Goals Carols goals include full knee ROM and strength and being able to ambulate down her 14 stairs to the basement PT-OP-C Subjective Start: 08/23/24 13:47 Freq: Status: Active Protocol: Document 09/13/24 10:45 AB (Rec: 09/13/24 11:32 AB [id number]) OP-PT Subjective Patient Comments Patient Comments Patient reports having no pain start of session. Patient reports was told knee looks great during MD appointment. Patient reports performing HEP , comments she still feels stiff. AROM lacking 6 deg extension to 107 deg flexion start of session right knee. PT-OP-K Range of Motion Start: 08/23/24 13:47 Freq: Status: Active Protocol: Document 09/06/24 09:46 [facility] (Rec: 09/06/24 10:46 [facility] [id number]) Knee Goniometric Range of Motion Knee Right Knee ROM WFL No Patient Position Supine Flexion Active (degrees) 90 Extension Active (degrees) 10 Comments pts extension improved to 5 deg following STM and exercises today PT-OP-M Strength Start: 08/23/24 13:47 Freq: Status: Active Protocol: Document 09/06/24 09:46 [facility] (Rec: 09/06/24 10:48 [facility] [id number]) Knee Strength Knee Manual Muscle Testing Right Flexion (S2) 3 Fair Extension (L3) 3 Fair PT-OP-Q Treatments Start: 08/23/24 13:47 Freq: Status: Active Protocol: Document 09/13/24 10:45 AB (Rec: 09/13/24 11:32 AB [id number]) Cardio Equipment Recumbent Elliptical (Biodex) Duration (Minutes) 5 Resistance 0,2 Seat Position 9 Other good tolerance for first time on biodex after surgery Therapeutic Exercises Supine Exercises knee flexion on wall Side bilateral Reps/Minutes 5 min + set up Comments VC to lower LE's down wall farther each minute straight leg raise Supine Exercise Name HEP Side right Reps/Minutes X10 Comments Verbal cues to lock the knee straight and rest a moment between each rep dynamic hamstring stretch Supine Exercise Name from hooklying HEP Reps/Minutes 60 sec stretch with AROM X 10 X 2 Comments verbal cues heel slides Supine Exercise Name 1. on ball 2. AROM Side bilateral Reps/Minutes bilat on ball X 2 min 2. right X 10 Therapeutic Activity Therapeutic Activity stair training Reps/Minutes 4 six inch steps x2 Comments Supervision/distant, verbal cues for sequence, UE positioning first trial with 2 rails second with rail and SPC, step to pattern favoring right LE Manual Therapy Treatment Consent Patient gave verbal consent for manual Yes treatment Soft Tissue Mobilization edema reduction massage of the right lower leg Mobilization Type Cross-Friction,Rolling,Other Body Position Supine Comments upward strokes knee, ankle calf, verbal cues for breathing from diaphragm, area of decreased tissue density, decreased tissue mobility lateral right knee. PT-OP-T Assessment and Plan Start: 08/23/24 13:47 Freq: Status: Active Protocol: Document 09/13/24 10:45 AB (Rec: 09/13/24 11:32 AB [id number]) Physical Therapy Assessment Goals 3 Impairment Decreased right knee strength Mcc Goal (LTG) Amy presents with improved right knee strength and is able to perform functions movements from sit-stand without use of arms LTG Duration 8 weeks 2 Impairment Decreased right knee ROM at 90 deg flexion and 10 deg extension but was able to go to 5 degrees extension after exercises today Curator [employer] Goal (LTG) Amy presents with WNL knee extension and flexion LTG Duration 8 weeks 1 Impairment Amy lacks a progression HEP for s/p R knee TKA Short Term Goal (STG) Amy is educated on a progressive HEP for right knee rom and strength STG Duration 4 weeks Curator [employer] Goal (LTG) Amy is ind with a HEP LTG Duration 8 weeks Assessment Summary Assessment Right knee lacking 4 deg extension to 113 deg flexion AROM post manual and exercise. Patient reports having no pain en of session. Physical Therapy Plan Frequency and Duration Frequency of Treatment 2x/Week Duration of treatment (weeks) 8 Plan of Care Start Date 09/06/24 Plan of Care End Date 11/15/24 Next Visit Focus/Plan Next Note Type Treatment Note Next Visit Plan continue progressing right knee ROM and strength, start with biodex and progress as tolerated with exercises. Focus on extension for progression of HEP
--- NOTE | 2024-09-15 11:30 | PT.OTN ---
Current Diagnoses Unilateral primary osteoarthritis, right knee (09/15/24) Other instability, right knee (09/15/24) Pain in right knee (09/15/24) Stiffness of right knee, not elsewhere classified (09/15/24) Physical Therapy Treatment Note PT-OP-A Visit Information Start: 08/23/24 13:47 Freq: Status: Active Protocol: Document 09/15/24 10:45 [facility] (Rec: 09/15/24 11:29 [facility] [id number]) Out-Patient Physical Therapy Visit Information Visit Information Visit Type Treatment Note PT-OP-B Current Condition Start: 08/23/24 13:47 Freq: Status: Active Protocol: Document 09/06/24 10:43 [facility] (Rec: 09/06/24 10:45 [facility] [id number]) Current Condition History of Current Condition Onset Date 08/29/23 Current Complaints decreased knee ROM, strength, acheyness History of Current Condition Amy is now 1 weeks s/p R TKA on 08/02/24. She is ambulating with a fww and has been doing well with her HEP. Her pain is well managed. Her chief complaint at this time is acheyness from LE swelling Treatment Goals Patient/Caregiver Goals Carols goals include full knee ROM and strength and being able to ambulate down her 14 stairs to the basement PT-OP-C Subjective Start: 08/23/24 13:47 Freq: Status: Active Protocol: Document 09/15/24 10:45 [facility] (Rec: 09/15/24 11:29 [facility] [id number]) OP-PT Subjective Patient Comments Patient Comments pt notes no pain and she saw the PA a week ago PT-OP-K Range of Motion Start: 08/23/24 13:47 Freq: Status: Active Protocol: Document 09/06/24 09:46 [facility] (Rec: 09/06/24 10:46 [facility] [id number]) Knee Goniometric Range of Motion Knee Right Knee ROM WFL No Patient Position Supine Flexion Active (degrees) 90 Extension Active (degrees) 10 Comments pts extension improved to 5 deg following STM and exercises today PT-OP-M Strength Start: 08/23/24 13:47 Freq: Status: Active Protocol: Document 09/06/24 09:46 [facility] (Rec: 09/06/24 10:48 [facility] [id number]) Knee Strength Knee Manual Muscle Testing Right Flexion (S2) 3 Fair Extension (L3) 3 Fair PT-OP-Q Treatments Start: 08/23/24 13:47 Freq: Status: Active Protocol: Document 09/15/24 10:45 [facility] (Rec: 09/15/24 11:29 [facility] [id number]) Cardio Equipment Recumbent Bicycle Duration (Minutes) 5 Resistance 2 Seat Position 4 Therapeutic Exercises Supine Exercises short arc knee extension with blue foam roll Supine Exercise Name gave for HEP Reps/Minutes 20 reps ball rolls with heel press to activate the hamstrings Equipment Used red 55 cm ball Reps/Minutes x 20 reps bridges Reps/Minutes x 10 reps Comments after the bridges Amy could get to 120 degrees heel slides Reps/Minutes x 20 quad squeeze Supine Exercise Name HEP Side right Reps/Minutes x 10 reps holding 5 sec Comments towel under the knee Sitting Exercises knee extension stretch seated Sitting Exercise Name gave for HEP Reps/Minutes 1 min 2 times per day Manual Therapy Treatment Soft Tissue Mobilization edema reduction massage of the right lower leg Mobilization Type Cross-Friction,Rolling,Other Body Position Supine Comments upward strokes knee, ankle calf, verbal cues for breathing from diaphragm, area of decreased tissue density, decreased tissue mobility lateral right knee. PT-OP-T Assessment and Plan Start: 08/23/24 13:47 Freq: Status: Active Protocol: Document 09/15/24 10:45 [facility] (Rec: 09/15/24 11:29 [facility] [id number]) Physical Therapy Assessment Assessment Summary Assessment Amy was able to start on the recumbent bike making full resolutions forward and backward knee flexion to 120, knee extension 3 degrees. Initated seated knee extension stretch for home and partial arch quad extension in seated. I did encourage Amy to ice and she wanted to ice at home after her treatment Physical Therapy Plan Frequency and Duration Frequency of Treatment 2x/Week Duration of treatment (weeks) 8 Plan of Care Start Date 09/06/24 Plan of Care End Date 11/15/24 Therapeutic Interventions Therapeutic Interventions Home Exercise Program,Manual Therapy,Patient/Caregiver Education,Self-Care/Home Management,Soft Tissue Mobilization,Therapeutic Exercises Modalities Cold Pack/Ice Massage Next Visit Focus/Plan Next Note Type Treatment Note Next Visit Plan continue progressing right knee ROM and strength, start with biodex and progress as tolerated with exercises. Focus on extension for progression of HEP
--- NOTE | 2024-09-22 17:11 | PT.OTN ---
Current Diagnoses Unilateral primary osteoarthritis, right knee (09/22/24) Other instability, right knee (09/22/24) Pain in right knee (09/22/24) Stiffness of right knee, not elsewhere classified (09/22/24) Physical Therapy Treatment Note PT-OP-A Visit Information Start: 08/23/24 13:47 Freq: Status: Active Protocol: Document 09/22/24 10:45 [facility] (Rec: 09/22/24 11:35 [facility] [id number]) Out-Patient Physical Therapy Visit Information Visit Information Visit Type Treatment Note Visit Start Time 10:45 Visit Stop Time 11:30 Visit Number 5 Number of ELECTRIC MOTOR REPAIR SUPERVISOR Visits 0 PT-OP-B Current Condition Start: 08/23/24 13:47 Freq: Status: Active Protocol: Document 09/06/24 10:43 [facility] (Rec: 09/06/24 10:45 [facility] [id number]) Current Condition History of Current Condition Onset Date 08/29/23 Current Complaints decreased knee ROM, strength, acheyness History of Current Condition Amy is now 1 weeks s/p R TKA on 08/02/24. She is ambulating with a fww and has been doing well with her HEP. Her pain is well managed. Her chief complaint at this time is acheyness from LE swelling Treatment Goals Patient/Caregiver Goals Lori goals include full knee ROM and strength and being able to ambulate down her 14 stairs to the basement PT-OP-C Subjective Start: 08/23/24 13:47 Freq: Status: Active Protocol: Document 09/22/24 10:45 [facility] (Rec: 09/22/24 11:35 [facility] [id number]) OP-PT Subjective Patient Comments Patient Comments Amy notes her pain is much decreased she just feels tight in her incision. She is wanting to start doing scar tissue massage with the vit E. She is feeling like she no longer needs to use the walker and brings in a single point cane which she notes she really doesn't feel like she needs that either although she does c/o some left sided hip discomfort with walking Patient Reported Progress Improving PT-OP-K Range of Motion Start: 08/23/24 13:47 Freq: Status: Active Protocol: Document 09/06/24 09:46 [facility] (Rec: 09/06/24 10:46 [facility] [id number]) Knee Goniometric Range of Motion Knee Right Knee ROM WFL No Patient Position Supine Flexion Active (degrees) 90 Extension Active (degrees) 10 Comments pts extension improved to 5 deg following STM and exercises today PT-OP-M Strength Start: 08/23/24 13:47 Freq: Status: Active Protocol: Document 09/06/24 09:46 [facility] (Rec: 09/06/24 10:48 [facility] [id number]) Knee Strength Knee Manual Muscle Testing Right Flexion (S2) 3 Fair Extension (L3) 3 Fair PT-OP-Q Treatments Start: 08/23/24 13:47 Freq: Status: Active Protocol: Document 09/22/24 10:45 [facility] (Rec: 09/22/24 11:35 [facility] [id number]) Cardio Equipment Recumbent Bicycle Duration (Minutes) 6 Resistance 2 Seat Position 4 Therapeutic Exercises Supine Exercises ball rolls with heel press to activate the hamstrings Equipment Used red 55 cm ball Reps/Minutes x 20 reps long sitting knee extension Side right Reps/Minutes hold x 1 min Comments I held the ankle for this instead of towel roll due to ankle pain quad squeeze Supine Exercise Name HEP Side right Reps/Minutes x 10 reps holding 5 sec Comments towel under the knee Standing Exercises standing min isquats with theraand Equipment Used level 2 TB Reps/Minutes 20 side steps with theraband around thighs Reps/Minutes 20 reps level 2 theraband standing hip abduction Standing Exercise Name at counter top Reps/Minutes 2 x 10 reps standing calf stretch Reps/Minutes 2 x 30 seconds Gait Training Gait Activity gait training Distance/Duration 5 min Comments gait was assessed without a AD today but due to a small limp and left sided hip discomfort I am having Amy continue with the SPC at least for a little longer Manual Therapy Treatment Soft Tissue Mobilization scar tissue massage around incision Mobilization Type Myofascial Release Intensity/Depth Superficial Comments scar tissue mobilization performed on either side of the incision except in area where she is still healing, good tolerance and pt notes her knee doesn't feel as tight following PT-OP-T Assessment and Plan Start: 08/23/24 13:47 Freq: Status: Active Protocol: Document 09/22/24 10:45 [facility] (Rec: 09/22/24 11:35 [facility] [id number]) Physical Therapy Assessment Assessment Summary Assessment 120 degrees knee flexion, 3) extension added in standing hip abduction, standing side steps with TB, mini squats, and standing calf stretch for HEP Amy is healing well over her incision and will start using vit E oil for home, I did show her how to use it making smal circles in toward her incision. I encouraged used of cane as she does present with symptoms of hip bursitis on the left hip. She still has a small amount of a limp without a AD. Overall she is progressing really well and is feeling like after next weeks visits she will be ready to DC to a [facility] Physical Therapy Plan Frequency and Duration Frequency of Treatment 2x/Week Duration of treatment (weeks) 8 Plan of Care Start Date 09/06/24 Plan of Care End Date 11/15/24 Therapeutic Interventions Therapeutic Interventions Home Exercise Program,Manual Therapy,Patient/Caregiver Education,Self-Care/Home Management,Soft Tissue Mobilization,Therapeutic Exercises Modalities Cold Pack/Ice Massage Next Visit Focus/Plan Next Note Type Treatment Note Next Visit Plan warm up on recumbent bike and review new standing exercises, measure knee extension as it is still lacking a few degrees and work on full knee extension, scar tissue massage
--- NOTE | 2024-09-27 16:30 | PT.OTN ---
Current Diagnoses Unilateral primary osteoarthritis, right knee (09/27/24) Other instability, right knee (09/27/24) Pain in right knee (09/27/24) Stiffness of right knee, not elsewhere classified (09/27/24) Physical Therapy Treatment Note PT-OP-A Visit Information Start: 08/23/24 13:47 Freq: Status: Active Protocol: Document 09/27/24 13:47 AB (Rec: 09/27/24 16:30 AB [id number]) Out-Patient Physical Therapy Visit Information Visit Information Visit Type Treatment Note Visit Note Access Code: [email or web address] Visit Start Time 13:48 Visit Stop Time 14:31 Visit Number 6 Number of FURNITURE FINISHER Visits 1 PT-OP-B Current Condition Start: 08/23/24 13:47 Freq: Status: Active Protocol: Document 09/06/24 10:43 [facility] (Rec: 09/06/24 10:45 [facility] [id number]) Current Condition History of Current Condition Onset Date 08/29/23 Current Complaints decreased knee ROM, strength, acheyness History of Current Condition Amy is now 1 weeks s/p R TKA on 08/02/24. She is ambulating with a fww and has been doing well with her HEP. Her pain is well managed. Her chief complaint at this time is acheyness from LE swelling Treatment Goals Patient/Caregiver Goals Carols goals include full knee ROM and strength and being able to ambulate down her 14 stairs to the basement PT-OP-C Subjective Start: 08/23/24 13:47 Freq: Status: Active Protocol: Document 09/27/24 13:47 AB (Rec: 09/27/24 16:30 AB [id number]) OP-PT Subjective Patient Comments Patient Comments Patient reports she usually uses no device, reports doing a lot of walking yesterday with no swelling or pain. Patient reports using FWW sometimes when she first gets up to make sure she is steady. AROM 0 to 115 deg start of session right knee, unable to warm up on bike as bikes are in use. SLS right LE without UE use 5 seconds PT-OP-K Range of Motion Start: 08/23/24 13:47 Freq: Status: Active Protocol: Document 09/06/24 09:46 [facility] (Rec: 09/06/24 10:46 [facility] [id number]) Knee Goniometric Range of Motion Knee Right Knee ROM WFL No Patient Position Supine Flexion Active (degrees) 90 Extension Active (degrees) 10 Comments pts extension improved to 5 deg following STM and exercises today PT-OP-M Strength Start: 08/23/24 13:47 Freq: Status: Active Protocol: Document 09/06/24 09:46 [facility] (Rec: 09/06/24 10:48 [facility] [id number]) Knee Strength Knee Manual Muscle Testing Right Flexion (S2) 3 Fair Extension (L3) 3 Fair PT-OP-Q Treatments Start: 08/23/24 13:47 Freq: Status: Active Protocol: Document 09/27/24 13:47 AB (Rec: 09/27/24 16:30 AB [id number]) Cardio Equipment Recumbent Bicycle Duration (Minutes) 6 Resistance 2 Seat Position 4 Therapeutic Exercises Supine Exercises ball rolls with heel press to activate the hamstrings Equipment Used green ball Reps/Minutes 2min straight leg raise Supine Exercise Name HEP Side right Reps/Minutes 2 x10 Comments Verbal cues to lock the knee straight and rest a moment between each rep dynamic hamstring stretch Supine Exercise Name from hooklying HEP Reps/Minutes 60 sec stretch with AROM X 10 Comments verbal cues heel slides Reps/Minutes x 1 Sitting Exercises seated hip abd with band Sitting Exercise Name HEP Side bilateral Resistance level 4 latex free band Reps/Minutes one minut X 1 for activation Standing Exercises retro stepping with band Standing Exercise Name with UE use Side bilateral Resistance level 4 band latex free above knees Reps/Minutes 2 min Comments Verbal cues side steps with theraband around thighs Reps/Minutes 20 reps level 4 theraband Manual Therapy Treatment Consent Patient gave verbal consent for manual Yes treatment Soft Tissue Mobilization scar tissue massage around incision Mobilization Type Myofascial Release Intensity/Depth Superficial Comments avoiding healing incision edema reduction massage of the right lower leg Body Location for edema and areas of decreased tissue mobility right LE/knee quad Mobilization Type Cross-Friction,Rolling,Other Body Position Hooklying Neuro Re-Education Treatment Balance Activities SLS Details right LE Comments 15+ seconds post glute med activation PT-OP-T Assessment and Plan Start: 08/23/24 13:47 Freq: Status: Active Protocol: Document 09/27/24 13:47 AB (Rec: 09/27/24 16:30 AB [id number]) Physical Therapy Assessment Goals 3 Impairment Decreased right knee strength Tailings Worker Goal (LTG) Amy presents with improved right knee strength and is able to perform functions movements from sit-stand without use of arms LTG Duration 8 weeks 2 Impairment Decreased right knee ROM at 90 deg flexion and 10 deg extension but was able to go to 5 degrees extension after exercises today Tailings Worker Goal (LTG) Amy presents with WNL knee extension and flexion LTG Duration 8 weeks 1 Impairment Amy lacks a progression HEP for s/p R knee TKA Short Term Goal (STG) Amy is educated on a progressive HEP for right knee rom and strength STG Duration 4 weeks Mcfp Goal (LTG) Amy is ind with a HEP LTG Duration 8 weeks Assessment Summary Assessment 120 deg AROM right knee flexion post manual therapy and knee flexion on the ball. Patient reports having no pain end of session. SLS right LE increased to 15+ seconds without UE use post seated hip abd with band for one minute ( glute med activation ) Physical Therapy Plan Frequency and Duration Frequency of Treatment 2x/Week Duration of treatment (weeks) 8 Plan of Care Start Date 09/06/24 Plan of Care End Date 11/15/24 Next Visit Focus/Plan Next Note Type Treatment Note Next Visit Plan warm up on recumbent bike and review new standing exercises, Reasses knee extension as it is still lacking a few degrees and work on full knee extension, scar tissue massage
--- NOTE | 2024-09-29 17:13 | PT.OTN ---
Current Diagnoses Unilateral primary osteoarthritis, right knee (09/29/24) Other instability, right knee (09/29/24) Pain in right knee (09/29/24) Stiffness of right knee, not elsewhere classified (09/29/24) Physical Therapy Treatment Note PT-OP-A Visit Information Start: 08/23/24 13:47 Freq: Status: Active Protocol: Document 09/29/24 11:36 [facility] (Rec: 09/29/24 12:16 [facility] [id number]) Out-Patient Physical Therapy Visit Information Visit Information Visit Type Treatment Note Visit Start Time 11:30 Visit Stop Time 12:15 Visit Number 7 Number of MERRY GO ROUND ATTENDANT Visits 0 PT-OP-B Current Condition Start: 08/23/24 13:47 Freq: Status: Active Protocol: Document 09/06/24 10:43 [facility] (Rec: 09/06/24 10:45 [facility] [id number]) Current Condition History of Current Condition Onset Date 08/29/23 Current Complaints decreased knee ROM, strength, acheyness History of Current Condition Amy is now 1 weeks s/p R TKA on 08/02/24. She is ambulating with a fww and has been doing well with her HEP. Her pain is well managed. Her chief complaint at this time is acheyness from LE swelling Treatment Goals Patient/Caregiver Goals Carols goals include full knee ROM and strength and being able to ambulate down her 14 stairs to the basement PT-OP-C Subjective Start: 08/23/24 13:47 Freq: Status: Active Protocol: Document 09/29/24 11:36 [facility] (Rec: 09/29/24 12:16 [facility] [id number]) OP-PT Subjective Patient Comments Patient Comments pt has a appt with Dr Ring on October 12 she is feeling good with her home program PT-OP-K Range of Motion Start: 08/23/24 13:47 Freq: Status: Active Protocol: Document 09/06/24 09:46 [facility] (Rec: 09/06/24 10:46 [facility] [id number]) Knee Goniometric Range of Motion Knee Right Knee ROM WFL No Patient Position Supine Flexion Active (degrees) 90 Extension Active (degrees) 10 Comments pts extension improved to 5 deg following STM and exercises today PT-OP-M Strength Start: 08/23/24 13:47 Freq: Status: Active Protocol: Document 09/06/24 09:46 [facility] (Rec: 10/08/24 10:48 [facility] [id number]) Knee Strength Knee Manual Muscle Testing Right Flexion (S2) 3 Fair Extension (L3) 3 Fair PT-OP-Q Treatments Start: 08/23/24 13:47 Freq: Status: Active Protocol: Document 09/29/24 11:36 [facility] (Rec: 09/29/24 12:16 [facility] [id number]) Cardio Equipment Recumbent Bicycle Duration (Minutes) 6 Resistance 2 Seat Position 4 Therapeutic Exercises Supine Exercises ball rolls with heel press to activate the hamstrings Equipment Used green ball Reps/Minutes 2min long sitting knee extension Side right Reps/Minutes hold x 1 min Comments I held the ankle for this instead of towel roll due to ankle pain quad squeeze Supine Exercise Name HEP Side right Reps/Minutes x 10 reps holding 5 sec Comments towel under the knee Sitting Exercises sit to stand Sitting Exercise Name able to do without hand use Reps/Minutes x 10 Comments cues to make sure knee is not IR on the right seated hip abd with band Sitting Exercise Name HEP Side bilateral Resistance level 4 latex free band Reps/Minutes one minut X 1 for activation Manual Therapy Treatment Soft Tissue Mobilization right ITB release Body Location right ITB Comments I worked on the ITB as Amy had mentioned some clicking on the lateral right leg scar tissue massage around incision Mobilization Type Myofascial Release Intensity/Depth Superficial Comments avoiding healing incision PT-OP-T Assessment and Plan Start: 08/23/24 13:47 Freq: Status: Active Protocol: Document 09/29/24 17:07 [facility] (Rec: 09/29/24 17:13 [facility] [id number]) Physical Therapy Assessment Goals 3 Impairment Decreased right knee strength Managing Supervisor Goal (LTG) Amy presents with improved right knee strength and is able to perform functions movements from sit-stand without use of arms goal met LTG Duration 8 weeks 2 Impairment Decreased right knee ROM at 90 deg flexion and 10 deg extension but was able to go to 5 degrees extension after exercises today Prison Goal (LTG) Amy presents with WNL knee extension and flexion flexion 120 extension 3 LTG Duration 8 weeks 1 Impairment Amy lacks a progression HEP for s/p R knee TKA Short Term Goal (STG) Amy is educated on a progressive HEP for right knee rom and strength goal met STG Duration 4 weeks Prison Goal (LTG) Amy is ind with a HEP goal met LTG Duration 8 weeks Assessment Summary Assessment Overall Amy has made good progress. She is still lacking full knee extension and was 3 degrees today in intension. She is feeling that she is ready to discharged to a I HEP and I emphasized continueing to work on her knee extension and her HEP. She was able to perform sit-stand without use of arms. She will discharge today to a I HEP Physical Therapy Plan Discharge Physical Therapy Discharge Reasons No Longer Attending PT
--- NOTE | 2024-09-29 17:13 | PT.OPDS ---
Current Diagnoses Unilateral primary osteoarthritis, right knee (09/29/24) Other instability, right knee (09/29/24) Pain in right knee (09/29/24) Stiffness of right knee, not elsewhere classified (09/29/24) Visit Care Team Role Provider Type Laura Ramirez MD Primary Care Provider Physician Specialty: Family Practice Obstetrics Address: [address] [place] [address], [address] Email: [email or web address] Joselin Hernadez DO Family Provider Non-Staff Specialty: [facility] Address: [address] [place] [address], [address] Email: Vane Ring MD Attending Provider Physician Referring Provider Specialty: Orthopedics Orthopedic Surgery Address: [address] [place] [address], [address] Email: [email or web address] Visit Number Visit Number 7 Discharge Summary PT-OP-B Current Condition Start: 08/23/24 13:47 Freq: Status: Active Protocol: Document 09/06/24 10:43 [facility] (Rec: 09/06/24 10:45 [facility] [id number]) Current Condition History of Current Condition Onset Date 08/29/23 Current Complaints decreased knee ROM, strength, acheyness History of Current Condition Amy is now 1 weeks s/p R TKA on 08/02/24. She is ambulating with a fww and has been doing well with her HEP. Her pain is well managed. Her chief complaint at this time is acheyness from LE swelling Treatment Goals Patient/Caregiver Goals Lori goals include full knee ROM and strength and being able to ambulate down her 14 stairs to the basement PT-OP-C Subjective Start: 08/23/24 13:47 Freq: Status: Active Protocol: Document 09/29/24 11:36 [facility] (Rec: 09/29/24 12:16 [facility] [id number]) OP-PT Subjective Patient Comments Patient Comments pt has a appt with Dr Ring on October 12 she is feeling good with her home program PT-OP-K Range of Motion Start: 08/23/24 13:47 Freq: Status: Active Protocol: Document 09/06/24 09:46 [facility] (Rec: 09/06/24 10:46 [facility] [id number]) Knee Goniometric Range of Motion Knee Right Knee ROM WFL No Patient Position Supine Flexion Active (degrees) 90 Extension Active (degrees) 10 Comments pts extension improved to 5 deg following STM and exercises today PT-OP-M Strength Start: 08/23/24 13:47 Freq: Status: Active Protocol: Document 09/06/24 09:46 [facility] (Rec: 09/06/24 10:48 [facility] [id number]) Knee Strength Knee Manual Muscle Testing Right Flexion (S2) 3 Fair Extension (L3) 3 Fair PT-OP-T Assessment and Plan Start: 08/23/24 13:47 Freq: Status: Active Protocol: Document 09/29/24 17:07 [facility] (Rec: 09/29/24 17:13 [facility] [id number]) Physical Therapy Assessment Goals 3 Impairment Decreased right knee strength Flight Crew Scheduler Goal (LTG) Amy presents with improved right knee strength and is able to perform functions movements from sit-stand without use of arms goal met LTG Duration 8 weeks 2 Impairment Decreased right knee ROM at 90 deg flexion and 10 deg extension but was able to go to 5 degrees extension after exercises today Residential Goal (LTG) Amy presents with WNL knee extension and flexion flexion 120 extension 3 LTG Duration 8 weeks 1 Impairment Amy lacks a progression HEP for s/p R knee TKA Short Term Goal (STG) Amy is educated on a progressive HEP for right knee rom and strength goal met STG Duration 4 weeks Flight Crew Scheduler Goal (LTG) Amy is ind with a HEP goal met LTG Duration 8 weeks Assessment Summary Assessment Overall Aym has made good progress. She is still lacking full knee extension and was 3 degrees today in intension. She is feeling that she is ready to discharged to a I HEP and I emphasized continueing to work on her knee extension and her HEP. She was able to perform sit-stand without use of arms. She will discharge today to a I HEP Physical Therapy Plan Discharge Physical Therapy Discharge Reasons No Longer Attending PT
== END 2024-10-11 14:41 | disposition home or self-care (01) ==
LOC: PHYS 11:30
PROVIDERS: Family Provider Family Medicine; PCP Student in an Organized Health Care Education/Training Program; Referring Provider Orthopaedic Surgery; Visit Provider Orthopaedic Surgery
DX: M17.11 Unilateral primary osteoarthritis, right knee (principal); M25.661 Stiffness of right knee, not elsewhere classified; M25.361 Other instability, right knee; M25.561 Pain in right knee
CPT/HCPCS: 97110; 97140; 97161; 97164

== ENCOUNTER → 2024-11-25 11:21 | Outpatient (CLI) | payer MEDICARE, SELFPAY ==
[2022-07-03 12:44] VITALS: BMI 31.7
--- NOTE | 2024-11-25 11:22 | DI.RAD.S_ITS ---
PROCEDURE: XR DEXA AXIAL SKELETON INDICATIONS: f/u DEXA-hx of bilateral ankle fractures and osteoporosis COMPARISON: [facility], , XR DEXA AXIAL SKELETON, 09/19/2022, 12:12. FINDINGS: Lumbar Spine: Bone mineral density is 0.961 g/cm2, T score -0.8, previously -1.0. Left Hip: Bone mineral density is 0.817 g/cm2, T score -1.0, -1.1. Left Femoral Neck: Bone mineral density is 0.638 g/cm2, T score -1.9, -2.4. Right Hip: Bone mineral density is 0.779 g/cm2, T score -1.3, -0.9. Right Femoral Neck: Bone mineral density is 0.690 g/cm2, T score -1.4, -1.9. Fracture Risk Calculation (when applicable): 10-year fracture risk of a major osteoporotic fracture 15 percent and of a hip fracture 2.3 percent. (T score greater or equal to -1.0 to: NORMAL) (T score from -1.1 to -2.4: OSTEOPENIA) (T score less than or equal to -2.5: OSTEOPOROSIS) IMPRESSION: Osteopenia Follow-up guidelines as follows: Osteoporosis: Consider a repeat DEXA and Vertebral Fracture Assessment (VFA) exam in 2 years or sooner if medically necessary, to reassess this patient's status. Osteopenia: Consider a repeat DEXA in 2-3 years to reassess this patient's status, or if there is a new clinical indication. Normal: Consider a repeat DEXA in 5 years or sooner, or if there is a new clinical indication. All treatment decisions require clinical judgment and consideration of individual patient factors, including patient preferences, comorbidities, previous drug use, risk factors not captured in the FRAX model (e.g., frailty, falls, vitamin D deficiency, increased bone turnover, interval significant decline in bone density ) and possible under- or over-estimation of fracture risk by FRAX. In addition, the NOF Guide recommends that FDA-approved medical therapies be considered in postmenopausal women and men age >= 50 years with a: * Hip or vertebral (clinical or morphometric) fracture * T-score of <=-2.5 at the spine or hip * Ten-year fracture probability by FRAX of >= 3% for hip fracture or >=20% for major osteoporotic fracture. People with diagnosed cases of osteoporosis or at high risk for fracture should have regular bone mineral density tests. For patients eligible for Medicare, routine testing is allowed once every 2 years. The testing frequency can be increased to one year for patients who have rapidly progressing disease, those who are receiving or discontinuing medical therapy to restore bone mass, or have additional risk factors. Approved by: Lyle Lazar M.D. on 11/26/2024 at 14:40
== END ==
PROVIDERS: Family Provider Family Medicine; PCP Student in an Organized Health Care Education/Training Program; Referring Provider Student in an Organized Health Care Education/Training Program; Visit Provider Student in an Organized Health Care Education/Training Program
DX: M81.0 Age-related osteoporosis without current pathological fracture (principal); Z87.81 Personal history of (healed) traumatic fracture
CPT/HCPCS: 77080

== ENCOUNTER → 2025-03-29 10:36 | Outpatient (CLI) | payer MEDICARE, SELFPAY ==
[2022-07-03 12:44] VITALS: BMI 31.7
[2025-03-29 13:29] LABS: Appearance Urine UA CLEAR; Bilirubin Urine UA NEGATIVE (NEGATIVE); Color Urine UA YELLOW; Glucose Urine UA NEGATIVE (Negative); Ketones Urine UA NEGATIVE (NEGATIVE); Leukocyte Esterase Urine UA NEGATIVE (NEGATIVE); Nitrite Urine UA NEGATIVE (Negative); Occult Blood Urine UA NEGATIVE (Negative); Protein Urine UA NEGATIVE (Negative); Specific Gravity Urine UA <=1.005 (1.000-1.035); Urobilinogen Urine UA 0.2 E.U./dL (0.2)
[2025-03-29 13:33] LABS: Urine Volume 10mL (spun)
[2025-03-29 13:34] LABS: Bacteria Urine None Seen; Culture Indicated Urine Cult Not Indicated; RBC Urine None Seen (0-5/HPF); Squamous Epithelial Cell Urine None Seen (0-5/HPF); WBC Urine None Seen (0-5/HPF)
== END ==
PROVIDERS: Family Provider Family Medicine; PCP Student in an Organized Health Care Education/Training Program; Visit Provider Obstetrics & Gynecology Gynecology
DX: N81.9 Female genital prolapse, unspecified (principal); R33.9 Retention of urine, unspecified
CPT/HCPCS: 81001

== ENCOUNTER → 2025-03-29 12:08 | Outpatient (CLI) | payer MEDICARE, SELFPAY ==
[2022-07-03 12:44] VITALS: BMI 31.7
[2025-03-29 13:20] LABS: Add Manual Diff / Slide Review NO; Basophils Absolute Auto 0 /uL (0-100); Basophils Percent Auto 0.8 % (0-2); Eosinophils Absolute Auto 100 /uL (0-450); Eosinophils Percent Auto 2.1 % (2-4); Hematocrit 38.6 % (36-46); Hemoglobin 12.9 g/dL (12.0-16.0); Lymphocytes Absolute Auto 1800 /uL (1100-4500); Lymphocytes Percent Auto 31.6 % (25-40); Mean Corpuscular HGB Conc 33.5 % (30-36); Mean Corpuscular Hemoglobin 29.9 PG (26-34); Mean Corpuscular Volume 89.1 fL (80-100); Monocytes Absolute Auto 500 /uL (0-900); Monocytes Percent Auto 8.3 % (3-14); Neutrophils Absolute Auto 3200 /uL (1500-7000); Neutrophils Percent Auto 57.2 % (50-75); Platelet Count 338 X10^3/uL (150-400); Red Blood Cell Count 4.33 X10^6/uL (4.0-5.2); Red Cell Distribution Width 14.5 % (11.6-14.8); White Blood Cell Count 5.6 X10^3/uL (4.5-11.0)
[2025-03-29 13:37] LABS: Alanine Aminotransferase 19 IU/L (<35); Albumin 4.1 g/dL (3.5-5.0); Albumin Globulin Ratio 1.5 (1.0-2.8); Alkaline Phosphatase 70 U/L (38-126); Aspartate Aminotransferase 28 IU/L (14-36); BUN Creatinine Ratio 21.4 (6-22); Bilirubin Total 0.4 mg/dL (0.2-1.3); Blood Urea Nitrogen 12 mg/dL (7-17); Calcium 9.4 mg/dL (8.4-10.2); Carbon Dioxide 27 mmol/L (22-32); Chloride 104 mmol/L (98-107); Estimated Glomerular Filt Rate > 60 mL/min (>60); Globulin 2.8 g/dL (1.7-4.1); Glucose 95 mg/dL (70-99); HEMOLYSIS < 15 (0-50); Potassium 4.2 mmol/L (3.4-5.1); Sodium 138 mmol/L (137-145); Total Protein 6.9 g/dL (6.3-8.2)
== END ==
PROVIDERS: Family Provider Family Medicine; PCP Student in an Organized Health Care Education/Training Program; Referring Provider Obstetrics & Gynecology Gynecology; Visit Provider Obstetrics & Gynecology Gynecology
DX: N81.9 Female genital prolapse, unspecified (principal); N81.11 Cystocele, midline; R33.9 Retention of urine, unspecified
CPT/HCPCS: 36415; 80053; 81001; 85025

== ENCOUNTER → 2025-04-12 08:34 | Outpatient (CLI) | payer MEDICARE, SELFPAY ==
[2022-07-03 12:44] VITALS: BMI 31.7
--- NOTE | 2025-04-12 08:35 | DI.MG.S_ITS ---
MM screening mammo BI: 04/12/2025. BI-RADS: 2 CLINICAL: 74-year old female for bilateral screening mammogram. Tyrer-Cuzick lifetime risk of 3.2%. No personal or first-degree family history of breast cancer. The patient had a prior left breast biopsy. The patient is status-post reduction mammoplasty. PRIOR EXAMS 03/22/2024, 09/11/2021, 05/14/2020, 04/29/2019, 02/08/2016. MAMMOGRAPHY TECHNIQUE: 2D and 3D (tomosynthesis) digital mammographic views obtained, with additional images as needed for full coverage. Current study was also evaluated with a Computer Aided Detection (CAD) system. DENSITY B. There are scattered areas of fibroglandular density. MAMMOGRAPHY FINDINGS Bilateral: There are no suspicious masses, calcifications, or other findings in the breast. No significant change from comparison. IMPRESSION: * No evidence of malignancy with benign findings. RECOMMENDATIONS Bilateral * Annual screening mammography. OVERALL ASSESSMENT CATEGORY BI-RADS-2: Benign. The [employer] recommends annual screening mammography beginning at age 40 for women with average risk of breast cancer. ELECTRONICALLY SIGNED: Annabel Loco M.D. on 04/12/2025 at 03:14:17 PM PT Interpreting Station ID: [id number]
== END ==
LOC: MAMMO 08:34
PROVIDERS: Family Provider Family Medicine; PCP Student in an Organized Health Care Education/Training Program; Referring Provider Student in an Organized Health Care Education/Training Program; Visit Provider Student in an Organized Health Care Education/Training Program
DX: Z12.31 Encounter for screening mammogram for malignant neoplasm of breast (principal)
CPT/HCPCS: 77063; 77067

== ENCOUNTER → 2025-06-06 07:52 | Outpatient (CLI) | payer MEDICARE, SELFPAY ==
[2025-05-19 10:15] VITALS: BMI 31.7
[2025-06-06 08:45] LABS: Hematocrit 38.0 % (36-46); Hemoglobin 13.0 g/dL (12.0-16.0); Mean Corpuscular HGB Conc 34.3 % (30-36); Mean Corpuscular Hemoglobin 30.4 PG (26-34); Mean Corpuscular Volume 88.6 fL (80-100); Platelet Count 285 X10^3/uL (150-400)
[2025-06-06 09:11] LABS: Alanine Aminotransferase 17 IU/L (<35); Albumin 4.0 g/dL (3.5-5.0); Albumin Globulin Ratio 1.5 (1.0-2.8); Alkaline Phosphatase 63 U/L (38-126); Blood Urea Nitrogen 16 mg/dL (7-17); Calcium 9.5 mg/dL (8.4-10.2); Carbon Dioxide 28 mmol/L (22-32); Chloride 104 mmol/L (98-107); Estimated Glomerular Filt Rate > 60 mL/min (>60); Globulin 2.7 g/dL (1.7-4.1); Glucose 98 mg/dL (70-99); HEMOLYSIS < 15 (0-50); Hemoglobin A1C% w Est Avg Glu 5.2 % (4.0-6.0); Potassium 4.4 mmol/L (3.4-5.1); Sodium 137 mmol/L (137-145); Total Protein 6.7 g/dL (6.3-8.2)
[2025-06-06 09:24] LABS: Free T3, Triiodothyronine Free 4.04 pg/mL (2.77-5.27); Free T4, Direct Thyroxine 1.31 ng/dL (0.78-2.19)
[2025-06-06 09:38] LABS: Thyroid Stimulating Hormone 1.56 uIU/mL (0.47-4.68)
== END ==
PROVIDERS: Family Provider Family Medicine; PCP Student in an Organized Health Care Education/Training Program; Referring Provider Student in an Organized Health Care Education/Training Program; Visit Provider Student in an Organized Health Care Education/Training Program
DX: E78.2 Mixed hyperlipidemia (principal); Z79.899 Other long term (current) drug therapy; E03.9 Hypothyroidism, unspecified; I10 Essential (primary) hypertension; R79.9 Abnormal finding of blood chemistry, unspecified
CPT/HCPCS: 36415; 80053; 83036; 84439; 84443; 84481; 85027

== ENCOUNTER 2025-06-15 11:51 | Emergency (ER) | payer MEDICARE, SELFPAY ==
[2025-05-19 10:15] VITALS: BMI 31.7
[2025-06-15 12:02] VITALS: BP 156/77; PULSE 96; RESP 18; TEMP 37; O2SAT 99; BMI 30.6
--- NOTE | 2025-06-15 12:04 | DI.RAD.S_ITS ---
PROCEDURE: XR WRIST RT MIN 3V INDICATIONS: fall TECHNIQUE: 3 views of the wrist were acquired. COMPARISON: [facility], CR, XR WRIST LT MIN 3V, 09/07/2020, 12:52. FINDINGS: Bones: Comminuted and displaced distal radial fracture with intra-articular extension. Ulnar styloid fracture. Soft tissues: No suspicious soft tissue calcifications. IMPRESSION: Comminuted and displaced distal radial fracture. Ulnar styloid fracture. Dictated by: Triston Dominguez M.D. on 06/15/2025 at 12:38 Approved by: Triston Dominguez M.D. on 06/15/2025 at 12:39
--- NOTE | 2025-06-15 15:27 | PC.NURSE ---
Pt reports she was walking down ramp when she got tripped up and fell. States she put her hands out to catch herself and hurt her wrist. Left wrist deformity. PMS intact---<2 cap refill, strong radial pulses palpated. Pt states she did not LOC, no hits to the head, no blood thinner. Pt reports some pain in right upper shoulder and right side of rib cage. No redness or skin abrasions noted. No bruising. Pt states she feels like she pulled a muscle. Pt reports no SOB or CP. Scabbed abrasions noted to right knee.
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
[2025-06-15] MEDS: IBUPROFEN 400 MG TABLET PO (17:25)
[2025-06-15] MEDS: ACETAMINOPHEN 325 MG TABLET 650 MG PO (17:25)
[2025-06-15 17:59] VITALS: BP 152/75; PULSE 88; O2SAT 100
--- NOTE | 2025-06-15 18:40 | DI.RAD.S_ITS ---
PROCEDURE: XR WRIST RT MIN 3V INDICATIONS: R wrist fx; after splint finger traps TECHNIQUE: 3 views of the wrist were acquired. COMPARISON: [facility], CR, XR WRIST RT MIN 3V, 06/15/2025, 12:04. FINDINGS: Bones: Cast material obscures fine bony detail. Mildly displaced fracture of the distal radius again seen without significant change in alignment. Unchanged ulnar styloid fracture. Soft tissues: No suspicious soft tissue calcifications. IMPRESSION: Comminuted mildly displaced distal radial fracture and minimally displaced ulnar styloid fracture again seen with unchanged alignment. Approved by: Kvng Cali M.D. on 06/15/2025 at 19:16
--- NOTE | 2025-06-15 19:04 | PC.NURSE ---
Arm in finger trap for little over 1 hour per PA instruction. Pt tolerated finger trap well. Pt splinted in sugar tong splint with 2 RN and PA. Pt reports her pain has improved/little to no pain
[2025-06-15 19:11] VITALS: RESP 17; TEMP 36.6
== END 2025-06-15 19:12 | disposition home or self-care (01) ==
PROVIDERS: Emergency Provider Physician Assistant; PCP Student in an Organized Health Care Education/Training Program
DX: S52.501A Unspecified fracture of the lower end of right radius, initial encounter for closed fracture (principal); S52.614A Nondisplaced fracture of right ulna styloid process, initial encounter for closed fracture; W01.0XXA Fall on same level from slipping, tripping and stumbling without subsequent striking against object, initial encounter
CPT/HCPCS: 73110; 99283

== ENCOUNTER 2025-08-16 10:00 | Outpatient (RCR) | payer MEDICARE, SELFPAY ==
[2025-05-19 10:15] VITALS: BMI 31.7
--- NOTE | 2025-07-28 18:15 | OT.OP.EVAL ---
Visit Care Team Role Provider Type Laura Ramirez MD Primary Care Provider Physician Specialty: Family Practice Obstetrics Address: [facility] [place], [address] Email: [email or web address] Дмитрий Snyder MD Attending Provider Physician Referring Provider Specialty: Orthopedic Surgery Address: [address] [place] [address], [id number] Email: [email or web address] Occupational Therapy Initial Evaluation OT Outpatient Adult Evaluation Start: 07/27/25 18:17 Freq: Status: Active Protocol: Document 07/28/25 13:00 (Rec: 07/27/25 18:23 [id number]) General Information - Adult Visit Number 1 24 Plan of Care Dates 07/28/25-10/19/25 Insurance no pre-auth EVAL only, CPT [id number] [place] [id number] only @ Information eval then PA Visit Start Date 07/28/25 Visit Start Time 13:00 Visit Stop Time 13:45 Treatment Setting Outpatient Care Note Type Initial Evaluation Referring Physician Dr. Дмитрий Snyder Reason for Referral closed fx of R distal radius Identification Yes Confirmed Identification EMR Confirmed By Patient Goals return to indep ADL/IADL performance Medical History ypertension, hypothyroidism, and osteoporosis Previous Therapy/ No Therapies Social History I am ready to get use out of this hand soon Patient Questionnaires Quick Dash UE Score 36.4 Quick Dash UE 20 to 39% Impaired (Score 20-39) Impairment Quick Dash W&S Score W: 75 Goals Objective Significant edema of R distal forearm/wrist/hand/ Measurements fingers, tire balancer/pinch testing deferred due to pain and significant swelling, will measure edema, tire balancer and pinch at next visit. Wrist Ext: R: 25 L: 85 Wrist Flex: R: 45 L: 80 Ulnar Deviation: R: 10 L: 35 Radial Deviation: R: 15 L: 20 Treatment Reviewed retrograde massage, edema management strategies, thermal modality benefits and use, and HEP for AROM of wrist and hand Short Term Goals Within 6 weeks: 1. Patient will demonstrate improved right wrist extension to at least 40? to support functional reach for grooming and light ADL tasks. 2. Patient will demonstrate reduction of wrist/hand edema by at least 1 cm at the wrist crease (to assess next treatment) to facilitate increased mobility and ease of functional grasp. 3. Patient will independently demonstrate and verbalize understanding of at least three edema management or joint protection strategies for daily carryover. 4. Patient will complete light ADL tasks such as simulation of cutting soft food or buttoning clothing with modified independence using the right hand. Halfway Goals Within 12 weeks: 1. Patient will achieve at least 60? right wrist extension and 65? flexion to support independence in cooking, grooming, and household tasks. 2. Patient will demonstrate right tire balancer strength within 75% (to assess next treatment) of the uninvolved side to support independence with container opening and gardening. 3. Patient will tolerate weight bearing through BUE with =/< 2 out of 10 pain in R wrist in preparation for return to weight bearing hobbies such as bicycling and gardneing. Patient will report decreased QuickDASH score by at least 15 points (36.4/W: 75 at eval), indicating improved functional use of the right upper extremity in daily activities. Assessment/Plan Patient Response Good Rehabilitation Good Potential Impairments ADLs,Coordination/Dexterity,Flexibility,Functional Identified Activities,Pain,Weakness,Range of Motion,Recreational Activities,Meaningful Activities,Stiffness,Soft Tissue Mobility Progress Towards Good Progress Goals Status Improving Treatment Assessment 74-year-old female with a history of hypertension, hypothyroidism, and osteoporosis who sustained a right intra-articular distal radius fracture on 06/15/25 following a fall on an outstretched hand. She underwent closed reduction and casting, later transitioning to a wrist orthosis. Imaging demonstrates osseous malalignment with volar subluxation and loss of radial height. She was previously independent with all ADLs, IADLs, and leisure pursuits, including gardening and bicycling. Since her injury she has experienced significant functional decline, with reliance on her son for daily tasks and reporting difficulty preparing meals, opening containers, and completing home management. At evaluation she demonstrates marked edema of the right distal forearm, wrist, and hand, with significant AROM deficits (Wrist extension 25? vs. 85? contralateral; flexion 45? vs. 80?; ulnar deviation 10? vs. 35?; radial deviation 15? vs. 20?). Training And Development Assistant and pinch testing were deferred secondary to pain and stiffness. QuickDASH score was 36.4 with Work Module score of 75, reflecting high functional impact. Patient reports minimal resting pain but significant stiffness and pain with movement. The patient presents well below her prior baseline and will benefit from skilled occupational therapy to address edema management, quaker of wrist and digit mobility, progressive strengthening of the right upper extremity, functional task retraining, compensatory and adaptive strategies for ADL/IADL independence, and joint protection education. Skilled OT intervention is medically necessary to maximize independence, reduce caregiver burden, and promote safe return to meaningful daily occupations. Home Exercise Wrist Flex/ext, wrist circles, radial/ulnar deviation, Program wrist supination/pronation, elbow flexion/ext, hook tire balancer, MCP flexion/extension, composite fist, thumb opposition, thumb flexion/ext, digit abduction/ adduction, retrograde massage Reviewed with Goals,Progress Being Made,Home Exercise Program Patient Patient Good Understanding Length of treatment 12 (weeks) Plan of Care Start 07/27/25 Date Plan of Care End 10/19/25 Date Comment 1-2x/week pending progress Treatment Frequency Twice a Week Treatment Duration 45 Minutes Therapeutic Contents Active Range of Motion,Client Education,Functional Activities,Home Exercise Program,Manual Therapy, Education,Neuromuscular Re-Education,Self-Care, Stretching/Flexibility Activities,Therapeutic Activities,Therapeutic Exercises,Modalities Modalities As Needed Types of Modalities Ice Massage,Other Additional Types of MHP, paraffin Modalities Patient Instruction Home Exercise Program,Plan of Care,Questions/Concerns Patient Continue with Current Program Recommendations
--- NOTE | 2025-07-28 18:19 | OT.OPPOC ---
Physical, Occupational & Speech Therapy At [facility] Amy Martinez [id number] 1950 Visit Care Team Role Provider Type Laura Ramirez MD Primary Care Provider Physician Address: [facility] [place], [address] Дмитрий Snyder MD Attending Provider Physician Referring Provider Address: [address] [place] [address], [id number] Occupational Therapy Plan of Care OT Outpatient Adult Evaluation Start: 07/27/25 18:17 Freq: Status: Active Protocol: Document 07/28/25 13:00 (Rec: 07/27/25 18:23 [id number]) General Information - Adult Visit Information Visit Number 1 of 24 Plan of Care Dates 07/28/25-10/19/25 Insurance no pre-auth EVAL only, CPT [id number] [place] [id number] only @ Information eval then PA Session Time Visit Start Date 07/28/25 Visit Start Time 13:00 Visit Stop Time 13:45 Setting Treatment Setting Outpatient Care Visit Type Note Type Initial Evaluation Referral Referring Physician Dr. Дмитрий Snyder Reason for Referral closed fx of R distal radius Identification Identification Yes Confirmed Identification EMR Confirmed By Patient Patient Goals return to indep ADL/IADL performance Medical Information Medical History ypertension, hypothyroidism, and osteoporosis Previous Therapy Previous Therapy/ No Therapies Social Information Social History I am ready to get use out of this hand soon Patient Questionnaires Quick Dash- Upper Extremity Quick Dash UE Score 36.4 Quick Dash UE 20 to 39% Impaired (Score 20-39) Impairment Quick Dash- Work and Sports Modules Quick Dash W&S Score W: 75 Goals Objective Measurements Objective Significant edema of R distal forearm/wrist/hand/ Measurements fingers, middleware engineer/pinch testing deferred due to pain and significant swelling, will measure edema, middleware engineer and pinch at next visit. Wrist Ext: R: 25 L: 85 Wrist Flex: R: 45 L: 80 Ulnar Deviation: R: 10 L: 35 Radial Deviation: R: 15 L: 20 Treatment Treatment Reviewed retrograde massage, edema management strategies, thermal modality benefits and use, and HEP for AROM of wrist and hand Short Term Goals Short Term Goals Within 6 weeks: 1. Patient will demonstrate improved right wrist extension to at least 40? to support functional reach for grooming and light ADL tasks. 2. Patient will demonstrate reduction of wrist/hand edema by at least 1 cm at the wrist crease (to assess next treatment) to facilitate increased mobility and ease of functional grasp. 3. Patient will independently demonstrate and verbalize understanding of at least three edema management or joint protection strategies for daily carryover. 4. Patient will complete light ADL tasks such as simulation of cutting soft food or buttoning clothing with modified independence using the right hand. Litigation Manager Goals Mcc Goals Within 12 weeks: 1. Patient will achieve at least 60? right wrist extension and 65? flexion to support independence in cooking, grooming, and household tasks. 2. Patient will demonstrate right middleware engineer strength within 75% (to assess next treatment) of the uninvolved side to support independence with container opening and gardening. 3. Patient will tolerate weight bearing through BUE with =/< 2 out of 10 pain in R wrist in preparation for return to weight bearing hobbies such as bicycling and gardneing. Patient will report decreased QuickDASH score by at least 15 points (36.4/W: 75 at eval), indicating improved functional use of the right upper extremity in daily activities. Assessment/Plan Assessment Patient Response Good Rehabilitation Good Potential Impairments ADLs,Coordination/Dexterity,Flexibility,Functional Identified Activities,Pain,Weakness,Range of Motion,Recreational Activities,Meaningful Activities,Stiffness,Soft Tissue Mobility Progress Towards Good Progress Goals Status Improving Treatment Assessment 74-year-old female with a history of hypertension, hypothyroidism, and osteoporosis who sustained a right intra-articular distal radius fracture on 06/15/25 following a fall on an outstretched hand. She underwent closed reduction and casting, later transitioning to a wrist orthosis. Imaging demonstrates osseous malalignment with volar subluxation and loss of radial height. She was previously independent with all ADLs, IADLs, and leisure pursuits, including gardening and bicycling. Since her injury she has experienced significant functional decline, with reliance on her son for daily tasks and reporting difficulty preparing meals, opening containers, and completing home management. At evaluation she demonstrates marked edema of the right distal forearm, wrist, and hand, with significant AROM deficits (Wrist extension 25? vs. 85? contralateral; flexion 45? vs. 80?; ulnar deviation 10? vs. 35?; radial deviation 15? vs. 20?). Mammography Technician and pinch testing were deferred secondary to pain and stiffness. QuickDASH score was 36.4 with Work Module score of 75, reflecting high functional impact. Patient reports minimal resting pain but significant stiffness and pain with movement. The patient presents well below her prior baseline and will benefit from skilled occupational therapy to address edema management, jew of wrist and digit mobility, progressive strengthening of the right upper extremity, functional task retraining, compensatory and adaptive strategies for ADL/IADL independence, and joint protection education. Skilled OT intervention is medically necessary to maximize independence, reduce caregiver burden, and promote safe return to meaningful daily occupations. Home Exercise Wrist Flex/ext, wrist circles, radial/ulnar deviation, Program wrist supination/pronation, elbow flexion/ext, hook middleware engineer, MCP flexion/extension, composite fist, thumb opposition, thumb flexion/ext, digit abduction/ adduction, retrograde massage Reviewed with Goals,Progress Being Made,Home Exercise Program Patient Patient Good Understanding Plan Length of treatment 12 (weeks) Plan of Care Start 07/27/25 Date Plan of Care End 10/19/25 Date Comment 1-2x/week pending progress Treatment Frequency Twice a Week Treatment Duration 45 Minutes Therapeutic Contents Active Range of Motion,Client Education,Functional Activities,Home Exercise Program,Manual Therapy, Education,Neuromuscular Re-Education,Self-Care, Stretching/Flexibility Activities,Therapeutic Activities,Therapeutic Exercises,Modalities Modalities As Needed Types of Modalities Ice Massage,Other Additional Types of MHP, paraffin Modalities Patient Instruction Home Exercise Program,Plan of Care,Questions/Concerns Patient Continue with Current Program Recommendations Electronically Signed by: Uyen Pierce OT 07/28/25 0595 If you are in agreement with this Plan of Care, please return a signed and dated copy. I have reviewed this Plan of Care and certify that the skilled therapy services above are required to meet the patient?s needs. Physician Signature Date Printed Name and Credentials Clinical Instructor Signature Printed Name and Credentials
--- NOTE | 2025-08-02 10:46 | OT.OP.TRT ---
Visit Care Team Role Provider Type Laura Ramirez MD Primary Care Provider Physician Specialty: Family Practice Obstetrics Address: [facility] [place], [address] Email: [email or web address] Дмитрий Snyder MD Attending Provider Physician Referring Provider Specialty: Orthopedic Surgery Address: [address] [place] [address], [address] Email: [email or web address] Occupational Therapy Treatment Note OT Outpatient Treatment Note - Adult Start: 07/27/25 18:17 Freq: Status: Active Protocol: Document 08/02/25 09:45 (Rec: 08/02/25 09:08 [id number]) OT Outpatient Adult Treatment Note Session Time Visit Start Date 08/02/25 Visit Start Time 09:45 Visit Stop Time 10:30 Visit Information Visit Number 1 of 24 Plan of Care Dates 07/28/25-10/19/25 Insurance submitted, pending [id number]; provisional x6 visits Information approved during review Setting Treatment Setting Outpatient Care Visit Type Note Type Treatment Note - Subjective Identification Type Name Identification Medical Record Reconciled With Observations I've been doing my exercises but the swelling isn't budging Patient/Caregiver Good Compliance with Home Exercise Program - Objective Objective R Media Marketing Manager: 10lb/13lb/14lb- Avg 12.3lb Measurements R 3 jaw suki pinch: 11/09/11lb - Avg 11.3lb R Lateral pinch: 4/4.5/5 - Avg 4.5lb L Media Marketing Manager: 43lb/40lb/33lb - Avg 38.7lb L 3 jaw suki pinch: /4/4lb - Avg 4lb L Lateral pinch: 08/10/11 lb - Avg 10.3lb Short Term Goals Within 6 weeks: 1. Patient will demonstrate improved right wrist extension to at least 40? to support functional reach for grooming and light ADL tasks. 2. Patient will demonstrate reduction of wrist/hand edema by at least 1 cm at the wrist crease (to assess next treatment) to facilitate increased mobility and ease of functional grasp. 3. Patient will independently demonstrate and verbalize understanding of at least three edema management or joint protection strategies for daily carryover. 4. Patient will complete light ADL tasks such as simulation of cutting soft food or buttoning clothing with modified independence using the right hand. Co Founder And Cto Goals Within 12 weeks: 1. Patient will achieve at least 60? right wrist extension and 65? flexion to support independence in cooking, grooming, and household tasks. 2. Patient will demonstrate right fourdrinier wire weaver strength within 75% (to assess next treatment) of the uninvolved side to support independence with container opening and gardening. 3. Patient will tolerate weight bearing through BUE with =/< 2 out of 10 pain in R wrist in preparation for return to weight bearing hobbies such as bicycling and gardneing. Patient will report decreased QuickDASH score by at least 15 points (36.4/W: 75 at eval), indicating improved functional use of the right upper extremity in daily activities. - Treatment 1 Descriptor Today?s session focused on objective fourdrinier wire weaver and pinch strength testing in conjunction with education and intervention for edema management. Measurements as above. While testing, patient was simultaneously instructed on edema reduction techniques including retrograde massage, use of a compression sleeve/glove as appropriate, and elevation strategies, though notable improvement in overall edema today compared to eval. No pain noted during strength testing except last lateral pinch trial on R hand with a 1-2 pain rating. Tendon glides and wrist/hand AROM exercises were reviewed, with patient reporting good compliance and demonstrating accurate technique. Education was provided on the purpose, application, and skin care management of kinesiotape. A lymphatic drainage taping pattern was applied to the dorsal and volar hand extending midway up the forearm for improved edema control. Patient verbalized understanding and carryover of all instruction. - Assessment Patient Response to Good Treatment Rehabilitation Good Potential Impairments ADLs,Body Mechanics,Coordination/Dexterity,Flexibility, Identified Functional Activities,Pain,Weakness,Range of Motion, Recreational Activities,Meaningful Activities,Stiffness ,Swelling,Soft Tissue Mobility Progress Towards Good Progress Goals Assessment of Improving Overall Progress Assessment of Patient continues to demonstrate significant right Improvement upper extremity impairment characterized by marked weakness, stiffness, and edema following her intra- articular distal radius fracture. Media Marketing Manager strength on the right is reduced to approximately 32% of the contralateral side, and lateral pinch strength is less than 50% of the uninvolved hand, reflecting functional limitations for ADL/IADL tasks requiring grasp and manipulation. Despite these deficits, the patient reports good compliance with home AROM and tendon glide exercises and demonstrates motivation to regain independence. Education on edema management, compression, and kinesiotaping was well received, and she demonstrated good understanding of carryover strategies. Patient will continue to benefit from skilled occupational therapy to address ongoing deficits in mobility, strength, edema management, and functional task retraining in order to restore independence in ADLs, IADLs, and leisure occupations. Home Exercise Tendon glides, AROM of hand/fingers/wrist Program -
--- NOTE | 2025-08-08 15:43 | OT.OP.TRT ---
Visit Care Team Role Provider Type Laura Ramirez MD Primary Care Provider Physician Specialty: Family Practice Obstetrics Address: [facility] [place], [address] Email: [email or web address] Дмитрий Snyder MD Attending Provider Physician Referring Provider Specialty: Orthopedic Surgery Address: [address] [place] [address], [id number] Email: [email or web address] Occupational Therapy Treatment Note OT Outpatient Treatment Note - Adult Start: 07/27/25 18:17 Freq: Status: Active Protocol: Document 08/08/25 13:00 (Rec: 08/08/25 10:09 [id number]) OT Outpatient Adult Treatment Note Session Time Visit Start Date 08/08/25 Visit Start Time 13:00 Visit Stop Time 13:45 Visit Information Visit Number 2 of 24 Plan of Care Dates 07/28/25-10/19/25 Insurance submitted, pending [id number]; provisional x6 visits Information approved during review Setting Treatment Setting Outpatient Care Visit Type Note Type Treatment Note - Subjective Identification Type Name Identification Medical Record Reconciled With Observations The swelling is definitely improving but I am noticing this big knot on my right that isn't there on my left? Patient/Caregiver Good Compliance with Home Exercise Program - Objective Short Term Goals Within 6 weeks: 1. Patient will demonstrate improved right wrist extension to at least 40? to support functional reach for grooming and light ADL tasks. 2. Patient will demonstrate reduction of wrist/hand edema by at least 1 cm at the wrist crease (to assess next treatment) to facilitate increased mobility and ease of functional grasp. 3. Patient will independently demonstrate and verbalize understanding of at least three edema management or joint protection strategies for daily carryover. 4. Patient will complete light ADL tasks such as simulation of cutting soft food or buttoning clothing with modified independence using the right hand. Assisted Goals Within 12 weeks: 1. Patient will achieve at least 60? right wrist extension and 65? flexion to support independence in cooking, grooming, and household tasks. 2. Patient will demonstrate right customer success intern strength within 75% (to assess next treatment) of the uninvolved side to support independence with container opening and gardening. 3. Patient will tolerate weight bearing through BUE with =/< 2 out of 10 pain in R wrist in preparation for return to weight bearing hobbies such as bicycling and gardneing. Patient will report decreased QuickDASH score by at least 15 points (36.4/W: 75 at eval), indicating improved functional use of the right upper extremity in daily activities. - Treatment 1 Descriptor Gentle retrograde massage was completed to the right hand and forearm, progressing proximally to the elbow to address residual extrinsic swelling. A light coban wrap was applied from the hand to the mid-forearm with very gentle compression for continued fluid management during HEP completion. Patient was educated on proper wear, monitoring for circulation/skin integrity, and transition to a compression sleeve once appropriate. She verbalized understanding and tolerance was good throughout. Patient demonstrated visible reduction in hand and wrist edema following intervention. Education was provided regarding the mechanical limitations of her fracture as seen on imaging, with discussion that bony displacement may restrict end range motion despite good effort and compliance. Patient verbalized understanding. Verbal Cues Mod Cues Tolerance Excellent Exercises 1 Descriptor 1x10 of each: wrist flex/ext radial/ulnar deviation wrist circles forearm pronation/supination thumb opposition digit abduction/adduction Patient required minimal verbal cues for pacing and control, demonstrating tendency toward quick movements. She verbalized understanding of the need for slow, controlled motion and demonstrated good return demo of all exercises. Side Right Visual Cues Min Cues Verbal Cues Min Cues Tolerance Good - Assessment Patient Response to Good Treatment Rehabilitation Good Potential Impairments ADLs,Body Mechanics,Coordination/Dexterity,Flexibility, Identified Functional Activities,Pain,Weakness,Range of Motion, Recreational Activities,Meaningful Activities,Stiffness ,Swelling,Soft Tissue Mobility Progress Towards Good Progress Goals Assessment of Improving Overall Progress Assessment of Patient presents with ongoing deficits following intra- Improvement articular distal radius fracture complicated by volar subluxation and loss of radial height. Swelling has improved since initial evaluation, though mild extrinsic edema persists. She tolerated retrograde massage and light coban compression with observable reduction in swelling and demonstrated good participation in AROM and functional motion exercises with minimal cues for pacing. Patient continues to demonstrate restricted wrist ROM with pulling noted at end ranges, consistent with structural malalignment. Education on joint protection, compression options, and realistic recovery expectations was well received. She remains motivated and demonstrates good carryover of HEP. Patient will continue to benefit from skilled OT to address edema, controlled mobility, gradual strengthening, and compensatory strategies to maximize independence in ADLs and IADLs. Home Exercise wrist flex/ext Program radial/ulnar deviation wrist circles forearm pronation/supination thumb opposition digit abduction/adduction Reviewed with Goals,Progress Being Made,Home Exercise Program Patient/Caregiver Patient/Caregiver Good Understanding - Plan Therapy Continue with Current Program Recommendations Amount of Therapy 2-3 Months Recommended Comment 1-2 times as needed Frequency of Twice a Week Treatment Length of Session 45 Minutes Therapeutic Contents Active Range of Motion,Adaptive Equipment Education, Client Education,Functional Activities,Home Exercise Program,Joint Protection,Manual Therapy,Education, Neuromuscular Re-Education,Self-Care,Stretching/ Flexibility Activities,Therapeutic Activities, Therapeutic Exercises,Modalities Modalities As Needed Types of Modalities Ice Massage,Other Additional Types of MHP, paraffin Modalities
--- NOTE | 2025-08-11 12:59 | OT.OP.TRT ---
Visit Care Team Role Provider Type Laura Ramirez MD Primary Care Provider Physician Specialty: Family Practice Obstetrics Address: [facility] [place], [address] Email: [email or web address] Дмитрий Snyder MD Attending Provider Physician Referring Provider Specialty: Orthopedic Surgery Address: [address] [place] [address], [address] Email: [email or web address] Occupational Therapy Treatment Note OT Outpatient Treatment Note - Adult Start: 07/27/25 18:17 Freq: Status: Active Protocol: Document 08/11/25 11:30 (Rec: 08/10/25 16:08 [id number]) OT Outpatient Adult Treatment Note Session Time Visit Start Date 08/11/25 Visit Start Time 11:30 Visit Stop Time 12:15 Visit Information Visit Number 3 of 24 Plan of Care Dates 07/28/25-10/19/25 Insurance submitted, pending [id number]; provisional x6 visits Information approved during review Setting Treatment Setting Outpatient Care Visit Type Note Type Treatment Note - Subjective Identification Type Name Identification Medical Record Reconciled With Observations I can finally put my hair up with this hand so that's been a huge help! Patient/Caregiver Good Compliance with Home Exercise Program - Objective Short Term Goals Within 6 weeks: 1. Patient will demonstrate improved right wrist extension to at least 40? to support functional reach for grooming and light ADL tasks. 2. Patient will demonstrate reduction of wrist/hand edema by at least 1 cm at the wrist crease (to assess next treatment) to facilitate increased mobility and ease of functional grasp. 3. Patient will independently demonstrate and verbalize understanding of at least three edema management or joint protection strategies for daily carryover. 4. Patient will complete light ADL tasks such as simulation of cutting soft food or buttoning clothing with modified independence using the right hand. Steam Station Supervisor Goals Within 12 weeks: 1. Patient will achieve at least 60? right wrist extension and 65? flexion to support independence in cooking, grooming, and household tasks. 2. Patient will demonstrate right corduroy brusher operator strength within 75% (to assess next treatment) of the uninvolved side to support independence with container opening and gardening. 3. Patient will tolerate weight bearing through BUE with =/< 2 out of 10 pain in R wrist in preparation for return to weight bearing hobbies such as bicycling and gardneing. Patient will report decreased QuickDASH score by at least 15 points (36.4/W: 75 at eval), indicating improved functional use of the right upper extremity in daily activities. - Exercises 1 Descriptor Session focused on progression of AROM and initiation of light strengthening for the right upper extremity. Patient completed facilitated wrist and hand AROM with emphasis on slow, controlled motion. Incorporated place -and-hold exercises in flexion, extension, and supination, holding at end range for 3?5 seconds before returning to neutral. Introduced gentle strengthening with yellow theraputty for light corduroy brusher operator, rolling, and three-jaw suki pinch, with good tolerance and no pain reported. Completed clothespin tasks for lateral pinch (1?2 sets of 10) with excellent return demonstration. Patient shared that she regularly uses chip clips and hair clips at home and will intentionally practice these tasks with the right hand to promote functional carryover, noting she has already found it easier to put her hair up with a clip or tie. Education was provided regarding exercise intensity, pacing, and the importance of avoiding overuse or aggressive resistance . Compression sleeve and brace wear were reviewed, with discussion of localized wrist irritation; patient was advised to trial short wear periods with gradual increase as tolerated. She verbalized excellent understanding of all instruction. - Assessment Patient Response to Good Treatment Rehabilitation Good Potential Impairments ADLs,Body Mechanics,Coordination/Dexterity,Flexibility, Identified Functional Activities,Pain,Weakness,Range of Motion, Recreational Activities,Meaningful Activities,Stiffness ,Swelling,Soft Tissue Mobility Progress Towards Good Progress Goals Assessment of Improving Overall Progress Assessment of The patient demonstrates gradual improvement in wrist/ Improvement hand mobility, coordination, and functional task performance following her intra-articular distal radius fracture with malalignment. She tolerated progression to light resistive activity without pain and shows emerging independence in daily tasks requiring corduroy brusher operator and pinch. Edema continues to reduce in the hand, wrist, and forearm, though mild swelling persists. She remains motivated, demonstrates strong carryover of education, and is beginning to reintegrate her right hand into meaningful activities such as hair management and container opening. Ongoing deficits include limited wrist ROM, reduced corduroy brusher operator/pinch strength compared to the contralateral side, and residual edema. Patient will continue to benefit from skilled OT to address mobility , strengthening, and functional retraining to maximize independence in ADLs, IADLs, and leisure activities. Home Exercise wrist flex/ext Program radial/ulnar deviation wrist circles forearm pronation/supination thumb opposition progressed to very gentle squeezing/pinching with yellow theraputty digit abduction/adduction Reviewed with Goals,Progress Being Made,Home Exercise Program Patient/Caregiver Patient/Caregiver Good Understanding - Plan Therapy Continue with Current Program Recommendations Amount of Therapy 2-3 Months Recommended Comment 1-2 times as needed Frequency of Twice a Week Treatment Length of Session 45 Minutes Therapeutic Contents Active Range of Motion,Adaptive Equipment Education, Client Education,Functional Activities,Home Exercise Program,Joint Protection,Manual Therapy,Education, Neuromuscular Re-Education,Self-Care,Stretching/ Flexibility Activities,Therapeutic Activities, Therapeutic Exercises,Modalities Modalities As Needed Types of Modalities Ice Massage,Other Additional Types of MHP, paraffin Modalities
--- NOTE | 2025-08-16 12:10 | OT.OP.TRT ---
Visit Care Team Role Provider Type Laura Ramirez MD Primary Care Provider Physician Specialty: Family Practice Obstetrics Address: [facility] [place], [address] Email: [email or web address] Дмитрий Snyder MD Attending Provider Physician Referring Provider Specialty: Orthopedic Surgery Address: [address] [place] [address], [address] Email: [email or web address] Occupational Therapy Treatment Note OT Outpatient Treatment Note - Adult Start: 07/27/25 18:17 Freq: Status: Active Protocol: Document 08/16/25 10:02 ADELA (Rec: 08/16/25 08:59 [id number]) OT Outpatient Adult Treatment Note Session Time Visit Start Date 08/16/25 Visit Start Time 10:02 Visit Stop Time 10:46 Visit Information Visit Number 4 of 24 Plan of Care Dates 07/28/25-10/19/25 Insurance submitted, pending [id number]; provisional x6 visits Information approved during review Setting Treatment Setting Outpatient Care Visit Type Note Type Treatment Note - Subjective Identification Type Name Identification Medical Record Reconciled With Observations ?I am using my hand more, but I kind of leave this ( splint) off more during the day.? Per pt, told her to wear the splint at night and to not lift more than a coffee cup. ?It?s frustrating because there are certain things I can?t do, like getting a lid off.? Pt reports she is most frustrated by her swelling. Pt wears her compression glove in the evening when she goes to bed. Chief Complaint(s) Restricts Patient/Caregiver Good Compliance with Home Exercise Program - Objective Short Term Goals Within 6 weeks: 1. Patient will demonstrate improved right wrist extension to at least 40? to support functional reach for grooming and light ADL tasks. 2. Patient will demonstrate reduction of wrist/hand edema by at least 1 cm at the wrist crease (to assess next treatment) to facilitate increased mobility and ease of functional grasp. 3. Patient will independently demonstrate and verbalize understanding of at least three edema management or joint protection strategies for daily carryover. 4. Patient will complete light ADL tasks such as simulation of cutting soft food or buttoning clothing with modified independence using the right hand. Nursing Home Goals Within 12 weeks: 1. Patient will achieve at least 60? right wrist extension and 65? flexion to support independence in cooking, grooming, and household tasks. 2. Patient will demonstrate right city detective strength within 75% (to assess next treatment) of the uninvolved side to support independence with container opening and gardening. 3. Patient will tolerate weight bearing through BUE with =/< 2 out of 10 pain in R wrist in preparation for return to weight bearing hobbies such as bicycling and gardneing. Patient will report decreased QuickDASH score by at least 15 points (36.4/W: 75 at eval), indicating improved functional use of the right upper extremity in daily activities. - Treatment 2 Descriptor Proprioception: -wiffle ball with two marbles CW and CCW wrist circles x30 sec each -silk scar toss and catch x15 Visual Cues Min Cues Verbal Cues Min Cues Tolerance Fair Exercises 3 Descriptor Coordination/Dexterity/Strength: -graded clothespins on perpendicular bars yellow (3) and red (5) x2 2 Descriptor Strengthening 0.5# x10 each: -wrist flex -wrist ext -RD/UD -forearm pronation/supination -red digi flex (3#) x 60sec Visual Cues Min Cues Verbal Cues Min Cues Tolerance Good 1 Descriptor AROM: 1x10 of each: wrist flex/ext radial/ulnar deviation Visual Cues None Verbal Cues None Tolerance Good Manual Therapy Manual Therapy retrograde massage to R digits, palm, and forearm - Assessment Patient Response to Good Treatment Rehabilitation Good Potential Impairments ADLs,Body Mechanics,Coordination/Dexterity,Flexibility, Identified Functional Activities,Pain,Weakness,Range of Motion, Recreational Activities,Meaningful Activities,Stiffness ,Swelling,Soft Tissue Mobility Progress Towards Good Progress Goals Assessment of Improving Overall Progress Assessment of The patient demonstrates good pacing with AROM Improvement exercises and and fluid movements within available ROM. Pt reports that she has a coffee cup weight restriction. OT initiated gentle strengthening with 0. 5# weight. Pt performed these exercises with significant compensation until OT had her use her L UE to stabilize at the forearm, preventing forearm compensation. Pt tolerated progression light resistive activity with graded clothespins today without any increased symptoms. Edema continues to be persistent and a concern of the patients. OT suggested that patient increase wearing her compression glove to throughout the day, as long as she isn't concerned about it getting soiled or wet to further aid in edema mgmt. Pt verbalized understanding. Ongoing deficits include limited wrist ROM, reduced city detective/pinch strength compared to the contralateral side, and residual edema. Patient will continue to benefit from skilled OT to address mobility, strengthening, and functional retraining to maximize independence in ADLs, IADLs, and leisure activities. Cont per POC. Home Exercise wrist flex/ext Program radial/ulnar deviation wrist circles forearm pronation/supination thumb opposition progressed to very gentle squeezing/pinching with yellow theraputty digit abduction/adduction Reviewed with Goals,Progress Being Made,Home Exercise Program Patient/Caregiver Patient/Caregiver Good Understanding - Plan Therapy Continue with Current Program Recommendations Amount of Therapy 2-3 Months Recommended Comment 1-2 times as needed Frequency of Twice a Week Treatment Length of Session 45 Minutes Therapeutic Contents Active Range of Motion,Adaptive Equipment Education, Client Education,Functional Activities,Home Exercise Program,Joint Protection,Manual Therapy,Education, Neuromuscular Re-Education,Self-Care,Stretching/ Flexibility Activities,Therapeutic Activities, Therapeutic Exercises,Modalities Modalities As Needed Types of Modalities Ice Massage,Other Additional Types of MHP, paraffin Modalities
--- NOTE | 2025-09-07 10:48 | OT.OP.DC ---
Visit Care Team Role Provider Type Laura Ramirez MD Primary Care Provider Physician Address: [address] [place] [address], [id number] Email: [email or web address] Дмитрий Snyder MD Attending Provider Physician Referring Provider Address: [address] [place] [address], [id number] Email: [email or web address] OT Outpatient OT Outpatient Adult Evaluation Start: 07/27/25 18:17 Freq: Status: Active Protocol: Document 07/28/25 13:00 (Rec: 07/27/25 18:23 [id number]) General Information - Adult Visit Information Visit Number 1 of 24 Plan of Care Dates 07/28/25-10/19/25 Insurance no pre-auth EVAL only, CPT [id number] [place] [id number] only @ Information eval then PA Session Time Visit Start Date 07/28/25 Visit Start Time 13:00 Visit Stop Time 13:45 Setting Treatment Setting Outpatient Care Visit Type Note Type Initial Evaluation Referral Referring Physician Dr. Дмитрий Snyder Reason for Referral closed fx of R distal radius Identification Identification Yes Confirmed Identification EMR Confirmed By Patient Patient Goals return to indep ADL/IADL performance Medical Information Medical History ypertension, hypothyroidism, and osteoporosis Previous Therapy Previous Therapy/ No Therapies Social Information Social History I am ready to get use out of this hand soon Patient Questionnaires Quick Dash- Upper Extremity Quick Dash UE Score 36.4 Quick Dash UE 20 to 39% Impaired (Score 20-39) Impairment Quick Dash- Work and Sports Modules Quick Dash W&S Score W: 75 Goals Objective Measurements Objective Significant edema of R distal forearm/wrist/hand/ Measurements fingers, locksmith/pinch testing deferred due to pain and significant swelling, will measure edema, locksmith and pinch at next visit. Wrist Ext: R: 25 L: 85 Wrist Flex: R: 45 L: 80 Ulnar Deviation: R: 10 L: 35 Radial Deviation: R: 15 L: 20 Treatment Treatment Reviewed retrograde massage, edema management strategies, thermal modality benefits and use, and HEP for AROM of wrist and hand Short Term Goals Short Term Goals Within 6 weeks: 1. Patient will demonstrate improved right wrist extension to at least 40? to support functional reach for grooming and light ADL tasks. 2. Patient will demonstrate reduction of wrist/hand edema by at least 1 cm at the wrist crease (to assess next treatment) to facilitate increased mobility and ease of functional grasp. 3. Patient will independently demonstrate and verbalize understanding of at least three edema management or joint protection strategies for daily carryover. 4. Patient will complete light ADL tasks such as simulation of cutting soft food or buttoning clothing with modified independence using the right hand. Component Inspector Goals Component Inspector Goals Within 12 weeks: 1. Patient will achieve at least 60? right wrist extension and 65? flexion to support independence in cooking, grooming, and household tasks. 2. Patient will demonstrate right locksmith strength within 75% (to assess next treatment) of the uninvolved side to support independence with container opening and gardening. 3. Patient will tolerate weight bearing through BUE with =/< 2 out of 10 pain in R wrist in preparation for return to weight bearing hobbies such as bicycling and gardneing. Patient will report decreased QuickDASH score by at least 15 points (36.4/W: 75 at eval), indicating improved functional use of the right upper extremity in daily activities. Assessment/Plan Assessment Patient Response Good Rehabilitation Good Potential Impairments ADLs,Coordination/Dexterity,Flexibility,Functional Identified Activities,Pain,Weakness,Range of Motion,Recreational Activities,Meaningful Activities,Stiffness,Soft Tissue Mobility Progress Towards Good Progress Goals Status Improving Treatment Assessment 74-year-old female with a history of hypertension, hypothyroidism, and osteoporosis who sustained a right intra-articular distal radius fracture on 06/15/25 following a fall on an outstretched hand. She underwent closed reduction and casting, later transitioning to a wrist orthosis. Imaging demonstrates osseous malalignment with volar subluxation and loss of radial height. She was previously independent with all ADLs, IADLs, and leisure pursuits, including gardening and bicycling. Since her injury she has experienced significant functional decline, with reliance on her son for daily tasks and reporting difficulty preparing meals, opening containers, and completing home management. At evaluation she demonstrates marked edema of the right distal forearm, wrist, and hand, with significant AROM deficits (Wrist extension 25? vs. 85? contralateral; flexion 45? vs. 80?; ulnar deviation 10? vs. 35?; radial deviation 15? vs. 20?). Pulverizer Operator and pinch testing were deferred secondary to pain and stiffness. QuickDASH score was 36.4 with Work Module score of 75, reflecting high functional impact. Patient reports minimal resting pain but significant stiffness and pain with movement. The patient presents well below her prior baseline and will benefit from skilled occupational therapy to address edema management, protestant of wrist and digit mobility, progressive strengthening of the right upper extremity, functional task retraining, compensatory and adaptive strategies for ADL/IADL independence, and joint protection education. Skilled OT intervention is medically necessary to maximize independence, reduce caregiver burden, and promote safe return to meaningful daily occupations. Home Exercise Wrist Flex/ext, wrist circles, radial/ulnar deviation, Program wrist supination/pronation, elbow flexion/ext, hook locksmith, MCP flexion/extension, composite fist, thumb opposition, thumb flexion/ext, digit abduction/ adduction, retrograde massage Reviewed with Goals,Progress Being Made,Home Exercise Program Patient Patient Good Understanding Plan Length of treatment 12 (weeks) Plan of Care Start 07/27/25 Date Plan of Care End 10/19/25 Date Comment 1-2x/week pending progress Treatment Frequency Twice a Week Treatment Duration 45 Minutes Therapeutic Contents Active Range of Motion,Client Education,Functional Activities,Home Exercise Program,Manual Therapy, Education,Neuromuscular Re-Education,Self-Care, Stretching/Flexibility Activities,Therapeutic Activities,Therapeutic Exercises,Modalities Modalities As Needed Types of Modalities Ice Massage,Other Additional Types of MHP, paraffin Modalities Patient Instruction Home Exercise Program,Plan of Care,Questions/Concerns Patient Continue with Current Program Recommendations Functional Wrist/Hand Scan Hand Side Sensory Assessment Sensory Profile2 OT Outpatient Treatment Note - Adult Start: 07/27/25 18:17 Freq: Status: Active Protocol: Document 09/07/25 10:35 (Rec: 09/07/25 10:47 [id number]) OT Outpatient Adult Treatment Note Visit Information Plan of Care Dates 07/28/25-10/19/25 Insurance submitted, pending [id number]; provisional x6 visits Information approved during review Setting Treatment Setting Outpatient Care Visit Type Note Type Discharge Summary General Information General Information Per schedulers and pt chart, 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 Will discharge at this time due to change in status and re- evaluate if new referral is received. - - Objective Short Term Goals Within 6 weeks: 1. Patient will demonstrate improved right wrist extension to at least 40? to support functional reach for grooming and light ADL tasks. [NOT MET 09/07/25] 2. Patient will demonstrate reduction of wrist/hand edema by at least 1 cm at the wrist crease (to assess next treatment) to facilitate increased mobility and ease of functional grasp. [NOT MET 09/07/25] 3. Patient will independently demonstrate and verbalize understanding of at least three edema management or joint protection strategies for daily carryover. [ PARTIALLY MET 08/16/25] 4. Patient will complete light ADL tasks such as simulation of cutting soft food or buttoning clothing with modified independence using the right hand. [NOT MET 09/07/25] Jail Goals Within 12 weeks: 1. Patient will achieve at least 60? right wrist extension and 65? flexion to support independence in cooking, grooming, and household tasks. [NOT MET ] 2. Patient will demonstrate right locksmith strength within 75% (to assess next treatment) of the uninvolved side to support independence with container opening and gardening. [NOT MET 09/07/25] 3. Patient will tolerate weight bearing through BUE with =/< 2 out of 10 pain in R wrist in preparation for return to weight bearing hobbies such as bicycling and gardneing. [NOT MET 09/07/25] Patient will report decreased QuickDASH score by at least 15 points (36.4/W: 75 at eval), indicating improved functional use of the right upper extremity in daily activities.[NOT MET 09/07/25] - - Assessment Patient Response to Good Treatment Rehabilitation Fair Potential Impairments ADLs,Body Mechanics,Coordination/Dexterity,Flexibility, Identified Functional Activities,Pain,Weakness,Range of Motion, Recreational Activities,Meaningful Activities,Stiffness ,Swelling,Soft Tissue Mobility Progress Towards Good Progress Goals Assessment of Improving Overall Progress Assessment of The patient is a 74-year-old female with a history of Improvement hypertension, hypothyroidism, and osteoporosis who sustained a right intra-articular distal radius fracture on 06/15/25 after a fall on an outstretched hand. She was managed conservatively with closed reduction and casting but subsequently demonstrated osseous malalignment with volar subluxation and significant radial deformity, resulting in persistent functional limitation and pain with movement. She was referred to occupational therapy for post-fracture rehabilitation and attended four visits. During her brief course of therapy, the patient demonstrated positive response to edema management interventions including retrograde massage, compression , and active motion, with visible reduction in swelling and improved soft tissue mobility. She demonstrated good understanding and carryover of her home program and education regarding edema control, joint protection , and safe activity modification. Despite this progress , functional improvement was limited due to the structural malalignment and shortened episode of care. Per updated medical record and communication with schedulers, the patient sought a second orthopedic opinion regarding her malunion and has elected to proceed with corrective osteotomy to address the significant radial deformity. She will request a new referral once cleared for therapy postoperatively. At discharge, the following goals were reviewed: Short-term and long-term goals were not met due to brevity of intervention and bony limitations impacting recovery potential. Edema management strategies were partially met with patient demonstrating understanding and carryover of instruction. The patient is being formally discharged from occupational therapy at this time due to plan for surgical intervention and related change in medical status. Reevaluation can be completed upon receipt of a new referral postoperatively to support recovery, address post-surgical stiffness and edema, and maximize protestant of strength and function of the right upper extremity. Home Exercise wrist flex/ext Program radial/ulnar deviation wrist circles forearm pronation/supination thumb opposition progressed to very gentle squeezing/pinching with yellow theraputty digit abduction/adduction - Plan Therapy Discharge from Occupational Therapy Recommendations Amount of Therapy No Further Therapy Recommended Frequency of No Further Therapy Treatment
== END 2025-09-08 08:49 | disposition home or self-care (01) ==
LOC: OT 10:00
PROVIDERS: PCP Student in an Organized Health Care Education/Training Program; Referring Provider Orthopaedic Surgery; Visit Provider Orthopaedic Surgery
DX: M25.531 Pain in right wrist (principal)
CPT/HCPCS: 97110; 97140; 97165; 97530

== ENCOUNTER 2025-08-21 08:26 | Day surgery (SDC) | payer MEDICARE, SELFPAY ==
[2022-07-03 12:44] VITALS: BMI 31.7
[2025-05-19 10:15] VITALS: BMI 31.7
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
[2025-08-17 07:25] VITALS: BMI 30.8
[2025-08-21] VITALS (18 sets, daily range): BP systolic 104–165; BP diastolic 51–74; PULSE 68–100; RESP 11–142; TEMP 36.1–36.7; O2SAT 89–100; BMI 29.8
[2025-08-21] MEDS: LACTATED RINGERS 1,000 ML 42 ML IV ×3 (08:42→18:17)
[2025-08-21] MEDS: SCOPOLAMINE 1 PATCH TOP (08:42)
[2025-08-21] MEDS: FAMOTIDINE 20 MG/2 ML VIAL IV (08:42)
[2025-08-21] MEDS: ACETAMINOPHEN 325 MG TABLET 975 MG PO (08:42)
[2025-08-21] MEDS: PHENAZOPYRIDINE 100 MG TABLET 200 MG PO (08:43)
--- NOTE | 2025-08-21 09:38 | PM.PREOP ---
Pre-operative Note Interval Note History & Physical reviewed/Exam performed by Physician: Yes Changes to H&P: No
--- NOTE | 2025-08-21 09:59 | PM.GYNOP.1 ---
Operative Date/Time/Diagnoses Date of procedure: 08/21/25 Time of procedure: 10:45 Pre-op diagnosis: recurrent cystocele and vaginal vault prolapse, urethral hypermobility Post-op diagnosis: same (wtih stress incontinence) Procedure & Clinicians Procedure: Procedures Operation Date: 08/21/25 09:45 <No data on this case meets the specified criteria> Operative Notes Findings: Operative Note Surgeon:? Nj Sanon MD Natural Resources Extension Educator:?? Brianna Floyd MD Pre-Op Diagnosis:?? Vaginal vault prolapse, cystocele, Incomplete bladder emptying Urethral hypermobility, at risk for stress urinary incontinence Post-Op Diagnosis:?? Same, stress urinary incontinence Procedure:?? Robotic assisted laparoscopic sacral colpopexy, TVT mid urethral sling, cystoscopy Findings (brief): 1. 5 ports, usual fashion. No significant Adhesions. There were some adhesions in the right upper quadrant that did not impact our surgery and therefore did not need lysis. The right and left fallopian tubes and ovaries were not removed.? Normal tubes and ovaries. Prior hysterectomy 2.?Vertessa Lite blue mesh, cut to 4 cm Ant and 7 cm Post, attached to vagina with sutures of 2-0 vicyrl.?? Excellent support of all 3 compartments.? 3. Cystoscopy with normal bladder, ureters, urethra, no injury, bilateral urethral jets 4. Bladder filled to 200 cc, scope removed, suprapubic pressure demonstrated significant urethral leakage of fluid, stress incontinence diagnosed, so sling was indicated. 5. TVT sling placed at mid-urethra, tension-free.? 6.? Cystoscopy with normal bladder, ureters, urethra, no trocar injury, bilateral ureteral jets.? Date of Surgery:? August 21, 2025 Complications:? none Specimens:? none Anesthesia Technique:?? General endotracheal Estimated Blood Loss (mls):? 50 Blood Replacement (mls):? none Drains:? Marcano Condition:? Stable Procedure in detail: After consent was confirmed, the patient was taken to the operating room and?positioned with the [place] Pad on the OR bed, and then placed under general anesthesia without incident. ?Sequential compression devices were in place and active. ?She received perioperative antibiotics. ?The arms were tucked and her legs were placed in the dorsal lithotomy position using the Jeff stirrups. ??She was then prepped and draped in the usual sterile fashion. ?An examination under anesthesia was consistent with the preoperative assessment. ?A 16 khmer marcano catheter was placed. ?Attention was turned to the abdomen. All 5 trocar sites were injected with 0.25% Marcaine with epinephrine prior to incision. A supra-umbilical 8?mm port was placed 2-3 cm above the umbilicus: a 8?mm incision was made, the Veress needle was placed, and pneumoperitoneum was achieved at low flow of 5, reaching a pressure of about 12, with 2-3 liters of CO2 gas. ?The abdominal wall was tented out to avoid any injury to underlying structures, and the trocar was introduced into the abdomen with ease, flow turned up to 40, pressure set at 12. ??Three?additional 8 mm robotic ports were placed, along the same line across the abdomen: ?? right lateral abdomen, left mid abdomen, left lateral abdomen,?under direct visualization atraumatically.??An additional food trades assistants 8 mm port was placed in the RUQ.?The patient was placed into steep Trendelenberg. ?The DV5?robot was Docked from a side-dock approach, using 3 arms. ?During the dissection, monopolar scissors and bipolar [place]?forceps were used, and during suturing, these were replaced with 2 needle drivers. ?The [employer] [address] grasper was used at the 3rd arm for surgical assistance. ?The 4th port was for the surgical services tech (passing sutures and suction / irrigation). ?At this point, I went to the robotic console to operate the robot.? ?The sigmoid was retracted, and the sacral promontory was identified, and the ureters were identifed lateral to the intended surgical planes.? The bladder was dissected off the vagina for a distance of 4 cm, and the vagina was dissected off the posterior peritoneum, most of the way down the posterior vagina, approx 6-8 cm. ??The Dejon Surgical Sacral Colpopexy tip with the Nery Arch was used to expose the vagina for dissection. ?Retrograde fill of the bladder facilitated the dissection. ?The peritoneum over the sacral promontory was incised and the dissection was carried down into the pelvis. ?The loose areolar connective tissue overlying the sacral promontory was dissected until the sacrum was clearly identified. ?The anterior arm of the Y-polypropylene mesh was fashioned as noted above, and sutured to the anterior vagina with several interrupted 2-0 vicryl sutures. ?The posterior arm of the mesh was fashioned as noted above, and sutured to the posterior vagina with several interrupted 2-0 vicryl sutures. ?The mesh tail was grasped to create a Y shape, cut to the appropriate length, and then attached to the sacral promontory in a tension-free manner, using 2 sutures of 2-0 Ethibond (permanent suture). The sacral peritoneum was closed over the mesh with a running 2-0 PDS / V-Lock suture, and then continued to close the peritoneum over the vaginal part of the mesh. I left the console and scrubbed and gowned and returned to the OR table. The robot was undocked.? All port sites were inspected for hemostasis, and pneumoperitoneum released. The skin incisions were reapproximated with 4-0 monocryl, and then dermabond was placed. ?Attention was turned to the remainder of the vagina where excellent apical support was appreciated. ?Cystourethroscopy was performed which revealed bilateral ureteral efflux of pyridium and no evidence of injury or suture material within the bladder urethra. Bladder filled to 200 cc, scope removed, suprapubic pressure demonstrated significant urethral leakage of fluid, stress incontinence diagnosed, so sling was indicated. With the Marcano catheter in place, the anterior vaginal mucosa beneath and lateral to the urethra was injected with 10-20 cc of? 0.5% lidocaine / epinephrine 1:200,000.? A 2-3 cm midline incision was made at the level of the midurethra with a scapel. Metzenbaum scissors were used to dissect the vagina from the urethra and then create tunnels beneath the vaginal mucosa up toward the pubic bone on each side.? A marking pen was used to gómez the skin just above the pubic bone and 2 cm from the midline bilaterally, and two small 8-10 mm incisions were made on the suprapubic skin.? The trocar was passed from the right vaginal tunnel, behind the pubic bone, to the right suprapubic incision, and this was repeated on the left side.? The Marcano catheter was removed, and cystoscopy was performed with a 70 degree lens. There was no trocar injury, and the bladder, ureters, and urethra were normal.? The Marcano catheter was reinserted.? The sling was pulled into position in a tension-free manner, and a Aviva clamp was easily passed between the sling and the urethra.? The plastic sheaths were removed to anchor the sling, and tension was checked again. The ends of the sling were trimmed just below the skin, and the skin incisions were cleaned and closed with dermabond. The vaginal incision was closed with 2-0 vicryl in a running fashion. Sponge, needle and instrument count was correct.? The patient tolerated the procedure well and was taken to the recovery room in stable condition. An additional set of hands was needed to perform the surgery, so a surgical services tech was needed for the case. The food trades assistants provided retraction and exposure throughout the case. Also delivered suturesand the mesh into the abdomen. Nj Sanon MD UroGynecology & Pelvic Reconstructive Surgery [place], [place] Applied: implant(s) (TVT sling mesh, Vertessa Lite SC mesh)
--- NOTE | 2025-08-21 10:38 | SUR.OPER ---
Lithotomy on padded OR bed. [place] Pad Positioner under torso. Prone pillow positioned per anesthesia to protect face. Head on pillow, arms padded and tucked at sides. Extra support under right wrist due to existing injury to wrist. IV sits and ports cushioned and protected. Legs secured in padded yellow fins stirrups.
[2025-08-21] MEDS: BUPivacaine 0.25% W/ EPI (PF) 30 ML VIAL INJ (11:17)
--- NOTE | 2025-08-21 14:10 | SUR.OPER ---
Patient transported to PACU with soft, stabilizing positioner in place on right wrist/arm to protect patient's previously noted wrist injury during wake up.
[2025-08-21] MEDS: KETOROLAC 30 MG/ML VIAL 15 MG IV (14:19)
[2025-08-21] MEDS: ONDANSETRON 4 MG/2 ML INJ IV (15:29)
--- NOTE | 2025-08-21 15:29 | SUR.PHASEII ---
patient nauseous and 1 episode of vomiting. zofran given. see MAR.
[2025-08-21] MEDS: METOCLOPRAMIDE 10 MG/2 ML INJ IV (15:59)
--- NOTE | 2025-08-21 15:59 | SUR.PHASEII ---
patient nauseous and 1 episode of vomiting. 10mg of reglan given via IV. see MAR for further details.
--- NOTE | 2025-08-21 16:21 | SUR.PHASEII ---
patient nauseous with 1 episode of vomiting.
[2025-08-21] MEDS: DOCUSATE 100 MG CAPSULE PO (20:42)
[2025-08-22 01:00] VITALS: BP 134/68; PULSE 86; RESP 18; TEMP 36.6; O2SAT 91
[2025-08-22] MEDS: LEVOTHYROXINE 75 MCG TABLET PO (06:56)
[2025-08-22] MEDS: ACETAMINOPHEN 325 MG TABLET 975 MG PO (06:56)
[2025-08-22 07:53] VITALS: BP 118/54; PULSE 65; RESP 16; TEMP 36.9; O2SAT 94
[2025-08-22] MEDS: DOCUSATE 100 MG CAPSULE PO (08:05)
--- NOTE | 2025-08-22 10:03 | PC.NURSE ---
Pt is dressed and ready for discharge home with family. IV has been removed. Went over d/c instructions with Pt-discussed d/c meds, time of last dose, reviewed stroke education, and follow up. Pt denied further questions and was taken out via w/c by CNC MACHINIST to pov with family and all belongings.
--- NOTE | 2025-08-22 11:09 | CM.DANOTE ---
Initial DCP Assessement Visit Note Reviewed EMR and team rounds for pt's medical status and updates. Pt resides alone in her own home in [place]. She has 2-local dtr's and a Significant Other. She was medically cleared for home d/c today and her family drove her home. No CM d/c assistance or resource needs were identified during her stay. She will f/u with Dr. Sanon for OP post-op visit. Payor: JOHN PAUL AMOR Attending: Dr. 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 She's had 2-prior surgeries to correct these issues in the past, including a hysterectomy. Pt did well postoperatively, pain was well controlled, and she was discharged safely home w/family to provide caregiving needs. 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 Yes Advance Directives No on File History Provided By Medical Record Has Patient been No admitted in last 30 days? Prior Living House Arrangements Household Members none Type of Drives own vehicle transporation used prior to admit Independent with ADL Yes 's Is patient alert and Yes oriented? Comment N/A Comment N/A Discharge Plan Home Transportation Dtr Arrangement Review Status In Process Please Provide Date 08/22/25 Initial DC Assessment Was Performed Pre-Anesthesia Assessment Start: 08/17/25 07:25 Freq: Status: Complete Protocol: Document 08/17/25 07:25 LB (Rec: 08/17/25 07:34 LB [id number]) Pre-Anesthesia Assessment PAC Comment 08/17/25 Chart review. Patient Information Chart Review Reviewed Via Diagnostic Results BMP/CMP,CBC Comment at . Primary Care Laura Ramirez Provider Specialist Seen Emergency,Die Casting Supervisor,Orthopedist Primary Language Luxembourger Preferred Language Luxembourger Postage Machine Operator Required No Height 154.94 cm Weight 73.936 kg Body Mass Index (BMI 30.8 ) Other Aids No Hx Anesthesia Yes: Extreme PONV Reactions Anesthesia Review No Requested Vault Teller No alcohol intake current Smoking Status Never smoker Substance Use Type [ does not use #R] History of Falling ( Yes Recent or History of ) Comment Right wrist fx 06/23. Patient is No completely paralyzed or completely immobile Is patient on oxygen No ? Hx Sleep Apnea No Anti-Coagulant No Therapy Cardiac Testing No Hx Pacemaker/ICD No Chronic UTI No Urinary Catheter No Present Hx Urinary Self No Catheterization Diabetes No HgbA1C 5.2 Date 06/06/25 Patient No Hx Drug Resistant No Organism Presence of external Yes: Bilat knees, toe, right foot. or internal medical devices? Received a COVID Yes vaccine? Marital Status Lives With none Patient Discharge Return Home Plan Description Emergency Contact Kayli (daughter), Seble (daughter) Name Emergency Contact Kayli: [phone] Seble: [phone] Phone Number Advance Directives? Yes Advance Directives No on File
== END 2025-08-22 10:03 | disposition home or self-care (01) ==
LOC: OR 15:58 → AC 15:58
PROVIDERS: PCP Student in an Organized Health Care Education/Training Program; Referring Provider Student in an Organized Health Care Education/Training Program; Visit Provider Obstetrics & Gynecology Gynecology
PROC: 0USG4ZZ Reposition Vagina, Percutaneous Endoscopic Approach (ICD-10-PCS; CPT 57425; principal; 2025-08-21 09:45)
DX: N99.3 Prolapse of vaginal vault after hysterectomy (principal); R33.9 Retention of urine, unspecified; N36.41 Hypermobility of urethra; N39.3 Stress incontinence (female) (male)
CPT/HCPCS: 57425; 57288; S2900; C1771; C1781; J0689; J1100; J1171; J1885; J2405; J2704; J2765; J3010; J3490